=== PATIENT | female | born 2000 | race Hispanic/Latino ===

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

== ENCOUNTER 2021-10-25 03:47 | Inpatient (IN) | payer OTHER ==
--- OUTSIDE RECORDS SUMMARY | 2021-10-25 03:52 | XMS REPORT | Continuity of Care Document ---
:2000 Author Organization [facility] t Address [address] [place] [address] Care Team Providers Name Role Phone Maria [place] Primary Care Physician Nurse, [facility] Attending Clinician Unavailable Zeynep Olivares MD Attending Clinician ZEYNEP OLIVARES Attending Clinician Unavailable Doctor Unassigned, [place] Attending Clinician Unavailable Martina Charles LMSW Attending Clinician Unavailable Maria [place] Attending Clinician Sasha Shepard MD Attending Clinician Leyda Gregorio PA-C Attending Clinician 2, [facility] Attending Clinician Unavailable Payers Payer Name Policy Type Policy Number Effective Date Expiration Date S ource Problems Condition Condition Condition Status Onset Resolution Last Treating Co mments Source Name Details Category Date Date Treatment Clinician Date ASCUS with ASCUS with Disease Active U nivers positive positive 1-16 [place] 00 [place] cervical cervical Branch ASCUS with ASCUS with Disease Active U nivers positive positive 1-16 [place] risk [place] risk [place] 00 [place] cervical cervical Branch Obesity, Obesity, Disease Active Unive rs Class I, Class I, 9-08 ity of BMI BMI 00:00: [place] 30-34.9 30-34.9 00 Medical Branch 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 10-13 ity of 00:00: [place] 00 Medical Branch Family Family Disease Active Univers history of history of 10-13 it y of diabetes diabetes 00:00: [place] mellitus mellitus 00 Medica l (DM) (DM) Branch Allergies, Adverse Reactions, Alerts Allergy Allergy Status Severity Reaction(s) Onset Inactive Treating Comm ents Source Name Type Date Date Clinician NO KNOWN Drug Active Univers ALLERGIE Class ity of S [place] [facility] [place] Social History Social Habit Start Date Stop Date Quantity Comments Source History SDOH University o f Alcohol Frequency [place] [facility] History SDOH [facility] o f Alcohol Std [place] [facility] Drinks [facility] History SDOH [facility] o f Alcohol Binge [place] [facility] Exposure to 2021-06-28 2021-07-08 Not sure [facility] SARS-CoV-2 00:00:00 10:00:[facility] Alcohol intake 2021-07-08 2021-07-08 Current drinker Unive rsity of 00:00:00 00:00:00 of alcohol [place] [facility] (finding) Branch Tobacco use and 2018-10-10 2018-10-10 Never used Universit y of exposure 00:00:00 00:00:00 [facility] Alcohol Comment 2018-02-20 2018-02-20 Rare Universit y of 00:00:00 00:00:00 [facility] History of 2018-02-09 Smoker University of tobacco use 00:00:00 [facility] Sex Assigned At [birth year] Universit y of 00:00:00 00:00:00 [facility] Smoking Status Start Date Stop Date Source Former smoker 2018-10-10 00:00:00 2018-10-10 00:00:00 Universi ty of [facility] Current some day 2018-02-20 00:00:00 [facility] smoker Medical Branch Medications Ordered Filled Start Stop Current Ordering Indication Dosage Frequency Signature Comments Components Source Medication Medication Date Date Medication? Clinician (SIG) Name Name AMOXICILLIN 2020- No Take by Un viji ORAL 5-19 05-19 mouth. ity of 18:21: 00:00 [place] 37 :00 Medical Branch AMOXICILLIN 2020- No Take by Un v[facility] ORAL 5-19 05-19 mouth. ity of 18:21: 00:00 [place] 37 :00 Medical Branch metroNIDAZO 2019-0 Yes [id number] 500mg Take 1 Univers LE 500 mg 9-06 tablet by ity o f tablet 00:00: mouth [place] 00 every 12 Medical (twelve) Branch hours. metroNIDAZO 2019-0 Yes [id number] 500mg Take 1 Univers LE 500 mg 9-06 tablet by ity o f tablet 00:00: mouth [place] 00 every 12 Medical (twelve) Branch hours. metroNIDAZO 2019-0 Yes [id number] 500mg Take 1 Univers LE 500 mg 9-06 tablet by ity o f tablet 00:00: mouth [place] 00 every 12 Medical (twelve) Branch hours. metroNIDAZO 2019-0 Yes [id number] 500mg Take 1 Univers LE 500 mg 9-06 tablet by ity o f tablet 00:00: mouth [place] 00 every 12 Medical (twelve) Branch hours. metroNIDAZO 2019-0 Yes [id number] 500mg Take 1 Univers LE 500 mg 9-06 tablet by ity o f tablet 00:00: mouth [place] 00 every 12 Medical (twelve) Branch hours. metroNIDAZO 2018-0 Yes [id number] 500mg Take 1 Univers LE 500 mg 9-06 tablet by ity o f tablet 00:00: mouth [place] 00 every 12 Medical (twelve) Branch hours. metroNIDAZO 2019-0 202- No [id number] 500mg Take 1 Univers LE 500 mg 9-06 05-19 tablet by ity of tablet 00:00: 00:00 mouth [place] 00 :00 every 12 Medical (twelve) Branch hours. metroNIDAZO 2019-0 2021- No [id number] 500mg Take 1 Univers LE 500 mg 9-06 05-19 tablet by ity of tablet 00:00: 00:00 mouth [place] 00 :00 every 12 Medical (twelve) Branch hours. AMOXICILLIN 2019-0 Yes Take by Uni vers ORAL 9-05 mouth. ity of 13:11: [address] Branch AMOXICILLIN 2019-0 Yes Take by Uni vers ORAL 9-05 mouth. ity of 13:11: [address] AMOXICILLIN 2019-0 Yes Take by Uni vers ORAL 9-05 mouth. ity of 13:11: [address] AMOXICILLIN 2018-0 Yes Take by Uni vers ORAL 9-05 mouth. ity of 13:11: [address] AMOXICILLIN 2019-0 Yes Take by Uni vers ORAL 9-05 mouth. ity of 13:11: [address] AMOXICILLIN 2019-0 Yes Take by Uni vers ORAL 9-05 mouth. ity of 13:11: [address] AMOXICILLIN 2019-0 Yes Take by Uni vers ORAL 9-05 mouth. ity of 13:11: [address] AMOXICILLIN 2019-0 Yes Take by Uni vers ORAL 9-05 mouth. ity of 13:11: [address] AMOXICILLIN 2019-0 Yes Take by Uni vers ORAL 9-05 mouth. ity of 13:11: [address] metFORMIN 2019-0 Yes 1000mg Take 1,000 Univers 1,000 mg 9-05 mg by ity of tablet 13:10: mouth 2 [place] [address] ([facility]) Medical times [place] daily with meals. metFORMIN 2019-0 Yes 1000mg Take 1,000 Univers 1,000 mg 9-05 mg by ity of tablet 13:10: mouth 2 [place] [address] ([facility]) Medical times [place] daily with meals. metFORMIN 2019-0 Yes 1000mg Take 1,000 Univers 1,000 mg 9-05 mg by ity of tablet 13:10: mouth 2 [place] [address] ([facility]) Medical times [place] daily with meals. metFORMIN 2019-0 Yes 1000mg Take 1,000 Univers 1,000 mg 9-05 mg by ity of tablet 13:10: mouth 2 [place] [address] ([facility]) Medical times [place] daily with meals. metFORMIN 2019-0 Yes 1000mg Take 1,000 Univers 1,000 mg 9-05 mg by ity of tablet 13:10: mouth 2 [place] [address] ([facility]) Medical times [place] daily with meals. metFORMIN 2019-0 Yes 1000mg Take 1,000 Univers 1,000 mg 9-05 mg by ity of tablet 13:10: mouth 2 [place] [address] ([facility]) Medical times [place] daily with meals. metFORMIN 2019-0 Yes 1000mg Take 1,000 Univers 1,000 mg 9-05 mg by ity of tablet 13:10: mouth 2 [place] [address] ([facility]) Medical times [place] daily with meals. metFORMIN 2019-0 Yes 1000mg Take 1,000 Univers 1,000 mg 9-05 mg by ity of tablet 13:10: mouth 2 [place] [address] ([facility]) Medical times [place] daily with meals. metFORMIN 2019-0 Yes 1000mg Take 1,000 Univers 1,000 mg 9-05 mg by ity of tablet 13:10: mouth 2 [place] [address] (two) Medical times Branch daily with meals. metFORMIN 2019-0 Yes 1000mg Take 1,000 Univers 1,000 mg 9-05 mg by ity of tablet 13:10: mouth 2 [place] [address] (two) Medical times Branch daily with meals. metFORMIN 2019-0 Yes 1000mg Take 1,000 Univers 1,000 mg 9-05 mg by ity of tablet 13:10: mouth 2 [place] [address] (two) Medical times Branch daily with meals. metFORMIN 2019-0 Yes 1000mg Take 1,000 Univers 1,000 mg 9-05 mg by ity of tablet 08:10: mouth 2 [place] [address] (two) Medical times Branch daily with meals. metFORMIN 2019-0 Yes 1000mg Take 1,000 Univers 1,000 mg 9-05 mg by ity of tablet 08:10: mouth 2 [place] [address] (two) Medical times Branch daily with meals. metFORMIN 2019-0 Yes 1000mg Take 1,000 Univers 1,000 mg 9-05 mg by ity of tablet 08:10: mouth 2 [place] [address] (two) Medical times Branch daily with meals. metFORMIN 2019-0 Yes 1000mg Take 1,000 Univers 1,000 mg 9-05 mg by ity of tablet 08:10: mouth 2 [place] [address] (two) Medical times Branch daily with meals. Nitrofurant 2019-0 Yes [id number] 100mg Take 1 Univers oin&Nit. 9-05 capsule by ity o f Macrocryst 00:00: [place] (two) Medical capsule times Branch daily. Nitrofurant 2019-0 Yes [id number] 100mg Take 1 Univers oin&Nit. 9-05 capsule by ity o f Macrocryst 00:00: [place] (two) Medical capsule times Branch daily. Nitrofurant 2019-0 Yes [id number] 100mg Take 1 Univers oin&Nit. 9-05 capsule by ity o f Macrocryst 00:00: [place] 2 [place] (two) Medical capsule times Branch daily. Nitrofurant 2019-0 Yes [id number] 100mg Take 1 Univers oin&Nit. 9-05 capsule by ity o f Macrocryst 00:00: [place] 2 [place] (two) Medical capsule times Branch daily. Nitrofurant 2019-0 Yes [id number] 100mg Take 1 Univers oin&Nit. 9-05 capsule by ity o f Macrocryst 00:00: [place] 2 [place] (two) Medical capsule times Branch daily. Nitrofurant Yes [id number] 100mg Take 1 Univers oin&Nit. 9-05 capsule by ity o f Macrocryst 00:00: [place] 2 [place] mg 00 (two) Medical capsule times Branch daily. Nitrofurant Yes [id number] 100mg Take 1 Univers oin&Nit. 9-05 capsule by ity o f Macrocryst 00:00: [place] 2 [place] 00 (two) Medical capsule times Branch daily. Nitrofurant Yes [id number] 100mg Take 1 Univers oin&Nit. 9-05 capsule by ity o f Macrocryst 00:00: mouth 2 [place] mg 00 (two) Medical capsule times Branch daily. Nitrofurant Yes [id number] 100mg Take 1 Univers oin&Nit. 9-05 capsule by ity o f Macrocryst 00:00: [place] 2 [place] mg 00 (two) Medical capsule times Branch daily. Nitrofurant 2020- No [id number] 100mg Take 1 Univers oin&Nit. 9-05 05-19 capsule by ity of Macrocryst 00:00: 00:00 mouth 2 [place] 100 mg 00 :00 (two) Medical capsule times Branch daily. Nitrofurant 0 2020- No [id number] 100mg Take 1 Univers oin&Nit. 9-05 05-19 capsule by ity of Macrocryst 00:00: 00:00 mouth 2 [place] 100 mg 00 :00 (two) Medical capsule times Branch daily. lamoTRIgine Yes TK 1/2 T [facility] 100 mg 8-13 PO BID ity of tablet 00:00: [facility] lamoTRIgine 2018-0 Yes TK 1/2 T Un [facility] 100 mg 8-13 PO BID ity of tablet 00:00: [facility] lamoTRIgine 2018-0 Yes TK 1/2 T Un [facility] 100 mg 8-13 PO BID ity of tablet 00:00: [facility] lamoTRIgine 2018-0 Yes TK 1/2 T Un [facility] 100 mg 8-13 PO BID ity of tablet 00:00: [place] [facility] lamoTRIgine 2019-0 Yes TK 1/2 T Un [facility] 100 mg 8-13 PO BID ity of tablet 00:00: [place] [facility] lamoTRIgine 2019-0 Yes TK 1/2 T Un [facility] 100 mg 8-13 PO BID ity of tablet 00:00: [place] [facility] lamoTRIgine 2019-0 Yes TK 1/2 T Un [facility] 100 mg 8-13 PO BID ity of tablet 00:00: [place] [facility] lamoTRIgine 2018- Yes TK 1/2 T Un [facility] 100 mg 8-13 PO BID ity of tablet 00:00: [place] [facility] lamoTRIgine 2018- Yes TK 1/2 T Un [facility] 100 mg 8-13 PO BID ity of tablet 00:00: [place] [facility] lamoTRIgine Yes TK 1/2 T Un [facility] 100 mg 8-13 PO BID ity of tablet 00:00: [place] [facility] lamoTRIgine 2019-0 Yes TK 1/2 T Un [facility] 100 mg 8-13 PO BID ity of tablet 00:00: [place] [facility] lamoTRIgine 2019-0 Yes TK 1/2 T Un [facility] 100 mg 8-13 PO BID ity of tablet 00:00: [place] [facility] lamoTRIgine 2018-0 Yes TK 1/2 T Un [facility] 100 mg 8-13 PO BID ity of tablet 00:00: [place] [facility] lamoTRIgine 2019-0 Yes TK 1/2 T Un v[facility] 100 mg 8-13 PO BID ity of tablet 00:00: [place] [facility] lamoTRIgine 2019-0 Yes TK 1/2 T Un [facility] 100 mg 8-13 PO BID ity of tablet 00:00: [address] AMOXICILLIN 2019- Yes Take by Un v[facility] ORAL 1-16 mouth. ity of 16:43: [address] metFORMIN 2019-0 Yes 1000mg Take 1,000 Univers 1,000 mg 1-16 mg by ity of tablet 16:43: mouth 2 [place] [address] (two) Medical times [place] daily with meals. PROAIR HFA 2017- Yes INL 1 TO 2 U nivers 90 2-15 PFS PO Q 4 ity of mcg/actuati 00:00: TO 6 H PRN [place] on inhaler 00 Medical Branch LEVEMIR 2017-02 Yes ADM 80 UNI Univ ers FLEXTOUCH 2-15 SC QD ity of U-100 00:00: [place] INSULN 100 00 Medical unit/mL (3 Branch mL) injection PROAIR HFA 2017-02 Yes INL 1 TO 2 U nivers 90 2-15 PFS PO Q 4 ity of mcg/actuati 00:00: TO 6 H PRN [place] on inhaler 00 Medical Branch LEVEMIR 2017-02 Yes ADM 80 UNI Univ ers FLEXTOUCH 2-15 SC QD ity of U-100 00:00: [place] INSULN 100 00 Medical unit/mL (3 Branch mL) injection PROAIR HFA 2017-02 Yes INL 1 TO 2 U nivers 90 2-15 PFS PO Q 4 ity of mcg/actuati 00:00: TO 6 H PRN [place] on inhaler Medical Branch LEVEMIR 2017-02 Yes ADM 80 UNI Univ ers FLEXTOUCH 2-15 SC QD ity of U-100 00:00: [place] INSULN 100 00 Medical unit/mL (3 Branch mL) injection PROAIR HFA 2017-02 Yes INL 1 TO 2 U nivers 90 2-15 PFS PO Q 4 ity of mcg/actuati 00:00: TO 6 H PRN [place] on inhaler 00 Medical Branch LEVEMIR 2017-02 Yes ADM 80 UNI Univ ers FLEXTOUCH 2-15 SC QD ity of U-100 00:00: [place] INSULN 100 00 Medical unit/mL (3 Branch mL) injection PROAIR HFA 2017-02 Yes INL 1 TO 2 U nivers 90 2-15 PFS PO Q 4 ity of mcg/actuati 00:00: TO 6 H PRN [place] on inhaler 00 Medical Branch LEVEMIR 2017-02 Yes ADM 80 UNI Univ ers FLEXTOUCH 2-15 SC QD ity of U-100 00:00: [place] INSULN 100 00 Medical unit/mL (3 Branch mL) injection PROAIR HFA 2017-02 Yes INL 1 TO 2 U nivers 90 2-15 PFS PO Q 4 ity of mcg/actuati 00:00: TO 6 H PRN [place] on inhaler 00 Medical Branch LEVEMIR 2017-02 Yes ADM 80 UNI Univ ers FLEXTOUCH 2-15 SC QD ity of U-100 00:00: [place] INSULN 100 00 Medical unit/mL (3 Branch mL) injection PROAIR HFA 2017-02 Yes INL 1 TO 2 U nivers 90 2-15 PFS PO Q 4 ity of mcg/actuati 00:00: TO 6 H PRN [place] on inhaler 00 Medical Branch LEVEMIR 2017-02 Yes ADM 80 UNI Univ ers FLEXTOUCH 2-15 SC QD ity of U-100 00:00: [place] INSULN 100 00 Medical unit/mL (3 Branch mL) injection PROAIR HFA 2017-02 Yes INL 1 TO 2 U nivers 90 2-15 PFS PO Q 4 ity of mcg/actuati 00:00: TO 6 H PRN [place] on inhaler 00 Medical Branch LEVEMIR 2017-02 Yes ADM 80 UNI Univ ers FLEXTOUCH 2-15 SC QD ity of U-100 00:00: [place] INSULN 100 00 Medical unit/mL (3 Branch mL) injection PROAIR HFA 2017-02 Yes INL 1 TO 2 U nivers 90 2-15 PFS PO Q 4 ity of mcg/actuati 00:00: TO 6 H PRN [place] on inhaler 00 Medical Branch LEVEMIR 2017-02 Yes ADM 80 UNI Univ ers FLEXTOUCH 2-15 SC QD ity of U-100 00:00: [place] INSULN 100 00 Medical unit/mL (3 Branch mL) injection PROAIR HFA 2017-02 Yes INL 1 TO 2 U nivers 90 2-15 PFS PO Q 4 ity of mcg/actuati 00:00: TO 6 H PRN [place] on inhaler 00 Medical Branch PROAIR HFA 2017-02 Yes INL 1 TO 2 U nivers 90 2-15 PFS PO Q 4 ity of mcg/actuati 00:00: TO 6 H PRN [place] on inhaler 00 Medical Branch LEVEMIR 2017-02 Yes ADM 80 UNI Univ ers FLEXTOUCH 2-15 SC QD ity of U-100 00:00: [place] INSULN 100 00 Medical unit/mL (3 Branch mL) injection PROAIR HFA 2017-02 Yes INL 1 TO 2 U nivers 90 2-15 PFS PO Q 4 ity of mcg/actuati 00:00: TO 6 H PRN [place] on inhaler 00 Medical Branch LEVEMIR 2017-02 Yes ADM 80 UNI Univ ers FLEXTOUCH 2-15 SC QD ity of U-100 00:00: [place] INSULN 100 00 Medical unit/mL (3 Branch mL) injection LEVEMIR 2017-02 Yes ADM 80 UNI Univ ers FLEXTOUCH 2-15 SC QD ity of U-100 00:00: [place] INSULN 100 00 Medical unit/mL (3 Branch mL) injection PROAIR HFA 2017-02 Yes INL 1 TO 2 U nivers 90 2-15 PFS PO Q 4 ity of mcg/actuati 00:00: TO 6 H PRN [place] on inhaler 00 Medical Branch LEVEMIR 2017-02 Yes ADM 80 UNI Univ ers FLEXTOUCH 2-15 SC QD ity of U-100 00:00: [place] INSULN 100 00 Medical unit/mL (3 Branch mL) injection PROAIR HFA 2017-02 Yes INL 1 TO 2 U nivers 90 2-15 PFS PO Q 4 ity of mcg/actuati 00:00: TO 6 H PRN [place] on inhaler 00 Medical Branch LEVEMIR 2017-02 Yes ADM 80 UNI Univ ers FLEXTOUCH 2-15 SC QD ity of U-100 00:00: [place] INSULN 100 00 Medical unit/mL (3 Branch mL) injection PROAIR HFA 2017-02 Yes INL 1 TO 2 U nivers 90 2-15 PFS PO Q 4 ity of mcg/actuati 00:00: TO 6 H PRN [place] on inhaler 00 Medical Branch LEVEMIR 2017-02 Yes ADM 80 UNI Univ ers FLEXTOUCH 2-15 SC QD ity of U-100 00:00: [place] INSULN 100 00 Medical unit/mL (3 Branch mL) injection PROAIR HFA 2017-02 Yes INL 1 TO 2 U nivers 90 2-15 PFS PO Q 4 ity of mcg/actuati 00:00: TO 6 H PRN [place] on inhaler 00 Medical Branch LEVEMIR 2017-02 Yes ADM 80 UNI Univ ers FLEXTOUCH 2-15 SC QD ity of U-100 00:00: [place] INSULN 100 00 Medical unit/mL (3 Branch mL) injection SYMBICORT 2017-02 Yes INHALE 1 Univ ers 160-4.5 2-12 PUFF PO QD ity of mcg/actuati 00:00: [place] on inhaler 00 Medical Branch levothyroxi 2017-02 Yes TK 1 T PO U nivers ne 150 mcg 2-12 QD WHEN ity of tablet 00:00: AWAKENING [place] 00 WITH A Medical FULL GLASS Branch OF WATER ON AN EMPTY STOMACH SYMBICORT 2017-02 Yes INHALE 1 Univ ers 160-4.5 2-12 PUFF PO QD ity of mcg/actuati 00:00: [place] on inhaler Medical Branch levothyroxi 2018- Yes TK 1 T PO U nivers ne 150 mcg 2-12 QD WHEN ity of tablet 00:00: AWAKENING WITH A Medical FULL GLASS Branch OF WATER ON AN EMPTY STOMACH SYMBICORT 2017-02 Yes INHALE 1 Univ ers 160-4.5 2-12 PUFF PO QD ity of mcg/actuati 00:00: [place] on inhaler Medical Branch levothyroxi 2018- Yes TK 1 T PO U nivers ne 150 mcg 2-12 QD WHEN ity of tablet 00:00: AWAKENING WITH A Medical FULL GLASS Branch OF WATER ON AN EMPTY STOMACH SYMBICORT 2017-02 Yes INHALE 1 Univ ers 160-4.5 2-12 PUFF PO QD ity of mcg/actuati 00:00: on inhaler Medical Branch levothyroxi 2018- Yes TK 1 T PO U nivers ne 150 mcg 2-12 QD WHEN ity of tablet 00:00: AWAKENING WITH A Medical FULL GLASS Branch OF WATER ON AN EMPTY STOMACH SYMBICORT 2017-02 Yes INHALE 1 Univ ers 160-4.5 2-12 PUFF PO QD ity of mcg/actuati 00:00: [place] on inhaler Medical Branch levothyroxi 2018- Yes TK 1 T PO U nivers ne 150 mcg 2-12 QD WHEN ity of tablet 00:00: AWAKENING WITH A Medical FULL GLASS Branch OF WATER ON AN EMPTY STOMACH SYMBICORT 2017-02 Yes INHALE 1 Univ ers 160-4.5 2-12 PUFF PO QD ity of mcg/actuati 00:00: [place] on inhaler 00 Medical Branch levothyroxi 2018- Yes TK 1 T PO U nivers ne 150 mcg 2-12 QD WHEN ity of tablet 00:00: AWAKENING WITH A Medical FULL GLASS Branch OF WATER ON AN EMPTY STOMACH SYMBICORT 2017-02 Yes INHALE 1 Univ ers 160-4.5 2-12 PUFF PO QD ity of mcg/actuati 00:00: [place] on inhaler 00 Medical Branch levothyroxi 2018-1 Yes TK 1 T PO U nivers ne 150 mcg 2-12 QD WHEN ity of tablet 00:00: AWAKENING WITH A Medical FULL GLASS Branch OF WATER ON AN EMPTY STOMACH SYMBICORT 2017-02 Yes INHALE 1 Univ ers 160-4.5 2-12 PUFF PO QD ity of mcg/actuati 00:00: [place] on inhaler Medical Branch levothyroxi 2018- Yes TK 1 T PO U nivers ne 150 mcg 2-12 QD WHEN ity of tablet 00:00: AWAKENING WITH A Medical FULL GLASS Branch OF WATER ON AN EMPTY STOMACH SYMBICORT 2017-02 Yes INHALE 1 Univ ers 160-4.5 2-12 PUFF PO QD ity of mcg/actuati 00:00: [place] on inhaler Medical Branch levothyroxi 2017-02 Yes TK 1 T PO U nivers ne 150 mcg 2-12 QD WHEN ity of tablet 00:00: AWAKENING WITH A Medical FULL GLASS Branch OF WATER ON AN EMPTY STOMACH SYMBICORT 2017-02 Yes INHALE 1 Univ ers 160-4.5 2-12 PUFF PO QD ity of mcg/actuati 00:00: on inhaler 00 Medical Branch levothyroxi 2017-02 Yes TK 1 T PO U nivers ne 150 mcg 2-12 QD WHEN ity of tablet 00:00: AWAKENING WITH A Medical FULL GLASS Branch OF WATER ON AN EMPTY STOMACH SYMBICORT 2017-02 Yes INHALE 1 Univ ers 160-4.5 2-12 PUFF PO QD ity of mcg/actuati 00:00: [place] on inhaler 00 Medical Branch SYMBICORT 2018- Yes INHALE 1 Univ ers 160-4.5 2-12 PUFF PO QD ity of mcg/actuati 00:00: [place] on inhaler 00 Medical Branch levothyroxi 2018- Yes TK 1 T PO U nivers ne 150 mcg 2-12 QD WHEN ity of tablet 00:00: AWAKENING WITH A Medical FULL GLASS Branch OF WATER ON AN EMPTY STOMACH levothyroxi 2018 Yes TK 1 T PO U nivers ne 150 mcg 2-12 QD WHEN ity of tablet 00:00: AWAKENING WITH A Medical FULL GLASS Branch OF WATER ON AN EMPTY STOMACH SYMBICORT 2017-02 Yes INHALE 1 Univ ers 160-4.5 2-12 PUFF PO QD ity of mcg/actuati 00:00: on inhaler 00 Medical Branch levothyroxi 2018 Yes TK 1 T PO U nivers ne 150 mcg 2-12 QD WHEN ity of tablet 00:00: AWAKENING WITH A Medical FULL GLASS Branch OF WATER ON AN EMPTY STOMACH SYMBICORT 2017-02 Yes INHALE 1 Univ ers 160-4.5 2-12 PUFF PO QD ity of mcg/actuati 00:00: on inhaler Medical Branch levothyroxi 2017-02 Yes TK 1 T PO U nivers ne 150 mcg 2-12 QD WHEN ity of tablet 00:00: AWAKENING WITH A Medical FULL GLASS Branch OF WATER ON AN EMPTY STOMACH SYMBICORT 2017-02 Yes INHALE 1 Univ ers 160-4.5 2-12 PUFF PO QD ity of mcg/actuati 00:00: on inhaler Medical Branch levothyroxi 2017-02 Yes TK 1 T PO U nivers ne 150 mcg 2-12 QD WHEN ity of tablet 00:00: AWAKENING WITH A Medical FULL GLASS Branch OF WATER ON AN EMPTY STOMACH SYMBICORT 2017-02 Yes INHALE 1 Univ ers 160-4.5 2-12 PUFF PO QD ity of mcg/actuati 00:00: on inhaler Medical Branch levothyroxi 2017-02 Yes TK 1 T PO U nivers ne 150 mcg 2-12 QD WHEN ity of tablet 00:00: AWAKENING WITH A Medical FULL GLASS Branch OF WATER ON AN EMPTY STOMACH loratadine 2017-02 Yes TK 1 T PO Un viji 10 mg 1-15 QD ity of tablet 00:00: Medical Branch loratadine 2017-02 Yes TK 1 T PO Un [facility] 10 mg 1-15 QD ity of tablet 00:00: Medical Branch loratadine 2017-02 Yes TK 1 T PO Un v[facility] 10 mg 1-15 QD ity of tablet 00:00: Medical Branch loratadine 2017-02 Yes TK 1 T PO Un viji 10 mg 1-15 QD ity of tablet 00:00: Medical Branch loratadine 2017-02 Yes TK 1 T PO Un v[facility] 10 mg 1-15 QD ity of tablet 00:00: Medical Branch loratadine 2017-02 Yes TK 1 T PO Un v[facility] 10 mg 1-15 QD ity of tablet 00:00: [place] 00 Medical Branch loratadine 2017-02 Yes TK 1 T PO Un viji 10 mg 1-15 QD ity of tablet 00:00: [place] [facility] loratadine 2017-02 Yes TK 1 T PO Un viji 10 mg 1-15 QD ity of tablet 00:00: [place] [facility] loratadine 2017-02 Yes TK 1 T PO Un viji 10 mg 1-15 QD ity of tablet 00:00: [place] [facility] loratadine 2017-02 Yes TK 1 T PO Un viji 10 mg 1-15 QD ity of tablet 00:00: [place] [facility] loratadine 2017-02 Yes TK 1 T PO Un viji 10 mg 1-15 QD ity of tablet 00:00: [place] [facility] loratadine 2017-02 Yes TK 1 T PO Un viji 10 mg 1-15 QD ity of tablet 00:00: [place] [facility] loratadine 2017-02 Yes TK 1 T PO Un viji 10 mg 1-15 QD ity of tablet 00:00: [place] [facility] loratadine 2017-02 Yes TK 1 T PO Un viji 10 mg 1-15 QD ity of tablet 00:00: [place] [facility] loratadine 2017-02 Yes TK 1 T PO Un viji 10 mg 1-15 QD ity of tablet 00:00: [place] [facility] loratadine 2017-02 Yes TK 1 T PO Un viji 10 mg 1-15 QD ity of tablet 00:00: [place] 00 Medical Branch montelukast 2017-02 Yes TAKE 1 Univ ers 10 mg 1-02 TABLET BY ity of tablet 00:00: MOUTH [place] 00 EVERY DAY Medical IN THE Branch EVENING montelukast 2017-02 Yes TAKE 1 Univ ers 10 mg 1-02 TABLET BY ity of tablet 00:00: MOUTH [place] 00 EVERY DAY Medical IN THE Branch EVENING montelukast 2017-02 Yes TAKE 1 Univ ers 10 mg 1-02 TABLET BY ity of tablet 00:00: MOUTH [place] 00 EVERY DAY Medical IN THE Branch EVENING montelukast 2017-02 Yes TAKE 1 Univ ers 10 mg 1-02 TABLET BY ity of tablet 00:00: MOUTH [place] 00 EVERY DAY Medical IN THE Branch EVENING montelukast 2017-02 Yes TAKE 1 Univ ers 10 mg 1-02 TABLET BY ity of tablet 00:00: MOUTH [place] 00 EVERY DAY Medical IN THE [facility] 2017-02 Yes TAKE 1 Univ ers 10 mg 1-02 TABLET BY ity of tablet 00:00: MOUTH [place] 00 EVERY DAY Medical IN THE [facility] 2017-02 Yes TAKE 1 Univ ers 10 mg 1-02 TABLET BY ity of tablet 00:00: MOUTH [place] 00 EVERY DAY Medical IN THE [facility] 2017-02 Yes TAKE 1 Univ ers 10 mg 1-02 TABLET BY ity of tablet 00:00: MOUTH [place] 00 EVERY DAY Medical IN THE [facility] 2017-02 Yes TAKE 1 Univ ers 10 mg 1-02 TABLET BY ity of tablet 00:00: MOUTH [place] 00 EVERY DAY Medical IN THE [facility] 2017-02 Yes TAKE 1 Univ ers 10 mg 1-02 TABLET BY ity of tablet 00:00: MOUTH [place] 00 EVERY DAY Medical IN THE [facility] 2017-02 Yes TAKE 1 Univ ers 10 mg 1-02 TABLET BY ity of tablet 00:00: MOUTH [place] 00 EVERY DAY Medical IN THE [facility] 2017-02 Yes TAKE 1 Univ ers 10 mg 1-02 TABLET BY ity of tablet 00:00: MOUTH [place] 00 EVERY DAY Medical IN THE [facility] 2017-02 Yes TAKE 1 Univ ers 10 mg 1-02 TABLET BY ity of tablet 00:00: MOUTH [place] 00 EVERY DAY Medical IN THE [facility] 2017-02 Yes TAKE 1 Univ ers 10 mg 1-02 TABLET BY ity of tablet 00:00: MOUTH [place] 00 EVERY DAY Medical IN THE [facility] 2017-02 Yes TAKE 1 Univ ers 10 mg 1-02 TABLET BY ity of tablet 00:00: MOUTH [place] 00 EVERY DAY Medical IN THE [facility] 2017-02 Yes TAKE 1 Univ ers 10 mg 1-02 TABLET BY ity of tablet 00:00: MOUTH [place] 00 EVERY DAY Medical IN THE [place] EVENING blood sugar Yes [id number] 3 times Univers diagnostic 10-11 daily ity of (FREESTYLE 00:00: [place] LITE 00 Medical STRIPS) [place] strip lancets Yes [id number] 3 times Un viji (FREESTYLE 9-06 daily ity of LANCETS) 28 00:00: [place] gauge Misc 00 Medical Branch acetone, 2017- Yes [id number] Check with Univers urine, test 10-11 blood ity of (KETONE 00:00: sugars [place] URINE TEST) 00 >300 or if Me dical strip ill prn Branch blood sugar Yes [id number] 3 times Univers diagnostic 10-11 daily ity of (FREESTYLE 00:00: [place] LITE 00 Medical STRIPS) Branch strip lancets Yes [id number] 3 times Un viji (FREESTYLE 10-11 daily ity of LANCETS) 28 00:00: [place] gauge Misc 00 Medical Branch acetone, Yes [id number] Check with Univers urine, test 10-11 blood ity of (KETONE 00:00: sugars [place] URINE TEST) 00 >300 or if Me dical strip ill prn Branch blood sugar Yes [id number] 3 times Univers diagnostic 10-11 daily ity of (FREESTYLE 00:00: [place] LITE 00 Medical STRIPS) Branch strip lancets Yes [id number] 3 times Un viji (FREESTYLE 10-11 daily ity of LANCETS) 28 00:00: [place] gauge Misc 00 Medical Branch acetone, Yes [id number] Check with Univers urine, test 10-11 blood ity of (KETONE 00:00: sugars [place] URINE TEST) 00 >300 or if Me dical strip ill prn Branch blood sugar Yes [id number] 3 times Univers diagnostic 10-11 daily ity of (FREESTYLE 00:00: [place] LITE 00 Medical STRIPS) Branch strip lancets Yes [id number] 3 times Un viji (FREESTYLE 10-11 daily ity of LANCETS) 28 00:00: [place] gauge Misc 00 Medical Branch acetone, 2016- Yes [id number] Check with Univers urine, test 10-11 blood ity of (KETONE 00:00: sugars [place] URINE TEST) 00 >300 or if Me dical strip ill prn Branch blood sugar Yes [id number] 3 times Univers diagnostic 10-11 daily ity of (FREESTYLE 00:00: [place] LITE 00 Medical STRIPS) Branch strip lancets Yes [id number] 3 times Un viji (FREESTYLE 10-11 daily ity of LANCETS) 28 00:00: [place] gauge Misc 00 Medical Branch acetone, Yes [id number] Check with Univers urine, test 10-11 blood ity of (KETONE 00:00: sugars [place] URINE TEST) 00 >300 or if Me dical strip ill prn Branch blood sugar Yes [id number] 3 times Univers diagnostic 10-11 daily ity of (FREESTYLE 00:00: [place] LITE 00 Medical STRIPS) Branch strip lancets Yes [id number] 3 times Un viji (FREESTYLE 10-11 daily ity of LANCETS) 28 00:00: [place] gauge Misc 00 Medical Branch acetone, Yes [id number] Check with Univers urine, test 10-11 blood ity of (KETONE 00:00: sugars [place] URINE TEST) 00 >300 or if Me dical strip ill prn Branch blood sugar Yes [id number] 3 times Univers diagnostic 10-11 daily ity of (FREESTYLE 00:00: [place] LITE 00 Medical STRIPS) Branch strip lancets Yes [id number] 3 times Un viji (FREESTYLE 10-11 daily ity of LANCETS) 28 00:00: [place] gauge Misc 00 Medical Branch acetone, Yes [id number] Check with Univers urine, test 10-11 blood ity of (KETONE 00:00: sugars [place] URINE TEST) 00 >300 or if Me dical strip ill prn Branch blood sugar Yes [id number] 3 times Univers diagnostic 10-11 daily ity of (FREESTYLE 00:00: [place] LITE 00 Medical STRIPS) Branch strip lancets Yes [id number] 3 times Un viji (FREESTYLE 10-11 daily ity of LANCETS) 28 00:00: [place] gauge Misc 00 Medical Branch acetone, 2016- Yes [id number] Check with Univers urine, test 10-11 blood ity of (KETONE 00:00: sugars [place] URINE TEST) 00 >300 or if Me dical strip ill prn Branch blood sugar Yes [id number] 3 times Univers diagnostic 10-11 daily ity of (FREESTYLE 00:00: [place] LITE 00 Medical STRIPS) Branch strip blood sugar Yes [id number] 3 times Univers diagnostic 10-11 daily ity of (FREESTYLE 00:00: [place] LITE 00 Medical STRIPS) Branch strip lancets 2016- Yes [id number] 3 times Un viji (FREESTYLE - daily ity of LANCETS) 28 00:00: [place] gauge Misc 00 Medical Branch acetone, 2017-0 Yes [id number] Check with Univers urine, test 10-11 blood ity of (KETONE 00:00: sugars [place] URINE TEST) 00 >300 or if Me dical strip ill prn Branch lancets 2017 Yes [id number] 3 times Un viji (FREESTYLE 10-11 daily ity of LANCETS) 28 00:00: [place] gauge Misc 00 Medical Branch acetone, Yes [id number] Check with Univers urine, test 10-11 blood ity of (KETONE 00:00: sugars [place] URINE TEST) 00 >300 or if Me dical strip ill prn Branch blood sugar Yes [id number] 3 times Univers diagnostic 10-11 daily ity of (FREESTYLE 00:00: [place] LITE 00 Medical STRIPS) Branch strip lancets Yes [id number] 3 times Un viji (FREESTYLE 10-11 daily ity of LANCETS) 28 00:00: [place] gauge Misc 00 Medical Branch acetone, Yes [id number] Check with Univers urine, test 10-11 blood ity of (KETONE 00:00: sugars [place] URINE TEST) 00 >300 or if Me dical strip ill prn Branch blood sugar Yes [id number] 3 times Univers diagnostic 10-11 daily ity of (FREESTYLE 00:00: [place] LITE 00 Medical STRIPS) Branch strip lancets 2016- Yes [id number] 3 times Un viji (FREESTYLE 10-11 daily ity of LANCETS) 28 00:00: [place] gauge Misc 00 Medical Branch acetone, 2017- Yes [id number] Check with Univers urine, test - blood ity of (KETONE 00:00: sugars [place] URINE TEST) 00 >300 or if Me dical strip ill prn Branch blood sugar Yes [id number] 3 times Univers diagnostic 10-11 daily ity of (FREESTYLE 00:00: [place] LITE 00 Medical STRIPS) Branch strip lancets Yes [id number] 3 times Un viji (FREESTYLE 10-11 daily ity of LANCETS) 28 00:00: [place] gauge Misc 00 Medical Branch acetone, 2017-0 Yes [id number] Check with Univers urine, test 10-11 blood ity of (KETONE 00:00: sugars [place] URINE TEST) 00 >300 or if Me dical strip ill prn Branch blood sugar Yes [id number] 3 times Univers diagnostic 10-11 daily ity of (FREESTYLE 00:00: [place] LITE 00 Medical STRIPS) Branch strip lancets Yes [id number] 3 times Un viji (FREESTYLE 10-11 daily ity of LANCETS) 28 00:00: [place] gauge Misc 00 Medical Branch acetone, Yes [id number] Check with Univers urine, test 10-11 blood ity of (KETONE 00:00: sugars [place] URINE TEST) 00 >300 or if Me dical strip ill prn Branch blood sugar Yes [id number] 3 times Univers diagnostic 10-11 daily ity of (FREESTYLE 00:00: [place] LITE 00 Medical STRIPS) Branch strip lancets Yes [id number] 3 times Un viji (FREESTYLE 10-11 daily ity of LANCETS) 28 00:00: [place] gauge Misc 00 Medical Branch acetone, 2016-0 Yes [id number] Check with Univers urine, test 10-11 blood ity of (KETONE 00:00: sugars [place] URINE TEST) 00 >300 or if Me dical strip ill prn Branch blood sugar Yes [id number] 3 times Univers diagnostic 10-11 daily ity of (FREESTYLE 00:00: [place] LITE 00 Medical STRIPS) Branch strip lancets Yes [id number] 3 times Un viji (FREESTYLE 10-11 daily ity of LANCETS) 28 00:00: [place] gauge Misc 00 Medical Branch acetone, Yes [id number] Check with Univers urine, test 10-11 blood ity of (KETONE 00:00: sugars [place] URINE TEST) 00 >300 or if Me dical strip ill prn Branch Immunizations Ordered Filled Immunization Date Status Comments [facility] e Immunization Name Name HPV9 2021-07-08 Completed [facility] 00:00:00 [place] [facility] HPV9 2020-12-27 Completed University of 00:00:00 [place] [facility] HPV9 2020-12-27 Completed University of 00:00:00 [place] [facility] HPV9 2020-12-27 Completed University of 00:00:00 [place] [facility] HPV9 2020-12-27 Completed University of 00:00:00 [place] [facility] HPV9 2020-06-23 Completed University of 00:00:00 [place] [facility] HPV9 2020-06-23 Completed University of 00:00:00 [place] [facility] HPV9 2020-06-23 Completed University of 00:00:00 [place] [facility] HPV9 2020-06-23 Completed University of 00:00:00 [place] [facility] HPV9 2020-06-23 Completed University of 00:00:00 [place] [facility] HPV9 2020-06-23 Completed University of 00:00:00 [facility] Vital Signs Vital Name Observation Time Observation Value Comments Source Systolic blood 2021-07-08 15:09:00 138 mm[Hg] Univer sity of pressure [facility] Diastolic blood 2021-07-08 15:09:00 87 mm[Hg] Unive rsity of pressure [facility] Heart rate 2021-07-08 15:09:00 109 /min Universi ty [facility] Body temperature 2021-07-08 15:09:00 [facility].78 [facility] [place] [facility] rate 2021-07-08 15:09:00 18 /min [facility] Body height 2021-07-08 15:09:00 162.6 cm [facility] Body weight 2021-07-08 15:09:00 82.101 [facility] BMI 2021-07-08 15:09:00 31.07 kg/m2 [facility] Systolic blood 2020-12-27 21:08:00 124 mm[Hg] Univer sity of pressure [facility] Diastolic blood 2020-12-27 21:08:00 83 mm[Hg] Unive rsity of pressure [facility] Heart rate 2020-12-27 21:05:00 99 /min Universi [facility] Body temperature 2020-12-27 21:05:00 36.89 [facility] [place] [facility] Res[facility] rate 2020-12-27 21:05:00 18 /min Univ ersity [facility] [place] [facility] Body height 2020-12-27 21:05:00 162.6 cm Universi ty [facility] [place] [facility] Body weight 2020-12-27 21:05:00 80.287 kg Universi ty [facility] [place] [facility] BMI 2020-12-27 21:05:00 30.38 kg/m2 Universi ty [facility] [place] [facility] Systolic blood 2020-06-23 16:57:00 130 mm[Hg] Univer sity of pressure [place] [facility] Diastolic blood 2020-06-23 16:57:00 85 mm[Hg] Unive rsity of pressure [facility] Heart rate 2020-06-23 16:57:00 74 /min [facility] Body temperature 2020-06-23 16:57:00 36.72 Starr Univ ersity of [place] [facility] Respiratory rate 2020-06-23 16:57:00 16 /min Univ [facility] Body height 2020-06-23 16:57:00 162.6 cm Universi ty [facility] [place] [facility] Body weight 2020-06-23 16:57:00 79.47 kg Universi ty [facility] [place] [facility] BMI 2020-06-23 16:57:00 30.07 kg/m2 Universi ty [facility] [place] [facility] Systolic blood 2018-10-10 13:08:00 131 mm[Hg] Univer sity of pressure [facility] Diastolic blood 2018-10-10 13:08:00 90 mm[Hg] Unive rsity of pressure [facility] Heart rate 2018-10-10 13:08:00 90 /min Universi ty [facility] [place] [facility] Body temperature 2018-10-10 13:08:00 36.5 Starr Univ ersity of [place] [facility] Respiratory rate 2018-10-10 13:08:00 20 /min Univ ersity of [place] [facility] Body height 2018-10-10 13:08:00 162.6 cm Universi ty [facility] [place] [facility] Body weight 2018-10-10 13:08:00 83.915 kg [facility]i ty [facility] [place] [facility] BMI 2018-10-10 13:08:00 31.76 kg/m2 [facility] [place] [facility] Procedures Procedure Date / Time Performing Clinician Source Performed GARDASIL 9 (HPV 9V) 2021-07-08 15:11:46 Zeynep Olivares [facility] VACCINE [facility] ASSIGNMENT OF BENEFITS 2021-07-08 14:59:45 Doctor Unassigned, [facility] Name Medical [place] GARDASIL 9 (HPV 9V) 2020-12-27 21:12:28 Sasha Shepard [facility] GARDASIL 9 (HPV 9V) 2020-06-23 17:28:23 Zeynep Olivraes [facility] ASSIGNMENT OF BENEFITS 2020-06-23 16:17:19 Doctor Unassigned, [facility] Name Medical [place] REFERRAL- REQUEST/RESPONSE 2019-06-03 05:01:00 Doctor Carlos , [facility] Name [facility] EXTERNAL LAB CHLAMYDIA 2019-05-23 13:00:00 Doctor Unassgarcia, [facility] Name [facility] EXTERNAL PAP SMEAR 2019-05-23 13:00:00 Doctor Unakaro, [facility] Name [facility] NO SHOW OR MISSED 2018-10-10 12:56:20 Doctor Unassgarcia, [facility] APPOINTMENT POLICY [place] [facility] h ACKNOWLEDGEMENT POCT URINALYSIS 2018-10-10 00:00:00 Darline [facility] o f [facility] Encounters Start End Encounter Admission Attending Care Care Encounter Source Date/Time Date/Time Type Type Clinicians Facility Department ID 2021-07-08 2021-07-08 Nurse Nurse, [facility] [id number] Univers 10:00:00 10:13:56 Visit Zeynep Olivares [id number] isai [facility] [id number] Neri GU [phone] Al dical [place] [address] Branch [facility] 2021-07-08 2021-07-08 Outpatient R [facility] [id number] Univers 10:00:00 10:00:00 [id number] [facility] [place] [facility] 2021-07-08 2021-07-08 Outpatient R MARSHALL [facility] [id number] Univers 10:00:00 10:00:00 [facility] 2021-07-08 Outpatient R [facility] [id number] Univers 08:00:00 08:00:00 ity [facility] 2021-07-08 2021-07-08 Orders Doctor SHELL [id number] Univers 00:00:00 00:00:00 Only Unassigned, [place] [id number] ity of [place] [facility] [id number] [place] as [id number] [facility] 009 Branch 2021-06-27 2021-06-27 Outpatient R [facility] [id number] Univers 15:30:00 15:30:00 [id number] ity [facility] 2021-06-27 2021-06-27 Outpatient R [facility] [id number] Univers 15:30:00 15:30:00 ity [facility] 2021-03-04 2021-03-04 Alli MARELY CharlesSarah 1.2.840.114 [id number] Univers 00:00:00 00:00:00 Management Martina MINA [id number] ity [id number] [id number] [facility] 086 [place] 2020-12-27 2020-12-27 Nurse Nurse, [facility] [id number] Univers 14:55:40 15:08:40 Visit Zeynep Olivares [id number] ity of [id number] [place] [facility] [phone] [facility] 134 Branch [facility] 2020-12-27 2020-12-27 Outpatient R MARSHALL, [facility] [id number] Univers 14:30:00 15:08:40 ZEYNEP ity [facility] 2020-12-27 2020-12-27 Outpatient R [facility] [id number] Univers 14:30:00 14:30:00 [id number] ity [facility] 2020-12-24 2020-12-24 Outpatient R [facility] [id number] Univers 10:30:00 10:30:00 [id number] ity [facility] 2020-12-24 2020-12-24 Outpatient R [facility] [id number] Univers 10:30:00 10:30:00 ity of [facility] 2020-08-23 2020-08-23 Outpatient R [facility] [id number] Univers 10:30:00 10:30:00 [id number] ity [facility] 2020-08-23 2020-08-23 Outpatient R [facility] [id number] Univers 10:30:00 10:30:00 ity [facility] 2020-06-23 2020-06-23 Office Adum, [facility] 1.2.840.114 [id number] Univers 11:17:55 12:30:20 Visit Zeynep [place] [id number] ity [facility] [id number] [phone] Al dic[address] 2020-06-23 2020-06-23 Outpatient R ADUM, [facility] [id number] Univers 11:00:00 11:00:00 ZEYNEP [id number] ity [facility] 2020-06-23 2020-06-[address] [facility] [id number] Univers 11:00:00 11:00:00 ZEYNEP [facility] [place] [facility] 2020-06-23 2020-06-23 Orders Doctor GOFF 1.2.840.114 [id number] Univers 00:00:00 00:00:00 Only Unassigned, [place] [id number] ity of [facility] [id number] [place] as [phone] [address] 2020-06-17 2020-06-17 Outpatient R ADUM, [facility] [id number] Univers 08:30:00 08:30:00 ZEYNEP [id number] ity [facility] 2020-06-17 2020-06-17 Outpatient R ADUM, [facility] [id number] Univers 08:30:00 08:30:00 ZEYNEP [facility] [place] [facility] 2019-07-29 2019-07-29 Letter [place] 1.2.840.114 [id number] Univers 00:00:00 00:00:00 (Out) Maria Victoria Reyes [place] [id number] ity of HOSPITAL 4.2.7.2.686 [place] [phone] [facility] 019 [place] 2019-06-03 2019-06-03 Orders Doctor SHELL 1.2.840.114 [id number] Univers 00:00:00 00:00:00 Only Unassigned, [place] [id number] ity of [place] [facility] 4.2.7.2.686 [place] [phone] [facility] 009 [place] 2019-06-02 2019-06-02 Telephone Sasha Shepard [facility] 1.2.840.114 [id number] Univers 00:00:00 00:00:00 Inder [place] [id number] i ty of [id number] [id number] Al dical nal 134 [facility] 2018-10-11 2018-10-11 Case Darline [facility] [id number] Univers 00:00:00 00:00:00 Management [facility] [id number] ity of Surgical [id number] [place] Specialti [id number] Al dical es [address] [facility] 2018-10-10 2018-10-10 Inweaver 2, Adc Lab [facility] 1.2.840.114 [id number] Univers 08:35:38 08:50:38 Visit Leyda Gregorio [id number] ity [id number] Profess[place] [id number] Al dical nal 353 [facility] 2018-10-10 2018-10-10 Office Darline [facility] [id number] Univers 07:56:08 08:30:43 Visit Leyda [place] [id number] i ty of [place] [id number] Profess[place] [id number] Al dical nal 134 [facility] 2018-10-10 2018-10-10 Orders Doctor GOFF 1.2.840.114 [id number] Univers 00:00:00 00:00:00 Only Unassigned, [place] [id number] ity of [place] [facility] [id number] [facility] as [id number] [address] Results Test Description Test Time Test Comments Results Result Comments Source EXTERNAL PAP SMEAR 2019-05-28 00:00:00 Test Item Value Reference Range Interpretation Comme nts TRUE (test code = TRUE) Please see External Provided 06/2019 : 2019 (20) | Collected: 05/23/2019 | Ordering Physician: LAEX Carson Gender: F | Received: 05/25/2019 | Reported: 05/28/2019 CLINICAL HISTORY: Routine ExaminationSPECIMEN SOURCE: Cervical/Endocervical, ThinPrep with Image Assisted Technology PAP RESULTSpecimen Adequacy: Satisfactory. Endocervical/transformation zone component absent. General Diagnostic Category: EPITHELIAL CELL ABNORMALITY-SQUAMOUS Interpretation:Atypical Squamous cells of Undetermined Significance (ASC-US) Educational Notes/Suggestions:Close follow-up is indicated at more frequent intervals. One or more atypical paps may be an indications for colposcopy. Screened By" [place] 05/26/2019 4:55:37PMSigned by: Ingris Mojica M.D. (Electronic Signature)05/27/2019 10:00am Molecular Tests- Current Results HPV: HPV High Risk: POSITIVEHPV Genotyping 16: NEGATIVEHPV Genotyping 18: NEGATIVE Lab Interpretation (test code = Abnormal 55361-3) [facility] [id number] 00:00:00 Test Item Value Reference Range Interpretation Comments External Chlamydia AB Panel (test Positive Negative A code = 5044) Lab Interpretation (test code = Abnormal 17051-0) [facility] W SPECIFIC [id number] 13:13:00 Test Item Value Reference Range Interpretation Comments POCT U SP GRAV (test code = 1.020 mg/dl 1.005-1.025 3255) POCT PH U (test code = 3254) 5 mg/dl 5-8 POCT U LEUK EST (test code = NEG Negative - Negative 3263) POCT U NIT (test code = 3262) POSITIVE Negative - Negative POCT U PROT (test code = NEG Negative - Negative 3259) POCT U GLU (test code = 3256) Negative - Negative POCT U KETONE (test code = NEG Negative - Negative 3258) POCT U UROBILI (test code = NEG 0.2-1 3260) POCT U BILI (test code = NEG Negative - Negative 3261) POCT U BLD (test code = 3257) TRACE Negative - Negative POCT U COLOR (test code = YELLOW 3266) POCT U APPEAR (test code = CLOUDY 3267) Lab Interpretation (test code Abnormal = 88091-2) [facility] SPECIFIC [id number] 13:13:00 Test Item Value Reference Range Interpretation Comments POCT U SP GRAV (test code = 1.020 mg/dl 1.005-1.025 3255) POCT PH U (test code = 3254) 5 mg/dl 5-8 POCT U LEUK EST (test code = NEG Negative - Negative 3263) POCT U NIT (test code = 3262) POSITIVE Negative - Negative POCT U PROT (test code = NEG Negative - Negative 3259) POCT U GLU (test code = 3256) Negative - Negative POCT U KETONE (test code = NEG Negative - Negative 3258) POCT U UROBILI (test code = NEG 0.2-1 3260) POCT U BILI (test code = NEG Negative - Negative 3261) POCT U BLD (test code = 3257) TRACE Negative - Negative POCT U COLOR (test code = YELLOW 3266) POCT U APPEAR (test code = CLOUDY 3267) Lab Interpretation (test code Abnormal = 45819-8) [facility]
[2021-10-25 04:48] LABS: Urine Blood 1+ (Negative); Urine Glucose 2+ (Negative); Urine Protein 1+ (Negative); Urine pH 5.5 (5.0-7.0)
[2021-10-25] MEDS ORDERED: NA CHLORIDE 0.9% 1,000 ML ONE ×4 (04:48→19:08)
[2021-10-25] MEDS ORDERED: ONDANSETRON 4 MG/2 ML VIAL ONE ×3 (04:48→17:42)
[2021-10-25] MEDS ORDERED: FAMOTIDINE 20 MG/2 ML VIAL IV ONE (04:48)
[2021-10-25 05:13] LABS: Urine Bacteria <20 /HPF (<20); Urine Mucus Slight /HPF (None Seen); Urine WBC Clump Rare /HPF (None Seen)
[2021-10-25] MEDS ORDERED: Ringers Lactate 1,000 ML IV ONE (05:16)
[2021-10-25 05:39] LABS: Absolute Lymphocytes (CBC) 0.6 K/uL (0.7-4.9); Hematocrit 34.1 % (36.0-45.0); Lymphocytes % 5.4 % (15.3-44.8); MCV 87.6 fL (80-100); MPV 10.4 fL (7.6-11.3)
[2021-10-25 05:50] LABS: Albumin 2.8 g/dL (3.4-5.0); Bilirubin Total 1.1 mg/dL (0.2-1.0); Potassium 3.3 mmol/L (3.5-5.1); Protein, Total 6.9 g/dL (6.4-8.2)
[2021-10-25] MEDS ORDERED: MORPHINE 4 MG/ML SYR ONE (05:53)
--- NOTE | 2021-10-25 06:14 | RAD REPORT ---
EXAM DESCRIPTION: CT - Abdomen Pelvis Wo Contrast - 10/25/2021 5:38 am CLINICAL HISTORY: Bilateral flank pain, SP abdominal pain COMPARISON: <Comparisons> CT study 09/15/2016 TECHNIQUE: Axial [address] imaging of the abdomen and pelvis was performed without IV contrast. No IV contrast was given because of allergy, abnormal renal function, patient refusal or physician re quest. No oral contrast administered. All CT scans are performed using dose optimization technique as appropriate and may include automated exposure control or mA/KV adjustment according to patient size. FINDINGS: No suspicious findings in the lung bases. Diffuse fatty infiltration is seen in the liver which is upper normal to slightly enlarged. Size and fat infiltration pattern match the 2017 study. No focally liver lesions on noncontrast imaging. Pancr eas and spleen show no suspicious findings. Gallbladder and biliary tree are also without suspicious finding. No hydronephrosis present. No obstructing or nonobstructing calculi seen. Both kidneys appear [place] us and there is stranding in the perinephric fat. There is edema or stranding along the renal pelves and proximal most ureters. This pattern is commonly seen with bilateral pyelonephritis and correlatio n is needed with any supporting clinical findings. No significant adrenal finding. Isodense renal mas ses and pyelonephritis cannot be excluded in the absence of IV contrast. Banks of the partially fille d urinary bladder show no wall thickening. No edema adjacent the bladder. Uterus and ovaries show no suspicious findings. No dilated bowel loops or bowel wall thickening. No appendicitis findings. No free air, free fluid or inflammatory stranding. No hernia, mass or bulky lymphadenopathy. No suspicious bony findings. IMPRESSION: Bilateral renal edema and perinephric stranding. This is most likely moderate bilateral pyelonephritis and correlation is needed with clinical and laboratory findings. No cystitis or acute urinary bladder finding seen. Borderline to mild hepatomegaly and fatty infiltration the liver. These are stable from 2017. Full assessment is limited is the absence of IV contrast.
[2021-10-25] MEDS ORDERED: INSULIN -REGULAR HUMAN 50 UNIT/0.5 ML ML ONE ×4 (06:17→21:34)
[2021-10-25] MEDS ORDERED: POTASSIUM 25 MEQ EFFERV TAB ONE (06:18)
[2021-10-25] MEDS ORDERED: CEFTRIAXONE 1000 MG/VIAL ONE ×2 (06:18→18:12)
--- NOTE | 2021-10-25 06:21 | EDPHYS ---
Physician Documentation [facility] Name: Hilda Head Age: 21 yrs Sex: Female : 2000 Arrival Date: 10/25/2021 Time: 03:52 Bed 24 Private MD: ED Physician Cosmo Simons HPI: 10/25 04:12 This 21 yrs old Female presents to ER via Unassigned with complaints of ms3 Possible Kidney Stone, Abdominal Pain, Decreased Appetite, Vomiting. 04:12 21-year-old female with past medical history of diabetes presents for bilateral flank ms3 pain and lower abdominal pain that began 2 days prior to arrival. Patient states her pain is a 9/10 described as sharp. Patient denies alleviating or inciting factors. Patient endorses nausea and vomiting. Patient denies diarrhea, chills, fever.. 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 - Social history:: Smoking status: Patient denies any tobacco usage or history of. ROS: 04:12 Constitutional: Negative for fever, and chills. Neck: Negative for injury, pain, and ms3 swelling, Cardiovascular: Negative for chest pain, and palpitations. Respiratory: Negative for shortness of breath, cough, wheezing, and pleuritic chest pain. 04:12 Skin: Negative for injury, rash, and discoloration. 04:12 Abdomen/GI: Positive for abdominal pain, nausea and vomiting. 04:12 All other systems are negative. Exam: 04:12 Constitutional: This is a well developed, well nourished patient who is awake, alert, ms3 and in no acute distress. Head/Face: Normocephalic, atraumatic. Neck: Trachea midline, no cervical lymphadenopathy. Supple, full range of motion without nuchal rigidity, or vertebral point tenderness. No Meningismus. Chest/axilla: Normal chest wall appearance and motion. Nontender with no deformity. Cardiovascular: Regular rate and rhythm with a normal S1 and S2. No gallops, murmurs, or rubs. Normal PMI, no JVD. No pulse deficits. Respiratory: Lungs have equal breath sounds bilaterally, clear to auscultation and percussion. No rales, rhonchi or wheezes noted. No increased work of breathing, no retractions or nasal flaring. Skin: Warm, dry with normal turgor. Normal color with no rashes, no lesions, and no evidence of cellulitis. MS/ Extremity: Pulses equal, no cyanosis. Neurovascular intact. Full, normal range of motion. Neuro: Awake and alert, GCS 15, oriented to person, place, time, and situation. Cranial nerves II-XII grossly intact. Motor strength 5/5 in all extremities. Sensory grossly intact. Cerebellar exam normal. Normal gait. 04:12 Abdomen/GI: Bowel sounds: normal, Palpation: mild abdominal tenderness. 04:12 Back: CVA tenderness, that is moderate, is noted bilaterally. Vital Signs: 04:06 BP 105 / 70; Pulse 121; Resp 17 S; Pulse Ox 100% on R/A; aa9 04:15 BP 105 / 61; Pulse 127; Resp 19 S; Pulse Ox 100% on R/A; aa9 04:16 BP 105 / 70; Pulse 127; Resp 20 S; Temp 98.6(O); Pulse Ox 100% on R/A; Weight 83.01 kg bb (R); Height 5 ft. 4 in. (162.56 cm) (R); Pain 10/10; 05:15 BP 109 / 85; Pulse 120; Resp 17 S; Pulse Ox 100% on R/A; aa9 05:45 BP 117 / 77; Pulse 121; Resp 17 S; Pulse Ox 99% on R/A; aa9 07:25 BP 128 / 89; Pulse 126; Resp 18; Temp 102.3(O); Pulse Ox 98% on R/A; Pain 3/10; jh6 08:40 Temp 102.7(O); mb4 09:02 BP 104 / 57; Pulse 130; Resp 18; Pulse Ox 100% ; Pain 3/10; jh6 04:16 Body Mass Index 31.41 (83.01 kg, 162.56 cm) bb MDM: 04:12 Patient medically screened. ms3 04:12 Differential diagnosis: Nonspecific abd pain, appendicitis, diverticulitis, ms3 pyelonephritis vs ureterolithiasis. 06:20 Data reviewed: vital signs, nurses notes, lab test result(s), radiologic studies, and ms3 as a result, I will admit patient. Data interpreted:. Counseling: I had a detailed discussion with the patient and/or guardian regarding: the historical points, exam findings, and any diagnostic results supporting the discharge/admit diagnosis, lab results, radiology results, the need for further work-up and treatment in the hospital. ED course: Discussed case with Dr Souza and he accepts patient. Discussed plan for admission with patient and she understands/ agrees with plan. Patient remains in stable condition in the ED.. 10/25 04:15 Order name: CBC with Diff; Complete Time: 05:52 ms3 10/25 04:15 Order name: CMP; Complete Time: 05:52 ms3 10/25 04:15 Order name: Lipase; Complete Time: 05:52 ms3 10/25 04:15 Order name: Urine Microscopic Only; Complete Time: 05:21 ms3 10/25 04:48 Order name: Urine Dipstick-Ancillary; Complete Time: 05:00 EDMS 10/25 05:16 Order name: Urine Culture EDMS 10/25 05:54 Order name: Blood Culture Adult (2) ms3 10/25 06:26 Order name: SARS RAPID as6 10/25 07:00 Order name: Glucose, Ancillary Testing EDMS 10/25 07:02 Order name: Glucose, Ancillary Testing EDMS 10/25 08:33 Order name: CBC with Automated Diff EDMS 10/25 08:33 Order name: CBC with Automated Diff EDMS 10/25 08:33 Order name: Comprehensive Metabolic Panel EDMS 10/25 08:33 Order name: Comprehensive Metabolic Panel EDMS 10/25 08:33 Order name: Hemoglobin A1c EDMS 10/25 08:33 Order name: Hemoglobin A1c EDMS 10/25 08:33 Order name: Lipid Profile EDMS 10/25 08:33 Order name: Lipid Profile EDMS 10/25 08:47 Order name: Glucose, Ancillary Testing EDMS 10/25 11:41 Order name: Glucose, Ancillary Testing EDMS 10/25 14:23 Order name: Glucose, Ancillary Testing EDMS 10/25 16:32 Order name: Glucose, Ancillary Testing EDMS 10/25 20:03 Order name: Gram Stain--Aerobic Bottle EDMS 10/25 20:03 Order name: Gram Stain--Anaerobic Bottle EDMS 10/25 21:25 Order name: Glucose, Ancillary Testing EDMS 10/26 01:28 Order name: Glucose, Ancillary Testing EDMS 10/26 03:07 Order name: Manual Differential EDMS 10/26 08:44 Order name: Glucose, Ancillary Testing EDMS 10/26 10:20 Order name: Lactate EDMS 10/26 11:29 Order name: Procalcitonin EDMS 10/25 04:15 Order name: CT Abd/Pelvis - Without Contrast; Complete Time: 06:17 ms3 10/25 04:15 Order name: IV Saline Lock; Complete Time: 04:39 ms3 10/25 04:15 Order name: Labs collected and sent; Complete Time: 04:39 ms3 10/25 04:15 Order name: Urine Dipstick-Ancillary (obtain specimen); Complete Time: 04:52 ms3 10/25 04:15 Order name: Urine Test (obtain specimen); Complete Time: 04:52 ms3 10/25 08:33 Order name: 60g Consistent Carbohydrate (ADA 1800/2000) EDMS 10/26 10:32 Order name: RAD EDMS 10/26 12:31 Order name: Glucose, Ancillary Testing EDMS 10/26 13:25 Order name: T4 Free EDMS 10/26 13:25 Order name: Thyroid Stimulating Hormone EDMS Administered Medications: 04:47 Drug: Zofran (Ondansetron) 4 mg Route: IVP; Site: right antecubital; aa9 05:51 Follow up: Response: No adverse reaction aa9 04:50 Drug: Pepcid (famotidine) 20 mg Route: IVP; Site: right antecubital; aa9 05:51 Follow up: Response: No adverse reaction aa9 04:52 Drug: NS 0.9% 1000 ml Route: IV; Rate: 1 bolus; Site: right antecubital; aa9 06:51 Follow up: Response: No adverse reaction; IV Status: Completed infusion; IV Intake: aa9 1000ml 05:09 Drug: Lactated Ringers Solution 1000 ml Route: IV; Rate: bolus; Site: right antecubital;aa9 05:48 Drug: morphine 4 mg Route: IVP; Infused Over: 4 mins; Site: right antecubital; as6 06:50 Follow up: Response: No adverse reaction; RASS: Alert and Calm (0) aa9 06:18 Drug: Insulin Regular Human 10 units {Co-Signature: as6 (Avery Sultana RN).} Route: aa9 IVP; Site: right antecubital; 06:50 Follow up: Response: No adverse reaction aa9 06:44 Drug: Rocephin (cefTRIAXone) 1 grams Route: IV; Rate: calculated rate; Site: right aa9 antecubital; 06:50 Follow up: Response: No adverse reaction; IV Status: Completed infusion; IV Intake: 40migg8 06:44 Drug: Potassium Effervescent Tablet 50 mEq Route: PO; aa9 06:50 Follow up: Response: No adverse reaction aa9 07:30 Drug: Tylenol 1000 mg Route: PO; 6 Disposition Summary: 10/25/21 06:21 Hospitalization Ordered Hospitalization Status: Inpatient Admission ms3 Provider: Meredith Souza ms3 Condition: Stable ms3 Problem: new ms3 Symptoms: are unchanged ms3 Bed/Room Type: Standard ms3 Location: Telemetry/MedSurg (Inpatient)(10/26/21 13:34) dw Room Assignment: [facility](10/26/21 13:34) dw Diagnosis - Pyelonephritis acute ms3 - Type 1 diabetes mellitus with hyperglycemia ms3 - Tachycardia, unspecified ms3 - Hypokalemia ms3 Forms: - Medication Reconciliation Form ms3 - SBAR form ms3 Signatures: Dispatcher [employer] Chitra Centeno RN RN dw Natasha Pardo RN RN Ko Li RN RN [id number] Cosmo Simons DO DO ms3 Avery Sultana RN RN as6 Komal Connors RN RN jh6 Bisi Olvera RN RN aa9 Katherine Schwartz, PA-C PA-C sb4 Avery Sultana RN as6 Corrections: (The following items were deleted from the chart) 04:21 04:18 PMHx: Hypothyroidism; [facility] 04:21 04:18 PMHx: Diabetes - NIDDM; [facility] 12:50 06:21 Telemetry/MedSurg (Inpatient) ms3 jl7 12:50 06:21 ms3 jl7 10/26 13:34 10/25 12:50 [facility] ER HOLD jl7 dw 10/26 13:34 10/25 12:50 ERHOLD- jl7 dw
--- NOTE | 2021-10-25 06:21 | ER ---
Nurse's Notes [facility] Name: Hilda Head Age: 21 yrs Sex: Female : 2000 Arrival Date: 10/25/2021 Time: 03:52 Bed 24 Private MD: Diagnosis: Pyelonephritis acute;Type 1 diabetes mellitus with hyperglycemia;Tachycardia, unspecified;Hypokalemia Presentation: 10/25 04:16 Chief complaint: Patient states: she is having back pain, abdominal pain, vomiting x 2 bb days she was dx with a UTI last week and started on bactrim. Coronavirus screen: At this time, the client does not indicate any symptoms associated with coronavirus-19. Ebola Screen: No symptoms or risks identified at this time. Initial Sepsis Screen: Does the patient meet any 2 criteria? HR > 90 bpm. Does the patient have a suspected source of infection? Yes: Dysuria/Frequency/Urgency/UTI. Risk Assessment: Do you want to hurt yourself or someone else? Patient reports no desire to harm self or others. Onset of symptoms was October 23, 2021. 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 - Social history:: Smoking status: Patient denies any tobacco usage or history of. Screenin:16 Abuse screen: Denies threats or abuse. Denies injuries from another. Nutritional aa9 screening: No deficits noted. Tuberculosis screening: No symptoms or risk factors identified. Fall Risk None identified. Assessment: 04:53 General: Appears uncomfortable, Behavior is cooperative, anxious. Pain: Complains of aa9 pain in abdomen. 07:24 General: Appears in no apparent distress. Behavior is calm, cooperative. Pain: jh6 Complains of pain in abdomen Pain radiates to left mid back and right mid back Pain currently is 2 out of 10 on a pain scale. Quality of pain is described as aching, crampy, sharp. GI: Bowel sounds present X 4 quads. Abd is soft X 4 quads. 09:01 Reassessment: Patient and/or family updated on plan of care and expected duration. Pain jh6 level reassessed. Patient is alert, oriented x 3, equal unlabored respirations, skin warm/dry/pink. Temperature is still elevated, educated pt again on keeping all blankets off except for thin sheet until fever is reduced. Call light in reach. Vital Signs: 04:06 BP 105 / 70; Pulse 121; Resp 17 S; Pulse Ox 100% on R/A; aa9 04:15 BP 105 / 61; Pulse 127; Resp 19 S; Pulse Ox 100% on R/A; aa9 04:16 BP 105 / 70; Pulse 127; Resp 20 S; Temp 98.6(O); Pulse Ox 100% on R/A; Weight 83.01 kg bb (R); Height 5 ft. 4 in. (162.56 cm) (R); Pain 10/10; 05:15 BP 109 / 85; Pulse 120; Resp 17 S; Pulse Ox 100% on R/A; aa9 05:45 BP 117 / 77; Pulse 121; Resp 17 S; Pulse Ox 99% on R/A; aa9 07:25 BP 128 / 89; Pulse 126; Resp 18; Temp 102.3(O); Pulse Ox 98% on R/A; Pain 3/10; jh6 08:40 Temp 102.7(O); mb4 09:02 BP 104 / 57; Pulse 130; Resp 18; Pulse Ox 100% ; Pain 3/10; jh6 04:16 Body Mass Index 31.41 (83.01 kg, 162.56 cm) bb ED Course: 03:52 Patient arrived in ED. ja2 04:04 Cosmo Simons DO is Attending Physician. ms3 04:18 Triage completed. bb 04:18 Arm band placed on Patient placed in an exam room, on a stretcher, on pulse oximetry. bb Family accompanied patient. 04:27 Missed attempt(s): 20 gauge in left antecubital area. Bleeding controlled, band aid aa9 applied, catheter tip intact. 04:30 Inserted saline lock: 20 gauge in right antecubital area, using aseptic technique. aa9 Blood collected. 04:39 CBC with Diff Sent. aa9 04:39 CMP Sent. aa9 04:39 Lipase Sent. aa9 04:53 Bisi Olvera, RN is Primary Nurse. aa9 05:16 Patient has correct armband on for positive identification. Bed in low position. Call aa9 light in reach. Adult w/ patient. 05:40 CT Abd/Pelvis - Without Contrast In Process Unspecified. EDMS 05:51 Notified ED physician of a critical lab result(s). glucose of 480 Dr Simons notified. bb 05:55 Warm blanket given. aa9 06:20 Meredith Souza MD is Hospitalizing Provider. ms3 07:07 Primary Nurse role handed off by Bisi Olvera, RN jl7 07:16 Komal Connors, BENY is Primary Nurse. jh6 Administered Medications: 04:47 Drug: Zofran (Ondansetron) 4 mg Route: IVP; Site: right antecubital; aa9 05:51 Follow up: Response: No adverse reaction aa9 04:50 Drug: Pepcid (famotidine) 20 mg Route: IVP; Site: right antecubital; aa9 05:51 Follow up: Response: No adverse reaction aa9 04:52 Drug: NS 0.9% 1000 ml Route: IV; Rate: 1 bolus; Site: right antecubital; aa9 06:51 Follow up: Response: No adverse reaction; IV Status: Completed infusion; IV Intake: aa9 1000ml 05:09 Drug: Lactated Ringers Solution 1000 ml Route: IV; Rate: bolus; Site: right antecubital;aa9 05:48 Drug: morphine 4 mg Route: IVP; Infused Over: 4 mins; Site: right antecubital; as6 06:50 Follow up: Response: No adverse reaction; RASS: Alert and Calm (0) aa9 06:18 Drug: Insulin Regular Human 10 units {Co-Signature: as6 (Avery Sultana RN).} Route: aa9 IVP; Site: right antecubital; 06:50 Follow up: Response: No adverse reaction aa9 06:44 Drug: Rocephin (cefTRIAXone) 1 grams Route: IV; Rate: calculated rate; Site: right aa9 antecubital; 06:50 Follow up: Response: No adverse reaction; IV Status: Completed infusion; IV Intake: [id number] 06:44 Drug: Potassium Effervescent Tablet 50 mEq Route: PO; aa9 06:50 Follow up: Response: No adverse reaction aa9 07:30 Drug: Tylenol 1000 mg Route: PO; 6 Intake: 06:50 IV: 10ml; Total: 10ml. aa9 06:51 IV: 1000ml; Total: 1010ml. aa9 Outcome: 06:21 Decision to Hospitalize by Provider. ms3 10/26 16:14 Patient left the ED. aa5 Signatures: Dispatcher [employer] EDMS Natasha Pardo RN RN bb Estrella Gonzalez RN RN aa5 Ko Sethi RN RN jl7 Keri Tracey mb4 Cosmo Simons DO DO ms3 Sadie Horn 2 Avery Sultana RN RN as6 Komal Connors RN RN 6 Bisi Olvera RN RN aa9 Avery Sultana RN as6 Corrections: (The following items were deleted from the chart) 10/25 04:21 04:18 PMHx: Hypothyroidism; [facility] 04:21 04:18 PMHx: Diabetes - NIDDM; [facility] 04:37 04:36 Inserted saline lock: 20 gauge in left antecubital area, using aseptic technique. aa9 Blood collected. aa9 05:55 04:53 GI: aa9 aa9
[2021-10-25 06:49] LABS: SARS-CoV-2 Antigen Rapid Res Negative (Negative)
[2021-10-25] MEDS ORDERED: ACETAMINOPHEN 500 MG TAB ONE ×2 (07:37→16:31)
--- NOTE | 2021-10-25 08:27 | P.HP ---
Certification for Inpatient Patient admitted to: Observation With expected LOS: <2 Midnights Patient will require the following post-hospital care: None Practitioner: I am a practitioner with admitting privileges, knowledge of patient current condition, hospital course, and medical plan of care. Services: Services provided to patient in accordance with Admission requirements found in Title 42 Section 412.3 of the Code of Federal Regulations Patient History Date of Service: 10/25/21 Reason for admission: Bilateral pyelonephritis History of Present Illness: Patient is a 21-year-old female came to the hospital with flank tenderness. She was seen in the emergency room and she had a temp of 101. Urine analysis was positive for UTI. She was still having some nausea and a CT scan was obtained which revealed bilateral pyelonephritis. Patient will be admitted to the hospital for IV antibiotic therapy. Patient is also poorly controlled diabetic. We will check a hemoglobin A1c. Strict blood sugar control during her hospitalization. Allergies No Known Allerg Allergy (Uncoded 04/26/18 08:44) Unknown Home Medications: Budesonide/Formoterol Fumarate [Symbicort 80-4.5 Mcg Inhaler] 2 puff IH BID 04/26/18 Insulin Detemir [Levemir Flextouch] 20 unit SQ DAILY 04/26/18 Lamotrigine [Lamotrigine ER] 25 mg PO DAILY 04/26/18 Levothyroxine Sodium 150 mcg PO DAILY 04/26/18 Medroxyprogester [Depo Provera] 150 mg IM ONCE 04/26/18 Metformin HCl 1,000 mg PO DAILY 04/26/18 Montelukast [Singulair] 10 mg PO DAILY 04/26/18 - Past Medical/Surgical History -: Diabetes -: Asthma Past Surgical History: Patient denies surgical history - Family History Father Family History: Reviewed- Non-Contributory - Social History Smoking Status: Never smoker Alcohol use: No CD- Drugs: No Review of Systems 10-point ROS is otherwise unremarkable Physical Examination - Vital Signs Temperature: 98 F Blood Pressure: 140/80 Pulse: 88 Respirations: 20 Pulse Ox (%): 98 - Physical Exam General: Alert, In no apparent distress, Oriented x3 HEENT: Atraumatic, PERRLA, Mucous membr. moist/pink, EOMI, Sclerae nonicteric Neck: Supple, 2+ carotid pulse no bruit, No LAD, Without JVD or thyroid abnorm ality Respiratory: Clear to auscultation bilaterally, Normal air movement Cardiovascular: Regular rate/rhythm, Normal S1 S2 Gastrointestinal: Normal bowel sounds, Soft and benign, Non-distended, Tenderness, Rebound Musculoskeletal: No clubbing, No swelling, No tenderness Integumentary: No rashes Neurological: Normal gait, Normal speech, Normal strength at 5/5 x4 extr, Normal tone, Sensation intact, Cranial nerves 3-12 intact, Normal affect Lymphatics: No axilla or inguinal lymphadenopathy - Studies Laboratory Data (last 24 hrs) 10/25/21 05:09: Sodium 135 L, Potassium 3.3 L, BUN 12, Creatinine 1.02, Glucose 480 H*, Total Bilirubin 1.1 H, AST 18, ALT 34, Alkaline Phosphatase 99, Lipase 28 L 10/25/21 05:09: WBC 11.20 H, Hgb 12.3, Hct 34.1 L, Plt Count 111 L Assessment & Plan - Problems (Diagnosis) (1) Pyelonephritis Current Visit: Yes Status: Acute (2) DM2 (diabetes mellitus, type 2) Current Visit: Yes Status: Acute - Plan Plan: 1. Continue with IV antibiotics 2. IV fluids 3. Antiemetics 4. Strict blood sugar control; check hemoglobin A1c 5. If patient is tolerating diet and infection is improved substantially possible discharge tomorrow. However, she may need inpatient hospitalization if she continues to have nausea and unable to tolerate orals 6. GI DVT prophylaxis Discharge Plan: Home Plan to discharge in: 24 Hours - Advance Directives Does patient have a Living Will: No Does patient have a Durable POA for Healthcare: No - Code Status/Comfort Care Code Status Assessed: Yes Code Status: Full Code Critical Care: No Time Spent Managing PTS Care (In Minutes): 45
[2021-10-25] MEDS: NA CHLORIDE 0.9% 1,000 ML IV SCH ×3 (08:57→19:00)
[2021-10-25] MEDS: INSULIN -REGULAR HUMAN 50 UNIT/0.5 ML ML SQ SCH ×3 (11:30→21:00)
[2021-10-25 11:46] VITALS: BMI 28.8
[2021-10-25] MEDS: ONDANSETRON 4 MG/2 ML VIAL IV PRN (13:04)
[2021-10-25] MEDS: ACETAMINOPHEN 500 MG TAB PO PRN (16:22)
[2021-10-25] MEDS ORDERED: HYDROCODONE/APAP 5/325 MG TAB ONE (17:42)
[2021-10-25] MEDS: CEFTRIAXONE 1,000 MG in NA CHLORIDE 0.9% 50 ML IVPB SCH (18:00)
[2021-10-26] MEDS: NA CHLORIDE 0.9% 1,000 ML IV SCH ×5 (01:41→20:45)
[2021-10-26] MEDS: ACETAMINOPHEN 500 MG TAB PO PRN ×2 (01:42→09:18)
[2021-10-26] MEDS ORDERED: NA CHLORIDE 0.9% 1,000 ML ONE ×2 (01:42→12:37)
[2021-10-26] MEDS ORDERED: ACETAMINOPHEN 500 MG TAB ONE ×2 (01:42→09:16)
[2021-10-26 02:25] LABS: Absolute Lymphocytes (CBC) 0.7 K/uL (0.7-4.9); Hematocrit 30.8 % (36.0-45.0); Lymphocytes % 6.1 % (15.3-44.8); MCV 87.3 fL (80-100); MPV 10.6 fL (7.6-11.3); RBC Red Blood Cell Count 3.53 M/uL (3.86-4.86)
[2021-10-26 02:47] LABS: Albumin 2.3 g/dL (3.4-5.0); Bilirubin Total 0.7 mg/dL (0.2-1.0); Potassium 3.7 mmol/L (3.5-5.1); Protein, Total 6.3 g/dL (6.4-8.2)
[2021-10-26 03:07] LABS: Blood Morphology Comment NOT SEEN (NOT SEEN); Platelet Estimate DECR
[2021-10-26] MEDS ORDERED: CEFTRIAXONE 1000 MG/VIAL ONE ×2 (06:47→08:08)
[2021-10-26] MEDS ORDERED: NA CHLORIDE 0.9% 50 ML ONE ×2 (06:48→08:08)
--- NOTE | 2021-10-26 07:51 | P.PN ---
Subjective Date of Service: 10/26/21 Subjective: No new changes, No C/O voiced, Improving Review of Systems 10-point ROS is otherwise unremarkable Physical Examination - Vital Signs Temperature: 99.7 F Blood Pressure: 128/85 Pulse: 122 Respirations: 26 Pulse Ox (%): 97 - Physical Exam General: Alert, In no apparent distress, Oriented x3 HEENT: Atraumatic, PERRLA, EOMI Neck: Supple, JVD not distended Respiratory: Clear to auscultation bilaterally, Normal air movement Cardiovascular: Regular rate/rhythm, Normal S1 S2 Gastrointestinal: Normal bowel sounds, No tenderness Musculoskeletal: No tenderness Integumentary: No rashes Neurological: Normal speech, Normal tone, Normal affect Lymphatics: No axilla or inguinal lymphadenopathy - Studies Medications List Reviewed: Yes Assessment & Plan - Problems (Diagnosis) (1) Pyelonephritis Current Visit: Yes Status: Acute (2) DM2 (diabetes mellitus, type 2) Current Visit: Yes Status: Acute - Plan Plan: Continue with plan of care as mentioned below: 1. Continue with IV antibiotics 2. IV fluids 3. Antiemetics 4. Strict blood sugar control; check hemoglobin A1c 5. If patient is tolerating diet and infection is improved substantially possible discharge tomorrow. However, she may need inpatient hospitalization if she continues to have nausea and unable to tolerate orals 6. GI DVT prophylaxis Discharge Plan: Home Plan to discharge in: Greater than 2 days - Advance Directives Does patient have a Living Will: No Does patient have a Durable POA for Healthcare: No - Code Status/Comfort Care Code Status: Full Code Critical Care: No Time Spent Managing PTS Care (In Minutes): 35
[2021-10-26] MEDS: CEFTRIAXONE 1,000 MG in NA CHLORIDE 0.9% 50 ML IVPB SCH ×2 (08:14→17:08)
[2021-10-26] MEDS ORDERED: INSULIN -REGULAR HUMAN 50 UNIT/0.5 ML ML ONE ×2 (08:54→12:38)
[2021-10-26] MEDS ORDERED: ONDANSETRON 4 MG/2 ML VIAL ONE (08:54)
[2021-10-26] MEDS ORDERED: MORPHINE 2 MG/ML SYR ONE (08:54)
[2021-10-26] MEDS ORDERED: INSULIN GLARGINE 100 UNIT/ML SQ ONE (08:57)
[2021-10-26] MEDS ORDERED: OXcarbazepine 150 MG TAB PO SCH (09:00)
[2021-10-26] MEDS: INSULIN -REGULAR HUMAN 50 UNIT/0.5 ML ML SQ SCH ×4 (09:00→20:44)
[2021-10-26] MEDS: INSULIN GLARGINE 100 UNIT/ML SQ SCH (09:00)
[2021-10-26] MEDS ORDERED: ESCITALOPRAM 20 MG TAB PO SCH (09:00)
[2021-10-26] MEDS: DILTIAZEM HCL 60 MG TAB PO SCH ×2 (09:00→12:22)
[2021-10-26] MEDS: MORPHINE 2 MG/ML SYR IV PRN (09:18)
[2021-10-26] MEDS: ONDANSETRON 4 MG/2 ML VIAL IV PRN (09:19)
[2021-10-26] MEDS ORDERED: HYDROCORTISONE SUC 100 MG INJ IV ONE (09:36)
--- NOTE | 2021-10-26 10:31 | RAD REPORT ---
EXAM DESCRIPTION: Barbara Single View10/26/2021 10:14 am CLINICAL HISTORY: Sepsis COMPARISON: none FINDINGS: The lungs appear clear of acute infiltrate. The heart is normal size IMPRESSION: No acute abnormalities displayed
[2021-10-26] MEDS ORDERED: ACETAMINOPHEN 325 MG TABLET ONE (12:36)
[2021-10-26] MEDS ORDERED: HYDROCORTISONE SUC 100 MG INJ ONE (12:36)
[2021-10-26] MEDS: ACETAMINOPHEN 325 MG TABLET PO SCH ×2 (13:00→18:30)
[2021-10-26 13:24] LABS: Thyroid Stimulating Hormone 1.07 uIU/mL (0.360-3.740)
[2021-10-27] MEDS: ACETAMINOPHEN 325 MG TABLET PO SCH ×4 (00:30→18:14)
[2021-10-27] MEDS: NA CHLORIDE 0.9% 1,000 ML IV SCH ×6 (05:54→23:38)
[2021-10-27] MEDS: CEFTRIAXONE 1,000 MG in NA CHLORIDE 0.9% 50 ML IVPB SCH (05:54)
--- NOTE | 2021-10-27 07:45 | ECHO ---
HEIGHT: 5 ft 4 in WEIGHT: 168 lb 0 oz DATE OF STUDY: 10/26/[address]: Meredith Souza MD 2-DIMENSIONAL: YES M.MODE: YES DOPPLER: YES COLOR FLOW: YES TDS: PORTABLE: DEFINITY: BUBBLE STUDY: DIAGNOSIS: TACHYCARDIA CARDIAC HISTORY: CATHERIZATION: SURGERY: PROSTHETIC VALVE: PACEMAKER: MEASUREMENTS (cm) DIASTOLIC (NORMALS) SYSTOLIC (NORMALS) IVSd 0.9 (0.6-1.2) LA Diam 3.8 (1.9-4.0) LVEF 55% LVIDd 3.7 (3.5-5.7) LVIDs 2.7 (2.0-3.5) %FS 28% LVPWd 0.9 (0.6-1.2) Ao Diam 2.4 (2.0-3.7) 2 DIMENSIONAL ASSESSMENT: RIGHT ATRIUM: NORMAL LEFT ATRIUM: NORMAL RIGHT VENTRICLE: NORMAL LEFT VENTRICLE: NORMAL TRICUSPID VALVE: NORMAL MITRAL VALVE: NORMAL PULMONIC VALVE: NORMAL AORTIC VALVE: NORMAL PERICARDIAL EFFUSION: NONE AORTIC ROOT: NORMAL LEFT VENTRICULAR WALL MOTION: NORMAL DOPPLER/COLOR FLOW: MILD MITRAL REGURGITATION, TRICUSPID REGURGITATION. COMMENTS: MILD MITRAL REGURGITATION, TRICUSPID REGURGITATION. NORMAL RIGHT VENTRICULAR SYSTOLIC PRESSURE. NORMAL LEFT VENTRICULAR EJECTION FRACTION AND SIZE. NO WALL MOTION ABNORMALITY. NO EFFUSION. TECHNOLOGIST: BRUCE LIM
[2021-10-27] MEDS: INSULIN GLARGINE 100 UNIT/ML SQ SCH (09:03)
[2021-10-27] MEDS: ONDANSETRON 4 MG/2 ML VIAL IV PRN ×2 (10:28→17:23)
[2021-10-27] MEDS: MORPHINE 2 MG/ML SYR IV PRN ×2 (10:28→17:22)
[2021-10-27] MEDS: INSULIN -REGULAR HUMAN 50 UNIT/0.5 ML ML SQ SCH ×4 (10:28→20:44)
[2021-10-27] MEDS: levoFLOXacin 750 MG TAB PO SCH (12:16)
[2021-10-27] MEDS: METOPROLOL TAR 25 MG TAB PO SCH (17:23)
[2021-10-28] MEDS: ACETAMINOPHEN 325 MG TABLET PO SCH ×2 (01:02→06:54)
[2021-10-28] MEDS: ONDANSETRON 4 MG/2 ML VIAL IV PRN ×2 (01:03→08:39)
[2021-10-28] MEDS: MORPHINE 2 MG/ML SYR IV PRN (01:03)
--- NOTE | 2021-10-28 02:12 | P.PN ---
Date of Service: 10/27/21 Subjective Subjective: No new changes, No C/O voiced, Improving Review of Systems 10-point ROS is otherwise unremarkable Physical Examination - Vital Signs reviewed - Physical Exam General: Alert, In no apparent distress, Oriented x3 Respiratory: Clear to auscultation bilaterally, Normal air movement Cardiovascular: Regular rate/rhythm, Normal S1 S2 Gastrointestinal: Normal bowel sounds, No tenderness Neurological: Normal speech, Normal tone, Normal affect Assessment & Plan - Problems (Diagnosis) (1) Pyelonephritis Current Visit: Yes Status: Acute (2) DM2 (diabetes mellitus, type 2) Current Visit: Yes Status: Acute - Plan Continue with plan of care as mentioned below: 1. Continue with IV antibiotics 2. IV fluids 3. Antiemetics 4. Strict blood sugar control; check hemoglobin A1c 5. Patient is doing better overall. Clinical symptoms are improving. Anticipate discharge in a.m.. 6. GI DVT prophylaxis Discharge Plan: Home Plan to discharge in: Greater than 2 days - Advance Directives Does patient have a Living Will: No Does patient have a Durable POA for Healthcare: No - Code Status/Comfort Care Code Status: Full Code Critical Care: No Time Spent Managing PTS Care (In Minutes): 35
[2021-10-28 02:20] VITALS: O2SAT 100
[2021-10-28 06:07] LABS: Absolute Lymphocytes (CBC) 1.2 K/uL (0.7-4.9); Lymphocytes % 18.3 % (15.3-44.8); MCV 86.5 fL (80-100); MPV 9.8 fL (7.6-11.3); RBC Red Blood Cell Count 3.24 M/uL (3.86-4.86)
[2021-10-28 06:30] LABS: Albumin 1.7 g/dL (3.4-5.0); Bilirubin Total 0.8 mg/dL (0.2-1.0); Magnesium 2.1 mg/dL (1.8-2.4); Protein, Total 5.7 g/dL (6.4-8.2)
[2021-10-28 06:32] LABS: Potassium 2.7 mmol/L (3.5-5.1)
[2021-10-28] MEDS ORDERED: POTASSIUM 25 MEQ EFFERV TAB PO ONE (06:35)
[2021-10-28] MEDS: METOPROLOL TAR 25 MG TAB PO SCH (06:55)
[2021-10-28] MEDS ORDERED: KCL 20 MEQ/100 mL IVPB 20 MEQ/100 ML BAG IV SCH (07:00)
[2021-10-28] MEDS ORDERED: NA CHLORIDE 0.9% 0 ML ONE (07:02)
[2021-10-28] MEDS: INSULIN -REGULAR HUMAN 50 UNIT/0.5 ML ML SQ SCH (07:30)
[2021-10-28] MEDS: levoFLOXacin 750 MG TAB PO SCH (08:43)
[2021-10-28] MEDS: INSULIN GLARGINE 100 UNIT/ML SQ SCH (08:44)
[2021-10-28 10:11] VITALS: BP 123/77; TEMP 97.8
== END 2021-10-28 12:35 | disposition home or self-care (01) | DRG 690 ==
LOC: ER 03:47 → ERHOLD 08:28 → OBSVTOIN 10-26 07:50 → 4TH 10-26 15:27
PROVIDERS: ADMIT Hospitalist; ATTEND Hospitalist
DX: N10 Acute pyelonephritis (principal); E87.6 Hypokalemia; E10.65 Type 1 diabetes mellitus with hyperglycemia; J45.909 Unspecified asthma, uncomplicated; R00.0 Tachycardia, unspecified; Z79.4 Long term (current) use of insulin; Z79.84 Long term (current) use of oral hypoglycemic drugs; Z79.52 Long term (current) use of systemic steroids; Z79.890 Hormone replacement therapy; Z79.899 Other long term (current) drug therapy; Z28.310 Unvaccinated for COVID-19; Z20.822 Contact with and (suspected) exposure to COVID-19
CPT/HCPCS: 36415; 71045; 74176; 80053; 80061; 81003; 81015; 82947; 83036; 83605; 83690; 83735; 84132; 84145; 84439; 84443; 85025; 87040; 87077; 87086; 87088; 87186; 87205; 87811; 93306; 96361; 96374; 96375; 99284; G0378; J1720; J1815; J2270; J2405; J3480; J7030; J7120

== ENCOUNTER 2022-10-27 12:26 | Emergency (ER) | payer OTHER ==
--- OUTSIDE RECORDS SUMMARY | 2022-10-27 12:31 | XMS REPORT | Continuity of Care Document ---
:2000 Author Organization [facility] t Address [address] [place] [address] [place] [id number] Care Team Providers Name Role Phone Maria Victoria [place] Primary Care Physician Nurse, [facility] Attending Clinician Unavailable Zeynep Olivares MD Attending Clinician ZEYNEP OLIVARES Attending Clinician Unavailable Doctor Unassigned, [place] Attending Clinician Unavailable Martina Charles LMSW Attending [...] Active Univers ALLERGIE Class ity of [facility] [place] [facility] [place] Social History Social Habit Start Date Stop Date Quantity Comments Source History SDOH University o f Alcohol Frequency [place] [facility] History SDOH University o f Alcohol Std [place] [facility] Drinks [facility] History SDOH University o f Alcohol Binge [place] [facility] Exposure to 2021-06-28 2021-07-08 Not sure [facility] SARS-CoV-2 00:00:00 10:00:00 [facility] (event) Branch Alcohol intake 2021-07-08 2021-07-08 Current drinker Unive rsity of 00:00:00 00:00:00 of alcohol [place] [facility] (finding) Branch Tobacco use and 2018-10-10 2018-10-10 Never used Universit y of exposure 00:00:00 00:00:00 [facility] Alcohol Comment 2018-02-20 2018-02-20 Rare Universit y of 00:00:00 00:00:00 [facility] History of 2018-02-09 Smoker University of tobacco use 00:00:00 [facility] Sex Assigned At [birth year] Universit y of 00:00:00 00:00:00 [facility] Smoking Status Start Date Stop Date Source Former smoker 2018-10-10 00:00:00 2018-10-10 00:00:00 Universi ty of [facility] Current some day 2018-02-20 00:00:00 [facility] smoker Medical Branch Medications Ordered Filled Start [...] 37 :00 Medical Branch metroNIDAZO 2019-0 Yes [id number] 500mg Take 1 Univers LE 500 mg 9-06 tablet by ity o f tablet 00:00: mouth [place] 00 every 12 Medical (twelve) Branch hours. metroNIDAZO 2019-0 Yes [id number] 500mg Take 1 Univers LE 500 mg 9-06 tablet by ity o f tablet 00:00: mouth [place] 00 every 12 Medical (twelve) Branch hours. metroNIDAZO 2019-0 Yes [id number] 500mg Take 1 Univers LE 500 mg 9-06 tablet by ity o f tablet 00:00: mouth [place] 00 every 12 Medical (twelve) Branch hours. metroNIDAZO 2019-0 Yes [id number] 500mg Take 1 Univers LE 500 mg 9-06 tablet by ity o f tablet 00:00: mouth [place] 00 every 12 Medical (twelve) Branch hours. metroNIDAZO 2019-0 Yes [id number] 500mg Take 1 Univers LE 500 mg 9-06 tablet by ity o f tablet 00:00: mouth [place] 00 every 12 Medical (twelve) Branch hours. metroNIDAZO 2018-0 Yes [id number] 500mg Take 1 Univers LE 500 mg 9-06 tablet by ity o f tablet 00:00: mouth [place] 00 every 12 Medical (twelve) Branch hours. metroNIDAZO 2019-0 202- No [id number] 500mg Take 1 Univers LE 500 mg 9-06 05-19 tablet by ity of tablet 00:00: 00:00 mouth [place] 00 :00 every 12 Medical (twelve) Branch hours. metroNIDAZO 2019-0 2021- No [id number] 500mg Take 1 Univers LE 500 mg 9-06 05-19 tablet by ity of tablet 00:00: 00:00 mouth [place] 00 :00 every 12 Medical (twelve) Branch hours. AMOXICILLIN 2019-0 Yes Take by Uni vers ORAL 9-05 mouth. ity of 13:11: [address] Branch AMOXICILLIN 2019-0 Yes Take by Uni vers ORAL 9-05 mouth. ity of 13:11: [address] AMOXICILLIN 2019-0 Yes Take by Uni vers ORAL 9-05 mouth. ity of 13:11: [address] AMOXICILLIN 2018-0 Yes Take by Uni vers ORAL 9-05 mouth. ity of 13:11: [address] AMOXICILLIN 2019-0 Yes Take by Uni vers ORAL 9-05 mouth. ity of 13:11: [address] AMOXICILLIN 2019-0 Yes Take by Uni vers ORAL 9-05 mouth. ity of 13:11: [address] AMOXICILLIN 2019-0 Yes Take by Uni vers ORAL 9-05 mouth. ity of 13:11: [address] AMOXICILLIN 2019-0 Yes Take by Uni vers ORAL 9-05 mouth. ity of 13:11: [address] AMOXICILLIN 2019-0 Yes Take by Uni vers ORAL 9-05 mouth. ity of 13:11: [address] metFORMIN 2019-0 Yes 1000mg Take 1,000 Univers 1,000 mg 9-05 mg by ity of tablet 13:10: mouth [address] [place] [address] ([facility]) Medical times [place] daily with meals. metFORMIN 2019-0 Yes 1000mg Take 1,000 Univers 1,000 mg 9-05 mg by ity of tablet 13:10: mouth [address] [place] [address] ([facility]) Medical times [place] daily with meals. metFORMIN 2019-0 Yes 1000mg Take 1,000 Univers 1,000 mg 9-05 mg by ity of tablet 13:10: mouth [address] [place] [address] ([facility]) Medical times [place] daily with meals. metFORMIN 2019-0 Yes 1000mg Take 1,000 Univers 1,000 mg 9-05 mg by ity of tablet 13:10: mouth [address] [place] [address] ([facility]) Medical times [place] daily with meals. metFORMIN 2019-0 Yes 1000mg Take 1,000 Univers 1,000 mg 9-05 mg by ity of tablet 13:10: mouth [address] [place] [address] ([facility]) Medical times [place] daily with meals. metFORMIN 2019-0 Yes 1000mg Take 1,000 Univers 1,000 mg 9-05 mg by ity of tablet 13:10: mouth [address] [place] [address] ([facility]) Medical times [place] daily with meals. metFORMIN 2019-0 Yes 1000mg Take 1,000 Univers 1,000 mg 9-05 mg by ity of tablet 13:10: mouth [address] [place] [address] ([facility]) Medical times [place] daily with meals. metFORMIN 2019-0 Yes 1000mg Take 1,000 Univers 1,000 mg 9-05 mg by ity of tablet 13:10: mouth [address] [place] [address] ([facility]) Medical times [place] daily with meals. metFORMIN 2019-0 Yes 1000mg Take 1,000 Univers 1,000 mg 9-05 mg by ity of tablet 13:10: mouth [address] [place] [address] (two) Medical times Branch daily with meals. metFORMIN 2019-0 Yes 1000mg Take 1,000 Univers 1,000 mg 9-05 mg by ity of tablet 13:10: mouth [address] [place] [address] (two) Medical times Branch daily with meals. metFORMIN 2019-0 Yes 1000mg Take 1,000 Univers 1,000 mg 9-05 mg by ity of tablet 13:10: mouth [address] [place] [address] (two) Medical times Branch daily with meals. metFORMIN 2019-0 Yes 1000mg Take 1,000 Univers 1,000 mg 9-05 mg by ity of tablet 08:10: mouth [address] [place] [address] (two) Medical times Branch daily with meals. metFORMIN 2019-0 Yes 1000mg Take 1,000 Univers 1,000 mg 9-05 mg by ity of tablet 08:10: mouth [address] [place] [address] (two) Medical times Branch daily with meals. metFORMIN 2019-0 Yes 1000mg Take 1,000 Univers 1,000 mg 9-05 mg by ity of tablet 08:10: mouth [address] [place] [address] (two) Medical times Branch daily with meals. metFORMIN 2019-0 Yes 1000mg Take 1,000 Univers 1,000 mg 9-05 mg by ity of tablet 08:10: mouth [address] [place] [address] (two) Medical times Branch daily with meals. Nitrofurant 2019-0 Yes [id number] 100mg Take 1 Univers oin&Nit. 9-05 capsule by ity o f [place] 00:00: [place] (two) Medical capsule times Branch daily. Nitrofurant 2019-0 Yes [id number] 100mg Take 1 Univers oin&Nit. 9-05 capsule by ity o f [place] 00:[place]: [place] 00 (two) Medical capsule times Branch daily. Nitrofurant 2019-0 Yes [id number] 100mg Take 1 Univers oin&Nit. 9-05 capsule by ity o f [place] 00:00: [place] 100 [place] 00 (two) Medical capsule times Branch daily. Nitrofurant 2019-0 Yes [id number] 100mg Take 1 Univers oin&Nit. 9-05 capsule by ity o f Mac[place] 00:00: mouth [place] 100 mg 00 (two) Medical capsule times Branch daily. Nitrofurant 2019-0 Yes [id number] 100mg Take 1 Univers oin&Nit. 9-05 capsule by ity o f Mac[place] 00:00: mouth [place] 100 mg 00 (two) Medical capsule times Branch daily. Nitrofurant Yes [id number] 100mg Take 1 Univers oin&Nit. 9-05 capsule by ity o f Mac[place] 00:00: mouth [place] 100 mg 00 (two) Medical capsule times Branch daily. Nitrofurant Yes [id number] 100mg Take 1 Univers oin&Nit. 9-05 capsule by ity o f Mac[place] 00:00: mouth [place] 100 mg 00 (two) Medical capsule times Branch daily. Nitrofurant Yes [id number] 100mg Take 1 Univers oin&Nit. 9-05 capsule by ity o f Macrocryst 00:00: mouth [place] 100 mg 00 (two) Medical capsule times Branch daily. Nitrofurant Yes [id number] 100mg Take 1 Univers oin&Nit. 9-05 capsule by ity o f Macrocryst 00:00: mouth [place] 100 mg 00 (two) Medical capsule times Branch daily. Nitrofurant 2020- No [id number] 100mg Take 1 Univers oin&Nit. 9-05 05-19 capsule by ity of Macrocryst 00:00: 00:00 mouth 2 [place] 100 mg 00 :00 (two) Medical capsule times Branch daily. Nitrofurant 0 2020- No [id number] 100mg Take 1 Univers oin&Nit. 9-05 05-19 capsule by ity of Mac[place]ryst 00:00: 00:00 mouth 2 [place] 100 mg 00 :00 (two) Medical capsule times Branch daily. lamoTRIgine Yes TK 1/2 T Un viji 100 mg 8-13 PO BID ity of tablet 00:00: [facility] lamoTRIgine 2018-0 Yes TK 1/2 T Un viji 100 mg 8-13 PO BID ity of tablet 00:00: [facility] lamoTRIgine 2018-0 Yes TK 1/2 T Un [place] 100 mg 8-13 PO BID ity of tablet 00:00: [facility] lamoTRIgine 2018-0 Yes TK 1/2 T Un [place] 100 mg 8-13 PO BID ity of tablet 00:00: [place] [facility] lamoTRIgine 2019-0 Yes TK 1/2 T Un [place] 100 mg 8-13 PO BID ity of tablet 00:00: [place] [facility] lamoTRIgine 2019-0 Yes TK 1/2 T Un [place] 100 mg 8-13 PO BID ity of tablet 00:00: [place] [facility] lamoTRIgine 2019-0 Yes TK 1/2 T Un [place] 100 mg 8-13 PO BID ity of tablet 00:00: [place] [facility] lamoTRIgine Yes TK 1/2 T Un [place] 100 mg 8-13 PO BID ity of tablet 00:00: [place] [facility] lamoTRIgine 2018- Yes TK 1/2 T Un [place] 100 mg 8-13 PO BID ity of tablet 00:00: [place] [facility] lamoTRIgine Yes TK 1/2 T Un [place] 100 mg 8-13 PO BID ity of tablet 00:00: [place] [facility] lamoTRIgine 2019-0 Yes TK 1/2 T Un [place] 100 mg 8-13 PO BID ity of tablet 00:00: [place] [facility] lamoTRIgine 2018- Yes TK 1/2 T Un [place] 100 mg 8-13 PO BID ity of tablet 00:00: [place] [facility] lamoTRIgine 2018-0 Yes TK 1/2 T Un [place] 100 mg 8-13 PO BID ity of tablet 00:00: [place] [facility] lamoTRIgine 2019-0 Yes TK 1/2 T Un [place] 100 mg 8-13 PO BID ity of tablet 00:00: [place] [facility] lamoTRIgine 2018- Yes TK 1/2 T Un [place] 100 mg 8-13 PO BID ity of tablet 00:00: [address] AMOXICILLIN Yes Take by Uni vers ORAL 1-16 mouth. ity of 16:43: [address] metFORMIN 2018- Yes 1000mg Take 1,000 Univers 1,000 mg 1-16 mg by ity of tablet 16:43: mouth [address] [place] [address] (two) Medical times [place] daily with meals. PROAIR HFA 2017-02 Yes INL 1 TO [...] 2-15 SC QD ity of U-100 00:00: [place] INSULN 100 00 Medical unit/mL (3 Branch mL) injection PROAIR HFA 2017-02 Yes INL 1 TO 2 U nivers 90 2-15 PFS PO Q 4 ity of mcg/actuati 00:00: TO 6 H PRN [place] on inhaler 00 Medical Branch LEVEMIR 2017-02 Yes ADM 80 UNI Univ ers FLEXTOUCH 2-15 SC QD ity of U-100 00:00: [place] INSULN 100 00 Medical unit/mL (3 Branch [...] mcg/actuati 00:00: on inhaler Medical Branch levothyroxi 2018 Yes TK 1 [...] OF WATER ON AN EMPTY STOMACH SYMBICORT 2018 Yes INHALE 1 Univ ers 160-4.5 2-12 [...] [place] on inhaler 00 Medical Branch SYMBICORT 2017- Yes INHALE 1 Univ ers 160-4.5 2-12 [...] mg 1-15 QD ity of tablet 00:00: [place] [facility] loratadine 2017-02 Yes TK 1 T PO Un viji 10 mg 1-15 QD ity of tablet 00:00: [place] [facility] loratadine 2017-02 Yes TK 1 T PO Un viji 10 mg 1-15 QD ity of tablet 00:00: [place] [facility] loratadine 2017-02 Yes TK 1 T PO Un viji 10 mg 1-15 QD ity of tablet 00:00: [place] [facility] Branch loratadine 2017-02 Yes TK 1 T PO Un viji 10 mg 1-15 QD ity of tablet 00:00: [place] [facility] loratadine 2017-02 Yes TK 1 T PO Un viji 10 mg 1-15 QD ity of tablet 00:00: [place] [facility] loratadine 2017-02 Yes TK 1 T PO Un viji 10 mg 1-15 QD ity of tablet 00:00: [place] [facility] loratadine 2017-02 Yes TK 1 T PO Un viji 10 mg 1-15 QD ity of tablet 00:00: [place] [facility] loratadine 2017-02 Yes TK 1 T PO Un viji 10 mg 1-15 QD ity of tablet 00:00: [place] [facility] loratadine 2017-02 Yes TK 1 T PO Un viji 10 mg 1-15 QD ity of tablet 00:00: [place] [facility] loratadine 2017-02 Yes TK 1 T PO Un viji 10 mg 1-15 QD ity of tablet 00:00: [place] 00 [facility] montelukast 2017-02 Yes TAKE 1 Univ ers 10 mg 1-02 TABLET BY ity of tablet 00:00: MOUTH 00 EVERY DAY Medical IN THE Branch EVENING montelukast 2017-02 Yes TAKE 1 Univ ers 10 mg 1-02 TABLET BY ity of tablet 00:00: MOUTH [place] 00 EVERY DAY Medical IN THE Branch EVENING montelukast 2017-02 Yes TAKE 1 Univ ers 10 mg 1-02 TABLET BY ity of tablet 00:00: MOUTH [place] 00 EVERY DAY Medical IN THE Branch EVENING montelukast 2017-02 Yes TAKE 1 Univ ers 10 mg 1-02 TABLET BY ity of tablet 00:00: MOUTH [place] 00 EVERY DAY Medical IN THE Branch EVENING montelukast 2017-02 Yes TAKE 1 Univ ers 10 mg 1-02 TABLET BY ity of tablet 00:00: MOUTH [place] 00 EVERY DAY Medical IN THE [place] EVENING [facility] 2017-02 Yes TAKE 1 Univ ers 10 mg 1-02 TABLET BY ity of tablet 00:00: MOUTH [place] 00 EVERY DAY Medical IN THE [place] EVENING [facility] 2017-02 Yes TAKE 1 Univ ers 10 mg 1-02 TABLET BY ity of tablet 00:00: MOUTH [place] 00 EVERY DAY Medical IN THE [place] EVENING [facility] 2017-02 Yes TAKE 1 Univ ers 10 mg 1-02 TABLET BY ity of tablet 00:00: MOUTH [place] 00 EVERY DAY Medical IN THE [place] EVENING [facility] 2017-02 Yes TAKE 1 Univ ers 10 mg 1-02 TABLET BY ity of tablet 00:00: MOUTH [place] 00 EVERY DAY Medical IN THE [facility] 2017-02 Yes TAKE 1 Univ ers 10 mg 1-02 TABLET BY ity of tablet 00:00: MOUTH [place] 00 EVERY DAY Medical IN THE [facility] 2017-02 Yes TAKE 1 Univ ers 10 mg 1-02 TABLET BY ity of tablet 00:00: MOUTH [place] 00 EVERY DAY Medical IN THE [facility] 2017-02 Yes TAKE 1 Univ ers 10 mg 1-02 TABLET BY ity of tablet 00:00: MOUTH [place] 00 EVERY DAY Medical IN THE [facility] 2017-02 Yes TAKE 1 Univ ers 10 mg 1-02 TABLET BY ity of tablet 00:00: MOUTH [place] 00 EVERY DAY Medical IN THE [facility] 2017-02 Yes TAKE 1 Univ ers 10 mg 1-02 TABLET BY ity of tablet 00:00: MOUTH [place] 00 EVERY DAY Medical IN THE [facility] 2017-02 Yes TAKE 1 Univ ers 10 mg 1-02 TABLET BY ity of tablet 00:00: MOUTH [place] 00 EVERY DAY Medical IN THE [place] EVENING [facility] 2017-02 Yes TAKE 1 Univ ers 10 mg 1-02 TABLET BY ity of tablet 00:00: MOUTH [place] 00 EVERY DAY Medical IN THE [place] EVENING blood sugar Yes [id number] 3 times Univers diagnostic 10-11 daily ity of (FREESTYLE 00:00: [place] LITE 00 Medical STRIPS) Branch strip lancets Yes [id number] 3 times Un viji (FREESTYLE 10-11 daily ity of LANCETS) 28 00:00: [place] gauge Misc 00 Medical Branch acetone, 2016- Yes [id number] Check with Univers urine, test 10-11 blood ity of (KETONE 00:00: sugars [place] URINE TEST) 00 >300 or if Me dical strip ill prn Branch blood sugar Yes [id number] 3 times Univers diagnostic 10-11 daily ity of (FREESTYLE 00:00: [place] LITE 00 Medical STRIPS) Branch strip lancets Yes [id number] 3 times Un viji (FREESTYLE 10-11 daily ity of LANCETS) 28 00:00: [place] gauge Misc 00 Medical Branch acetone, Yes [id number] Check with Univers urine, test 10-11 blood ity of (KETONE 00:00: sugars [place] URINE TEST) 00 >300 or if Me dical strip ill prn Branch blood sugar Yes [id number] 3 times Univers diagnostic 10-11 daily ity of (FREESTYLE 00:00: [place] LITE 00 Medical STRIPS) Branch strip lancets Yes [id number] 3 times Un viji (FREESTYLE 10-11 daily ity of LANCETS) 28 00:00: [place] gauge Misc 00 Medical Branch acetone, Yes [id number] Check with Univers urine, test 10-11 blood ity of (KETONE 00:00: sugars [place] URINE TEST) 00 >300 or if Me dical strip ill prn Branch blood sugar Yes [id number] 3 times Univers diagnostic 10-11 daily ity of (FREESTYLE 00:00: [place] LITE 00 Medical STRIPS) Branch strip lancets Yes [id number] 3 times Un viji (FREESTYLE 10-11 daily ity of LANCETS) 28 00:00: [place] gauge Misc 00 Medical Branch acetone, 2016- Yes [id number] Check with Univers urine, test 10-11 blood ity of (KETONE 00:00: sugars [place] URINE TEST) 00 >300 or if Me dical strip ill prn Branch blood sugar Yes [id number] 3 times Univers diagnostic 10-11 daily ity of (FREESTYLE 00:00: [place] LITE 00 Medical STRIPS) Branch strip lancets Yes [id number] 3 times Un viji (FREESTYLE 9-06 daily ity of LANCETS) 28 00:00: [place] gauge Misc 00 Medical Branch acetone, 2016- Yes [id number] Check with Univers urine, test 10-11 blood ity of (KETONE 00:00: sugars [place] URINE TEST) 00 >300 or if Me dical strip ill prn Branch blood sugar Yes [id number] 3 times Univers diagnostic 10-11 daily ity of (FREESTYLE 00:00: [place] LITE 00 Medical STRIPS) Branch strip lancets Yes [id number] 3 times Un viji (FREESTYLE 10-11 daily ity of LANCETS) 28 00:00: [place] gauge Misc 00 Medical Branch acetone, Yes [id number] Check with Univers urine, test 10-11 blood ity of (KETONE 00:00: sugars [place] URINE TEST) 00 >300 or if Me dical strip ill prn Branch blood sugar Yes [id number] 3 times Univers diagnostic 10-11 daily ity of (FREESTYLE 00:00: [place] LITE 00 Medical STRIPS) Branch strip lancets Yes [id number] 3 times Un viji (FREESTYLE 10-11 daily ity of LANCETS) 28 00:00: [place] gauge Misc 00 Medical Branch acetone, Yes [id number] Check with Univers urine, test 10-11 blood ity of (KETONE 00:00: sugars [place] URINE TEST) 00 >300 or if Me dical strip ill prn Branch blood sugar Yes [id number] 3 times Univers diagnostic 10-11 daily ity of (FREESTYLE 00:00: [place] LITE 00 Medical STRIPS) Branch strip lancets Yes [id number] 3 times Un viji (FREESTYLE 10-11 daily ity of LANCETS) 28 00:00: [place] gauge Misc 00 Medical Branch acetone, 2016- Yes [id number] Check with Univers urine, test 10-11 blood ity of (KETONE 00:00: sugars [place] URINE TEST) 00 >300 or if Me dical strip ill prn Branch blood sugar Yes [id number] 3 times Univers diagnostic 10-11 daily ity of (FREESTYLE 00:00: [place] LITE 00 Medical STRIPS) Branch strip blood sugar Yes [id number] 3 times Univers diagnostic 10-11 daily ity of (FREESTYLE 00:00: [place] LITE 00 Medical STRIPS) Branch strip lancets 2017-0 Yes [id number] 3 times Un viji (FREESTYLE - daily ity of LANCETS) 28 00:00: [place] gauge Misc 00 Medical Branch acetone, 2017-0 Yes [id number] Check with Univers urine, test - blood ity of (KETONE 00:00: sugars [place] URINE TEST) 00 >300 or if Me dical strip ill prn Branch lancets 2017 Yes [id number] 3 times Un viji (FREESTYLE 10-11 daily ity of LANCETS) 28 00:00: [place] gauge Misc 00 Medical Branch acetone, 2016- Yes [id number] Check with Univers urine, test 10-11 blood ity of (KETONE 00:00: sugars [place] URINE TEST) 00 >300 or if Me dical strip ill prn Branch blood sugar Yes [id number] 3 times Univers diagnostic 10-11 daily ity of (FREESTYLE 00:00: [place] LITE 00 Medical STRIPS) Branch strip lancets Yes [id number] 3 times Un viji (FREESTYLE 10-11 daily ity of LANCETS) 28 00:00: [place] gauge Misc 00 Medical Branch acetone, 2016-0 Yes [id number] Check with Univers urine, test 10-11 blood ity of (KETONE 00:00: sugars [place] URINE TEST) 00 >300 or if Me dical strip ill prn Branch blood sugar Yes [id number] 3 times Univers diagnostic 10-11 daily ity of (FREESTYLE 00:00: [place] LITE 00 Medical STRIPS) Branch strip lancets 2017-0 Yes [id number] 3 times Un viji (FREESTYLE 10-11 daily ity of LANCETS) 28 00:00: [place] gauge Misc 00 Medical Branch acetone, 2017- Yes [id number] Check with Univers urine, test 9- blood ity of (KETONE 00:00: sugars [place] URINE TEST) 00 >300 or if Me dical strip ill prn Branch blood sugar Yes [id number] 3 times Univers diagnostic 10-11 daily ity of (FREESTYLE 00:00: [place] LITE 00 Medical STRIPS) Branch strip lancets 2016- Yes [id number] 3 times Un viji (FREESTYLE 10-11 daily ity of LANCETS) 28 00:00: [place] gauge Misc 00 Medical Branch acetone, Yes [id number] Check with Univers urine, test 10-11 blood ity of (KETONE 00:00: sugars [place] URINE TEST) 00 >300 or if Me dical strip ill prn Branch blood sugar Yes [id number] 3 times Univers diagnostic 10-11 daily ity of (FREESTYLE 00:00: [place] LITE 00 Medical STRIPS) Branch strip lancets Yes [id number] 3 times Un viji (FREESTYLE 10-11 daily ity of LANCETS) 28 00:00: [place] gauge Misc 00 Medical Branch acetone, Yes [id number] Check with Univers urine, test 10-11 blood ity of (KETONE 00:00: sugars [place] URINE TEST) 00 >300 or if Me dical strip ill prn Branch blood sugar Yes [id number] 3 times Univers diagnostic 10-11 daily ity of (FREESTYLE 00:00: [place] LITE 00 Medical STRIPS) Branch strip lancets Yes [id number] 3 times Un viji (FREESTYLE 10-11 daily ity of LANCETS) 28 00:00: [place] gauge Misc 00 Medical Branch acetone, Yes [id number] Check with Univers urine, test 10-11 blood ity of (KETONE 00:00: sugars [place] URINE TEST) 00 >300 or if Me dical strip ill prn Branch blood sugar Yes [id number] 3 times Univers diagnostic 10-11 daily ity of (FREESTYLE 00:00: [place] LITE 00 Medical STRIPS) Branch strip lancets Yes [id number] 3 times Un viji (FREESTYLE 10-11 daily ity of LANCETS) 28 00:00: [place] gauge Misc 00 Medical Branch acetone, Yes [id number] Check with Univers urine, test 10-11 blood ity of (KETONE 00:00: sugars [place] URINE TEST) 00 >300 or if Me dical strip ill prn Branch Vital Signs Vital Name Observation Time Observation Value Comments Source Systolic blood 2021-07-08 15:09:00 138 mm[Hg] Univer sity of pressure [place] [facility] Diastolic blood 2021-07-08 15:09:00 87 mm[Hg] Unive rsity of pressure [place] [facility] Heart rate 2021-07-08 15:09:00 109 /min Universi ty of [place] [facility] Body temperature 2021-07-08 15:09:00 36.78 [facility] Univ ersity of [place] [facility] Respiratory rate 2021-07-08 15:09:00 18 /min Univ ersity of [place] [facility] Body height 2021-07-08 15:09:00 162.6 cm Universi ty of [place] [facility] Body weight 2021-07-08 15:09:00 82.101 kg Universi ty of [place] [facility] BMI 2021-07-08 15:09:00 31.07 kg/m2 [facility]i ty [facility] [place] [facility] Systolic blood 2020-12-27 21:08:00 124 mm[Hg] Univer sity of pressure [place] [facility] Diastolic blood 2020-12-27 21:08:00 83 mm[Hg] Unive rsity of pressure [place] [facility] Heart rate 2020-12-27 21:05:00 99 /min Universi ty [facility] [place] [facility] Body temperature 2020-12-27 21:05:00 36.89 [facility] ers[facility] [place] [facility] Respiratory rate 2020-12-27 21:05:00 18 /min Univ ersity of [place] [facility] Body height 2020-12-27 21:05:00 162.6 cm Universi ty [facility] [place] [facility] Body weight 2020-12-27 21:05:00 80.287 kg [facility]i ty [facility] [place] [facility] BMI 2020-12-27 21:05:00 30.38 kg/m2 [facility] [place] [facility] Systolic blood 2020-06-23 16:57:00 130 mm[Hg] Univer sity of pressure [place] [facility] Diastolic blood 2020-06-23 16:57:00 85 mm[Hg] Unive rsity of pressure [place] [facility] Heart rate 2020-06-23 16:57:00 74 /min [facility]i ty [facility] [place] [facility] Body temperature 2020-06-23 16:57:00 36.72 [facility] [place] [facility] Respiratory rate 2020-06-23 16:57:00 16 /min Univ ersity of [place] [facility] Body height 2020-06-23 16:57:00 162.6 cm [facility]i ty [facility] [place] [facility] Body weight 2020-06-23 16:57:[address] [facility] BMI 2020-06-23 16:57:00 30.07 kg/m2 [facility] Systolic blood 2018-10-10 13:08:00 131 mm[Hg] Univer sity of [facility] Diastolic blood 2018-10-10 13:08:00 90 mm[Hg] Unive rsity of [facility] Heart rate 2018-10-10 13:08:00 90 /min Universi [facility] Body temperature 2018-10-10 13:08:00 36.5 [facility] 2018-10-10 13:08:00 20 /min [facility] [facility] Body height 2018-10-10 13:08:00 162.6 [facility] Body weight 2018-10-10 13:08:[address] [facility] [facility] 2018-10-10 13:08:00 31.76 kg/m2 [facility] Procedures Procedure Date / Time Performing Clinician Source Performed GARDASIL 9 (HPV 9V) 2021-07-08 15:11:46 Zeynep Olivares [facility] VACCINE [facility] ASSIGNMENT OF BENEFITS 2021-07-08 14:59:45 Doctor Unassigned, [facility] GARDASIL 9 (HPV 9V) 2020-12-27 21:12:28 Sasha Shepard [facility] GARDASIL 9 (HPV 9V) 2020-06-23 17:28:23 Zeynep Olivares [facility] VACCINE [facility] ASSIGNMENT OF BENEFITS 2020-06-23 16:17:19 Doctor Unagabyigned, [facility] REFERRAL- REQUEST/RESPONSE 2019-06-03 05:01:00 Doctor Carlos , [facility] EXTERNAL LAB CHLAMYDIA 2019-05-23 13:00:00 Doctor Carlos, [facility] EXTERNAL PAP SMEAR 2019-05-23 13:00:00 Doctor Carlos, [facility] Name [facility] NO SHOW OR MISSED 2018-10-10 12:56:20 Doctor Unakaro, Brenna ity of [place] APPOINTMENT POLICY [facility] h ACKNOWLEDGEMENT POCT URINALYSIS 2018-10-10 00:00:00 Darline Leyda Mckean o f [facility] Encounters Start End Encounter Admission Attending Care Care Encounter Source Date/Time Date/Time Type Type Clinicians Facility Department ID 2022-10-13 2022-10-13 Outpatient [facility] [id number] Raji 15:08:50 15:08:50 [id number] [facility] 2022-09-26 2022-09-26 Outpatient [facility] [id number] Raji 16:03:19 16:03:19 [id number] F Newton Hamilton 2022-06-07 2022-06-07 Outpatient [facility] [id number] Raji 15:21:55 15:21:55 0503 F [place] 2021-07-08 2021-07-08 Nurse Nurse, [facility] 1.2.840.114 [id number] Univers 10:00:00 10:13:56 Visit Zeynep Olivares [id number] ity [facility] [id number] [phone] [place]ical [address] 2021-07-08 2021-07-08 Outpatient R MARSHALL [facility] [id number] Univers 10:00:00 10:00:00 ZEYNEP ity of [facility] 2021-07-08 2021-07-08 Outpatient R [facility] [id number] Univers 08:00:00 08:00:00 ity of [facility] 2021-07-08 2021-07-08 Orders Doctor GOFF [id number] Univers 00:00:00 00:00:00 Only Unassigned, WALESKA 350.1.13.10 ity of [place] [facility] 4.2.7.2.686 [place] as [phone] [address] 2021-06-27 2021-06-27 Outpatient R [facility] [id number] Univers 15:30:00 15:30:00 ity of [facility] 2021-03-04 2021-03-04 URSULA Tony [id number] Univers 00:00:00 00:00:00 Management Martina Charly LEOPOLDO [id number] it[place] of [place] [phone] [facility] [address] [place] 2020-12-27 2020-12-27 Nurse Nurse, [facility] [id number] Univers 14:55:40 15:08:40 Visit Adgrayson, Zeynep KELLER [id number] ity of [facility] 4[place].2.[place] [phone] [place] dic[address] 2020-12-27 2020-12-27 [facility] [id number] Univers 14:30:00 15:08:40 ZEYNEP isai [facility] 2020-12-24 2020-12-24 Outpatient R [facility] [id number] Univers 10:30:00 10:30:00 ity [facility] 2020-08-23 2020-08-23 Outpatient R [facility] [id number] Univers 10:30:00 10:30:00 ity [facility] 2020-06-23 2020-06-23 Office Adgrayson, [facility] 1.2.840.114 [id number] Univers 11:17:55 12:30:20 Visit Zeynep Keller [id number] ity of [id number] [phone] [place] dic[address] 2020-06-23 2020-06-23 Outpatient R ADUM, [facility] [id number] Univers 11:00:00 11:00:00 ZEYNEP pritchard [facility] 2020-06-23 2020-06-23 Orders Doctor GOFF 1.2.840.114 [id number] Univers 00:00:00 00:00:00 Only Unassigned, [place] 350.1.13.10 ity of [place] [facility] [id number] [place] [phone] Medi [address] 2020-06-17 2020-06-17 Outpatient R MARSHALL, [facility] [id number] Univers 08:30:00 08:30:00 ZEYNEP ity of [facility] 2019-07-29 2019-07-29 Letter [place] [id number] Univers 00:00:00 00:00:00 (Out) Maria Victoria GALEANO [id number] ity of HOSPITAL 4.2.7.2.686 [place] [phone] [facility] [address] [place] 2019-06-03 2019-06-03 Orders Doctor SHELL 1.2.840.114 [id number] Univers 00:00:00 00:00:00 Only Unassigned, [place] 350.1.13.10 ity of [place] [facility] 4.2.7.2.686 [place] [phone] [address] 2019-06-02 2019-06-02 Telephone Sasha Shepard [facility] 1.2.840.114 [id number] Univers 00:00:00 00:00:00 Inder Keller 350.1.13.10 i ty of [place] [phone] [place] dical nal 134 [facility] 2018-10-11 2018-10-11 Case Darline [facility] [id number] Univers 00:00:00 00:00:00 Management Leyda [facility] [id number] ity of Surgical 4.2.7.2.686 [place] Specialti [phone] Me dical es 370 [facility] 2018-10-10 2018-10-10 Orderlies Teacher 2, Adc Lab [facility] 1.2.840.114 [id number] Univers 08:35:38 08:50:38 Visit Leyda Gregorio [id number] ity of [id number] [phone] [place] dical nal 353 [facility] 2018-10-10 2018-10-10 Office Darline [facility] [id number] Univers 07:56:08 08:30:43 Visit Leyda Keller 350.1.13.10 i ty of [place] [id number] Profess[place] [phone] Va dical nal 134 [facility] 2018-10-10 2018-10-10 Orders Doctor SHELL 1.2.840.114 [id number] Univers 00:00:00 00:00:00 Only Unassigned, [place] 350.1.13.10 ity of [place] [facility] [id number] [place] [phone] [address] Results Test Description Test Time Test Comments Results Result Comments Source EXTERNAL PAP SMEAR 2019-05-28 00:00:00 Test Item Value Reference Range Interpretation Comme nts TRUE (test code = TRUE) Please see External Provided 06/2019 : 2019 (20) | Collected: 05/23/2019 | Ordering Physician: ALEX Carson Gender: F | Received: 05/25/2019 | [...] NEGATIVE Lab Interpretation (test code = Abnormal 62046-7) [facility] [id number] 00:00:00 Test Item Value Reference Range Interpretation Comments External Chlamydia AB Panel (test Positive Negative A code = 5044) Lab Interpretation (test code = Abnormal 14268-2) [facility]IFIC [id number] 13:13:00 Test Item Value Reference Range Interpretation [...] 3267) Lab Interpretation (test code Abnormal = 15291-8) [facility]IFIC [id number] 13:13:00 Test Item Value Reference Range Interpretation [...] 3267) Lab Interpretation (test code Abnormal = 05785-9) [facility]
[2022-10-27] MEDS ORDERED: HYDROCODONE/APAP 5/325 MG TAB ONE (13:01)
--- NOTE | 2022-10-27 13:29 | RAD REPORT ---
EXAM DESCRIPTION: RAD - Forearm Right - 10/27/2022 1:17 pm CLINICAL HISTORY: Right arm pain status post fall FINDINGS: No fracture is seen.
--- NOTE | 2022-10-27 13:31 | RAD REPORT ---
EXAM DESCRIPTION: RAD - Hand Right 3 View - 10/27/2022 1:17 pm CLINICAL HISTORY: Right hand pain status post injury FINDINGS: No fracture or dislocation is seen.
--- NOTE | 2022-10-27 13:38 | ER ---
Nurse's Notes [facility] Name: Hilda Head Age: 22 yrs Sex: Female : 2000 Arrival Date: 10/27/2022 Time: 12:26 Bed IW3 Private MD: Diagnosis: Fall on same level from slipping, tripping and stumbling with subsequent striking against object;Sprain of other part of right wrist and hand Presentation: 10/27 12:56 Chief complaint: Slipped on wet floor onto outstretched hand, c/o right hand pain 9/10 hb that radiates to right forearm. Coronavirus screen: At this time, the client does not indicate any symptoms associated with coronavirus-19. Ebola Screen: No symptoms or risks identified at this time. Initial Sepsis Screen: Does the patient meet any 2 criteria? No. Patient's initial sepsis screen is negative. Does the patient have a suspected source of infection? No. Patient's initial sepsis screen is negative. Risk Assessment: Do you want to hurt yourself or someone else? Patient reports no desire to harm self or others. Onset of symptoms was October 27, 2022. 12:56 Method Of Arrival: Ambulatory hb 12:56 Acuity: DONELL 4 hb Historical: - Allergies: 12:57 No Known Allergies; hb Vital Signs: 12:56 BP 136 / 82; Pulse 100; Resp 16; Temp 98.1; Pulse Ox 100% on R/A; Weight 77.11 kg; hb Height 5 ft. 4 in. ; Pain 9/10; 12:56 Body Mass Index 29.18 (77.11 kg, 162.56 cm) hb 12:56 Pain Scale: Adult hb ED Course: 12:37 Patient arrived in ED. hb 12:39 Negrita Srivastava FNP-C is PHCP. snw 12:39 Stas Bobby MD is Attending Physician. snw 12:57 Triage completed. hb 13:18 Hand Right 3 View XRAY In Process Unspecified. EDMS 13:18 Forearm Right XRAY In Process Unspecified. EDMS Administered Medications: 12:57 Drug: HYDROcodone-acetaminophen PO 5 mg-325 mg 1 tabs PO once Route: PO; hb Outcome: 13:37 Discharge ordered by . snw 13:57 Patient left the ED. hb Signatures: Dispatcher [employer] EDMS Negrita Srivastava, SEWER PIPE SORTER-C SEWER PIPE SORTER-Csnw Christal Tracey, RN RN hb
--- NOTE | 2022-10-27 13:38 | EDPHYS ---
Physician Documentation [facility] Name: Hilda Head Age: 22 yrs Sex: Female : 2000 Arrival Date: 10/27/2022 Time: 12:26 Bed IW3 Private MD: ED Physician Stas Bobby HPI: 10/27 13:34 This 22 yrs old Female presents to ER via Ambulatory with complaints of Arm snw Pain. 13:34 The patient or guardian complains of contusion, injury, pain, that is acute. The snw complaints affect the right hand and palmar aspect of right forearm. Context: The problem was sustained at home, resulted from slipped and fell on right hand. Onset: The symptoms/episode began/occurred acutely, just prior to arrival. Associated signs and symptoms: Pertinent positives: decreased range of motion, pain, of the palmar aspect of right forearm and right hand. Severity of symptoms: At their worst the symptoms were mild. The patient has not experienced similar symptoms in the past. It is unknown whether or not the patient has recently seen a physician. Historical: - Allergies: 12:57 No Known Allergies; hb ROS: 12:45 Constitutional: Negative for fever, chills, and weight loss, Eyes: Negative for injury, snw pain, redness, and discharge, ENT: Negative for injury, pain, and discharge, Neck: Negative for injury, pain, and swelling, Cardiovascular: Negative for chest pain, palpitations, and edema, Respiratory: Negative for shortness of breath, cough, wheezing, and pleuritic chest pain, Abdomen/GI: Negative for abdominal pain, nausea, vomiting, diarrhea, and constipation, Back: Negative for injury and pain, : Negative for injury, bleeding, discharge, and swelling, Skin: Negative for injury, rash, and discoloration, Neuro: Negative for headache, weakness, numbness, tingling, and seizure, Psych: Negative for depression, anxiety, suicide ideation, homicidal ideation, and hallucinations, 12:45 MS/extremity: Positive for injury or acute deformity, decreased range of motion, pain, swelling, tenderness, of the palmar aspect of right forearm and right hand, Exam: 12:43 Constitutional: This is a well developed, well nourished patient who is awake, alert, snw and in no acute distress. Head/Face: Normocephalic, atraumatic. Eyes: Pupils equal round and reactive to light, extra-ocular motions intact. Lids and lashes normal. Conjunctiva and sclera are non-icteric and not injected. Cornea within normal limits. Periorbital areas with no swelling, redness, or edema. ENT: Nares patent. No nasal discharge, no septal abnormalities noted. Tympanic membranes are normal and external auditory canals are clear. Oropharynx with no redness, swelling, or masses, exudates, or evidence of obstruction, uvula midline. Mucous membranes moist. Neck: Trachea midline, no thyromegaly or masses palpated, and no cervical lymphadenopathy. Supple, full range of motion without nuchal rigidity, or vertebral point tenderness. No Meningismus. Chest/axilla: Normal chest wall appearance and motion. Nontender with no deformity. No lesions are appreciated. Cardiovascular: Regular rate and rhythm with a normal S1 and S2. No gallops, murmurs, or rubs. Normal PMI, no JVD. No pulse deficits. Respiratory: Lungs have equal breath sounds bilaterally, clear to auscultation and percussion. No rales, rhonchi or wheezes noted. No increased work of breathing, no retractions or nasal flaring. Abdomen/GI: Soft, non-tender, with normal bowel sounds. No distension or tympany. No guarding or rebound. No evidence of tenderness throughout. Back: No spinal tenderness. No costovertebral tenderness. Full range of motion. Skin: Warm, dry with normal turgor. Normal color with no rashes, no lesions, and no evidence of cellulitis. Neuro: Awake and alert, GCS 15, oriented to person, place, time, and situation. Cranial nerves II-XII grossly intact. Motor strength 5/5 in all extremities. Sensory grossly intact. Cerebellar exam normal. Normal gait. Psych: Awake, alert, with orientation to person, place and time. Behavior, mood, and affect are within normal limits. 12:43 Skin: Warm, dry with normal turgor. Normal color with no rashes, no lesions, and no evidence of cellulitis. psoriasis 12:43 Musculoskeletal/extremity: Extremities: grossly normal except: noted in the right hand and palmar aspect of right forearm: ROM: limited active range of motion due to pain, in the right hand, Circulation is intact in all extremities. Tingling of extremity. to ulnar aspect of forearm Vital Signs: 12:56 BP 136 / 82; Pulse 100; Resp 16; Temp 98.1; Pulse Ox 100% on R/A; Weight 77.11 kg; hb Height 5 ft. 4 in. ; Pain 9/10; 12:56 Body Mass Index 29.18 (77.11 kg, 162.56 cm) hb 12:56 Pain Scale: Adult hb MDM: 12:39 Patient medically screened. snw 13:36 Differential diagnosis: dislocation, closed fracture, contusion, tendonitis. Data snw reviewed: vital signs, nurses notes, radiologic studies. I considered the following discharge prescriptions or medication management in the emergency department Medications were administered in the Emergency Department. See MAR. Counseling: I had a detailed discussion with the patient and/or guardian regarding the historical points, exam findings, and any diagnostic results supporting the discharge/admit diagnosis, radiology results, the need for outpatient follow up, for definitive care, to return to the emergency department if symptoms worsen or persist or if there are any questions or concerns that arise at home. Response to treatment: the patient's symptoms have markedly improved after treatment. Special discussion: I have referred the patient to see his PCP for further evaluation of high blood pressure. Based on the history and exam findings, there is no indication for further emergent testing or inpatient evaluation. I discussed with the patient/guardian the need to see the orthopedic surgeon for further evaluation of the symptoms. I discussed with the patient/guardian the need to see the primary care provider for further evaluation of the symptoms. 10/27 12:43 Order name: Hand Right 3 View XRAY; Complete Time: 13:33 snw 10/27 12:43 Order name: Forearm Right XRAY; Complete Time: 13:29 snw 10/27 12:43 Order name: Sling; Complete Time: 12:56 snw 10/27 12:43 Order name: Ice pack; Complete Time: 12:56 snw 10/27 13:34 Order name: Thumb Spica Splint; Complete Time: 13:57 snw Administered Medications: 12:57 Drug: HYDROcodone-acetaminophen PO 5 mg-325 mg 1 tabs PO once Route: PO; hb Disposition: 14:05 Co-signature as Attending Physician, Stas Bobby MD I reviewed the patient's care rn provided by the Advanced Practice Provider and agree with the diagnosis and treatment plan. Disposition Summary: 10/27/22 13:37 Discharge Ordered Notes: Location: Home snw Condition: Stable snw Diagnosis - Fall on same level from slipping, tripping and stumbling with subsequent striking snw against object - Sprain of other part of right wrist and hand snw Followup: snw - With: Emergency Department - When: As needed - Reason: Worsening of condition Followup: snw - With: Private Physician - When: 2 - 3 days - Reason: Recheck today's complaints, Continuance of care, Re-evaluation by your physician Discharge Instructions: - Discharge Summary Sheet snw - Cast or Splint Care, Adult snw - Hand Contusion snw - Fall Prevention in the Home, Adult snw - Wrist Pain, Adult snw - Crush Injury of the Hand snw - How to Use a Sling snw Forms: - Medication Reconciliation Form snw - Thank You Letter snw - Antibiotic Education snw - Prescription Opioid Use snw - Patient Portal Instructions snw - Leadership Thank You Letter snw Prescriptions: - Mobic 7.5 mg Oral Tablet - take 1 tablet ORAL route once daily take with food; 20 tablet; Refills: 0, snw Product Selection Permitted - orphenadrine citrate 100 mg Oral Tablet Sustained Release - take 1 tablet ORAL route 2 times per day As needed; 20 tablet; Refills: 0, snw Product Selection Permitted Signatures: Dispatcher [employer] Negrita Sanders FNP-C [employer] DRILLING MACHINE OPERATOR-Csnw Stas Bobby MD MD rn Baxter, Heather, RN RN
[2022-10-27 14:28] VITALS: BP 136/82; TEMP 98.1; O2SAT 100
== END 2022-10-27 13:57 | disposition home or self-care (01) ==
LOC: ER 12:26
DX: S63.8X1A Sprain of other part of right wrist and hand, initial encounter (principal); W01.10XA Fall on same level from slipping, tripping and stumbling with subsequent striking against unspecified object, initial encounter
CPT/HCPCS: 99282

== ENCOUNTER 2023-11-07 10:17 | Emergency (ER) | payer OTHER ==
--- OUTSIDE RECORDS SUMMARY | 2023-11-07 10:23 | XMS REPORT | Continuity of Care Document ---
Author Name Unknown Address [address] [place] [address] [facility] thconnect Address [address] [place] [address] Care Team Providers Care Systems Planner Name Role Phone Laurence Meadows NP Primary Care Physician [phone] Doctor Unassigned, [facility] Attending Clinician [facility] Nurse, [facility] Attending Clinician Un available Zeynep Olivares MD Attending Clinician [phone] ZEYNEP OLIVARES Attending Clinician Unavailable Martina Charles LMSW Attending Clinician Unava Maria Victoria Villagomez Attending Clinician [phone] Sasha Shepard MD Attending Clinician [phone] Leyda Gregorio PA-C Attending Clinician [phone], [facility] Attending Clinician Unavailable Payers Payer Name Policy Type Policy Number Effective Date Expirati on Date Source Problems Condition Name Condition Details Condition Category Status Onset Date Resolution Date Last Treatment Date Treating Clinician Comments Source ASCUS with positive high risk HPV cervical ASCUS with positive high risk HPV cervical Disease Active 02-20 00:00: 00 [facility] ASCUS with positive high risk HPV cervical ASCUS with positive high risk HPV cervical Disease Active 02-20 00:00: 00 [facility] Obesity, Class I, BMI 30-34.9 Obesity, Class I, BMI 30-34.9 Disease Active 10-13 00:00: 00 [facility] Acanthosis nigricans Acanthosis nigricans Disease Active 10-13 00:00: 00 [facility] Family history of diabetes mellitus (DM) Family history of diabetes mellitus (DM) Disease Active 10-13 00:00: 00 [facility] Allergies, Adverse Reactions, Alerts Allergy Name Allergy Type Status Severity Reaction(s) Onset Date Inactive Date Treating Clinician Comments Source none (Not Checked) Jos ty to adverse reaction to drug Active 08-05 00:00: 00 Raji Vaca NO KNOWN ALLERGIE S Drug Class Active [facility] Social History Social Habit Start Date Stop Date Quantity Comments Source History SDOH Alcohol Frequency [facility] History SDOH Alcohol Std Drinks [facility] History SDOH Alcohol Binge [facility] Sexual orientation [facility] Exposure to SARS-CoV-2 (event) 2021-06-28 00:00:00 2021-07-08 10:00:00 Not sure [facility] Alcohol intake 2021-07-08 00:00:00 2021-07-08 00:00:00 Current drinker of alcohol (finding) [facility] History of Social function 2021-07-08 00:00:00 2021-07-08 00:00:00 [facility] Tobacco use and exposure 2018-10-10 00:00:00 2018-10-10 00:00:00 Smokeless tobacco non-user [facility] Alcohol Comment 2018-02-20 00:00:00 2018-02-20 00:00:00 Rare [facility] History of tobacco use 2018-02-09 00:00:00 Cigarette Smoker [facility] Sex Assigned At 2000 00:00:00 2000 00:00:00 [facility] Smoking Status Start Date Stop Date Source Ex-smoker 2018-10-10 00:00:00 2018-10-10 00:00:00 [facility] Current some day smoker 2018-02-20 00:00:00 [facility] Medications Ordered Medication Name Filled Medication Name Start Date Stop Date Current Medication? Ordering Clinician Indication Dosage Frequency Signature (SIG) Comments Components Source metronidazo le 500 mg tablet 09-30 00:00: 00 Yes 1mg Raji Vaca Macrobid 100 mg capsule 09-27 00:00: 00 Yes 1mg Raji Vaca medroxyprog esterone 150 mg/mL intramuscul ar syringe 09-27 00:00: 00 Yes 1mg/mL Raji Vaca Toujeo Max U-300 SoloStar 300 unit/mL (3 mL) subcutaneou s insulin pen 08-06 00:00: 00 Yes (3 mL) Raji Vaca Novolog FlexPen U-100 Insulin aspart 100 unit/mL (3 mL) subcutaneou s 08-05 00:00: 00 Yes (3 mL) Raji Vaca Tresiba FlexTouch U-100 insulin 100 unit/mL (3 mL) subcutaneou s pen 08-05 00:00: 00 Yes (3 mL) Raji Vaca INJECT 1 ML INTRAMUSCUL MARLEN ONCE EVERY 3 MONTHS. 04-02 00:00: 00 Yes 150 Raji Vaca 1 TABLET PO BID 10-30 00:00: 00 06-18 00:00 :00 No 500 Raji Vaca 1 TABLET PO Q 8 HOURS PRN PAIN OR FEVER 10-30 00:00: 00 06-18 00:00 :00 No 600 Raji Vaca MELOXICAM 7.5 MG TABS 10-27 00:00: 00 Yes Raji Vaca CYCLOBENZAP RINE HYDROCHLORI DE 5 MG TABS 10-27 00:00: 00 Yes Raji Vaca INJECT 1 ML INTRAMUSCUL MARLEN ONCE EVERY 3 MONTHS. 09-26 00:00: 00 06-18 00:00 :00 No 150 Raji Vaca LAMOTRIGINE 25 MG TABS 2021-02 00:00: 00 Yes Raji Waldrop Lio INHALE 1 TO 2 PUFFS BY MOUTH EVERY 4 TO 6 HOURS NEEDED 2021-02 00:00: 00 Yes Raji Vaca ALBUTEROL SULFATE (2.5 MG/3ML) 0.083% NEBU 2021-02 00:00: 00 Yes Raji Vaca TRESIBA FLEXTOUCH 200 UNIT/ML SOPN 2021-02 00:00: 00 Yes Raji Vaca AZITHROMYCI N 250 MG TABS 2021-02 00:00: 00 Yes Raji Vaca USE 1 VIAL VIA NEBULIZER TWICE DAILY DIRECTED. 2021-02 0-24 00:00: 00 Yes Raji Vaca TRESIBA FLEXTOUCH 200 UNIT/ML SOPN 2021-02 0-08 00:00: 00 Yes Raji Vaca LORATADINE 10 MG TABS 0 11-03 00:00: 00 Yes Raji Vaca HYDROCODONE BITARTRATE/ ACETAMINOPH E N 5-325 MG TABS 10-28 00:00: 00 Yes Raji Vaca TAKE 1 TABLET BY MOUTH TWICE DAILY AT 6 AM AND 6 PM 0 10-28 00:00: 00 Yes Raji Vaca TAKE 1 TABLET BY MOUTH ONCE DAILY 0 10-28 00:00: 00 Yes Raji Vaca INHALE 1 TO 2 PUFFS BY MOUTH EVERY 4 TO 6 HOURS NEEDED 0 09-27 00:00: 00 Yes Raji Vaca TAKE 1 TABLET BY MOUTH EVERY 12 HOURS 0 09-09 00:00: 00 Yes Raji Vaca FLUCONAZOLE 150MG TABLETS 0 8- 00:00: 00 Yes Raji Vaca MEDROXYPROG ESTERONE 150MG/ML PF SYR 0 8 00:00: 00 Yes Raji Vaca Lexapro 10 mg tablet 0 08-01 00:00: 00 Yes 1mg Raji Vaca Trileptal 300 mg tablet 0 08-01 00:00: 00 Yes 1mg Raji Vaca Seroquel 50 mg tablet 0 08-01 00:00: 00 Yes 1mg Raji Vaca TAKE 1 TABLET BY MOUTH DAILY 0 08-01 00:00: 00 Yes Raji Vaca QUETIAPINE FUMARATE 50 MG TABS 0 08-01 00:00: 00 Yes Raji Vaca TAKE 1 TABLET BY MOUTH TWICE DAILY 0 08-01 00:00: 00 Yes Raji Vaca Lexapro 10 mg tablet 2021-0 2-24 00:00: 00 Yes 1mg Raji Vaca Trileptal 300 mg tablet 2021-0 2-24 00:00: 00 Yes 1mg Raji Vaca Seroquel 50 mg tablet 0 2-24 00:00: 00 Yes 1mg Raji Vaca Dose Unknown 0 1- 00:00: 00 Yes Raji Vaca Dose Unknown 0 1- 00:00: 00 Yes Raji Vaca Dose Unknown 0 1- 00:00: 00 Yes Raji Vaca Lexapro 10 mg tablet 2020-02 0- 00:00: 00 Yes 1mg Raji Vaca Trileptal 300 mg tablet 1 0-11 00:00: 00 Yes 1mg Raji Vaca Seroquel 50 mg tablet 2020-02 0-11 00:00: 00 Yes 1mg Raji Vaca Lexapro 10 mg tablet 2020-0 9-16 00:00: 00 Yes 1mg Raji Vaca Trileptal 300 mg tablet 2020-0 9-16 00:00: 00 Yes 1mg Raji Vaca Seroquel 50 mg tablet 2020-0 9-16 00:00: 00 Yes 1mg Raji Vaca Lexapro 10 mg tablet 2020-0 8-31 00:00: 00 Yes 1mg Raji Vaca Trileptal 300 mg tablet 2020-0 8-31 00:00: 00 Yes 1mg Raji Vaca Seroquel 50 mg tablet 2020-0 8-31 00:00: 00 Yes 1mg Raji Vaca Lexapro 10 mg tablet 2020-0 7-30 00:00: 00 Yes 1mg Raji Vaca Trileptal 300 mg tablet 2020-0 7-30 00:00: 00 Yes 1mg Raji Vaca Seroquel 50 mg tablet 2020-0 7-30 00:00: 00 Yes 1mg Raji Vaca Lexapro 10 mg tablet 2020-0 7-06 00:00: 00 Yes 1mg Raji Vaca Trileptal 300 mg tablet 2020-0 7-06 00:00: 00 Yes 1mg Raji Vaca Seroquel 50 mg tablet 2020-0 7-06 00:00: 00 Yes 1mg Raji Vaca Lexapro 10 mg tablet 2020-0 6- 00:00: 00 Yes 1mg Raji Vaca Trileptal 300 mg tablet 2020-0 6- 00:00: 00 Yes 1mg Raji Vaca Seroquel 50 mg tablet 2020-0 6- 00:00: 00 Yes 1mg Raji Vaca AMOXICILLIN ORAL 0 - 18:21: 37 - 00:00 :00 No Take by mouth. [facility] Lexapro 10 mg tablet 0 06-02 00:00: 00 Yes 1mg Raji Vaca Trileptal 300 mg tablet 0 - 00:00: 00 Yes 1mg Raji Vaca Seroquel 50 mg tablet 2020-0 4- 00:00: 00 Yes 1mg Raji Vaca Lexapro 10 mg tablet 2020-0 4- 00:00: 00 Yes 1mg Raji Vaca Trileptal 300 mg tablet 2020-0 4- 00:00: 00 Yes 1mg Raji Vaca Seroquel 50 mg tablet 2020-0 4-02 00:00: 00 Yes 1mg Raji Vaca Lexapro 10 mg tablet 2020-0 3-04 00:00: 00 Yes 1mg Raji Vaca Trileptal 300 mg tablet 2020-0 3-04 00:00: 00 Yes 1mg Raji Vaca Seroquel 50 mg tablet 2020-0 3-04 00:00: 00 Yes 1mg Raji Vaca Lexapro 5 mg tablet 2020-0 2-10 00:00: 00 Yes 1mg Raji Vaca Trileptal 300 mg tablet 2020-0 2-10 00:00: 00 Yes 1mg Raji Vaca Seroquel 50 mg tablet 2020-0 2-10 00:00: 00 Yes 1mg Raji Vaca Lexapro 5 mg tablet 2020-0 1-08 00:00: 00 Yes 1mg Raji Vaca Trileptal 300 mg tablet 2020-0 1-08 00:00: 00 Yes 1mg Raji Vaca Seroquel 50 mg tablet 02-12 00:00: 00 Yes 1mg Raji Vaca Lexapro 5 mg tablet 2019-02 00:00: 00 Yes 1mg Raji Vaca Trileptal 300 mg tablet 2019-02 00:00: 00 Yes 1mg Raji Vaca Seroquel 50 mg tablet 2019-02 00:00: 00 Yes 1mg Raji Vaca Lexapro 5 mg tablet 2019-02 00:00: 00 Yes 1mg Raji Vaca Trileptal 300 mg tablet 2019-02 00:00: 00 Yes 1mg Raji Vaca Seroquel 50 mg tablet 2019-02 00:00: 00 Yes 1mg Raji Vaca Lexapro 5 mg tablet 2019-02 00:00: 00 Yes 1mg Raji Vaca Trileptal 300 mg tablet 2019-02 00:00: 00 Yes 1mg Raji Vaca Seroquel 50 mg tablet 2019-02 00:00: 00 Yes 1mg Raji Vaca Lexapro 5 mg tablet 2019-02 00:00: 00 Yes 1mg Raji Vaca Trileptal 300 mg tablet 2019-02 00:00: 00 Yes 1mg Raji Vaca Seroquel 50 mg tablet 2019-02 00:00: 00 Yes 1mg Raji Vaca Trileptal 300 mg tablet 02-21 00:00: 00 Yes 1mg Raji Vaca Seroquel 50 mg tablet 02-21 00:00: 00 Yes 1mg Raji Vaca metroNIDAZO LE 500 mg tablet 10-11 00:00: 00 06-23 00:00 :00 No [id number] 500mg Take 1 tablet by mouth every 12 (twelve) hours. [facility] AMOXICILLIN ORAL 10-10 13:11: 58 Yes Take by mouth. [facility] metFORMIN 1,000 mg tablet 10-10 13:10: 46 Yes 1000mg Take 1,000 mg by mouth 2 (two) times daily with meals. [facility] metFORMIN 1,000 mg tablet 10-10 08:10: 46 Yes 1000mg Take 1,000 mg by mouth 2 (two) times daily with meals. [facility] Nitrofurant oin&Nit. Macrocryst 100 mg capsule 10-10 00:00: 00 06-23 00:00 :00 No [id number] 100mg Take 1 capsule by mouth 2 (two) times daily. [facility] lamoTRIgine 100 mg tablet 09-17 00:00: 00 Yes TK 1/2 T PO BID [facility] Lamictal 100 mg tablet 09-17 00:00: 00 Yes 5mg Raji Vaca Seroquel 50 mg tablet 09-17 00:00: 00 Yes 1mg Raji Vaca Lamictal 25 mg tablet 09-03 00:00: 00 Yes 1mg Raji Vaca Seroquel 25 mg tablet 09-03 00:00: 00 Yes 1mg Raji Vaca Lamictal 25 mg tablet 07-14 00:00: 00 Yes 1mg Raji Vaca Seroquel 25 mg tablet 07-14 00:00: 00 Yes 1mg Raji Vaca metformin 1,000 mg tablet 07-10 00:00: 00 Yes 1mg Raji Vaca AMOXICILLIN ORAL 02-20 16:43: 14 Yes Take by mouth. [facility] metFORMIN 1,000 mg tablet 02-20 16:43: 14 Yes 1000mg Take 1,000 mg by mouth 2 (two) times daily with meals. [facility] Lamictal 25 mg tablet 02-12 00:00: 00 Yes 1mg Raji Vaca Seroquel 25 mg tablet 02-12 00:00: 00 Yes 1mg Raji Vaca PROAIR HFA 90 mcg/actuati on inhaler 2017-02 00:00: 00 Yes INL 1 TO 2 PFS PO Q 4 TO 6 H PRN [facility] LEVEMIR FLEXTOUCH U-100 INSULN 100 unit/mL (3 mL) injection 2017-02 00:00: 00 Yes ADM 80 UNI SC QD [facility] SYMBICORT 160-4.5 mcg/actuati on inhaler 2017-02 00:00: 00 Yes INHALE 1 PUFF PO QD [facility] levothyroxi ne 150 mcg tablet 2017-02 00:00: 00 Yes TK 1 T PO QD WHEN AWAKENING WITH A FULL GLASS OF WATER ON AN EMPTY STOMACH [facility] loratadine 10 mg tablet 2017-02 00:00: 00 Yes TK 1 T PO QD [facility] montelukast 10 mg tablet 2017-02 00:00: 00 Yes TAKE 1 TABLET BY MOUTH EVERY DAY IN THE EVENING [facility] Lamictal 25 mg tablet 2017-02 00:00: 00 Yes 13mg Raji F Lio blood sugar diagnostic (FREESTYLE LITE STRIPS) strip 10-11 00:00: 00 Yes [id number] 3 times daily [facility] lancets (FREESTYLE LANCETS) 28 gauge [facility] 10-11 00:00: 00 Yes [id number] 3 times daily [facility] acetone, urine, test (KETONE URINE TEST) strip 10-11 00:00: 00 Yes [id number] Check with blood sugars >300 or if ill prn [facility] lancets (FREESTYLE LANCETS) 28 gauge [facility] 10-11 00:00: 00 Yes [id number] 3 times daily [facility] blood sugar diagnostic (FREESTYLE LITE STRIPS) strip 10-11 00:00: 00 Yes [id number] 3 times daily [facility] acetone, urine, test (KETONE URINE TEST) strip 201710-11 00:00: 00 Yes [id number] Check with blood sugars >300 or if ill prn [facility] Immunizations Ordered Immunization Name Filled Immunization Name Date Status Comments Source HPV9 2021-07-08 00:00:00 Completed [facility] HPV9 2020-12-27 00:00:00 Completed [facility] HPV9 2020-12-27 00:00:00 Completed [facility] HPV9 2020-12-27 00:00:00 Completed [facility] HPV9 2020-12-27 00:00:00 Completed [facility] 2020-06-23 00:00:00 Completed [facility] 2020-06-23 00:00:00 Completed [facility] HPV9 2020-06-23 00:00:00 Completed [facility] HPV9 2020-06-23 00:00:00 Completed [facility] HPV9 2020-06-23 00:00:00 Completed [facility] HPV9 Unknown Completed [facility] Vital Signs Vital Name Observation Time Observation Value Comments S ource Systolic blood pressure 2021-07-08 15:09:00 138 mm[Hg] [facility] Diastolic blood pressure 2021-07-08 15:09:00 87 mm[Hg] [facility] Heart rate 2021-07-08 15:09:00 109 /min Un[facility] Body temperature 2021-07-08 15:09:00 36.78 Starr [facility] Respiratory rate 2021-07-08 15:09:00 18 /min [facility] Body height 2021-07-08 15:09:00 162.6 cm [facility] Body weight 2021-07-08 15:09:00 82.101 kg [facility] BMI 2021-07-08 15:09:00 31.07 kg/m2 [facility] Systolic blood pressure 2020-12-27 21:08:00 124 mm[Hg] [facility] Diastolic blood pressure 2020-12-27 21:08:00 83 mm[Hg] [facility] Heart rate 2020-12-27 21:05:00 99 /min Unive [facility] Body temperature 2020-12-27 21:05:00 36.89 Starr [facility] Respiratory rate 2020-12-27 21:05:00 18 /min [facility] Body height 2020-12-27 21:05:00 162.6 cm [facility] Body weight 2020-12-27 21:05:00 80.287 kg [facility] BMI 2020-12-27 21:05:00 30.38 kg/m2 [facility] Systolic blood pressure 2020-06-23 16:57:00 130 mm[Hg] [facility] Diastolic blood pressure 2020-06-23 16:57:00 85 mm[Hg] [facility] Heart rate 2020-06-23 16:57:00 74 /min Unive [facility] Body temperature 2020-06-23 16:57:00 36.72 Starr [facility] Respiratory rate 2020-06-23 16:57:00 16 /min [facility] Body height 2020-06-23 16:57:00 162.6 cm [facility] Body weight 2020-06-23 16:57:00 79.47 kg [facility] BMI 2020-06-23 16:57:00 30.07 kg/m2 [facility] Systolic blood pressure 2018-10-10 13:08:00 131 mm[Hg] [facility] Diastolic blood pressure 2018-10-10 13:08:00 90 mm[Hg] [facility] Heart rate 2018-10-10 13:08:00 90 /min [facility] Body temperature 2018-10-10 13:08:00 36.5 Starr [facility] Respiratory rate 2018-10-10 13:08:00 20 /min [facility] Body height 2018-10-10 13:08:00 162.6 cm [facility] Body weight 2018-10-10 13:08:00 83.915 kg [facility] BMI 2018-10-10 13:08:00 31.76 kg/m2 [facility] BP Systolic 2023-10-05 14:47:00 120 mm[Hg] Step hen Pal[facility] BP Diastolic 2023-10-05 14:47:00 86 mm[Hg] Zion Vaca Weight Measured 2023-10-05 14:47:00 161.00 pounds Raji Vaca Height Measured 2023-10-05 14:47:00 64.00 inches Raji Vaca Body Temperature 2023-10-05 14:47:00 98.00 degrees Raji F Lio Heart Rate 2023-10-05 14:47:00 114.00 /min Step [facility] F [facility] Respiratory Rate 2023-10-05 14:47:00 20.00 /min Raji F Lio BP Systolic 2023-09-28 15:51:00 130 mm[Hg] Step hen F Lio BP Diastolic 2023-09-28 15:51:00 86 mm[Hg] Zion phen F Lio Weight Measured 2023-09-28 15:51:00 164.00 pounds Raji F Lio Height Measured 2023-09-28 15:51:00 64.00 inches Raji F Lio Body Temperature 2023-09-28 15:51:00 97.90 degrees Raji F Lio Heart Rate 2023-09-28 15:51:00 102.00 /min Step hen F Lio Respiratory Rate 2023-09-28 15:51:00 18.00 /min Raji F Lio BP Systolic 2023-09-26 14:04:00 122 mm[Hg] Step hen F Lio BP Diastolic 2023-09-26 14:04:00 88 mm[Hg] Zion phen F Lio Weight Measured 2023-09-26 14:04:00 164.00 pounds Raji F Lio Height Measured 2023-09-26 14:04:00 64.00 inches Raji F Lio Body Temperature 2023-09-26 14:04:00 98.00 degrees Raji F Lio Heart Rate 2023-09-26 14:04:00 114.00 /min Step hen F Lio Respiratory Rate 2023-09-26 14:04:00 18.00 /min Raji F Lio BP Systolic 2023-08-06 14:02:00 110 mm[Hg] Step hen F Lio BP Diastolic 2023-08-06 14:02:00 70 mm[Hg] Zion phen F Lio Weight Measured 2023-08-06 14:02:00 163.00 pounds Raji F Lio Height Measured 2023-08-06 14:02:00 63.00 inches Raji F Lio Body Temperature 2023-08-06 14:02:00 98.10 degrees Raji F Lio Heart Rate 2023-08-06 14:02:00 100.00 /min Step hen F Lio Respiratory Rate 2023-08-06 14:02:00 20.00 /min Raji F Lio BP Diastolic 2023-06-19 13:07:00 80 mm[Hg] Zion phen F Lio Weight Measured 2023-06-19 13:07:00 164.00 pounds Raji F Lio Height Measured 2023-06-19 13:07:00 63.00 inches Raji F Lio Body Temperature 2023-06-19 13:07:00 98.10 degrees Raji F Lio Heart Rate 2023-06-19 13:07:00 96.00 /min Kailee en F Lio Respiratory Rate 2023-06-19 13:07:00 18.00 /min Raji F Lio BP Systolic 2023-06-19 13:07:00 110 mm[Hg] Step hen F Lio BP Systolic 2023-04-02 13:29:00 132 mm[Hg] Step hen F Lio BP Diastolic 2023-04-02 13:29:00 84 mm[Hg] Zion phen F Lio Weight Measured 2023-04-02 13:29:00 165.00 pounds Raji F Lio Height Measured 2023-04-02 13:29:00 63.00 inches Raji F Lio Body Temperature 2023-04-02 13:29:00 97.20 degrees Raji F Lio Heart Rate 2023-04-02 13:29:00 107.00 /min Step hen F Lio Respiratory Rate 2023-04-02 13:29:00 20.00 /min Raji F Lio BP Systolic 2023-01-15 15:41:00 120 mm[Hg] Step hen F Lio BP Diastolic 2023-01-15 15:41:00 80 mm[Hg] Zion phen F Lio Weight Measured 2023-01-15 15:41:00 163.00 pounds Raji F Lio Height Measured 2023-01-15 15:41:00 63.00 inches Raji F Lio Body Temperature 2023-01-15 15:41:00 98.30 degrees Raji F Lio Heart Rate 2023-01-15 15:41:00 114.00 /min Step hen F Lio Respiratory Rate 2023-01-15 15:41:00 20.00 /min Raji F Lio BP Systolic 2022-10-30 13:13:00 120 mm[Hg] Step hen F Lio BP Diastolic 2022-10-30 13:13:00 84 mm[Hg] Zion phen F Lio Weight Measured 2022-10-30 13:13:00 167.00 pounds Raji F Lio Height Measured 2022-10-30 13:13:00 63.00 inches Raji F Lio Body Temperature 2022-10-30 13:13:00 98.30 degrees Raji F Lio Heart Rate 2022-10-30 13:13:00 98.00 /min Kailee en F Lio Respiratory Rate 2022-10-30 13:13:00 18.00 /min Raji F Lio BP Systolic 2022-09-26 16:20:00 140 mm[Hg] Step hen F Lio BP Diastolic 2022-09-26 16:20:00 80 mm[Hg] Zion phen F Lio Weight Measured 2022-09-26 16:20:00 165.00 pounds Raji F Lio Height Measured 2022-09-26 16:20:00 63.00 inches Raji F Lio Body Temperature 2022-09-26 16:20:00 98.00 degrees Raji F Lio Heart Rate 2022-09-26 16:20:00 110.00 /min Step hen F Lio Respiratory Rate 2022-09-26 16:20:00 19.00 /min Raji F Lio BP Systolic 2022-06-07 15:33:00 138 mm[Hg] Step hen F Lio BP Diastolic 2022-06-07 15:33:00 108 mm[Hg] Zion phen F Lio Weight Measured 2022-06-07 15:33:00 171.00 pounds Raji F Lio Height Measured 2022-06-07 15:33:00 63.00 inches Raji F Lio Body Temperature 2022-06-07 15:33:00 97.70 degrees Raji F Lio Heart Rate 2022-06-07 15:33:00 121.00 /min Step hen F Lio Respiratory Rate 2022-06-07 15:33:00 18.00 /min Raji F Lio BP Systolic 2019-02-21 11:16:00 113 mm[Hg] Step hen F Lio BP Diastolic 2019-02-21 11:16:00 79 mm[Hg] Zion phen F Lio Weight Measured 2019-02-21 11:16:00 182.20 pounds Raji F Lio Height Measured 2019-02-21 11:16:00 64.17 inches Raji F Lio Body Temperature 2019-02-21 11:16:00 98.70 degrees Rjai F Lio Heart Rate 2019-02-21 11:16:00 102.00 /min Step hen F Lio Respiratory Rate 2019-02-21 11:16:00 16.00 /min Raji F Lio BP Systolic 2018-09-17 11:05:00 123 mm[Hg] Step hen F Lio BP Diastolic 2018-09-17 11:05:00 82 mm[Hg] Zion phen F Lio Weight Measured 2018-09-17 11:05:00 185.40 pounds Raji F Lio Height Measured 2018-09-17 11:05:00 64.17 inches Raji F Lio Body Temperature 2018-09-17 11:05:00 98.30 degrees Raji F Lio Heart Rate 2018-09-17 11:05:00 107.00 /min Step hen F Lio Respiratory Rate 2018-09-17 11:05:00 Raji F Lio BP Systolic 2018-09-03 13:16:00 113 mm[Hg] Step hen F Lio BP Diastolic 2018-09-03 13:16:00 72 mm[Hg] Zion phen F Lio Weight Measured 2018-09-03 13:16:00 186.20 pounds Raji F Lio Height Measured 2018-09-03 13:16:00 65.00 inches Raji F Lio Body Temperature 2018-09-03 13:16:00 98.40 degrees Raji F Lio Heart Rate 2018-09-03 13:16:00 94.00 /min Kailee en F Lio Respiratory Rate 2018-09-03 13:16:00 Raji F Lio BP Systolic 2018-07-10 10:50:00 121 mm[Hg] Step hen F Lio BP Diastolic 2018-07-10 10:50:00 78 mm[Hg] Zion phen F Lio Weight Measured 2018-07-10 10:50:00 184.40 pounds Raji F Lio Height Measured 2018-07-10 10:50:00 64.25 inches Raji F Lio Body Temperature 2018-07-10 10:50:00 98.10 degrees Raji F Lio Heart Rate 2018-07-10 10:50:00 87.00 /min Kailee en F Lio Respiratory Rate 2018-07-10 10:50:00 17.00 /min Raji Waldrop Lio Procedures Procedure Date / Time Performed Performing Clinician Source REFERRAL- REQUEST/RESPONSE 2023-04-02 06:01:00 D sean Unassigned, [facility] GARDASIL 9 (HPV 9V) VACCINE 2021-07-08 15:11:46 Zeynep Olivares [facility] ASSIGNMENT OF BENEFITS 2021-07-08 14:59:45 Docto r Unassigned, [facility] GARDASIL 9 (HPV 9V) VACCINE 2020-12-27 21:12:28 Sasha Shepard [facility] GARDASIL 9 (HPV 9V) VACCINE 2020-06-23 17:28:23 Zeynep Olivares [facility] ASSIGNMENT OF BENEFITS 2020-06-23 16:17:19 Docyue r Unassigned, [facility] REFERRAL- REQUEST/RESPONSE 2019-06-03 05:01:00 D sean Unassigned, [facility] EXTERNAL LAB CHLAMYDIA 2019-05-23 13:00:00 Docto r Unassigned, [facility] EXTERNAL PAP SMEAR 2019-05-23 13:00:00 Doctor Un assigned, [facility] NO SHOW OR MISSED APPOINTMENT POLICY ACKNOWLEDGEMENT 2018-10-10 12:56:20 Doctor Unassigned, [facility] POCT URINALYSIS 2018-10-10 00:00:[address] [facility] Encounters Start Date/Time End Date/Time Encounter Type Admission Type Attending [facility] Care Facility Care Department Encounter ID Source 2023-10-05 14:42:05 2023-10-05 14:42:05 Outpatient [facility] [id number] [id number] Raji F Lio 2023-10-05 00:00:00 2023-10-05 00:00:00 Outpatient Visit SFA [id number] Raji Waldrop Lio 2023-09-28 15:51:25 2023-09-28 15:51:25 Outpatient SFA [id number] [id number] Raji Waldrop Lio 2023-09-28 00:00:00 2023-09-28 00:00:00 Outpatient Visit [facility]FA [id number] Raji Vaca 2023-09-26 13:55:36 2023-09-26 13:55:36 Outpatient [facility] SFA [id number] 0821 Raji Vaca 2023-09-26 00:00:00 2023-09-26 00:00:00 Outpatient Visit [facility] [id number] Raji Vaca 2023-08-06 14:01:19 2023-08-06 14:01:19 Outpatient SFA SFA 0701 Raji Vaca 2023-08-06 00:00:00 2023-08-06 00:00:00 Outpatient Visit SFA [id number] Raji Vaca 2023-08-03 11:31:35 2023-08-03 11:31:35 Outpatient SFA SFA 0628 Raji Vaca 2023-06-19 13:05:54 2023-06-19 13:05:54 Outpatient SFA SFA 0514 Raji Vaca 2023-06-19 00:00:00 2023-06-19 00:00:00 Outpatient Visit SFA [id number] [id number] Raji Vaca 2023-04-02 13:28:07 2023-04-02 13:28:07 Outpatient SFA SFA 0226 Raji Vaca 2023-04-02 00:00:00 2023-04-02 00:00:00 Orders Only Doctor Unassigned, [place] [facility] 1.2.840.114 350.1.13.10 4.2.7.2.686 [id number] [facility] 2023-01-15 15:28:17 2023-01-15 15:28:17 Outpatient SFA SFA 1211 Raji aWldrop Lio 2022-10-30 13:08:43 2022-10-30 13:08:43 Outpatient [facility] 0925 Raji Vaca 2022-10-13 15:08:50 2022-10-13 15:08:50 Outpatient [facility] 0908 Raji Waldrop Lio 2022-09-26 16:03:19 2022-09-26 16:03:19 Outpatient [facility] 0822 Raji Waldrop [place] 2022-06-07 15:21:55 2022-06-07 15:21:55 Outpatient [facility] 0503 Raji Waldrop Lio 2021-07-08 10:00:00 2021-07-08 10:13:56 Nurse Visit Nurse, [facility] Zeynep Olivares [facility] ..840.114 350.1.13.10 4.2.7.2.686 [id number] [facility] 2021-07-08 10:00:00 2021-07-08 10:00:00 Outpatient R ZEYNEP OLIVARES [facility] [id number] [facility] 2021-07-08 08:00:00 2021-07-08 08:00:00 Outpatient R [facility] [id number] [facility] 2021-07-08 00:00:00 2021-07-08 00:00:00 Orders Only Doctor Unassigned, [place] [facility] .840.114 350.1.13.10 4.2.7.2.686 [id number] [id number] [facility] 2021-06-27 15:30:00 2021-06-27 15:30:00 Outpatient R [facility] [id number] [facility] 2021-03-04 00:00:00 2021-03-04 00:00:00 Case Management Martina Charles .840.114 350.1.13.10 4.2.7.2.686 [id number] [facility] 2020-12-27 14:55:40 2020-12-27 15:08:40 [facility] 1.2.840.114 350.1.13.10 4.2.7.2.686 [id number] [facility] 2020-12-27 14:30:00 2020-12-27 15:08:40 Outpatient R [facility] [id number] [facility] 2020-12-24 10:30:00 2020-12-24 10:30:00 Outpatient R [facility] [id number] [facility] 2020-08-23 10:30:00 2020-08-23 10:30:00 Outpatient R [facility] [id number] [facility] 2020-06-23 11:17:55 2020-06-23 12:30:20 Office Visit AdZeynep carr [facility] 1.2.840.114 350.1.13.10 4.2.7.2.686 [id number] [facility] 2020-06-23 11:00:00 2020-06-23 11:00:00 Outpatient R [facility] [id number] [facility] 2020-06-23 00:00:00 2020-06-23 00:00:00 Orders Only Doctor Unassigned, [place] [facility] 1.2.840.114 350.1.13.10 4.2.7.2.686 [id number] [id number] [facility] 2020-06-17 08:30:00 2020-06-17 08:30:00 Outpatient R [facility] [id number] [facility] 2019-07-29 00:00:00 2019-07-29 00:00:00 Letter (Out) [place] [facility] 1.2840.114 350.1.13.10 4.2.7.2.686 [id number] [facility] 2019-06-03 00:00:00 2019-06-03 00:00:00 Orders Only Doctor Unassigned, [place] [facility] 1.2840.114 350.1.13.10 4.2.7.2.686 [id number] [facility] 2019-06-02 00:00:00 2019-06-02 00:00:00 Telephone Sasha Shepard [facility] 1.2840.114 350.1.13.10 4.2.7.2.686 [id number] 134 [id number] [facility] 2018-10-11 00:00:00 2018-10-11 00:00:00 Case Management Leyda Gregorio [facility] 1..840.114 350.1.13.10 4.2.7.2.686 [id number] [facility] 2018-10-10 08:35:38 2018-10-10 08:50:38 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 2, [facility] 1..840.114 350.1.13.10 4.2.7.2.686 [id number] [facility] 2018-10-10 07:56:08 2018-10-10 08:30:43 Office Visit [facility]lineAileency [facility] 1.2.840.114 350.1.13.10 4.2.7.2.686 [id number] 134 [id number] [facility] 2018-10-10 00:00:00 2018-10-10 00:00:00 Orders Only Doctor Unassigned, [place] [facility] 1.20.114 350.1.13.10 4.2.7.2.686 [id number] [facility] Results Test Description Test Time Test Comments Results Result Co mments Source Raji VacaHPV HIGH RISK WITH GENOTYPE, TP [REFLEX]2023-10-02 00:00:00* Test Item Value Reference Range Interpretation Comme nts HPV HIGH RISK INTERP (test c ode = 92817) POSITIVE HPV 16 (test code = 27139) NEGATIVE HPV 18 (test code = 25969) NEGATIVE HPV, HR, OTHER GENOTYPES (te st code = 69190) POSITIVE PDFE (test code = PDFReport) PDF Raji VacaCT/NG, NAAT, [id number] 00:00:00* Test Item Value Reference Range Interpretation Comme nts CHLAMYDIA, NAAT, THINPREP (t est code = 00326) NEGATIVE GONORRHEA, NAAT, THINPREP (t est code = 38895) NEGATIVE Raji VacaTRICHOMONAS, THINPREP, [id number] 00:00:00* Test Item Value Reference Range Interpretation Comme nts TRICHOMONAS, NAAT (test code = 04200) NEGATIVE SPECIMEN TYPE (test code = 84667) THINPREP Raji VacaVAGINAL PATHOGENS DNA [id number] 00:00:00* Test Item Value Reference Range Interpretation Comme nts MICHAEL SPECIES (test code = 14241) NEGATIVE G. VAGINALIS (test code = 80668) POSITIVE T. VAGINALIS (test code = 90074) NEGATIVE Raji VacaLIPID [id number] 00:00:00* Test Item Value Reference Range Interpretation Comme nts CHOLESTEROL (test code = 2210) 179 MG/DL TRIGLYCERIDES (test code = 2232) 282 MG/DL HDL CHOLESTEROL (test code = 2220) 42 MG/DL CALC LDL CHOL (test code = 2237) 97 MG/DL RISK RATIO LDL/HDL (test cod e = 2238) 2.31 RATIO Raji VacaHEMOGLOBIN [id number] 00:00:00* Test Item Value Reference Range Interpretation Comme dipak HEMOGLOBIN A1c (test code = 31931) 9.6 % Raji [id number] 00:00:00* Test Item Value Reference Range Interpretation Comme nts TSH, THIRD GENERATION (test code = 2821) 2.350 UIU/ML Raji VacaCOMPREHENSIVE METABOLIC [id number] 00:00:00* Test Item Value Reference Range Interpretation Comme nts GLUCOSE (test code = 2217) 338 MG/DL BUN (test code = 2208) 16 MG/DL CREATININE (test code = 2214) 0.69 MG/DL eGFR (2020 CKD-EPI) (test code = 24645) 124 ML/MIN/1.73 CALC BUN/CREAT (test code = 2235) 23 RATIO SODIUM (test code = 2231) 133 MEQ/L POTASSIUM (test code = 2228) 4.4 MEQ/L CHLORIDE (test code = 2215) 96 MEQ/L CARBON DIOXIDE (test code = 2206) 24 MEQ/L CALCIUM (test code = 2209) 9.7 MG/DL PROTEIN, TOTAL (test code = 2229) 7.1 G/DL ALBUMIN (test code = 2201) 4.2 G/DL CALC GLOBULIN (test code = 2240) 2.9 G/DL CALC A/G RATIO (test code = 2234) 1.4 RATIO BILIRUBIN, TOTAL (test code = 2207) 0.4 MG/DL ALKALINE PHOSPHATASE (test code = 2204) 164 U/L AST (test code = 2218) 11 U/L ALT (test code = 2219) 11 U/L Raji VacaURINALYSIS W/REFLEX [id number] 00:00:00* Test Item Value Reference Range Interpretation Comme nts COLOR (test code = 1501) YELLOW APPEARANCE (test code = 1502) CLOUDY SPECIFIC GRAVITY (test code = 1503) 1.029 LEUKOCYTE ESTERASE (test cod e = 1504) TRACE NITRITE (test code = 1505) NEGATIVE pH (test code = 1506) 5.0 PROTEIN (test code = 1507) 1+ GLUCOSE (test code = 1508) 3+ KETONES (test code = 1509) NEGATIVE UROBILINOGEN (test code = 1510) 1.0 MG/DL BILIRUBIN (test code = 1511) NEGATIVE OCCULT BLOOD (test code = 1512) 1+ WHITE BLOOD CELLS (test code = 1513) >50 /HPF RED BLOOD CELLS (test code = 1514) 0-2 /HPF EPITHELIAL CELLS (test code = 04179) 6-10 /HPF BACTERIA (test code = 1515) >3+ CASTS, HYALINE (test code = 1517) TRACE Raji VacaALBUMIN/CREATININE RATIO, RANDOM [id number] 00:00:00* Test Item Value Reference Range Interpretation Comme nts CREATININE, URINE, CONC. (te st code = 2072) 61.1 MG/DL ALBUMIN, URINE, RANDOM (test code = 40602) 26.7 MG/DL CALC ALBUMIN/CREAT, RND (juan manuel t code = 83137) 437 MG/G Raji VacaCBC W/AUTO [id number] 00:00:00* Test Item Value Reference Range Interpretation Comme nts WBC (test code = 1001) 8.6 K/UL RBC (test code = 1002) 4.27 M/UL HEMOGLOBIN (test code = 1003) 12.5 G/DL HEMATOCRIT (test code = 1004) 37.6 % MCV (test code = 1005) 88.1 fL MCH (test code = 1006) 29.3 PG MCHC (test code = 1007) 33.2 G/DL RDW (test code = 1038) 12.5 % NEUTROPHILS (test code = 1008) 60.1 % LYMPHOCYTES (test code = 1010) 31.9 % MONOCYTES (test code = 1011) 5.8 % EOSINOPHILS (test code = 1012) 1.4 % BASOPHILS (test code = 1013) 0.6 % IMMATURE GRANULOCYTES (test code = 1036) 0.2 % NUCLEATED RBCS (test code = 1065) 0.0 /100WBC'S PLATELET COUNT (test code = 1015) 277 K/UL ABSOLUTE NEUTROPHILS (test c ode = 1066) 5.14 K/UL ABSOLUTE LYMPHOCYTES (test c ode = 1067) 2.73 K/UL ABSOLUTE MONOCYTES (test cod e = 1068) 0.50 K/UL ABSOLUTE EOSINOPHILS (test c ode = 1040) 0.12 K/UL ABSOLUTE BASOPHILS (test cod e = 1069) 0.05 K/UL ABS IMMATURE GRANULOCYTES (t est code = 1020) 0.02 K/UL ABS NUCLEATED RBCS (test cod e = 70591) 0.00 K/UL Raji VacaLIPID [id number] 00:00:00* Test Item Value Reference Range Interpretation Comme nts CHOLESTEROL (test code = 2210) 179 MG/DL TRIGLYCERIDES (test code = 2232) 282 MG/DL HDL CHOLESTEROL (test code = 2220) 42 MG/DL CALC LDL CHOL (test code = 2237) 97 MG/DL RISK RATIO LDL/HDL (test cod e = 2238) 2.31 RATIO Raji VacaHEMOGLOBIN [id number] 00:00:00* Test Item Value Reference Range Interpretation Comme nts HEMOGLOBIN A1c (test code = 14218) 9.6 % Raji [id number] 00:00:00* Test Item Value Reference Range Interpretation Comme nts TSH, THIRD GENERATION (test code = 2821) 2.350 UIU/ML Raji VacaCOMPREHENSIVE METABOLIC [id number] 00:00:00* Test Item Value Reference Range Interpretation Comme nts GLUCOSE (test code = 2217) 338 MG/DL BUN (test code = 2208) 16 MG/DL CREATININE (test code = 2214) 0.69 MG/DL eGFR (2020 CKD-EPI) (test code = 12964) 124 ML/MIN/1.73 CALC BUN/CREAT (test code = 2235) 23 RATIO SODIUM (test code = 2231) 133 MEQ/L POTASSIUM (test code = 2228) 4.4 MEQ/L CHLORIDE (test code = 2215) 96 MEQ/L CARBON DIOXIDE (test code = 2206) 24 MEQ/L CALCIUM (test code = 2209) 9.7 MG/DL PROTEIN, TOTAL (test code = 2229) 7.1 G/DL ALBUMIN (test code = 2201) 4.2 G/DL CALC GLOBULIN (test code = 2240) 2.9 G/DL CALC A/G RATIO (test code = 2234) 1.4 RATIO BILIRUBIN, TOTAL (test code = 2207) 0.4 MG/DL ALKALINE PHOSPHATASE (test code = 2204) 164 U/L AST (test code = 2218) 11 U/L ALT (test code = 2219) 11 U/L Raji Waldrop AustinURINALYSIS W/REFLEX [id number] 00:00:00* Test Item Value Reference Range Interpretation Comme nts COLOR (test code = 1501) YELLOW APPEARANCE (test code = 1502) CLOUDY SPECIFIC GRAVITY (test code = 1503) 1.029 LEUKOCYTE ESTERASE (test cod e = 1504) TRACE NITRITE (test code = 1505) NEGATIVE pH (test code = 1506) 5.0 PROTEIN (test code = 1507) 1+ GLUCOSE (test code = 1508) 3+ KETONES (test code = 1509) NEGATIVE UROBILINOGEN (test code = 1510) 1.0 MG/DL BILIRUBIN (test code = 1511) NEGATIVE OCCULT BLOOD (test code = 1512) 1+ WHITE BLOOD CELLS (test code = 1513) >50 /HPF RED BLOOD CELLS (test code = 1514) 0-2 /HPF EPITHELIAL CELLS (test code = 22455) 6-10 /HPF BACTERIA (test code = 1515) >3+ CASTS, HYALINE (test code = 1517) TRACE Raji Waldrop LioALBUMIN/CREATININE RATIO, RANDOM [id number] 00:00:00* Test Item Value Reference Range Interpretation Comme nts CREATININE, URINE, CONC. (te st code = 2072) 61.1 MG/DL ALBUMIN, URINE, RANDOM (test code = 40676) 26.7 MG/DL CALC ALBUMIN/CREAT, RND (juan manuel t code = 53282) 437 MG/G Raji Waldrop LioCBC W/AUTO [id number] 00:00:00* Test Item Value Reference Range Interpretation Comme nts WBC (test code = 1001) 8.6 K/UL RBC (test code = 1002) 4.27 M/UL HEMOGLOBIN (test code = 1003) 12.5 G/DL HEMATOCRIT (test code = 1004) 37.6 % MCV (test code = 1005) 88.1 fL MCH (test code = 1006) 29.3 PG MCHC (test code = 1007) 33.2 G/DL RDW (test code = 1038) 12.5 % NEUTROPHILS (test code = 1008) 60.1 % LYMPHOCYTES (test code = 1010) 31.9 % MONOCYTES (test code = 1011) 5.8 % EOSINOPHILS (test code = 1012) 1.4 % BASOPHILS (test code = 1013) 0.6 % IMMATURE GRANULOCYTES (test code = 1036) 0.2 % NUCLEATED RBCS (test code = 1065) 0.0 /100WBC'S PLATELET COUNT (test code = 1015) 277 K/UL ABSOLUTE NEUTROPHILS (test c ode = 1066) 5.14 K/UL ABSOLUTE LYMPHOCYTES (test c ode = 1067) 2.73 K/UL ABSOLUTE MONOCYTES (test cod e = 1068) 0.50 K/UL ABSOLUTE EOSINOPHILS (test c ode = 1040) 0.12 K/UL ABSOLUTE BASOPHILS (test cod e = 1069) 0.05 K/UL ABS IMMATURE GRANULOCYTES (t est code = 1020) 0.02 K/UL ABS NUCLEATED RBCS (test cod e = 62924) 0.00 K/UL Raji VacaLIPID [id number] 00:00:00* Test Item Value Reference Range Interpretation Comme nts CHOLESTEROL (test code = 2210) 179 MG/DL TRIGLYCERIDES (test code = 2232) 282 MG/DL HDL CHOLESTEROL (test code = 2220) 42 MG/DL CALC LDL CHOL (test code = 2237) 97 MG/DL RISK RATIO LDL/HDL (test cod e = 2238) 2.31 RATIO Raji VacaHEMOGLOBIN [id number] 00:00:00* Test Item Value Reference Range Interpretation Comme nts HEMOGLOBIN A1c (test code = 83496) 9.6 % Raji [id number] 00:00:00* Test Item Value Reference Range Interpretation Comme nts TSH, THIRD GENERATION (test code = 2821) 2.350 UIU/ML Raji VacaCOMPREHENSIVE METABOLIC [id number] 00:00:00* Test Item Value Reference Range Interpretation Comme nts GLUCOSE (test code = 2217) 338 MG/DL BUN (test code = 2208) 16 MG/DL CREATININE (test code = 2214) 0.69 MG/DL eGFR (2020 CKD-EPI) (test code = 59280) 124 ML/MIN/1.73 CALC BUN/CREAT (test code = 2235) 23 RATIO SODIUM (test code = 2231) 133 MEQ/L POTASSIUM (test code = 2228) 4.4 MEQ/L CHLORIDE (test code = 2215) 96 MEQ/L CARBON DIOXIDE (test code = 2206) 24 MEQ/L CALCIUM (test code = 2209) 9.7 MG/DL PROTEIN, TOTAL (test code = 2229) 7.1 G/DL ALBUMIN (test code = 2201) 4.2 G/DL CALC GLOBULIN (test code = 2240) 2.9 G/DL CALC A/G RATIO (test code = 2234) 1.4 RATIO BILIRUBIN, TOTAL (test code = 2207) 0.4 MG/DL ALKALINE PHOSPHATASE (test code = 2204) 164 U/L AST (test code = 2218) 11 U/L ALT (test code = 2219) 11 U/L Raji Waldrop AustinURINALYSIS W/REFLEX [id number] 00:00:00* Test Item Value Reference Range Interpretation Comme nts COLOR (test code = 1501) YELLOW APPEARANCE (test code = 1502) CLOUDY SPECIFIC GRAVITY (test code = 1503) 1.029 LEUKOCYTE ESTERASE (test cod e = 1504) TRACE NITRITE (test code = 1505) NEGATIVE pH (test code = 1506) 5.0 PROTEIN (test code = 1507) 1+ GLUCOSE (test code = 1508) 3+ KETONES (test code = 1509) NEGATIVE UROBILINOGEN (test code = 1510) 1.0 MG/DL BILIRUBIN (test code = 1511) NEGATIVE OCCULT BLOOD (test code = 1512) 1+ WHITE BLOOD CELLS (test code = 1513) >50 /HPF RED BLOOD CELLS (test code = 1514) 0-2 /HPF EPITHELIAL CELLS (test code = 82978) 6-10 /HPF BACTERIA (test code = 1515) >3+ CASTS, HYALINE (test code = 1517) TRACE Raji Waldrop AustinALBUMIN/CREATININE RATIO, RANDOM [id number] 00:00:00* Test Item Value Reference Range Interpretation Comme nts CREATININE, URINE, CONC. (te st code = 2072) 61.1 MG/DL ALBUMIN, URINE, RANDOM (test code = 94504) 26.7 MG/DL CALC ALBUMIN/CREAT, RND (juan manuel t code = 47987) 437 MG/G Raji Waldrop LioCBC W/AUTO [id number] 00:00:00* Test Item Value Reference Range Interpretation Comme nts WBC (test code = 1001) 8.6 K/UL RBC (test code = 1002) 4.27 M/UL HEMOGLOBIN (test code = 1003) 12.5 G/DL HEMATOCRIT (test code = 1004) 37.6 % MCV (test code = 1005) 88.1 fL MCH (test code = 1006) 29.3 PG MCHC (test code = 1007) 33.2 G/DL RDW (test code = 1038) 12.5 % NEUTROPHILS (test code = 1008) 60.1 % LYMPHOCYTES (test code = 1010) 31.9 % MONOCYTES (test code = 1011) 5.8 % EOSINOPHILS (test code = 1012) 1.4 % BASOPHILS (test code = 1013) 0.6 % IMMATURE GRANULOCYTES (test code = 1036) 0.2 % NUCLEATED RBCS (test code = 1065) 0.0 /100WBC'S PLATELET COUNT (test code = 1015) 277 K/UL ABSOLUTE NEUTROPHILS (test c ode = 1066) 5.14 K/UL ABSOLUTE LYMPHOCYTES (test c ode = 1067) 2.73 K/UL ABSOLUTE MONOCYTES (test cod e = 1068) 0.50 K/UL ABSOLUTE EOSINOPHILS (test c ode = 1040) 0.12 K/UL ABSOLUTE BASOPHILS (test cod e = 1069) 0.05 K/UL ABS IMMATURE GRANULOCYTES (t est code = 1020) 0.02 K/UL ABS NUCLEATED RBCS (test cod e = 69811) 0.00 K/UL Raji Waldrop AustinHEMOGLOBIN [id number] 00:00:00* Test Item Value Reference Range Interpretation Comme nts HEMOGLOBIN A1c (test code = 92653) 9.4 % Raji F AustinHEMOGLOBIN [id number] 00:00:00* Test Item Value Reference Range Interpretation Comme nts HEMOGLOBIN A1c (test code = 04346) 9.4 % Raji F AustinHEMOGLOBIN [id number] 00:00:00* Test Item Value Reference Range Interpretation Comme nts HEMOGLOBIN A1c (test code = 36861) 9.4 % Raji F AustinHEMOGLOBIN [id number] 00:00:00* Test Item Value Reference Range Interpretation Comme nts HEMOGLOBIN A1c (test code = 91847) 9.4 % Raji VacaPAP TEST, THINPREP, [id number] 00:00:00* Test Item Value Reference Range Interpretation Comme nts SOURCE: (test code = 8001) Cervical/Endocervica l SLIDES: (test code = 8011) 1 LMP: (test code = 8021) NOT GIVEN SPECIMEN ADEQUACY: (test code = 07043) (NOTE) INTERPRETATION: (test code = 38847) LSIL/EPITH. ABNORMALITY; SEE BELOW OTHER COMMENTS: (test code = 8081) (NOTE) ELECTRICAL APPLIANCE PREPARER: (test code = 8101) BETY Samayoa(ASCP) PATHOLOGIST INTERPRETATION BY: (test code = 8122) David Campbell LOCATION: (test code = 04742) (NOTE) CPT: (test code = 8140) (NOTE) Raji ConradP TEST, THINPREP, [id number] 00:00:00* Test Item Value Reference Range Interpretation Comme nts SOURCE: (test code = 8001) Cervical/Endocervica l SLIDES: (test code = 8011) 1 LMP: (test code = 8021) NOT GIVEN SPECIMEN ADEQUACY: (test code = 10750) (NOTE) INTERPRETATION: (test code = 59162) LSIL/EPITH. ABNORMALITY; SEE BELOW OTHER COMMENTS: (test code = 8081) (NOTE) ELECTRICAL APPLIANCE PREPARER: (test code = 8101) BETY Samayoa([facility]) PATHOLOGIST INTERPRETATION BY: (test code = 8122) David Campbell LOCATION: (test code = 53018) (NOTE) CPT: (test code = 8140) (NOTE) Raji VacaPAP TEST, THINPREP, [id number] 00:00:00* Test Item Value Reference Range Interpretation Comme nts SOURCE: (test code = 8001) Cervical/Endocervica l SLIDES: (test code = 8011) 1 LMP: (test code = 8021) NOT GIVEN SPECIMEN ADEQUACY: (test code = 00665) (NOTE) INTERPRETATION: (test code = 72183) LSIL/EPITH. ABNORMALITY; SEE BELOW OTHER COMMENTS: (test code = 8081) (NOTE) ELECTRICAL APPLIANCE PREPARER: (test code = 8101) BETY Samayoa(ASC) PATHOLOGIST INTERPRETATION BY: (test code = 8122) David Campbell LOCATION: (test code = 37281) (NOTE) CPT: (test code = 8140) (NOTE) Raji VacaPAP TEST, THINPREP, [id number] 00:00:00* Test Item Value Reference Range Interpretation Comme nts SOURCE: (test code = 8001) Cervical/Endocervica l SLIDES: (test code = 8011) 1 LMP: (test code = 8021) NOT GIVEN SPECIMEN ADEQUACY: (test code = 29398) (NOTE) INTERPRETATION: (test code = 32565) LSIL/EPITH. ABNORMALITY; SEE BELOW OTHER COMMENTS: (test code = 8081) (NOTE) ELECTRICAL APPLIANCE PREPARER: (test code = 8101) BETY Samayoa(ASCP) PATHOLOGIST INTERPRETATION BY: (test code = 8122) David Campbell LOCATION: (test code = 48779) (NOTE) CPT: (test code = 8140) (NOTE) Raji Waldrop AustinPAP TEST, THINPREP, [id number] 00:00:00* Test Item Value Reference Range Interpretation Comme nts SOURCE: (test code = 8001) Cervical/Endocervica l SLIDES: (test code = 8011) 1 LMP: (test code = 8021) NOT GIVEN SPECIMEN ADEQUACY: (test code = 75054) (NOTE) INTERPRETATION: (test code = 05242) LSIL/EPITH. ABNORMALITY; SEE BELOW OTHER COMMENTS: (test code = 8081) (NOTE) ELECTRICAL APPLIANCE PREPARER: (test code = 8101) BETY Samayoa(ASCP) PATHOLOGIST INTERPRETATION BY: (test code = 8122) David Campbell LOCATION: (test code = 35013) (NOTE) CPT: (test code = 8140) (NOTE) Raji Waldrop AustinCT/NG, TMA, [id number] 00:00:00* Test Item Value Reference Range Interpretation Comme nts CHLAMYDIA, NAAT, THINPREP (t est code = 69837) NEGATIVE GONORRHEA, NAAT, THINPREP (t est code = 16975) NEGATIVE PDFE (test code = PDFReport) PDF Raji Waldrop AustinVAGINAL PATHOGENS DNA [id number] 00:00:00* Test Item Value Reference Range Interpretation Comme nts MICHAEL SPECIES (test code = 57170) NEGATIVE G. VAGINALIS (test code = ) POSITIVE T. VAGINALIS (test code = 28593) NEGATIVE Raji Waldrop [place], TMA, [id number] 00:00:00* Test Item Value Reference Range Interpretation Comme nts CHLAMYDIA, NAAT, THINPREP (t est code = 97637) NEGATIVE GONORRHEA, NAAT, THINPREP (t est code = 02997) NEGATIVE PDFE (test code = PDFReport) PDF Raji Waldrop AustinVAGINAL PATHOGENS DNA [id number] 00:00:00* Test Item Value Reference Range Interpretation Comme nts MICHAEL SPECIES (test code = 39022) NEGATIVE G. VAGINALIS (test code = 08430) POSITIVE T. VAGINALIS (test code = 59502) NEGATIVE Raji Waldrop [place], TMA, [id number] 00:00:00* Test Item Value Reference Range Interpretation Comme nts CHLAMYDIA, NAAT, THINPREP (t est code = 50939) NEGATIVE GONORRHEA, NAAT, THINPREP (t est code = 37738) NEGATIVE PDFE (test code = PDFReport) PDF Raji Waldrop AustinVAGINAL PATHOGENS DNA [id number] 00:00:00* Test Item Value Reference Range Interpretation Comme nts MICHAEL SPECIES (test code = ) NEGATIVE G. VAGINALIS (test code = 03486) POSITIVE T. VAGINALIS (test code = ) NEGATIVE Raji Waldrop [place], TMA, [id number] 00:00:00* Test Item Value Reference Range Interpretation Comme nts CHLAMYDIA, NAAT, THINPREP (t est code = 03531) NEGATIVE GONORRHEA, NAAT, THINPREP (t est code = 62632) NEGATIVE PDFE (test code = PDFReport) PDF Raji Waldrop AustinVAGINAL PATHOGENS DNA [id number] 00:00:00* Test Item Value Reference Range Interpretation Comme nts MICHAEL SPECIES (test code = 57198) NEGATIVE G. VAGINALIS (test code = 53073) POSITIVE T. VAGINALIS (test code = 59033) NEGATIVE Raji Waldrop [place], TMA, [id number] 00:00:00* Test Item Value Reference Range Interpretation Comme nts CHLAMYDIA, NAAT, THINPREP (t est code = 20914) NEGATIVE GONORRHEA, NAAT, THINPREP (t est code = 72750) NEGATIVE PDFE (test code = PDFReport) PDF Raji Waldrop AustinVAGINAL PATHOGENS DNA [id number] 00:00:00* Test Item Value Reference Range Interpretation Comme nts MICHAEL SPECIES (test code = 50712) NEGATIVE G. VAGINALIS (test code = 64971) POSITIVE T. VAGINALIS (test code = 54903) NEGATIVE Raji Waldrop AustinUNLABELLED SPECIMEN [ADDED]2020-04-04 00:00:00* Test Item Value Reference Range Interpretation Comme nts NOTE: (test code = 43835) Raji Waldrop AustinUNLABELLED SPECIMEN [ADDED]2020-04-04 00:00:00* Test Item Value Reference Range Interpretation Comme nts NOTE: (test code = 52052) Raji Waldrop AustinUNLABELLED SPECIMEN [ADDED]2020-04-04 00:00:00* Test Item Value Reference Range Interpretation Comme nts NOTE: (test code = 05023) Raji Waldrop AustinUNLABELLED SPECIMEN [ADDED]2020-04-04 00:00:00* Test Item Value Reference Range Interpretation Comme nts NOTE: (test code = 50439) Raji Waldrop AustinUNLABELLED SPECIMEN [ADDED]2020-04-04 00:00:00* Test Item Value Reference Range Interpretation Comme nts NOTE: (test code = 61867) Raji Waldrop [id number] (COVID-19) by RT-PCR (HIGH RISK)2020-04-03 00:00:00* Test Item Value Reference Range Interpretation Comme nts SARS-CoV-2 INTERPRETATION (t est code = 56776) POSITIVE SOURCE (test code = 13529) NOT SPECIFIED Raji Waldrop [id number] (COVID-19) by RT-PCR (HIGH RISK)2020-04-03 00:00:00* Test Item Value Reference Range Interpretation Comme nts SARS-CoV-2 INTERPRETATION (t est code = 30831) POSITIVE SOURCE (test code = 70339) NOT SPECIFIED Raji Waldrop [id number] (COVID-19) by RT-PCR (HIGH RISK)2020-04-03 00:00:00* Test Item Value Reference Range Interpretation Comme nts SARS-CoV-2 INTERPRETATION (t est code = 37954) POSITIVE SOURCE (test code = 42445) NOT SPECIFIED Raji Waldrop SkgstiGSKS-KmC-6 (COVID-19) by RT-PCR (HIGH RISK)2020-04-03 00:00:00* Test Item Value Reference Range Interpretation Comme nts SARS-CoV-2 INTERPRETATION (t est code = 56079) POSITIVE SOURCE (test code = 70298) NOT SPECIFIED Raji Waldrop UrtfsbEITE-QkL-1 (COVID-19) by RT-PCR (HIGH RISK)2020-04-03 00:00:00* Test Item Value Reference Range Interpretation Comme nts SARS-CoV-2 INTERPRETATION (t est code = 23330) POSITIVE SOURCE (test code = 97277) NOT SPECIFIED Raji Waldrop WoychmGSJR-EyA-0 (COVID-19) by RT-PCR (HIGH RISK)2019-08-28 00:00:00* Test Item Value Reference Range Interpretation Comme nts SARS-CoV-2 INTERPRETATION (t est code = 03299) NEGATIVE SOURCE (test code = 31181) NOT SPECIFIED Raji Waldrop BjbpobUZQP-GtC-6 (COVID-19) by RT-PCR (HIGH RISK)2019-08-28 00:00:00* Test Item Value Reference Range Interpretation Comme nts SARS-CoV-2 INTERPRETATION (t est code = 19776) NEGATIVE SOURCE (test code = 46513) NOT SPECIFIED Raji Waldrop KpggwcYZIE-DqP-9 (COVID-19) by RT-PCR (HIGH RISK)2019-08-28 00:00:00* Test Item Value Reference Range Interpretation Comme nts SARS-CoV-2 INTERPRETATION (t est code = 99250) NEGATIVE SOURCE (test code = 37843) NOT SPECIFIED Raji Waldrop RyxuhtINWS-WwK-3 (COVID-19) by RT-PCR (HIGH RISK)2019-08-28 00:00:00* Test Item Value Reference Range Interpretation Comme nts SARS-CoV-2 INTERPRETATION (t est code = 81209) NEGATIVE SOURCE (test code = 41345) NOT SPECIFIED Raji Waldrop TlmehcYOBJ-TyJ-0 (COVID-19) by RT-PCR (HIGH RISK)2019-08-28 00:00:00* Test Item Value Reference Range Interpretation Comme nts SARS-CoV-2 INTERPRETATION (t est code = 33827) NEGATIVE SOURCE (test code = 28262) NOT SPECIFIED Raji Waldrop AustinEXTERNAL PAP [id number] 00:00:00* Test Item Value Reference Range Interpretation Comme nts TRUE (test code = TRUE) Please see Externa l Provided 06/2019 : 2019 (20) | Collected: 05/23/2019 | Ordering Physician: ALEX Carson Gender: F | Received: 05/25/2019 | Reported: 05/28/2019 CLINICAL HISTORY: Routine ExaminationSPECIMEN SOURCE: Cervical/Endocervical, ThinPrep with Image Assisted Technology PAP RESULTSpecimen Adequacy: Satisfactory. Endocervical/transformati on zone component absent. General Diagnostic Category: EPITHELIAL [...] 18: NEGATIVE Lab Interpretation (test code = 16062-7) [facility] [id number] 00:00:00* Test Item Value Reference Range Interpretation Comme nts External Chlamydia AB Panel (test code = 5044) Positive Negative A Lab Interpretation (test cod e = 90885-3) [facility]normal [facility] W SPECIFIC [id number] 13:13:00* Test Item Value Reference Range Interpretation Comme nts POCT U SP GRAV (test code = 3255) 1.020 mg/dl 1.005-1.025 POCT PH U (test code = 3254) 5 mg/dl 5-8 POCT U LEUK EST (test code = 3263) NEG Negative - Negative POCT U NIT (test code = 3262) POSITIVE Negative - Negati ve POCT U PROT (test code = 3259) NEG Negative - Negative POCT U GLU (test code = 3256) Negative - Negati ve POCT U KETONE (test code = 3258) NEG Negative - Negative POCT U UROBILI (test code = 3260) NEG 0.2-1 POCT U BILI (test code = 3261) NEG Negative - Negative POCT U BLD (test code = 3257) TRACE Negative - Negati ve POCT U COLOR (test code = 3266) YELLOW POCT U APPEAR (test code = 3267) CLOUDY Lab Interpretation (test cod e = 69067-0) [facility]normal [facility] SPECIFIC [id number] 13:13:00* Test Item Value Reference Range Interpretation Comme nts POCT U SP GRAV (test code = 3255) 1.020 mg/dl 1.005-1.025 POCT PH U (test code = 3254) 5 mg/dl 5-8 POCT U LEUK EST (test code = 3263) NEG Negative - Negative POCT U NIT (test code = 3262) POSITIVE Negative - Negati ve POCT U PROT (test code = 3259) NEG Negative - Negative POCT U GLU (test code = 3256) Negative - Negati ve POCT U KETONE (test code = 3258) NEG Negative - Negative POCT U UROBILI (test code = 3260) NEG 0.2-1 POCT U BILI (test code = 3261) NEG Negative - Negative POCT U BLD (test code = 3257) TRACE Negative - Negati ve POCT U COLOR (test code = 3266) YELLOW POCT U APPEAR (test code = 3267) CLOUDY Lab Interpretation (test cod e = 33503-5) Abnormal [facility] Notes Date/Time Note Provider Source [facility]2024-08-23 00:00:00 [facility]2024-08-21 00:00:00 [facility]2024-07-01 00:00:00 [facility]2024-05-14 00:00:00 [facility]
[2023-11-07] MEDS ORDERED: HYDROCODONE/APAP 5/325 MG TAB ONE (10:52)
[2023-11-07 11:08] LABS: Specific Gravity 1.024 (1.005-1.030)
--- NOTE | 2023-11-07 11:41 | RAD REPORT ---
EXAMINATION: CT CHEST WITHOUT CONTRAST CLINICAL INDICATION: Female, 23 years old. BLUNT CHEST TRAUMA. Chest pain TECHNIQUE: Routine CT scan of the chest without intravenous contrast. One or more of the following do se reduction techniques were used: Automated exposure control, adjustment of the mA and/or kV according to patient size, and/or iterative reconstruction. Unless otherwise specified, incidental fi ndings do not require dedicated imaging follow-up. Evaluation of the mediastinum, analilia vessels limited secondary to the lack of IV contrast administrati on. COMPARISON: No prior exam. FINDINGS: A pulmonary contusion is not noted. No mediastinal hematoma. A pleural effusion is not present. No pericardial effusion. No displaced rib fracture. IMPRESSION: No acute traumatic injury involving the chest seen.
--- NOTE | 2023-11-07 11:54 | EDPHYS ---
Physician Documentation [facility] Name: Hilda Head Age: 23 yrs Sex: Female : 2000 Arrival Date: 11/07/2023 Time: 10:17 Bed 3 Private MD: ED Physician Stas Bobby HPI: 11/06 10:55 This 23 yrs old Female presents to ER via Ambulatory with complaints of rn Breathing Difficulty. 10:55 The patient has shortness of breath at rest. Onset: The symptoms/episode began/occurred rn last night. The patient's shortness of breath is aggravated by talking, Deep breath. Associated signs and symptoms: Pertinent negatives: non-productive cough, productive cough, diaphoresis, dizziness, fever, hemoptysis. Severity of symptoms: At their worst the symptoms were moderate in the emergency department the symptoms are unchanged. The patient has not experienced similar symptoms in the past. Patient reports had her nephew walk on her back last night while laying on the floor to pop her back, felt a pop and pain to anterior chest/ribs. Reports pain got worse this morning and now hurts to take a deep breath, concerned that she broke ribs. States felt completely fine prior to her nephew walking on her torso. Denies fever or cough or hemoptysis. No abdominal pain or vomiting/diarrhea.. Historical: - Allergies: 10:33 No Known Allergies; tm6 - PMHx: 10:33 Asthma; Bipolar disorder; Diabetes - IDDM; tm6 - PSHx: 10:33 None; tm6 - Immunization history:: Client reports having NOT received the Covid vaccine. - Infectious Disease History:: Denies. - Social history:: Smoking status: Reported history of juuling and/or vaping. Patient/guardian denies using alcohol. - Family history:: not pertinent. - Hospitalizations: : No recent hospitalization is reported. ROS: 10:55 Constitutional: Negative for fever, chills, and weight loss, Neck: Negative for injury, rn pain, and swelling, Cardiovascular: Positive for chest pain and trauma to torso Respiratory: Negative for cough, wheezing Abdomen/GI: Negative for abdominal pain, nausea, vomiting, diarrhea, and constipation, MS/Extremity: Negative for injury and deformity, Neuro: Negative for headache, weakness, numbness, tingling, and seizure, Exam: 10:55 Constitutional: This is a well developed, well nourished patient who is awake, alert, prn physical therapist to room without assistance. Appears uncomfortable, holding left chest Head/Face: Normocephalic, atraumatic. Chest/axilla: Mild tenderness left anterior lateral ribs inferiorly. No crepitus Cardiovascular: Tachycardic, no pulse deficits. Respiratory: Mild tachypnea, speaking full sentences Abdomen/GI: Soft, nontender Back: No midline spinal tenderness Vital Signs: 10:32 BP 144 / 98; Pulse 103; Resp 20; Temp 97(TE); Pulse Ox 100% on R/A; MAP 111 mmHg; tm6 Weight 74.84 kg; Height 5 ft. 4 in. ; Pain 10/10; 12:08 BP 137 / 85; Pulse 95; Resp 16; Pulse Ox 100% ; bp 10:32 Body Mass Index 28.32 (74.84 kg, 162.56 cm) tm6 10:32 Pain Scale: Adult tm6 MDM: 10:31 Patient medically screened. rn 11:47 Differential diagnosis: Pneumothorax rib fracture. rn 11:48 Data reviewed: vital signs, nurses notes, lab test result(s), radiologic studies, CT rn scan, and as a result, I will discharge patient. Counseling: I had a detailed discussion with the patient and/or guardian regarding the historical points, exam findings, and any diagnostic results supporting the discharge/admit diagnosis, lab results, radiology results, the need for outpatient follow up, to return to the emergency department if symptoms worsen or persist or if there are any questions or concerns that arise at home. Special discussion: Based on the patient's history, exam, and Dx evaluation, there is no indication for emergent intervention or inpatient Tx. It is understood by the patient/guardian that if the Sx's persist or worsen they need to return immediately for re-evaluation. I discussed with the patient/guardian in detail that at this point there is no indication for admission to the hospital. It is understood, however, that if the symptoms persist or worsen the patient needs to return immediately for re-evaluation. ED course: No acute findings on CT chest. No evidence of rib fracture or pulmonary contusion or pneumothorax per my interpretation. Will discharge home with return precautions. Discussed results with patient and told her to not wrap chest or limit her breathing given risk of pneumonia and atelectasis.. 11/06 10:47 Order name: Test, Urine; Complete Time: 11:09 rn 11/06 10:35 Order name: CT Chest Wo Con; Complete Time: 11:44 rn Administered Medications: 10:53 Drug: HYDROcodone-acetaminophen PO 5 mg-325 mg 1 tabs PO once Route: PO; ph 12:07 Follow up: Response: No adverse reaction bp Disposition Summary: 11/07/23 11:53 Discharge Ordered Notes: Location: Home rn Problem: new rn Symptoms: have improved rn Condition: Stable rn Diagnosis - Contusion of thorax rn Followup: rn - With: Private Physician - When: As needed - Reason: Recheck today's complaints, Re-evaluation by your physician Discharge Instructions: - Discharge Summary Sheet rn - Rib Contusion rn - Chest Contusion, Adult rn Forms: - Medication Reconciliation Form rn - Antibiotic culinary intern - Prescription Opioid Use rn - Patient Portal Instructions rn - Leadership Thank You Letter rn Signatures: Dispatcher [employer] EDMS Stas Bobby MD MD rn Hall, Patricia, RN RN Be Irwin RN RN [facility] Ethan Doherty RN bp Corrections: (The following items were deleted from the chart) 11:51 11:48 ED course: No acute findings on CT chest. 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 Will discharge home with return precautions.. rn
--- NOTE | 2023-11-07 11:54 | ER ---
Nurse's Notes [facility] Name: Hilda Head Age: 23 yrs Sex: Female : 2000 Arrival Date: 11/07/2023 Time: 10:17 Bed 3 Private MD: Diagnosis: Contusion of thorax Presentation: 11/06 10:32 Chief complaint: Patient states: last night I had my nephew pop my back. I woke up this tm6 morning with pain on both sides of my ribs, but mostly my left, and it's really hard to breathe. Coronavirus screen: Vaccine status: Patient reports being unvaccinated. Ebola Screen: Patient negative for fever greater than or equal to 101.5 degrees Fahrenheit, and additional compatible Ebola Virus Disease symptoms Patient denies exposure to infectious person. Patient denies travel to an Ebola-affected area in the 21 days before illness onset. No symptoms or risks identified at this time. Initial Sepsis Screen: Does the patient meet any 2 criteria? HR > 90 bpm. Does the patient have a suspected source of infection? No. Patient's initial sepsis screen is negative. Risk Assessment: Do you want to hurt yourself or someone else? Patient reports no desire to harm self or others. Onset of symptoms was November 07, 2023. 10:32 Method Of Arrival: Ambulatory tm6 10:32 Acuity: DONELL 3 tm6 Triage Assessment: 10:33 General: Appears uncomfortable, Behavior is cooperative. Pain: Complains of pain in tm6 anterior aspect of right lateral abdomen and anterior aspect of left lateral abdomen Pain currently is 10 out of 10 on a pain scale. Quality of pain is described as sharp, Pain began this morning. EENT: No signs and/or symptoms were reported regarding the EENT system. Neuro: Level of Consciousness is awake, alert, obeys commands, Oriented to person, place, time, situation. Cardiovascular: Patient's skin is warm and dry. Respiratory: Reports labored breathing pain with movement pain with respiration Airway is patent Respiratory effort is labored, Respiratory pattern is symmetrical, Onset: The symptoms/episode began/occurred this morning, the patient has moderate shortness of breath. GI: No signs and/or symptoms were reported involving the gastrointestinal system. Abdomen is round non-distended. : No signs and/or symptoms were reported regarding the genitourinary system. Derm: No signs and/or symptoms reported regarding the dermatologic system. Musculoskeletal: Reports pain in anterior aspect of right lateral abdomen and anterior aspect of left lateral abdomen since this morning. Pain is 10 out of 10 on a pain scale. Historical: - Allergies: 10:33 No Known Allergies; tm6 - PMHx: 10:33 Asthma; Bipolar disorder; Diabetes - IDDM; tm6 - PSHx: 10:33 None; tm6 - Immunization history:: Client reports having NOT received the Covid vaccine. - Infectious Disease History:: Denies. - Social history:: Smoking status: Reported history of juuling and/or vaping. Patient/guardian denies using alcohol. - Family history:: not pertinent. - Hospitalizations: : No recent hospitalization is reported. Screenin:08 [facility] ED Fall Risk Assessment (Adult) History of falling in the last 3 months, bp including since admission No falls in past 3 months (0 pts) Confusion or Disorientation No (0 pts) Intoxicated or Sedated No (0 pts) Impaired Gait No (0 pts) Mobility Assist Device Used No (0 pt) Altered Elimination No (0 pt) Score/Fall Risk Level 0 - 2 = Low Risk. Abuse screen: Denies threats or abuse. Denies injuries from another. Nutritional screening: No deficits noted. Tuberculosis screening: No symptoms or risk factors identified. Assessment: 10:35 General: Appears uncomfortable, Behavior is cooperative, appropriate for age, anxious. bp Cardiovascular: Rhythm is sinus rhythm. Respiratory: Airway is patent Breath sounds are clear bilaterally. 12:08 Reassessment: Patient appears in no apparent distress at this time. Patient is alert, bp oriented x 3, equal unlabored respirations, skin warm/dry/pink. Vital Signs: 10:32 BP 144 / 98; Pulse 103; Resp 20; Temp 97(TE); Pulse Ox 100% on R/A; MAP 111 mmHg; tm6 Weight 74.84 kg; Height 5 ft. 4 in. ; Pain 10/10; 12:08 BP 137 / 85; Pulse 95; Resp 16; Pulse Ox 100% ; bp 10:32 Body Mass Index 28.32 (74.84 kg, 162.56 cm) tm6 10:32 Pain Scale: Adult 6 ED Course: 10:19 Patient arrived in ED. mg5 10:31 Stas Bobby MD is Attending Physician. rn 10:33 Triage completed. tm6 10:33 Arm band placed on right wrist. tm6 10:44 Ana Mcpherson, RN is Primary Nurse. ph 11:20 CT Chest Wo Con In Process Unspecified. EDMS 12:08 Patient has correct armband on for positive identification. bp 12:08 No provider procedures requiring assistance completed. Patient did not have IV access bp during this emergency room visit. Administered Medications: 10:53 Drug: HYDROcodone-acetaminophen PO 5 mg-325 mg 1 tabs PO once Route: PO; ph 12:07 Follow up: Response: No adverse reaction bp Medication: 12:08 VIS not applicable for this client. bp Outcome: 11:53 Discharge ordered by . rn 12:08 Discharged to home ambulatory, with family, bp 12:08 Condition: stable 12:08 Discharge instructions given to patient, Instructed on discharge instructions, follow up and referral plans. Demonstrated understanding of instructions, follow-up care, 12:09 Patient left the ED. bp Signatures: Dispatcher [employer] EDCT Stas Bobby MD MD rn Hall, Patricia, RN RN Ethan Doherty, RN RN bp Yeimy Iniguez mg5 Be Irwin RN RN tm6
== END 2023-11-07 12:09 | disposition home or self-care (01) ==
LOC: ER 10:17
DX: S20.213A Contusion of bilateral front wall of thorax, initial encounter (principal); J45.909 Unspecified asthma, uncomplicated; E11.9 Type 2 diabetes mellitus without complications; Z79.4 Long term (current) use of insulin; F31.9 Bipolar disorder, unspecified; F17.290 Nicotine dependence, other tobacco product, uncomplicated; X58.XXXA Exposure to other specified factors, initial encounter; Y93.89 Activity, other specified; Y92.019 Unspecified place in single-family (private) house as the place of occurrence of the external cause
CPT/HCPCS: 71250; 81025; 99283

== ENCOUNTER 2023-11-12 19:13 | Emergency (ER) | payer OTHER ==
--- OUTSIDE RECORDS SUMMARY | 2023-11-12 19:18 | XMS REPORT | Continuity of Care Document ---
Author Name Unknown Address [address] 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 Name Role Phone Laurence Meadows NP Primary Care Physician Doctor Unassigned, [place] Attending Clinician [facility] Nurse, [facility] Attending Clinician Un available Zeynep Perdomo MD Attending Clinician [phone] ZEYNEP PERDOMO Attending Clinician Unavailable Martina Charles LMSW Attending Clinician Unava Maria Victoria Villagomez Attending Clinician Sasha Shepard MD Attending Clinician [phone] Leyda Gregorio PA-C Attending Clinician [phone], [facility] Attending Clinician Unavailable Payers Payer Name Policy Type Policy Number Effective Date Expirati on Date Source Problems Condition Name Condition Details Condition Category Status Onset Date Resolution Date Last Treatment Date Treating Clinician Comments Source ASCUS with positive high risk HPV cervical ASCUS with positive high risk HPV cervical Disease Active 02-20 00:00: 00 [facility] ASCUS with positive high risk HPV cervical ASCUS with positive high risk HPV cervical Disease Active 02-20 00:00: 00 [facility] Obesity, Class I, BMI 30-34.9 Obesity, Class I, BMI 30-34.9 Disease Active 10-13 00:00: 00 [facility] Acanthosis nigricans Acanthosis nigricans Disease Active 10-13 00:00: 00 [facility] Family history of diabetes mellitus (DM) Family history of diabetes mellitus (DM) Disease Active 10-13 00:00: 00 [facility] Allergies, Adverse Reactions, Alerts Allergy Name Allergy Type Status Severity Reaction(s) Onset Date Inactive Date Treating Clinician Comments Source none (Not Checked) Maríadalia ty to adverse reaction to drug Active 08-05 00:00: 00 Raji Vaca NO KNOWN ALLERGIE S Drug Class Active [facility] Social History Social Habit Start Date Stop Date Quantity Comments Source History SDOH Alcohol Frequency [facility] History SDOH Alcohol Std Drinks [facility] History SDOH Alcohol Binge [facility] Sexual orientation [facility] Exposure to SARS-CoV-2 (event) 2021-06-28 00:00:00 2021-07-08 10:00:00 Not sure [facility] Alcohol intake 2021-07-08 00:00:00 2021-07-08 00:00:00 Current drinker of alcohol (finding) [facility] History of Social function 2021-07-08 00:00:00 2021-07-08 00:00:00 [facility] Tobacco use and exposure 2018-10-10 00:00:00 2018-10-10 00:00:00 Smokeless tobacco non-user [facility] Alcohol Comment 2018-02-20 00:00:00 2018-02-20 00:00:00 Rare [facility] History of tobacco use 2018-02-09 00:00:00 Cigarette Smoker [facility] Sex Assigned At 2000 00:00:00 2000 00:00:00 [facility] Smoking Status Start Date Stop Date Source Ex-smoker 2018-10-10 00:00:00 2018-10-10 00:00:00 [facility] Current some day smoker 2018-02-20 00:00:00 [facility] Medications Ordered Medication Name Filled Medication Name [...] Yes 150 Raji Vaca 1 TABLET PO Q 8 HOURS PRN PAIN OR FEVER 10-30 00:00: 00 06-18 00:00 :00 No 600 Raji Vaca 1 TABLET PO BID 10-30 00:00: 00 06-18 00:00 :00 No 500 Raji Vaca MELOXICAM 7.5 MG TABS 10-27 00:00: 00 Yes Raji Vaca CYCLOBENZAP RINE HYDROCHLORI DE 5 MG TABS 10-27 00:00: 00 Yes Raji Vaca INJECT 1 ML INTRAMUSCUL MARLEN ONCE EVERY 3 MONTHS. 09-26 00:00: 00 06-18 00:00 :00 No 150 Raji Vaca LAMOTRIGINE 25 MG TABS 2021-02- 00:00: 00 Yes Raji Vaca INHALE 1 [...] Vaca TRESIBA FLEXTOUCH 200 UNIT/ML SOPN 2021-02 008 00:00: 00 Yes Raji Vaca LORATADINE 10 MG TABS 11-03 00:00: 00 Yes Raji Vaca HYDROCODONE BITARTRATE/ ACETAMINOPH E N 5-325 MG TABS 10-28 00:00: 00 Yes Raji Vaca TAKE 1 TABLET BY MOUTH TWICE DAILY AT 6 AM AND 6 PM 0 - 00:00: 00 Yes Raji Vaca TAKE 1 [...] Raji Vaca MEDROXYPROG ESTERONE 150MG/ML PF SYR 8- 00:00: 00 Yes Raji Vaca Lexapro 10 [...] 1mg Raji Vaca Trileptal 300 mg tablet 2020-02 0- 00:00: 00 Yes 1mg Raji Vaca Seroquel 50 mg tablet 1 0- 00:00: 00 Yes 1mg Raji Vaca Lexapro [...] Raji Vaca Seroquel 50 mg tablet 2020-0 7- 00:00: 00 Yes 1mg Raji Vaca Lexapro 10 mg tablet 2020-0 6- 00:00: 00 Yes 1mg Raji Vaca Trileptal 300 mg tablet 0 6- 00:00: 00 Yes 1mg Raji Vaca Seroquel 50 mg tablet 2020-0 6- 00:00: 00 Yes 1mg Raji Vaca AMOXICILLIN ORAL 0 - 18:21: 37 - 00:00 :00 No Take by mouth. [facility] Lexapro 10 mg tablet 0 - 00:00: 00 Yes 1mg Raji Vaca Trileptal 300 mg tablet 0 - 00:00: 00 Yes 1mg Raji Vaca Seroquel 50 mg tablet 0 4- 00:00: 00 Yes 1mg Raji Vaca Lexapro 10 mg tablet 2020-0 4- 00:00: 00 Yes 1mg Raji Vaca Trileptal 300 mg tablet 2020-0 4- 00:00: 00 Yes 1mg Rjai Vaca Seroquel 50 mg tablet 2020-0 4- [...] 10-11 00:00: 00 06-23 00:00 :00 No [id number] 500mg Take 1 tablet by mouth every 12 (twelve) hours. [facility] AMOXICILLIN ORAL 10-10 13:11: 58 Yes Take by mouth. [facility] metFORMIN 1,000 mg tablet 10-10 13:10: 46 Yes 1000mg Take 1,000 mg by mouth 2 (two) times daily with meals. [facility] metFORMIN 1,000 mg tablet 10-10 08:10: 46 Yes 1000mg Take 1,000 mg by mouth 2 (two) times daily with meals. [facility] Nitrofurant oin&Nit. Macrocryst 100 mg capsule 10-10 00:00: 00 06-23 00:00 :00 No [id number] 100mg Take 1 capsule by mouth 2 (two) times daily. [facility] Lamictal 100 mg tablet 09-17 00:00: 00 Yes 5mg Raji Vaca Seroquel 50 mg tablet 09-17 00:00: 00 Yes 1mg Raji Vaca lamoTRIgine 100 mg tablet 09-17 00:00: 00 Yes TK 1/2 T PO BID [facility] Lamictal 25 mg tablet 09-03 00:00: 00 [...] 02-20 16:43: 14 Yes Take by mouth. [facility] metFORMIN 1,000 mg tablet 02-20 16:43: 14 Yes 1000mg Take 1,000 mg by mouth 2 (two) times daily with meals. [facility] Lamictal 25 mg tablet 02-12 00:00: 00 Yes 1mg Raji Vaca Seroquel 25 mg tablet 02-12 00:00: 00 Yes 1mg Raji Vaca PROAIR HFA 90 mcg/actuati on inhaler 2017-02 00:00: 00 Yes INL 1 TO 2 PFS PO Q 4 TO 6 H PRN [facility] LEVEMIR FLEXTOUCH U-100 INSULN 100 unit/mL (3 mL) injection 2017-02 00:00: 00 Yes ADM 80 UNI SC QD [facility] SYMBICORT 160-4.5 mcg/actuati on inhaler 2017-02 00:00: 00 Yes INHALE 1 PUFF PO QD [facility] levothyroxi ne 150 mcg tablet 2017-02 00:00: 00 Yes TK 1 T PO QD WHEN AWAKENING WITH A FULL GLASS OF WATER ON AN EMPTY STOMACH [facility] loratadine 10 mg tablet 2017-02 00:00: 00 Yes TK 1 T PO QD [facility] montelukast 10 mg tablet 2017-02 00:00: 00 Yes TAKE 1 TABLET BY MOUTH EVERY DAY IN THE EVENING [facility] Lamictal 25 mg tablet 2017-02 00:00: 00 Yes 13mg Raji F Lio blood sugar diagnostic (FREESTYLE LITE STRIPS) strip 10-11 00:00: 00 Yes [id number] 3 times daily [facility] lancets (FREESTYLE LANCETS) 28 gauge [facility] 10-11 00:00: 00 Yes [id number] 3 times daily [facility] acetone, urine, test (KETONE URINE TEST) strip 10-11 00:00: 00 Yes [id number] Check with blood sugars >300 or if ill prn [facility] lancets (FREESTYLE LANCETS) 28 gauge [facility] 10-11 00:00: 00 Yes [id number] 3 times daily [facility] blood sugar diagnostic (FREESTYLE LITE STRIPS) strip 201710-11 00:00: 00 Yes [id number] 3 times daily [facility] acetone, urine, test (KETONE URINE TEST) strip 201710-11 00:00: 00 Yes [id number] Check with blood sugars >300 or if ill prn [facility] Immunizations Ordered Immunization Name Filled Immunization Name Date Status Comments Source HPV9 2021-07-08 00:00:00 Completed [facility] HPV9 2020-12-27 00:00:00 Completed [facility] HPV9 2020-12-27 00:00:00 Completed [facility] HPV9 2020-12-27 00:00:00 Completed [facility] HPV9 2020-12-27 00:00:00 Completed [facility] HPV9 2020-06-23 00:00:00 Completed [facility] HPV9 2020-06-23 00:00:00 Completed [facility] HPV9 2020-06-23 00:00:00 Completed [facility] HPV9 2020-06-23 00:00:00 Completed [facility] HPV9 2020-06-23 00:00:00 Completed [facility] HPV9 Unknown Completed [facility] Vital Signs Vital Name Observation Time Observation Value Comments S ource Systolic blood pressure 2021-07-08 15:09:00 138 mm[Hg] [facility] Diastolic blood pressure 2021-07-08 15:09:00 87 mm[Hg] [facility] Heart rate 2021-07-08 15:09:00 109 /min [facility] Body temperature 2021-07-08 15:09:00 36.78 Starr [facility] Respiratory rate 2021-07-08 15:09:00 18 /min [facility] Body height 2021-07-08 15:09:00 162.6 cm [facility] Body weight 2021-07-08 15:09:00 82.101 kg [facility] BMI 2021-07-08 15:09:00 31.07 kg/m2 [facility] Systolic blood pressure 2020-12-27 21:08:00 124 mm[Hg] [facility] Diastolic blood pressure 2020-12-27 21:08:00 83 mm[Hg] [facility] Heart rate 2020-12-27 21:05:00 99 /min [facility] Body temperature 2020-12-27 21:05:00 36.89 Starr [facility] Respiratory rate 2020-12-27 21:05:00 18 /min [facility] Body height 2020-12-27 21:05:00 162.6 cm [facility] Body weight 2020-12-27 21:05:00 80.287 kg [facility] BMI 2020-12-27 21:05:00 30.38 kg/m2 [facility] Systolic blood pressure 2020-06-23 16:57:00 130 mm[Hg] [facility] Diastolic blood pressure 2020-06-23 16:57:00 85 mm[Hg] [place] [facility] Heart rate 2020-06-23 16:57:00 74 /min [facility] Body temperature 2020-06-23 16:57:00 36.72 Starr [facility] Respiratory rate 2020-06-23 16:57:00 16 /min [facility] Body height 2020-06-23 16:57:00 162.6 cm [facility] Body weight 2020-06-23 16:57:00 79.47 kg [facility] BMI 2020-06-23 16:57:00 30.07 kg/m2 [facility] Systolic blood pressure 2018-10-10 13:08:00 131 mm[Hg] [facility] Diastolic blood pressure 2018-10-10 13:08:00 90 mm[Hg] [facility] Heart rate 2018-10-10 13:08:00 90 /min [facility] Body temperature 2018-10-10 13:08:00 36.5 Starr [facility] Respiratory rate 2018-10-10 13:08:00 20 /min [facility] Body height 2018-10-10 13:08:00 162.6 cm [facility] Body weight 2018-10-10 13:08:00 83.915 kg [facility] BMI 2018-10-10 13:08:00 31.76 kg/m2 [facility] BP Systolic 2023-10-05 14:47:00 120 mm[Hg] Hector Vaca BP Diastolic 2023-10-05 14:47:00 86 mm[Hg] [...] Lio Weight Measured 2022-09-26 16:20:00 165.00 pounds Arji F Lio Height Measured 2022-09-26 16:20:00 63.00 [...] Lio Body Temperature 2019-02-21 11:16:00 98.70 degrees Raji F Lio Heart Rate 2019-02-21 11:16:00 102.00 [...] Respiratory Rate 2018-07-10 10:50:00 17.00 /min Raji Vaca Procedures Procedure Date / Time Performed Performing Clinician Source REFERRAL- REQUEST/RESPONSE 2023-04-02 06:01:00 D sean Unassigned, [place] [facility] GARDASIL 9 (HPV 9V) VACCINE 2021-07-08 15:11:46 Zeynep Perdomo [facility] ASSIGNMENT OF BENEFITS 2021-07-08 14:59:45 Docto r Unassigned, [place] [facility] GARDASIL 9 (HPV 9V) VACCINE 2020-12-27 21:12:28 Sasha Shepard [facility] GARDASIL 9 (HPV 9V) VACCINE 2020-06-23 17:28:23 Zeynep Perdomo [facility] ASSIGNMENT OF BENEFITS 2020-06-23 16:17:19 Docto r Unassigned, [place] [facility] REFERRAL- REQUEST/RESPONSE 2019-06-03 05:01:00 D grantor Unassigned, [place] [facility] EXTERNAL LAB CHLAMYDIA 2019-05-23 13:00:00 Docto r Unassigned, [place] [facility] EXTERNAL PAP SMEAR 2019-05-23 13:00:00 Doctor Un assigned, [place] [facility] NO SHOW OR MISSED APPOINTMENT POLICY ACKNOWLEDGEMENT 2018-10-10 12:56:20 Doctor Unassigned, [place] [facility] POCT URINALYSIS 2018-10-10 00:00:00 Leyda Gregorio [facility] Encounters Start Date/Time End Date/Time Encounter Type Admission Type Attending Clinicians Care Facility Care Department Encounter ID Source 2023-10-05 14:42:05 2023-10-05 14:42:05 Outpatient [facility] [id number] Raji Waldrop Lio 2023-10-05 00:00:00 2023-10-05 00:00:00 Outpatient Visit S[facility] [id number] Raji Waldrop [facility] 2023-09-28 15:51:25 2023-09-28 15:51:25 Outpatient [facility] S[facility] [id number] Raji Waldrop [facility] 2023-09-28 00:00:00 2023-09-28 00:00:00 Outpatient Visit S[facility] [id number] Raji Vaca 2023-09-26 13:55:36 2023-09-26 13:55:36 Outpatient SFA SFA [id number] Raji Vaca 2023-09-26 00:00:00 2023-09-26 00:00:00 Outpatient Visit S[facility] [id number] Raji Vaca 2023-08-06 14:01:19 2023-08-06 14:01:19 Outpatient SFA SFA [id number] Raji Vaca 2023-08-06 00:00:00 2023-08-06 00:00:00 Outpatient Visit SFA [id number] Raji Vaca 2023-08-03 11:31:35 2023-08-03 11:31:35 Outpatient SFA SFA [id number] Raji Vaca 2023-06-19 13:05:54 2023-06-19 13:05:54 Outpatient SFA SFA [id number] Raji Vaca 2023-06-19 00:00:00 2023-06-19 00:00:00 Outpatient Visit SFA [id number] Raji Vaca 2023-04-02 13:28:07 2023-04-02 13:28:07 Outpatient SFA S[facility] [id number] Raji Vaca 2023-04-02 00:00:00 2023-04-02 00:00:00 Orders Only Doctor Unassigned, [place] [facility] [id number] 350.1.13.10 [id number] [id number] [facility] 2023-01-15 15:28:17 2023-01-15 15:28:17 Outpatient SFA SFA [id number] Raji Waldrop Lio 2022-10-30 13:08:43 2022-10-30 13:08:43 Outpatient S[facility] [id number] Raji Vaca 2022-10-13 15:08:50 2022-10-13 15:08:50 Outpatient [facility] [id number] Raji Waldrop L[place] 2022-09-26 16:03:19 2022-09-26 16:03:19 Outpatient [facility] [id number] Raji Waldrop [place] 2022-06-07 15:21:55 2022-06-07 15:21:55 Outpatient [facility] [id number] Raji Waldrop [place] 2021-07-08 10:00:00 2021-07-08 10:13:56 Nurse Visit Nurse, [facility] Zeynep Perdomo [facility] ..840.114 350.1.13.10 4.2.7.2.686 [id number] [facility] 2021-07-08 10:00:00 2021-07-08 10:00:00 Outpatient ZEYNEP TREJO [facility] [id number] [facility] 2021-07-08 08:00:00 2021-07-08 08:00:00 Outpatient R [facility] [id number] [facility] 2021-07-08 00:00:00 2021-07-08 00:00:00 Orders Only Doctor Unassigned, [place] [facility] .840.114 350.1.13.10 4.2.7.2.686 [id number] [facility] 2021-06-27 15:30:00 2021-06-27 15:30:00 Outpatient R [facility] [id number] [facility] 2021-03-04 00:00:00 2021-03-04 00:00:00 Case Management Martina Charles ..840.114 350.1.13.10 4.2.7.2.686 [id number] [facility] 2020-12-27 14:55:40 2020-12-27 15:08:40 Nurse Visit Nurse, [facility] AdZeynep carr [facility] 1.2.840.114 350.1.13.10 4.2.7.2.686 [id number] [facility] 2020-12-27 14:30:00 2020-12-27 15:08:40 [facility] [id number] [facility] 2020-12-24 10:30:00 2020-12-24 10:30:00 Outpatient R [facility] [id number] [facility] 2020-08-23 10:30:00 2020-08-23 10:30:00 Outpatient R [facility] [id number] [facility] 2020-06-23 11:17:55 2020-06-23 12:30:20 Office Visit AdZeynep carr [facility] 1.2.840.114 350.1.13.10 4.2.7.2.686 [id number] [facility] 2020-06-23 11:00:00 2020-06-23 11:00:00 Outpatient R [facility] [id number] [facility] 2020-06-23 00:00:00 2020-06-23 00:00:00 Orders Only Doctor Unassigned, [place] [facility] 1.2.840.114 350.1.13.10 4.2.7.2.686 [id number] [facility] 2020-06-17 08:30:00 2020-06-17 08:30:00 Outpatient R [facility] [id number] [facility] 2019-07-29 00:00:00 2019-07-29 00:00:00 Letter (Out) Maria Victoria Meadows [facility] [id number] 350.1.13.10 4.2.7.2.686 [id number] [facility] 2019-06-03 00:00:00 2019-06-03 00:00:00 Orders Only Doctor Unassigned, [place] [facility] [id number] 350.1.13.10 4.2.7.2.686 [id number] [facility] 2019-06-02 00:00:00 2019-06-02 00:00:00 Telephone Sasha Shepard [facility] 1.2.840.114 350.1.13.10 4.2.7.2.686 [id number] [facility] 2018-10-11 00:00:00 2018-10-11 00:00:00 Case Management Darline Leyda [facility] 1.2.840.114 350.1.13.10 4.2.7.2.686 [id number] [facility] 2018-10-10 08:35:38 2018-10-10 08:50:38 Business Unit Manager Visit 2, [facility] Darline [facility] 1.2.840.114 350.1.13.10 4.2.7.2.686 [id number] [facility] 2018-10-10 07:56:08 2018-10-10 08:30:43 Office Visit Darline Leyda [facility] 1.2.840.114 350.1.13.10 4.2.7.2.686 [id number] [facility] 2018-10-10 00:00:00 2018-10-10 00:00:00 Orders Only Doctor Unassigned, [place] [facility] 1.2.840.114 350.1.13.10 4.2.7.2.686 [id number] [facility] Results Test Description Test Time Test Comments Results Result Co mments Source Raji VacaHPV HIGH RISK WITH GENOTYPE, TP [REFLEX]2023-10-02 00:00:00* Test Item Value Reference Range Interpretation Comme nts HPV HIGH RISK INTERP (test c ode = 88500) POSITIVE HPV 16 (test code = 74204) NEGATIVE HPV 18 (test code = 29795) NEGATIVE HPV, HR, OTHER GENOTYPES (te st code = 26359) POSITIVE PDFE (test code = PDFReport) PDF Raji VacaCT/NG, NAAT, [id number] 00:00:00* Test Item Value Reference Range Interpretation Comme nts CHLAMYDIA, NAAT, THINPREP (t est code = 88618) NEGATIVE GONORRHEA, NAAT, THINPREP (t est code = 74616) NEGATIVE Raji VacaTRICHOMONAS, THINPREP, [id number] 00:00:00* Test Item Value Reference Range Interpretation Comme nts TRICHOMONAS, NAAT (test code = 34128) NEGATIVE SPECIMEN TYPE (test code = 80849) THINPREP Raji VacaVAGINAL PATHOGENS DNA [id number] 00:00:00* Test Item Value Reference Range Interpretation Comme nts MICHAEL SPECIES (test code = 71620) NEGATIVE G. VAGINALIS (test code = 21287) POSITIVE T. VAGINALIS (test code = 54873) NEGATIVE Raji VacaCBC W/AUTO [id number] 00:00:00* Test Item Value Reference Range Interpretation [...] ABS NUCLEATED RBCS (test cod e = 84261) 0.00 K/UL Raji VacaLIPID [id number] 00:00:00* Test Item Value Reference Range Interpretation Comme nts CHOLESTEROL (test code = 2210) 179 MG/DL TRIGLYCERIDES (test code = 2232) 282 MG/DL HDL CHOLESTEROL (test code = 2220) 42 MG/DL CALC LDL CHOL (test code = 2237) 97 MG/DL RISK RATIO LDL/HDL (test cod e = 2238) 2.31 RATIO Raji VacaHEMOGLOBIN [id number] 00:00:00* Test Item Value Reference Range Interpretation Comme nts HEMOGLOBIN A1c (test code = 74497) 9.6 % Raji Waldrop [id number] 00:00:00* Test Item Value Reference Range Interpretation Comme nts TSH, THIRD GENERATION (test code = 2821) 2.350 UIU/ML Raji VacaCOMPREHENSIVE METABOLIC [id number] 00:00:00* Test Item Value Reference Range Interpretation Comme nts GLUCOSE (test code = 2217) 338 MG/DL BUN (test code = 2208) 16 MG/DL CREATININE (test code = 2214) 0.69 MG/DL eGFR (2020 CKD-EPI) (test code = 71034) 124 ML/MIN/1.73 CALC BUN/CREAT (test code = [...] code = 2219) 11 U/L Raji Waldrop LioURINALYSIS W/REFLEX [id number] 00:00:00* Test Item Value Reference Range Interpretation [...] 0-2 /HPF EPITHELIAL CELLS (test code = 66444) 6-10 /HPF BACTERIA (test code = 1515) >3+ CASTS, HYALINE (test code = 1517) TRACE Raji Waldrop AustinALBUMIN/CREATININE RATIO, RANDOM [id number] 00:00:00* Test Item Value Reference Range Interpretation Comme nts CREATININE, URINE, CONC. (te st code = 2072) 61.1 MG/DL ALBUMIN, URINE, RANDOM (test code = 38710) 26.7 MG/DL CALC ALBUMIN/CREAT, RND (juan manuel t code = 32016) 437 MG/G Raji Palma LioCBC W/AUTO [id number] 00:00:00* Test Item Value Reference Range Interpretation [...] ABS NUCLEATED RBCS (test cod e = 65567) 0.00 K/UL Raji VacaLIPID [id number] 00:00:00* Test Item Value Reference Range Interpretation Comme nts CHOLESTEROL (test code = 2210) 179 MG/DL TRIGLYCERIDES (test code = 2232) 282 MG/DL HDL CHOLESTEROL (test code = 2220) 42 MG/DL CALC LDL CHOL (test code = 2237) 97 MG/DL RISK RATIO LDL/HDL (test cod e = 2238) 2.31 RATIO Raji VacaHEMOGLOBIN [id number] 00:00:00* Test Item Value Reference Range Interpretation Comme nts HEMOGLOBIN A1c (test code = 94171) 9.6 % Raji [id number] 00:00:00* Test Item Value Reference Range Interpretation Comme nts TSH, THIRD GENERATION (test code = 2821) 2.350 UIU/ML Raji VacaCOMPREHENSIVE METABOLIC [id number] 00:00:00* Test Item Value Reference Range Interpretation Comme nts GLUCOSE (test code = 2217) 338 MG/DL BUN (test code = 2208) 16 MG/DL CREATININE (test code = 2214) 0.69 MG/DL eGFR (2020 CKD-EPI) (test code = 03830) 124 ML/MIN/1.73 CALC BUN/CREAT (test code = [...] = 2219) 11 U/L Raji VacaURINALYSIS W/REFLEX [id number] 00:00:00* Test Item Value Reference Range Interpretation [...] 0-2 /HPF EPITHELIAL CELLS (test code = 12517) 6-10 /HPF BACTERIA (test code = 1515) >3+ CASTS, HYALINE (test code = 1517) TRACE Raji VacaALBUMIN/CREATININE RATIO, RANDOM [id number] 00:00:00* Test Item Value Reference Range Interpretation Comme nts CREATININE, URINE, CONC. (te st code = 2072) 61.1 MG/DL ALBUMIN, URINE, RANDOM (test code = 15404) 26.7 MG/DL CALC ALBUMIN/CREAT, RND (juan manuel t code = 33034) 437 MG/G Raji VacaCBC W/AUTO [id number] 00:00:00* Test Item Value Reference Range Interpretation [...] ABS NUCLEATED RBCS (test cod e = 57605) 0.00 K/UL Raji VacaLIPID [id number] 00:00:00* Test Item Value Reference Range Interpretation Comme nts CHOLESTEROL (test code = 2210) 179 MG/DL TRIGLYCERIDES (test code = 2232) 282 MG/DL HDL CHOLESTEROL (test code = 2220) 42 MG/DL CALC LDL CHOL (test code = 2237) 97 MG/DL RISK RATIO LDL/HDL (test cod e = 2238) 2.31 RATIO Raji VacaHEMOGLOBIN [id number] 00:00:00* Test Item Value Reference Range Interpretation Comme nts HEMOGLOBIN A1c (test code = 81976) 9.6 % Raji [id number] 00:00:00* Test Item Value Reference Range Interpretation Comme nts TSH, THIRD GENERATION (test code = 2821) 2.350 UIU/ML Raji VacaCOMPREHENSIVE METABOLIC [id number] 00:00:00* Test Item Value Reference Range Interpretation Comme nts GLUCOSE (test code = 2217) 338 MG/DL BUN (test code = 2208) 16 MG/DL CREATININE (test code = 2214) 0.69 MG/DL eGFR (2020 CKD-EPI) (test code = 36777) 124 ML/MIN/1.73 CALC BUN/CREAT (test code = [...] = 2219) 11 U/L Raji VacaURINALYSIS W/REFLEX [id number] 00:00:00* Test Item Value Reference Range Interpretation [...] 0-2 /HPF EPITHELIAL CELLS (test code = 31666) 6-10 /HPF BACTERIA (test code = 1515) >3+ CASTS, HYALINE (test code = 1517) TRACE Raji Waldrop AustinALBUMIN/CREATININE RATIO, RANDOM [id number] 00:00:00* Test Item Value Reference Range Interpretation Comme nts CREATININE, URINE, CONC. (te st code = 2072) 61.1 MG/DL ALBUMIN, URINE, RANDOM (test code = 16083) 26.7 MG/DL CALC ALBUMIN/CREAT, RND (juan manuel t code = 01245) 437 MG/G Raji F AustinHEMOGLOBIN [id number] 00:00:00* Test Item Value Reference Range Interpretation Comme nts HEMOGLOBIN A1c (test code = 17005) 9.4 % Raji F AustinHEMOGLOBIN [id number] 00:00:00* Test Item Value Reference Range Interpretation Comme nts HEMOGLOBIN A1c (test code = 82849) 9.4 % Raji F AustinHEMOGLOBIN [id number] 00:00:00* Test Item Value Reference Range Interpretation Comme nts HEMOGLOBIN A1c (test code = 65831) 9.4 % Raji F AustinHEMOGLOBIN [id number] 00:00:00* Test Item Value Reference Range Interpretation Comme nts HEMOGLOBIN A1c (test code = 56997) 9.4 % Raji Waldrop AustinPAP TEST, THINPREP, [id number] 00:00:00* Test Item Value Reference Range Interpretation Comme nts SOURCE: (test code = 8001) Cervical/Endocervica l SLIDES: (test code = 8011) 1 LMP: (test code = 8021) NOT GIVEN SPECIMEN ADEQUACY: (test code = 04702) (NOTE) INTERPRETATION: (test code = 86930) LSIL/EPITH. ABNORMALITY; SEE BELOW OTHER COMMENTS: (test code = 8081) (NOTE) PUMP HOUSE TECHNICIAN: (test code = 8101) BETY Samayoa(ASCP) PATHOLOGIST INTERPRETATION BY: (test code = 8122) David Campbell LOCATION: (test code = 26273) (NOTE) CPT: (test code = 8140) (NOTE) Raji ConradP TEST, THINPREP, [id number] 00:00:00* Test Item Value Reference Range Interpretation Comme nts SOURCE: (test code = 8001) Cervical/Endocervica l SLIDES: (test code = 8011) 1 LMP: (test code = 8021) NOT GIVEN SPECIMEN ADEQUACY: (test code = 62089) (NOTE) INTERPRETATION: (test code = 79002) LSIL/EPITH. ABNORMALITY; SEE BELOW OTHER COMMENTS: (test code = 8081) (NOTE) PUMP HOUSE TECHNICIAN: (test code = 8101) BETY Samayoa([facility]) PATHOLOGIST INTERPRETATION BY: (test code = 8122) David Campbell LOCATION: (test code = 21006) (NOTE) CPT: (test code = 8140) (NOTE) Raji ConradP TEST, THINPREP, [id number] 00:00:00* Test Item Value Reference Range Interpretation Comme nts SOURCE: (test code = 8001) Cervical/Endocervica l SLIDES: (test code = 8011) 1 LMP: (test code = 8021) NOT GIVEN SPECIMEN ADEQUACY: (test code = 91148) (NOTE) INTERPRETATION: (test code = 51665) LSIL/EPITH. ABNORMALITY; SEE BELOW OTHER COMMENTS: (test code = 8081) (NOTE) PUMP HOUSE TECHNICIAN: (test code = 8101) BETY Samayoa(ASCP) PATHOLOGIST INTERPRETATION BY: (test code = 8122) David Campbell LOCATION: (test code = 49123) (NOTE) CPT: (test code = 8140) (NOTE) Raji VacaPAP TEST, THINPREP, [id number] 00:00:00* Test Item Value Reference Range Interpretation Comme nts SOURCE: (test code = 8001) Cervical/Endocervica l SLIDES: (test code = 8011) 1 LMP: (test code = 8021) NOT GIVEN SPECIMEN ADEQUACY: (test code = 67481) (NOTE) INTERPRETATION: (test code = 64476) LSIL/EPITH. ABNORMALITY; SEE BELOW OTHER COMMENTS: (test code = 8081) (NOTE) PUMP HOUSE TECHNICIAN: (test code = 8101) BETY Samayoa(ASCP) PATHOLOGIST INTERPRETATION BY: (test code = 8122) David Campbell LOCATION: (test code = 84572) (NOTE) CPT: (test code = 8140) (NOTE) Raji Palma LioPAP TEST, THINPREP, [id number] 00:00:00* Test Item Value Reference Range Interpretation Comme nts SOURCE: (test code = 8001) Cervical/Endocervica l SLIDES: (test code = 8011) 1 LMP: (test code = 8021) NOT GIVEN SPECIMEN ADEQUACY: (test code = 04846) (NOTE) INTERPRETATION: (test code = 10221) LSIL/EPITH. ABNORMALITY; SEE BELOW OTHER COMMENTS: (test code = 8081) (NOTE) PUMP HOUSE TECHNICIAN: (test code = 8101) BETY Samayoa(ASCP) PATHOLOGIST INTERPRETATION BY: (test code = 8122) David Campbell LOCATION: (test code = 46758) (NOTE) CPT: (test code = 8140) (NOTE) Raji Palma AustinVAGINAL PATHOGENS DNA [id number] 00:00:00* Test Item Value Reference Range Interpretation Comme nts MICHAEL SPECIES (test code = ) NEGATIVE G. VAGINALIS (test code = ) POSITIVE T. VAGINALIS (test code = ) NEGATIVE Raji Waldrop AustinCT/NG, TMA, [id number] 00:00:00* Test Item Value Reference Range Interpretation Comme nts CHLAMYDIA, NAAT, THINPREP (t est code = 85809) NEGATIVE GONORRHEA, NAAT, THINPREP (t est code = 80394) NEGATIVE PDFE (test code = PDFReport) PDF Raji Waldrop AustinVAGINAL PATHOGENS DNA [id number] 00:00:00* Test Item Value Reference Range Interpretation Comme nts MICHAEL SPECIES (test code = ) NEGATIVE G. VAGINALIS (test code = ) POSITIVE T. VAGINALIS (test code = ) NEGATIVE Raji Waldrop AustinCT/NG, TMA, [id number] 00:00:00* Test Item Value Reference Range Interpretation Comme nts CHLAMYDIA, NAAT, THINPREP (t est code = 36707) NEGATIVE GONORRHEA, NAAT, THINPREP (t est code = 45352) NEGATIVE PDFE (test code = PDFReport) PDF Raji Waldrop AustinVAGINAL PATHOGENS DNA [id number] 00:00:00* Test Item Value Reference Range Interpretation Comme nts MICHAEL SPECIES (test code = ) NEGATIVE G. VAGINALIS (test code = 06667) POSITIVE T. VAGINALIS (test code = ) NEGATIVE Raji Waldrop AustinCT/NG, TMA, [id number] 00:00:00* Test Item Value Reference Range Interpretation Comme nts CHLAMYDIA, NAAT, THINPREP (t est code = 08607) NEGATIVE GONORRHEA, NAAT, THINPREP (t est code = 35365) NEGATIVE PDFE (test code = PDFReport) PDF Raji Waldrop AustinVAGINAL PATHOGENS DNA [id number] 00:00:00* Test Item Value Reference Range Interpretation Comme nts MICHAEL SPECIES (test code = ) NEGATIVE G. VAGINALIS (test code = ) POSITIVE T. VAGINALIS (test code = ) NEGATIVE Raji Waldrop AustinCT/NG, TMA, [id number] 00:00:00* Test Item Value Reference Range Interpretation Comme nts CHLAMYDIA, NAAT, THINPREP (t est code = 17505) NEGATIVE GONORRHEA, NAAT, THINPREP (t est code = 24334) NEGATIVE PDFE (test code = PDFReport) PDF Raji Waldrop AustinVAGINAL PATHOGENS DNA [id number] 00:00:00* Test Item Value Reference Range Interpretation Comme nts MICHAEL SPECIES (test code = ) NEGATIVE G. VAGINALIS (test code = 33112) POSITIVE T. VAGINALIS (test code = 32210) NEGATIVE Raji Waldrop AustinCT/NG, TMA, [id number] 00:00:00* Test Item Value Reference Range Interpretation Comme nts CHLAMYDIA, NAAT, THINPREP (t est code = 23904) NEGATIVE GONORRHEA, NAAT, THINPREP (t est code = 58985) NEGATIVE PDFE (test code = PDFReport) PDF Raji Waldrop AustinUNLABELLED SPECIMEN [ADDED]2020-04-04 00:00:00* Test Item Value Reference Range Interpretation Comme nts NOTE: (test code = 03906) Raji Waldrop AustinUNLABELLED SPECIMEN [ADDED]2020-04-04 00:00:00* Test Item Value Reference Range Interpretation Comme nts NOTE: (test code = 10531) Raji Waldrop AustinUNLABELLED SPECIMEN [ADDED]2020-04-04 00:00:00* Test Item Value Reference Range Interpretation Comme nts NOTE: (test code = 88485) Raji Waldrop AustinUNLABELLED SPECIMEN [ADDED]2020-04-04 00:00:00* Test Item Value Reference Range Interpretation Comme nts NOTE: (test code = 25990) Raji Waldrop AustinUNLABELLED SPECIMEN [ADDED]2020-04-04 00:00:00* Test Item Value Reference Range Interpretation Comme nts NOTE: (test code = 30893) Raji Waldrop [id number] (COVID-19) by RT-PCR (HIGH RISK)2020-04-03 00:00:00* Test Item Value Reference Range Interpretation Comme nts SARS-CoV-2 INTERPRETATION (t est code = 11056) POSITIVE SOURCE (test code = 35284) NOT SPECIFIED Raji Waldrop BvvlouNYVO-EmQ-3 (COVID-19) by RT-PCR (HIGH RISK)2020-04-03 00:00:00* Test Item Value Reference Range Interpretation Comme nts SARS-CoV-2 INTERPRETATION (t est code = 83344) POSITIVE SOURCE (test code = 40467) NOT SPECIFIED Raji Waldrop SestfrNXXN-EqB-2 (COVID-19) by RT-PCR (HIGH RISK)2020-04-03 00:00:00* Test Item Value Reference Range Interpretation Comme nts SARS-CoV-2 INTERPRETATION (t est code = 37774) POSITIVE SOURCE (test code = 55053) NOT SPECIFIED Raji Waldrop [id number]-7 (COVID-19) by RT-PCR (HIGH RISK)2020-04-03 00:00:00* Test Item Value Reference Range Interpretation Comme nts SARS-CoV-2 INTERPRETATION (t est code = 06601) POSITIVE SOURCE (test code = 42171) NOT SPECIFIED Raji Waldrop GiztxbZQJR-WcN-8 (COVID-19) by RT-PCR (HIGH RISK)2020-04-03 00:00:00* Test Item Value Reference Range Interpretation Comme nts SARS-CoV-2 INTERPRETATION (t est code = 83146) POSITIVE SOURCE (test code = 84168) NOT SPECIFIED Raji Waldrop HmtkikFTCQ-YoM-3 (COVID-19) by RT-PCR (HIGH RISK)2019-08-28 00:00:00* Test Item Value Reference Range Interpretation Comme nts SARS-CoV-2 INTERPRETATION (t est code = 84859) NEGATIVE SOURCE (test code = 27278) NOT SPECIFIED Raji Waldrop QnflowWLUC-VzV-9 (COVID-19) by RT-PCR (HIGH RISK)2019-08-28 00:00:00* Test Item Value Reference Range Interpretation Comme nts SARS-CoV-2 INTERPRETATION (t est code = 23212) NEGATIVE SOURCE (test code = 52642) NOT SPECIFIED Raji Waldrop IymczjOGXN-VyF-1 (COVID-19) by RT-PCR (HIGH RISK)2019-08-28 00:00:00* Test Item Value Reference Range Interpretation Comme nts SARS-CoV-2 INTERPRETATION (t est code = 60958) NEGATIVE SOURCE (test code = 34425) NOT SPECIFIED Raji Waldrop PnsmjpYQFT-ChL-7 (COVID-19) by RT-PCR (HIGH RISK)2019-08-28 00:00:00* Test Item Value Reference Range Interpretation Comme nts SARS-CoV-2 INTERPRETATION (t est code = 27935) NEGATIVE SOURCE (test code = 56788) NOT SPECIFIED Raji Waldrop YsvddgHYOP-SbL-9 (COVID-19) by RT-PCR (HIGH RISK)2019-08-28 00:00:00* Test Item Value Reference Range Interpretation Comme nts SARS-CoV-2 INTERPRETATION (t est code = 61470) NEGATIVE SOURCE (test code = 25759) NOT SPECIFIED Raji Waldrop AustinEXTERNAL PAP [id number] 00:00:00* Test Item Value Reference Range Interpretation [...] 18: NEGATIVE Lab Interpretation (test code = 92617-8) [facility] [id number] 00:00:00* Test Item Value Reference Range Interpretation Comme nts External Chlamydia AB Panel (test code = 5044) Positive Negative A Lab Interpretation (test cod e = 41401-8) Abnormal [facility] SPECIFIC [id number] 13:13:00* Test Item Value Reference Range Interpretation [...] CLOUDY Lab Interpretation (test cod e = 03857-7) Abnormal [facility]IFIC [id number] 13:13:00* Test Item Value Reference Range Interpretation [...] CLOUDY Lab Interpretation (test cod e = 27388-6) Abnormal [facility] Notes Date/Time Note Provider [facility]
[2023-11-12] MEDS ORDERED: KETOROLAC 30 MG/ML INJ ONE (19:32)
--- NOTE | 2023-11-12 20:16 | RAD REPORT ---
EXAMINATION: ONE VIEW CHEST XR CLINICAL INDICATION: Female, 23 years old.CHEST PAIN TECHNIQUE: 1 View, AP supine, X-ray of the chest was performed. [id number]. COMPARISON: Chest CT 11/07/2023, chest radiograph 10/26/2021 FINDINGS: Lungs and pleura: Clear lungs. No effusion. Heart and mediastinum: Normal heart size. Unremarkable mediastinal contours. Osseous structures: No acute abnormality. Tubes/lines: None Other: None. IMPRESSION: No acute intrathoracic abnormality.
--- NOTE | 2023-11-12 20:22 | RAD REPORT ---
EXAM:Ribs Left HISTORY: PAIN COMPARISON: Chest CT 11/07/2023 IMPRESSION: No displaced left-sided rib fractures identified. Nonspecific fractures may not be appare nt radiographically toe healing begins. No pneumothorax.
--- NOTE | 2023-11-12 20:27 | EDPHYS ---
Physician Documentation [facility] Name: Hilda Head Age: 23 yrs Sex: Female : 2000 Arrival Date: 11/12/2023 Time: 19:13 Bed 6 Private MD: ED Physician Lavell Alegre HPI: 11/11 19:34 This 23 yrs old Female presents to ER via Unassigned with complaints of Chest kb Pain, Back Pain, Flank Pain - left. 19:37 Pt is a 23 year old female who presents for left rib pain that started last week. kb States she popped her back and it also popped her ribs. States she got up wrong 2 days ago and felt another pop in her left ribs and has had increased pain since then. Denies palpitations, shortness of breath. States pain is worse with movement, palpation and deep breaths. Historical: - Allergies: 19:35 No Known Allergies; cm10 - PMHx: 19:35 Asthma; Bipolar disorder; Diabetes - IDDM; cm10 - Immunization history:: Adult Immunizations up to date. - Infectious Disease History:: Denies. - Social history:: Smoking status: unknown. ROS: 19:33 Constitutional: As per HPI kb Exam: 19:33 Constitutional: This is a well developed, well nourished patient who is awake, alert, kb and in no acute distress. Head/Face: Normocephalic, atraumatic. ENT: Moist Mucous membranes Cardiovascular: Regular rate Respiratory: Respirations even and unlabored. No increased work of breathing. Talking in full sentences Abdomen/GI: Soft, non-tender. No distention Skin: Warm, dry with normal turgor. Normal color. MS/ Extremity: Pulses equal, no cyanosis. Neurovascular intact. Full, normal range of motion. Neuro: Awake and alert, GCS 15, oriented to person, place, time, and situation. Moves all extremities. Normal gait. 19:33 ECG was reviewed by the Attending Physician. 19:38 Chest/axilla: Inspection: normal, Palpation: tenderness, that is mild, of the anterior kb aspect of left upper chest and left lateral anterior chest, Vital Signs: 19:33 BP 115 / 82; Pulse 101; Resp 18; Temp 98.1(O); Pulse Ox 100% on R/A; Weight 76.2 kg; cm10 Height 5 ft. 4 in. ; Pain 7/10; 20:47 BP 120 / 64; Pulse 102; Resp 18 S; Pulse Ox 100% on R/A; br2 19:33 Body Mass Index 28.84 (76.20 kg, 162.56 cm) cm10 19:33 Pain Scale: Adult cm10 MDM: 19:17 Patient medically screened. kb 19:33 Data reviewed: vital signs, nurses notes. kb 20:25 Differential diagnosis: pleurisy, contusion, dislocation, fracture. Counseling: I had a kb detailed discussion with the patient and/or guardian regarding the historical points, exam findings, and any diagnostic results supporting the discharge/admit diagnosis, radiology results, the need for outpatient follow up, a family practitioner, to return to the emergency department if symptoms worsen or persist or if there are any questions or concerns that arise at home. 11/11 19:23 Order name: Chest Single View XRAY; Complete Time: 20:17 kb 11/11 19:23 Order name: Ribs Left XRAY; Complete Time: 20:23 kb 11/11 19:23 Order name: EKG - Nurse/Tech; Complete Time: 19:31 kb EC:33 Rate is 101 beats/min. Rhythm is regular. QRS [place] is Normal. VT interval is normal at kb 132 msec. QRS interval is normal at 76 msec. QT interval is normal at 420 msec. Administered Medications: 19:38 Drug: Ketorolac IM 30 mg IM once Route: IM; Site: left gluteus; br2 20:46 Follow up: Response: No adverse reaction; Pain is decreased br2 Disposition Summary: 11/12/23 20:26 Discharge Ordered Notes: Location: Home kb Condition: Stable kb Diagnosis - Chest pain, unspecified - chest wall pain kb Followup: kb - With: Emergency Department - When: As needed - Reason: Worsening of condition Followup: kb - With: Private Physician - When: 2 - 3 days - Reason: Recheck today's complaints, Continuance of care, Re-evaluation by your physician Discharge Instructions: - Discharge Summary Sheet kb - Chest Wall Pain, Gsst-sb-Gcos kb Forms: - Medication Reconciliation Form kb - Antibiotic Education kb - Prescription Opioid Use kb - Patient Portal Instructions kb - Leadership Thank You Letter kb Signatures: Dispatcher [employer] EDKaterin Dixon PHARMACY PICKING TECHNICIAN-C ALEX-Krysten Bay, RN RN cm10 Rama Davison RN RN br2 Corrections: (The following items were deleted from the chart) 19:24 19:24 Chest Single View+RAD.RAD.BRZ ordered. EDMS EDMS 19:24 19:24 Ribs Left+RAD.RAD.BRZ ordered. EDMS EDMS
--- NOTE | 2023-11-12 20:27 | ER ---
Nurse's Notes [facility] Name: Hilda Head Age: 23 yrs Sex: Female : 2000 Arrival Date: 11/12/2023 Time: 19:13 Bed 6 Private MD: Diagnosis: Chest pain, unspecified-chest wall pain Presentation: 11/11 19:33 Chief complaint: Patient states: Left sided rib pain onset 1 week ago. Pt was seen her cm10 last week for rib pain and 2 days ago pt felt something pop on the left side. Pt reports a sharp pain to the left side of her chest. Pt states the pain is worse with movement. Coronavirus screen: Client denies travel out of the [place] in the last 14 days. Ebola Screen: Patient denies travel to an Ebola-affected area in the 21 days before illness onset. No symptoms or risks identified at this time. Initial Sepsis Screen: Does the patient meet any 2 criteria? No. Patient's initial sepsis screen is negative. Does the patient have a suspected source of infection? No. Patient's initial sepsis screen is negative. Risk Assessment: Do you want to hurt yourself or someone else? Patient reports no desire to harm self or others. Onset of symptoms was November 12, 2023. 19:33 Method Of Arrival: Ambulatory 10 19:33 Acuity: DONELL 3 cm10 Triage Assessment: 19:35 General: Appears in no apparent distress. comfortable, Behavior is calm, cooperative. cm10 Neuro: No deficits noted. Level of Consciousness is awake, alert, obeys commands, Oriented to person, place, time, situation, Appropriate for age. Historical: - Allergies: 19:35 No Known Allergies; cm10 - PMHx: 19:35 Asthma; Bipolar disorder; Diabetes - IDDM; cm10 - Immunization history:: Adult Immunizations up to date. - Infectious Disease History:: Denies. - Social history:: Smoking status: unknown. Screenin:30 [facility] ED Fall Risk Assessment (Adult) History of falling in the last 3 months, br2 including since admission No falls in past 3 months (0 pts) Confusion or Disorientation No (0 pts) Intoxicated or Sedated No (0 pts) Impaired Gait No (0 pts) Mobility Assist Device Used No (0 pt) Altered Elimination No (0 pt) Score/Fall Risk Level 0 - 2 = Low Risk Oriented to surroundings. Abuse screen: Denies threats or abuse. Denies injuries from another. Nutritional screening: On. Tuberculosis screening: No symptoms or risk factors identified. Assessment: 19:30 Reassessment: Patient and/or family updated on plan of care and expected duration. Pain br2 level reassessed. Patient is alert, oriented x 3, equal unlabored respirations, skin warm/dry/pink. General: Appears uncomfortable, Behavior is calm, appropriate for age. Pain: Pain radiates to anterior aspect of left upper chest Pain currently is 9 out of 10 on a pain scale. at worst was 10 out of 10 on a pain scale. Aggravated by. Cardiovascular: Capillary refill < 3 seconds Patient's skin is warm and dry. Rhythm is sinus rhythm Chest pain is located in left anterior Parent/caregiver reports patient has had since PAIN BEGAN LAST WEEK WHEN NEPHEW STEPPED ON HER BACK. PT FELT A "POP" TO LEFT ANTERIOR LOWER CHEST WALL 2 DAYS AGO AND AGAIN THIS MORNING WHEN SHE WAS LAUGHING. 20:50 Pain: Pain began 2-3 days ago. br2 Vital Signs: 19:33 BP 115 / 82; Pulse 101; Resp 18; Temp 98.1(O); Pulse Ox 100% on R/A; Weight 76.2 kg; cm10 Height 5 ft. 4 in. ; Pain 7/10; 20:47 BP 120 / 64; Pulse 102; Resp 18 S; Pulse Ox 100% on R/A; br2 19:33 Body Mass Index 28.84 (76.20 kg, 162.56 cm) cm10 19:33 Pain Scale: Adult cm10 ED Course: 19:16 Patient arrived in ED. ra3 19:17 Katerin Abbott FNP-C is PHCP. kb 19:17 Lavell Alegre MD is Attending Physician. kb 19:30 Patient has correct armband on for positive identification. Bed in low position. Call br2 light in reach. Side rails up X 1. Provided Education on: PLAN OF CARE. Client placed on continuous cardiac and pulse oximetry monitoring. NIBP monitoring applied. 19:30 Patient did not have IV access during this emergency room visit. Patient maintains SpO2 br2 saturation greater than 95% on room air. 19:30 No provider procedures requiring assistance completed. br2 19:31 [place], Rama, RN is Primary Nurse. br2 19:35 Triage completed. cm10 19:35 Arm band placed on Patient placed in an exam room, on a stretcher. EKG completed in cm10 triage. Results shown to MD. 19:35 EKG done, by ED staff, reviewed by Katerin MCCABE. cm10 20:12 Chest Single View XRAY In Process Unspecified. EDMS 20:12 Ribs Left XRAY In Process Unspecified. EDMS Administered Medications: 19:38 Drug: Ketorolac IM 30 mg IM once Route: IM; Site: left gluteus; br2 20:46 Follow up: Response: No adverse reaction; Pain is decreased br2 Medication: 19:30 VIS not applicable for this client. br2 Outcome: 19:30 Discharged to home ambulatory, br2 19:30 Condition: stable 19:30 Discharge instructions given to patient, Instructed on discharge instructions, follow up and referral plans. Demonstrated understanding of instructions, follow-up care, 20:26 Discharge ordered by MD. kb 20:51 Patient left the ED. br2 Signatures: Dispatcher [employer] EDKaterin Dixon, ELIOT JOHNSON-Krysten Bay, RN RN cm10 Ashleigh Prieto ra3 Rama Davison, RN RN br2
[2023-11-12 22:33] VITALS: TEMP 98.1; O2SAT 100
[2023-11-12 22:35] VITALS: BP 120/64
--- NOTE | 2023-11-13 12:26 | EKG ---
Test Date: 2023-11-12 Test Time: 19:28:20 Jewelry Store Manager: KIT MEASUREMENT RESULTS: Intervals: Rate: 101 NV: 132 QRSD: 76 QT: 324 QTc: 420 [place]: P: 60 NV: 132 QRS: 81 T: 48 INTERPRETIVE STATEMENTS: Sinus tachycardia Otherwise normal ECG No previous ECG available for comparison Electronically Signed On 11-13-23 12:25:04 CDT by Joshua Doss
== END 2023-11-12 20:51 | disposition home or self-care (01) ==
LOC: ER 19:13
DX: R07.89 Other chest pain (principal)
CPT/HCPCS: 71045; 93005; 96372; 99284

== ENCOUNTER 2024-06-22 14:29 | Emergency (ER) | payer MEDICAID ==
--- OUTSIDE RECORDS SUMMARY | 2024-06-22 14:34 | XMS REPORT | Continuity of Care Document ---
Author Name Unknown Address [address] [facility] [place]. [address] [place] [address] [facility] Address [address] [facility] [address] [place] [address] Care Team Providers Care Credit Card Analyst Name Role Phone Maria Victoria Meadows Primary Care Physician Doctor Unassigned, [place] Attending Clinician [facility] Nurse, [facility] Attending Clinician Un available Zeynep Perdomo MD Attending Clinician [phone] ZEYNEP PERDOMO Attending Clinician Unavailable Araceli FREIGHT UNLOADERMartina PARISH Attending Clinician Unava Maria Victoria Villagomez Attending Clinician [phone] Sasha Shepard MD Attending Clinician [phone] Leyda Gregorio PA-C Attending Clinician [phone], [facility] Lab Attending Clinician Unavailable Payers Payer Name Policy Type Policy Number Effective Date Expirati on Date Source Problems Condition Name Condition Details Condition Category Status Onset Date Resolution Date Last Treatment Date Treating Clinician Comments Source ASCUS with positive high risk HPV cervical ASCUS with positive high risk HPV cervical Disease Active 02-20 00:00: 00 [facility] ASCUS with positive high risk HPV cervical ASCUS with positive high risk HPV cervical Disease Active 02-20 00:00: 00 [facility] Obesity, Class I, BMI 30-34.9 Obesity, Class I, BMI 30-34.9 Disease Active 10-13 00:00: 00 [facility] Acanthosis nigricans Acanthosis nigricans Disease Active 10-13 00:00: 00 [facility] Family history of diabetes mellitus (DM) Family history of diabetes mellitus (DM) Disease Active 10-13 00:00: 00 [facility] Allergies, Adverse Reactions, Alerts Allergy Name Allergy Type Status Severity Reaction(s) Onset Date Inactive Date Treating Clinician Comments Source none (Not Checked) Maríaaaron ty to adverse reaction to drug Active 08-05 00:00: 00 Raji Vaca NO KNOWN ALLERGIE S Drug Class Active [facility] Social History Social Habit Start Date Stop Date Quantity Comments Source History SDOH Alcohol Frequency [facility] History SDOH Alcohol Std Drinks [facility] History SDOH Alcohol Binge [facility] Sexual orientation [facility] Exposure to SARS-CoV-2 (event) 2021-06-28 00:00:00 2021-07-08 10:00:00 Not sure [facility] Alcohol intake 2021-07-08 00:00:00 2021-07-08 00:00:00 Current drinker of alcohol (finding) [facility] History of Social function 2021-07-08 00:00:00 2021-07-08 00:00:00 [facility] Tobacco use and exposure 2018-10-10 00:00:00 2018-10-10 00:00:00 Smokeless tobacco non-user [facility] Alcohol Comment 2018-02-20 00:00:00 2018-02-20 00:00:00 Rare [facility] History of tobacco use 2018-02-09 00:00:00 Cigarette Smoker [facility] Sex Assigned At 2000 00:00:00 2000 00:00:00 [facility] Smoking Status Start Date Stop Date Source Ex-smoker 2018-10-10 00:00:00 2018-10-10 00:00:00 [facility] Current some day smoker 2018-02-20 00:00:00 [facility] Medications Ordered Medication Name Filled Medication Name Start Date Stop Date Current Medication? Ordering Clinician Indication Dosage Frequency Signature (SIG) Comments Components Source Macrobid 100 mg capsule 4-16 00:00: 00 Yes 1mg Raji Vaca metronidazo le 500 mg tablet - 00:00: 00 Yes 1mg Raji Vaca Macrobid 100 mg capsule - 00:00: 00 Yes 1mg Raji Vaca medroxyprog [...] MG TABS 2021-02- 00:00: 00 Yes Raji Waldrop Lio INHALE [...] BITARTRATE/ ACETAMINOPH E N 5-325 MG TABS 0 10-28 00:00: 00 Yes Raji Vaca TAKE 1 TABLET BY MOUTH TWICE DAILY AT 6 AM AND 6 PM 0 10-28 00:00: 00 Yes Raji Vaca TAKE 1 TABLET BY MOUTH ONCE DAILY 0 10-28 00:00: 00 Yes Raji Vaca INHALE 1 TO 2 PUFFS BY MOUTH EVERY 4 TO 6 HOURS NEEDED 0 - 00:00: 00 Yes Raji Vaca TAKE 1 TABLET BY MOUTH EVERY 12 HOURS 0 8- 00:00: 00 Yes Raji Vaca FLUCONAZOLE 150MG TABLETS 0 8-05 00:00: 00 Yes Raji Vaca MEDROXYPROG ESTERONE 150MG/ML PF SYR 0 8-05 00:00: 00 Yes Raji Vaca Lexapro 10 mg tablet 0 08-01 00:00: 00 Yes 1mg Raji Vaca Trileptal 300 mg tablet 0 - 00:00: 00 Yes 1mg Raji Vaca Seroquel 50 mg tablet 0 08-01 00:00: 00 Yes 1mg Raji Vaca TAKE 1 TABLET BY MOUTH DAILY 0 - 00:00: 00 Yes Raji Vaca QUETIAPINE FUMARATE 50 MG TABS 0 08-01 00:00: 00 Yes Raji Vaca TAKE 1 TABLET BY MOUTH TWICE DAILY 2021-0 6-27 00:00: 00 Yes Raji Vaca Lexapro 10 mg tablet 2021-0 2-24 00:00: 00 Yes 1mg Raji Vaca Trileptal 300 mg tablet 0 2-24 00:00: 00 Yes 1mg Raji Vaca Seroquel 50 mg tablet 2021-0 2-24 00:00: 00 Yes 1mg Raji Vaca Dose Unknown 0 1- 00:00: 00 Yes Raji Vaca Dose Unknown 0 1- 00:00: 00 Yes Raji Vaca Dose Unknown 0 1- 00:00: 00 Yes Raji Vaca Lexapro 10 mg tablet 2020-02 0-11 00:00: 00 Yes 1mg Raji Vaca Trileptal 300 mg tablet 1 0-11 00:00: 00 Yes 1mg Raji Vaca Seroquel 50 mg tablet 1 0-11 00:00: 00 Yes [...] Raji Vaca Trileptal 300 mg tablet 2020-0 - 00:00: 00 Yes 1mg Raji Vaca Seroquel 50 mg tablet 2020-0 7- 00:00: 00 Yes 1mg Raji Vaca Lexapro 10 mg tablet 0 6- 00:00: 00 Yes 1mg Raji Vaca Trileptal 300 mg tablet 0 6- 00:00: 00 Yes 1mg Raji Vaca Seroquel 50 mg tablet 0 6- 00:00: 00 Yes 1mg Raji Vaca AMOXICILLIN ORAL 0 - 18:21: 37 - 00:00 :00 No Take by mouth. [facility] Lexapro 10 mg tablet 0 - 00:00: 00 Yes 1mg Raji Vaca Trileptal 300 mg tablet 0 4- 00:00: 00 Yes 1mg Raji Vaca Seroquel 50 mg tablet 2020-0 4- 00:00: 00 Yes 1mg Raji Vaca Lexapro 10 mg tablet 0 4- 00:00: 00 Yes 1mg Raji Vaca Trileptal 300 mg tablet 2020-0 4- 00:00: 00 Yes 1mg Raji Vaca Seroquel 50 mg tablet 0 4-02 00:00: 00 Yes 1mg Raji Vaca [...] 1mg Raji Vaca Trileptal 300 mg tablet 02-12 00:00: 00 Yes 1mg [...] 10-11 00:00: 00 06-23 00:00 :00 No [id number] 500mg Take 1 tablet by mouth every 12 (twelve) hours. [facility] AMOXICILLIN ORAL 10-10 13:11: 58 Yes Take by mouth. [facility] metFORMIN 1,000 mg tablet 10-10 13:10: 46 Yes 1000mg Take 1,000 mg by mouth 2 (two) times daily with meals. [facility] metFORMIN 1,000 mg tablet 10-10 08:10: 46 Yes 1000mg Take 1,000 mg by mouth 2 (two) times daily with meals. [facility] Nitrofurant oin&Nit. Macrocryst 100 mg capsule 10-10 00:00: 00 06-23 00:00 :00 No [id number] 100mg Take 1 capsule by mouth 2 (two) times daily. [facility] lamoTRIgine 100 mg tablet 09-17 00:00: 00 Yes TK 1/2 T PO BID [facility] Lamictal 100 mg tablet 09-17 [...] 02-20 16:43: 14 Yes Take by mouth. [facility] metFORMIN 1,000 mg tablet 02-20 16:43: 14 Yes 1000mg Take 1,000 mg by mouth 2 (two) times daily with meals. [facility] Lamictal 25 mg tablet 02-12 00:00: 00 Yes 1mg Raji Vaca Seroquel 25 mg tablet 02-12 00:00: 00 Yes 1mg Raji Vaca PROAIR HFA 90 mcg/actuati on inhaler 2017-0215 00:00: 00 Yes INL 1 TO 2 PFS PO Q 4 TO 6 H PRN [facility] LEVEMIR FLEXTOUCH U-100 INSULN 100 unit/mL (3 mL) injection 2017-02 00:00: 00 Yes ADM 80 UNI SC QD [facility] SYMBICORT 160-4.5 mcg/actuati on inhaler 2017-02 00:00: 00 Yes INHALE 1 PUFF PO QD [facility] levothyroxi ne 150 mcg tablet 2017-02 00:00: 00 Yes TK 1 T PO QD WHEN AWAKENING WITH A FULL GLASS OF WATER ON AN EMPTY STOMACH [facility] loratadine 10 mg tablet 2017-02 00:00: 00 Yes TK 1 T PO QD [facility] montelukast 10 mg tablet 2017-02 00:00: 00 Yes TAKE 1 TABLET BY MOUTH EVERY DAY IN THE EVENING [facility] Lamictal 25 mg tablet 2017-02 00:00: 00 Yes 13mg Raji F Lio blood sugar diagnostic (FREESTYLE LITE STRIPS) strip 10-11 00:00: 00 Yes [id number] 3 times daily [facility] lancets (FREESTYLE LANCETS) 28 gauge [facility] 10-11 00:00: 00 Yes [id number] 3 times daily [facility] acetone, urine, test (KETONE URINE TEST) strip 10-11 00:00: 00 Yes [id number] Check with blood sugars >300 or if ill prn [facility] lancets (FREESTYLE LANCETS) 28 gauge Mis 10-11 00:00: 00 Yes [id number] 3 times daily [facility] blood sugar diagnostic (FREESTYLE LITE STRIPS) strip 201710-11 00:00: 00 Yes [id number] 3 times daily [facility] acetone, urine, test (KETONE URINE TEST) strip 201710-11 00:00: 00 Yes [id number] Check with blood sugars >300 or if ill prn [facility] Immunizations Ordered Immunization Name Filled Immunization Name Date Status Comments Source HPV9 2023-04-02 00:00:00 Completed [facility] HPV9 2021-07-08 00:00:00 Completed [facility] HPV9 2020-12-27 00:00:00 Completed [facility] 2020-12-27 00:00:00 Completed [facility] 2020-12-27 00:00:00 Completed [facility] 2020-12-27 00:00:00 Completed [facility] 2020-06-23 00:00:00 Completed [facility] 2020-06-23 00:00:00 Completed [facility] 2020-06-23 00:00:00 Completed [facility] 2020-06-23 00:00:00 Completed [facility] 2020-06-23 00:00:00 Completed [facility] Vital Signs Vital Name Observation Time Observation Value Comments S ource Systolic blood pressure 2021-07-08 15:09:00 138 mm[Hg] [facility] Diastolic blood pressure 2021-07-08 15:09:00 87 mm[Hg] [facility] Heart rate 2021-07-08 15:09:00 109 /min [facility] Body temperature 2021-07-08 15:09:00 36.78 Starr [facility] Respiratory rate 2021-07-08 15:09:00 18 /min [facility] Body height 2021-07-08 15:09:00 162.6 cm [facility] Body weight 2021-07-08 15:09:00 82.101 kg [facility] BMI 2021-07-08 15:09:00 31.07 kg/m2 [facility] Systolic blood pressure 2020-12-27 21:08:00 124 mm[Hg] [facility] Diastolic blood pressure 2020-12-27 21:08:00 83 mm[Hg] [facility] Heart rate 2020-12-27 21:05:00 99 /min [facility] Body temperature 2020-12-27 21:05:00 36.89 Starr [facility] Respiratory rate 2020-12-27 21:05:00 18 /min [facility] Body height 2020-12-27 21:05:00 162.6 cm [facility] Body weight 2020-12-27 21:05:00 80.287 kg [facility] BMI 2020-12-27 21:05:00 30.38 kg/m2 [facility] Systolic blood pressure 2020-06-23 16:57:00 130 mm[Hg] [facility] Diastolic blood pressure 2020-06-23 16:57:00 85 mm[Hg] [facility] Heart rate 2020-06-23 16:57:00 74 /min Unive [facility] Body temperature 2020-06-23 16:57:00 36.72 Starr [facility] Respiratory rate 2020-06-23 16:57:00 16 /min [facility] Body height 2020-06-23 16:57:00 162.6 cm [facility] Body weight 2020-06-23 16:57:00 79.47 kg [facility] BMI 2020-06-23 16:57:00 30.07 kg/m2 [facility] Systolic blood pressure 2018-10-10 13:08:00 131 mm[Hg] [facility] Diastolic blood pressure 2018-10-10 13:08:00 90 mm[Hg] [facility] Heart rate 2018-10-10 13:08:00 90 /min Unive [facility] Body temperature 2018-10-10 13:08:00 36.5 Starr [facility] Respiratory rate 2018-10-10 13:08:00 20 /min [facility] Body height 2018-10-10 13:08:00 162.6 cm [facility] Body weight 2018-10-10 13:08:00 83.915 kg [facility] BMI 2018-10-10 13:08:00 31.76 kg/m2 [facility] BP Systolic 2024-05-21 11:36:00 130 mm[Hg] Hector Vaca BP Diastolic 2024-05-21 11:36:00 100 mm[Hg] Zion Vaca Weight Measured 2024-05-21 11:36:00 178.00 pounds Raji Vaca Height Measured 2024-05-21 11:36:00 64.00 inches Raji F Lio Body Temperature 2024-05-21 11:36:00 99.60 degrees Raji F Lio Heart Rate 2024-05-21 11:36:00 98.00 /min Kailee en F Lio Respiratory Rate 2024-05-21 11:36:00 18.00 /min Raji F Lio BP Systolic 2024-03-18 13:32:00 120 mm[Hg] Step hen F Lio BP Diastolic 2024-03-18 13:32:00 88 mm[Hg] Zion phen F Lio Weight Measured 2024-03-18 13:32:00 172.00 pounds Raji F Lio Height Measured 2024-03-18 13:32:00 64.00 inches Raji F Lio Body Temperature 2024-03-18 13:32:00 98.80 degrees Raji F Lio Heart Rate 2024-03-18 13:32:00 106.00 /min Step hen F Lio Respiratory Rate 2024-03-18 13:32:00 18.00 /min Raji F Lio BP Systolic 2023-12-19 11:15:00 118 mm[Hg] Step hen F Lio BP Diastolic 2023-12-19 11:15:00 80 mm[Hg] Zion phen F Lio Weight Measured 2023-12-19 11:15:00 170.00 pounds Raji F Lio Height Measured 2023-12-19 11:15:00 64.00 inches Raji F Lio Body Temperature 2023-12-19 11:15:00 98.00 degrees Raji F Lio Heart Rate 2023-12-19 11:15:00 108.00 /min Step hen F Lio Respiratory Rate 2023-12-19 11:15:00 18.00 /min Raji F Lio BP Systolic 2023-10-05 14:47:00 120 mm[Hg] Step hen F Lio BP Diastolic 2023-10-05 14:47:00 86 mm[Hg] Zion phen F Lio Weight Measured 2023-10-05 14:47:00 161.00 pounds Raji F Lio Height Measured 2023-10-05 14:47:00 64.00 inches Raji F Lio Body Temperature 2023-10-05 14:47:00 98.00 degrees Raji [...] 2023-04-02 13:29:00 132 mm[Hg] Step hen F Ilo BP Diastolic 2023-04-02 13:29:00 84 mm[Hg] Zion [...] REFERRAL- REQUEST/RESPONSE 2023-04-02 06:01:00 D sean Unassigned, [place] [facility] GARDASIL 9 (HPV 9V) VACCINE 2021-07-08 15:11:46 Zeynep Perdomo [facility] ASSIGNMENT OF BENEFITS 2021-07-08 14:59:45 Docto r Unassigned, [place] [facility] GARDASIL 9 (HPV 9V) VACCINE 2020-12-27 21:12:28 Sasha Shepard [facility] GARDASIL 9 (HPV 9V) VACCINE 2020-06-23 17:28:23 Zeyenp Perdomo [facility] ASSIGNMENT OF BENEFITS 2020-06-23 16:17:19 Docto r Unassigned, [place] [facility] REFERRAL- REQUEST/RESPONSE 2019-06-03 05:01:00 D grantor Unassigned, [place] [facility] EXTERNAL LAB CHLAMYDIA 2019-05-23 13:00:00 Docto r Unassigned, [place] [facility] EXTERNAL PAP SMEAR 2019-05-23 13:00:00 Doctor Un assigned, [place] [facility] NO SHOW OR MISSED APPOINTMENT POLICY ACKNOWLEDGEMENT 2018-10-10 12:56:20 Doctor Unassigned, [place] [facility] POCT URINALYSIS 2018-10-10 00:00:00 Leyda Gregorio [facility] Encounters Start Date/Time End Date/Time Encounter Type Admission Type Attending Clinicians Care Facility Care Department Encounter ID Source 2024-06-13 16:30:50 2024-06-13 16:30:50 Outpatient S[facility] [id number] Raji Waldrop Lio 2024-05-21 11:33:47 2024-05-21 11:33:47 Outpatient S[facility] [id number] Raji Waldrop Lio 2024-05-21 00:00:00 2024-05-21 00:00:00 Outpatient Visit SFA [id number] Raji Vaca 2024-03-18 13:14:26 2024-03-18 13:14:26 Outpatient SFA SFA [id number] Raji Vaca 2024-03-18 00:00:00 2024-03-18 00:00:00 Outpatient Visit SFA [id number] Raji Vaca 2023-12-19 11:14:40 2023-12-19 11:14:40 Outpatient SFA SFA [id number] Raji Vaca 2023-12-19 00:00:00 2023-12-19 00:00:00 Outpatient Visit SFA [id number] Raji Vaca 2023-10-05 14:42:05 2023-10-05 14:42:05 Outpatient SFA SFA 08 Raji Vaca 2023-10-05 00:00:00 2023-10-05 00:00:00 Outpatient Visit SFA [id number] Raji Vaca 2023-09-28 15:51:25 2023-09-28 15:51:25 Outpatient SFA SFA [id number] Raji Vaca 2023-09-28 00:00:00 2023-09-28 00:00:00 Outpatient Visit SFA [id number] Raji Vaca 2023-09-26 13:55:36 2023-09-26 13:55:36 Outpatient SFA SFA 08 Raji Vaca 2023-09-26 00:00:00 2023-09-26 00:00:00 Outpatient Visit SFA [id number] Raji Vaca 2023-08-06 14:01:19 2023-08-06 14:01:19 Outpatient SFA SFA [id number] Raji Vaca 2023-08-06 00:00:00 2023-08-06 00:00:00 Outpatient Visit SFA [id number] Raji Vaca 2023-08-03 11:31:35 2023-08-03 11:31:35 Outpatient SFA SFA [id number] Raji Vaca 2023-06-19 13:05:54 2023-06-19 13:05:54 Outpatient SFA SFA [id number] Raji Vaca 2023-06-19 00:00:00 2023-06-19 00:00:00 Outpatient Visit SFA [id number] Raji Vaca 2023-04-02 13:28:07 2023-04-02 13:28:07 Outpatient SFA SFA [id number] Raji Vaca 2023-04-02 00:00:00 2023-04-02 00:00:00 Orders Only Doctor Unassigned, [place] [facility] [id number] [id number] [id number] [facility] 2023-01-15 15:28:17 2023-01-15 15:28:17 Outpatient SFA SFA [id number] Raji Vaca 2022-10-30 13:08:43 2022-10-30 13:08:43 Outpatient SFA SFA [id number] Raji Vaca 2022-10-13 15:08:50 2022-10-13 15:08:50 Outpatient SFA SFA [id number] Raji Vaca 2022-09-26 16:03:19 2022-09-26 16:03:19 Outpatient SFA SFA [id number] Raji Vaca 2022-06-07 15:21:55 2022-06-07 15:21:55 Outpatient SFA SFA [id number] Raji Vaca 2021-07-08 10:00:00 2021-07-08 10:13:56 Nurse Visit Nurse, [facility], [facility] 1.840.114 350.1.13.10 [id number] [id number] [facility] 2021-07-08 10:00:00 2021-07-08 10:00:00 Outpatient R [facility] [id number] [facility] 2021-07-08 08:00:00 2021-07-08 08:00:00 Outpatient R [facility] [id number] [facility] 2021-07-08 00:00:00 2021-07-08 00:00:00 Orders Only Doctor Unassigned, [place] [facility] 1.84.114 350.1.13.10 [id number] [id number] [facility] 2021-06-27 15:30:00 2021-06-27 15:30:00 Outpatient R [facility] [id number] [facility] 2021-03-04 00:00:00 2021-03-04 00:00:00 Case Management Martina Charles 1..840.114 350.1.13.10 [id number] [id number] [facility] 2020-12-27 14:55:40 2020-12-27 15:08:40 Nurse Visit Nurse, [facility], [facility] 1.840.114 350.1.13.10 [id number] [id number] [facility] 2020-12-27 14:30:00 2020-12-27 15:08:40 [id number] 2020-12-24 10:30:00 2020-12-24 10:30:00 Outpatient R [facility] [id number] [facility] 2020-08-23 10:30:00 2020-08-23 10:30:00 Outpatient R [facility] [id number] [facility] 2020-06-23 11:17:55 2020-06-23 12:30:20 Office Visit Zeynep Perdomo [facility] 1.840.114 350.1.13.10 [id number] [facility] 2020-06-23 11:00:00 2020-06-23 11:00:00 Outpatient R ZEYNEP PERDOMO [facility] [id number] [facility] 2020-06-23 00:00:00 2020-06-23 00:00:00 Orders Only Doctor Unassigned, [place] [facility] .840.114 350.1.13.10 4.2.7.2.686 [id number] [facility] 2020-06-17 08:30:00 2020-06-17 08:30:00 Outpatient R ZEYNEP PERDOMO [facility] [id number] [facility] 2019-07-29 00:00:00 2019-07-29 00:00:00 Letter (Out) Maria Victoria Meadows [facility] .840.114 350.1.13.10 4.2.7.2.686 [id number] [facility] 2019-06-03 00:00:00 2019-06-03 00:00:00 Orders Only Doctor Unassigned, [place] [facility] 1.84.114 350.1.13.10 4.2.7.2.686 [id number] [facility] 2019-06-02 00:00:00 2019-06-02 00:00:00 Telephone Sasha Shepard [facility] [id number] 350.1.13.10 [id number] [facility] 2018-10-11 00:00:00 2018-10-11 00:00:00 Case Management Darline [facility] becca Keller 1.2.840.114 350.1.13.10 [id number] [id number] [facility] 2018-10-10 08:35:38 2018-10-10 08:50:38 Auto Wheel Alignment Specialist Visit 2, Adc Lab Darline [facility] [place] 1.2.840.114 350.1.13.10 [id number] [id number] [facility] 2018-10-10 07:56:08 2018-10-10 08:30:43 Office Visit [facility] [id number] 350.1.13.10 [id number] [facility] 2018-10-10 00:00:00 2018-10-10 00:00:00 Orders Only Doctor Unassigned, [place] [facility] 1.2.840.114 350.1.13.10 [id number] [id number] [facility] Results Test Description Test Time Test Comments Results Result Co mments Source Raji Waldrop AustinHPV HIGH RISK WITH GENOTYPE, TP [REFLEX]2023-10-02 00:00:00* Test Item Value Reference Range Interpretation Comme nts HPV HIGH RISK INTERP (test c ode = 03225) POSITIVE HPV 16 (test code = 07174) NEGATIVE HPV 18 (test code = 39899) NEGATIVE HPV, HR, OTHER GENOTYPES (te st code = 35809) POSITIVE PDFE (test code = PDFReport) PDF Raji Palma AustinPAP TEST, THINPREP, IMAGED REFLEX HPV HIGH RISK IF ASC/LG 2023-10-02 00:00:00* Test Item Value Reference Range Interpretation Comme nts SOURCE: (test code = 8001) Unspecified SLIDES: (test code = 8011) 1 LMP: (test code = 8021) NOT GIVEN SPECIMEN ADEQUACY: (test code = 99000) (NOTE) INTERPRETATION: (test code = 12906) LSIL/EPITH. ABNORMALITY; SEE BELOW OTHER COMMENTS: (test code = 8081) (NOTE) DIETARY AID: (test code = 8101) BETY Vickers (ASCP) PATHOLOGIST INTERPRETATION BY: (test code = 8122) Pretty Ramos LOCATION: (test code = 69204) (NOTE) CPT: (test code = 8140) 70126, 54038, 75280 HPV HIGH RISK IF ASC/LSIL, THINPREP (test code = 57555) SEE BELOW Raji Palma AustinHPV HIGH RISK WITH GENOTYPE, TP [REFLEX]2023-10-02 00:00:00* Test Item Value Reference Range Interpretation Comme nts HPV HIGH RISK INTERP (test c ode = 47057) POSITIVE HPV 16 (test code = 19759) NEGATIVE HPV 18 (test code = 92238) NEGATIVE HPV, HR, OTHER GENOTYPES (te st code = 81147) POSITIVE PDFE (test code = PDFReport) PDF Raji Waldrop AustinPAP TEST, THINPREP, IMAGED REFLEX HPV HIGH RISK IF ASC/LG 2023-10-02 00:00:00* Test Item Value Reference Range Interpretation Comme nts SOURCE: (test code = 8001) Unspecified SLIDES: (test code = 8011) 1 LMP: (test code = 8021) NOT GIVEN SPECIMEN ADEQUACY: (test code = 77025) (NOTE) INTERPRETATION: (test code = 41120) LSIL/EPITH. ABNORMALITY; SEE BELOW OTHER COMMENTS: (test code = 8081) (NOTE) DIETARY AID: (test code = 8101) BETY Vickers (ASCP) PATHOLOGIST INTERPRETATION BY: (test code = 8122) Pretty Ramos LOCATION: (test code = 03629) (NOTE) CPT: (test code = 8140) 92236, 46238, 57019 HPV HIGH RISK IF ASC/LSIL, THINPREP (test code = 39652) SEE BELOW Raji F AustinHPV HIGH RISK WITH GENOTYPE, TP [REFLEX]2023-10-02 00:00:00* Test Item Value Reference Range Interpretation Comme nts HPV HIGH RISK INTERP (test c ode = 69627) POSITIVE HPV 16 (test code = 01304) NEGATIVE HPV 18 (test code = 02845) NEGATIVE HPV, HR, OTHER GENOTYPES (te st code = 22404) POSITIVE PDFE (test code = PDFReport) PDF Raji Waldrop AustinPAP TEST, THINPREP, IMAGED REFLEX HPV HIGH RISK IF ASC/LG 2023-10-02 00:00:00* Test Item Value Reference Range Interpretation Comme nts SOURCE: (test code = 8001) Unspecified SLIDES: (test code = 8011) 1 LMP: (test code = 8021) NOT GIVEN SPECIMEN ADEQUACY: (test code = 09288) (NOTE) INTERPRETATION: (test code = 68989) LSIL/EPITH. ABNORMALITY; SEE BELOW OTHER COMMENTS: (test code = 8081) (NOTE) DIETARY AID: (test code = 8101) BETY Vickers (ASCP) PATHOLOGIST INTERPRETATION BY: (test code = 8122) Pretty Ramos LOCATION: (test code = 28455) (NOTE) CPT: (test code = 8140) 50348, 04001, 08592 HPV HIGH RISK IF ASC/LSIL, THINPREP (test code = 21872) SEE BELOW Raji Waldrop AustinHPV HIGH RISK WITH GENOTYPE, TP [REFLEX][id number] 00:00:00* Test Item Value Reference Range Interpretation Comme nts HPV HIGH RISK INTERP (test c ode = 69477) POSITIVE HPV 16 (test code = 12654) NEGATIVE HPV 18 (test code = 11504) NEGATIVE HPV, HR, OTHER GENOTYPES (te st code = 27004) POSITIVE PDFE (test code = PDFReport) PDF Raji Waldrop AustinCT/NG, NAAT, [id number] 00:00:00* Test Item Value Reference Range Interpretation Comme nts CHLAMYDIA, NAAT, THINPREP (t est code = 03271) NEGATIVE GONORRHEA, NAAT, THINPREP (t est code = 22747) NEGATIVE Raji Waldrop AustinTRICHOMONAS, THINPREP, [id number] 00:00:00* Test Item Value Reference Range Interpretation Comme nts TRICHOMONAS, NAAT (test code = 39027) NEGATIVE SPECIMEN TYPE (test code = 51736) THINPREP Raji F AustinCT/NG, NAAT, [id number] 00:00:00* Test Item Value Reference Range Interpretation Comme nts CHLAMYDIA, NAAT, THINPREP (t est code = 30972) NEGATIVE GONORRHEA, NAAT, THINPREP (t est code = 25759) NEGATIVE Raji F AustinTRICHOMONAS, THINPREP, [id number] 00:00:00* Test Item Value Reference Range Interpretation Comme nts TRICHOMONAS, NAAT (test code = 38056) NEGATIVE SPECIMEN TYPE (test code = 25889) THINPREP Raji F AustinCT/NG, NAAT, [id number] 00:00:00* Test Item Value Reference Range Interpretation Comme nts CHLAMYDIA, NAAT, THINPREP (t est code = 17469) NEGATIVE GONORRHEA, NAAT, THINPREP (t est code = 57924) NEGATIVE Raji F AustinTRICHOMONAS, THINPREP, [id number] 00:00:00* Test Item Value Reference Range Interpretation Comme nts TRICHOMONAS, NAAT (test code = 25582) NEGATIVE SPECIMEN TYPE (test code = 13802) THINPREP Raji F AustinCT/NG, NAAT, [id number] 00:00:00* Test Item Value Reference Range Interpretation Comme nts CHLAMYDIA, NAAT, THINPREP (t est code = 61156) NEGATIVE GONORRHEA, NAAT, THINPREP (t est code = 49501) NEGATIVE Raji F AustinTRICHOMONAS, THINPREP, [id number] 00:00:00* Test Item Value Reference Range Interpretation Comme nts TRICHOMONAS, NAAT (test code = 27534) NEGATIVE SPECIMEN TYPE (test code = 01576) THINPREP Raji F AustinVAGINAL PATHOGENS DNA [id number] 00:00:00* Test Item Value Reference Range Interpretation Comme nts MICHAEL SPECIES (test code = 92006) NEGATIVE G. VAGINALIS (test code = 16751) POSITIVE T. VAGINALIS (test code = 32226) NEGATIVE Raji F AustinVAGINAL PATHOGENS DNA [id number] 00:00:00* Test Item Value Reference Range Interpretation Comme nts MICHAEL SPECIES (test code = ) NEGATIVE G. VAGINALIS (test code = 21145) POSITIVE T. VAGINALIS (test code = ) NEGATIVE Raji VacaVAGINAL PATHOGENS DNA [id number] 00:00:00* Test Item Value Reference Range Interpretation Comme nts MICHAEL SPECIES (test code = ) NEGATIVE G. VAGINALIS (test code = 89213) POSITIVE T. VAGINALIS (test code = 67542) NEGATIVE Raji Waldrop AustinVAGINAL PATHOGENS DNA [id number] 00:00:00* Test Item Value Reference Range Interpretation Comme nts MICHAEL SPECIES (test code = ) NEGATIVE G. VAGINALIS (test code = 95554) POSITIVE T. VAGINALIS (test code = ) NEGATIVE Raji VacaCBC W/AUTO [id number] 00:00:00* Test Item Value Reference Range Interpretation [...] ABS NUCLEATED RBCS (test cod e = 22715) 0.00 K/UL Raji VacaLIPID [id number] 00:00:00* Test Item Value Reference Range Interpretation Comme nts CHOLESTEROL (test code = 2210) 179 MG/DL TRIGLYCERIDES (test code = 2232) 282 MG/DL HDL CHOLESTEROL (test code = 2220) 42 MG/DL CALC LDL CHOL (test code = 2237) 97 MG/DL RISK RATIO LDL/HDL (test cod e = 2238) 2.31 RATIO Raji VacaHEMOGLOBIN [id number] 00:00:00* Test Item Value Reference Range Interpretation Comme dipak HEMOGLOBIN A1c (test code = 97057) 9.6 % Raji [id number] 00:00:00* Test Item Value Reference Range Interpretation Comme nts TSH, THIRD GENERATION (test code = 2821) 2.350 UIU/ML Raji VacaCOMPREHENSIVE METABOLIC [id number] 00:00:00* Test Item Value Reference Range Interpretation Comme nts GLUCOSE (test code = 2217) 338 MG/DL BUN (test code = 2208) 16 MG/DL CREATININE (test code = 2214) 0.69 MG/DL eGFR (2020 CKD-EPI) (test code = 10463) 124 ML/MIN/1.73 CALC BUN/CREAT (test code = [...] = 2219) 11 U/L Raji VacaURINALYSIS W/REFLEX [id number] 00:00:00* Test Item Value Reference Range Interpretation [...] 0-2 /HPF EPITHELIAL CELLS (test code = 77169) 6-10 /HPF BACTERIA (test code = 1515) >3+ CASTS, HYALINE (test code = 1517) TRACE Raji Waldrop AustinALBUMIN/CREATININE RATIO, RANDOM [id number] 00:00:00* Test Item Value Reference Range Interpretation Comme nts CREATININE, URINE, CONC. (te st code = 2072) 61.1 MG/DL ALBUMIN, URINE, RANDOM (test code = 30090) 26.7 MG/DL CALC ALBUMIN/CREAT, RND (juan manuel t code = 99776) 437 MG/G Raji Waldrop AustinCBC W/AUTO [id number] 00:00:00* Test Item Value Reference Range Interpretation [...] ABS NUCLEATED RBCS (test cod e = 67916) 0.00 K/UL Raji VacaLIPID [id number] 00:00:00* Test Item Value Reference Range Interpretation Comme nts CHOLESTEROL (test code = 2210) 179 MG/DL TRIGLYCERIDES (test code = 2232) 282 MG/DL HDL CHOLESTEROL (test code = 2220) 42 MG/DL CALC LDL CHOL (test code = 2237) 97 MG/DL RISK RATIO LDL/HDL (test cod e = 2238) 2.31 RATIO Raji VacaHEMOGLOBIN [id number] 00:00:00* Test Item Value Reference Range Interpretation Comme dipak HEMOGLOBIN A1c (test code = 16739) 9.6 % Raji [id number] 00:00:00* Test Item Value Reference Range Interpretation Comme nts TSH, THIRD GENERATION (test code = 2821) 2.350 UIU/ML Raji VacaCOMPREHENSIVE METABOLIC [id number] 00:00:00* Test Item Value Reference Range Interpretation Comme nts GLUCOSE (test code = 2217) 338 MG/DL BUN (test code = 2208) 16 MG/DL CREATININE (test code = 2214) 0.69 MG/DL eGFR (2020 CKD-EPI) (test code = 52686) 124 ML/MIN/1.73 CALC BUN/CREAT (test code = [...] 2219) 11 U/L Raji Waldrop LioURINALYSIS W/REFLEX [id number] 00:00:00* Test Item Value Reference Range Interpretation [...] 0-2 /HPF EPITHELIAL CELLS (test code = 57666) 6-10 /HPF BACTERIA (test code = 1515) >3+ CASTS, HYALINE (test code = 1517) TRACE Raji Waldrop AustinALBUMIN/CREATININE RATIO, RANDOM [id number] 00:00:00* Test Item Value Reference Range Interpretation Comme nts CREATININE, URINE, CONC. (te st code = 2072) 61.1 MG/DL ALBUMIN, URINE, RANDOM (test code = 40387) 26.7 MG/DL CALC ALBUMIN/CREAT, RND (juan manuel t code = 94593) 437 MG/G Raji Waldrop AustinCBC W/AUTO [id number] 00:00:00* Test Item Value Reference Range Interpretation [...] ABS NUCLEATED RBCS (test cod e = 16019) 0.00 K/UL Raji VacaLIPID [id number] 00:00:00* Test Item Value Reference Range Interpretation Comme nts CHOLESTEROL (test code = 2210) 179 MG/DL TRIGLYCERIDES (test code = 2232) 282 MG/DL HDL CHOLESTEROL (test code = 2220) 42 MG/DL CALC LDL CHOL (test code = 2237) 97 MG/DL RISK RATIO LDL/HDL (test cod e = 2238) 2.31 RATIO Raji VacaHEMOGLOBIN [id number] 00:00:00* Test Item Value Reference Range Interpretation Comme nts HEMOGLOBIN A1c (test code = 82947) 9.6 % Raji [id number] 00:00:00* Test Item Value Reference Range Interpretation Comme nts TSH, THIRD GENERATION (test code = 2821) 2.350 UIU/ML Raji VacaCOMPREHENSIVE METABOLIC [id number] 00:00:00* Test Item Value Reference Range Interpretation Comme nts GLUCOSE (test code = 2217) 338 MG/DL BUN (test code = 2208) 16 MG/DL CREATININE (test code = 2214) 0.69 MG/DL eGFR (2020 CKD-EPI) (test code = 84727) 124 ML/MIN/1.73 CALC BUN/CREAT (test code = [...] = 2219) 11 U/L Raji VacaURINALYSIS W/REFLEX [id number] 00:00:00* Test Item Value Reference Range Interpretation [...] 0-2 /HPF EPITHELIAL CELLS (test code = 82544) 6-10 /HPF BACTERIA (test code = 1515) >3+ CASTS, HYALINE (test code = 1517) TRACE Raji F AustinALBUMIN/CREATININE RATIO, RANDOM [id number] 00:00:00* Test Item Value Reference Range Interpretation Comme nts CREATININE, URINE, CONC. (te st code = 2072) 61.1 MG/DL ALBUMIN, URINE, RANDOM (test code = 98949) 26.7 MG/DL CALC ALBUMIN/CREAT, RND (juan manuel t code = 11498) 437 MG/G Raji VacaCBC W/AUTO [id number] 00:00:00* Test Item Value Reference Range Interpretation [...] ABS NUCLEATED RBCS (test cod e = 57429) 0.00 K/UL Raji VacaLIPID [id number] 00:00:00* Test Item Value Reference Range Interpretation Comme nts CHOLESTEROL (test code = 2210) 179 MG/DL TRIGLYCERIDES (test code = 2232) 282 MG/DL HDL CHOLESTEROL (test code = 2220) 42 MG/DL CALC LDL CHOL (test code = 2237) 97 MG/DL RISK RATIO LDL/HDL (test cod e = 2238) 2.31 RATIO Raji VacaHEMOGLOBIN [id number] 00:00:00* Test Item Value Reference Range Interpretation Comme dpiak HEMOGLOBIN A1c (test code = 39160) 9.6 % Raji [id number] 00:00:00* Test Item Value Reference Range Interpretation Comme dipak TSH, THIRD GENERATION (test code = 2821) 2.350 UIU/ML Raji VacaCOMPREHENSIVE METABOLIC [id number] 00:00:00* Test Item Value Reference Range Interpretation Comme nts GLUCOSE (test code = 2217) 338 MG/DL BUN (test code = 2208) 16 MG/DL CREATININE (test code = 2214) 0.69 MG/DL eGFR (2020 CKD-EPI) (test code = 99031) 124 ML/MIN/1.73 CALC BUN/CREAT (test code = [...] = 2219) 11 U/L Raji VacaURINALYSIS W/REFLEX [id number] 00:00:00* Test Item Value Reference Range Interpretation [...] 0-2 /HPF EPITHELIAL CELLS (test code = 12599) 6-10 /HPF BACTERIA (test code = 1515) >3+ CASTS, HYALINE (test code = 1517) TRACE Raji VacaALBUMIN/CREATININE RATIO, RANDOM [id number] 00:00:00* Test Item Value Reference Range Interpretation Comme nts CREATININE, URINE, CONC. (te st code = 2072) 61.1 MG/DL ALBUMIN, URINE, RANDOM (test code = 01574) 26.7 MG/DL CALC ALBUMIN/CREAT, RND (juan manuel t code = 38730) 437 MG/G Raji VacaCBC W/AUTO [id number] 00:00:00* Test Item Value Reference Range Interpretation [...] ABS NUCLEATED RBCS (test cod e = 15519) 0.00 K/UL Raji VacaLIPID [id number] 00:00:00* Test Item Value Reference Range Interpretation Comme nts CHOLESTEROL (test code = 2210) 179 MG/DL TRIGLYCERIDES (test code = 2232) 282 MG/DL HDL CHOLESTEROL (test code = 2220) 42 MG/DL CALC LDL CHOL (test code = 2237) 97 MG/DL RISK RATIO LDL/HDL (test cod e = 2238) 2.31 RATIO Raji VacaHEMOGLOBIN [id number] 00:00:00* Test Item Value Reference Range Interpretation Comme dipak HEMOGLOBIN A1c (test code = 90829) 9.6 % Raji [id number] 00:00:00* Test Item Value Reference Range Interpretation Comme nts TSH, THIRD GENERATION (test code = 2821) 2.350 UIU/ML Raji VacaCOMPREHENSIVE METABOLIC [id number] 00:00:00* Test Item Value Reference Range Interpretation Comme nts GLUCOSE (test code = 2217) 338 MG/DL BUN (test code = 2208) 16 MG/DL CREATININE (test code = 2214) 0.69 MG/DL eGFR (2020 CKD-EPI) (test code = 43230) 124 ML/MIN/1.73 CALC BUN/CREAT (test code = [...] 2219) 11 U/L Raji Waldrop AustinURINALYSIS W/REFLEX [id number] 00:00:00* Test Item Value Reference Range Interpretation [...] 0-2 /HPF EPITHELIAL CELLS (test code = 30387) 6-10 /HPF BACTERIA (test code = 1515) >3+ CASTS, HYALINE (test code = 1517) TRACE Raji Waldrop AustinALBUMIN/CREATININE RATIO, RANDOM [id number] 00:00:00* Test Item Value Reference Range Interpretation Comme nts CREATININE, URINE, CONC. (te st code = 2072) 61.1 MG/DL ALBUMIN, URINE, RANDOM (test code = 67433) 26.7 MG/DL CALC ALBUMIN/CREAT, RND (juan manuel t code = 85431) 437 MG/G Raji Waldrop AustinCBC W/AUTO [id number] 00:00:00* Test Item Value Reference Range Interpretation [...] ABS NUCLEATED RBCS (test cod e = 43193) 0.00 K/UL Raji VacaLIPID [id number] 00:00:00* Test Item Value Reference Range Interpretation Comme nts CHOLESTEROL (test code = 2210) 179 MG/DL TRIGLYCERIDES (test code = 2232) 282 MG/DL HDL CHOLESTEROL (test code = 2220) 42 MG/DL CALC LDL CHOL (test code = 2237) 97 MG/DL RISK RATIO LDL/HDL (test cod e = 2238) 2.31 RATIO Raji VacaHEMOGLOBIN [id number] 00:00:00* Test Item Value Reference Range Interpretation Comme nts HEMOGLOBIN A1c (test code = 00239) 9.6 % Raji [id number] 00:00:00* Test Item Value Reference Range Interpretation Comme nts TSH, THIRD GENERATION (test code = 2821) 2.350 UIU/ML Raji VacaCOMPREHENSIVE METABOLIC [id number] 00:00:00* Test Item Value Reference Range Interpretation Comme nts GLUCOSE (test code = 2217) 338 MG/DL BUN (test code = 2208) 16 MG/DL CREATININE (test code = 2214) 0.69 MG/DL eGFR (2020 CKD-EPI) (test code = 20353) 124 ML/MIN/1.73 CALC BUN/CREAT (test code = [...] = 2219) 11 U/L Raji VacaURINALYSIS W/REFLEX [id number] 00:00:00* Test Item Value Reference Range Interpretation [...] 0-2 /HPF EPITHELIAL CELLS (test code = 64615) 6-10 /HPF BACTERIA (test code = 1515) >3+ CASTS, HYALINE (test code = 1517) TRACE Raji VacaALBUMIN/CREATININE RATIO, RANDOM [id number] 00:00:00* Test Item Value Reference Range Interpretation Comme nts CREATININE, URINE, CONC. (te st code = 2072) 61.1 MG/DL ALBUMIN, URINE, RANDOM (test code = 56858) 26.7 MG/DL CALC ALBUMIN/CREAT, RND ([facility] t code = 21522) 437 MG/G Raji Waldrop AustinHEMOGLOBIN [id number] 00:00:00* Test Item Value Reference Range Interpretation Comme nts HEMOGLOBIN A1c (test code = 67932) 9.4 % Raji Waldrop AustinHEMOGLOBIN [id number] 00:00:00* Test Item Value Reference Range Interpretation Comme nts HEMOGLOBIN A1c (test code = 48449) 9.4 % Raji Waldrop AustinHEMOGLOBIN [id number] 00:00:00* Test Item Value Reference Range Interpretation Comme nts HEMOGLOBIN A1c (test code = 51308) 9.4 % Raji Waldrop AustinHEMOGLOBIN [id number] 00:00:00* Test Item Value Reference Range Interpretation Comme nts HEMOGLOBIN A1c (test code = 76385) 9.4 % Raji Waldrop AustinHEMOGLOBIN [id number] 00:00:00* Test Item Value Reference Range Interpretation Comme nts HEMOGLOBIN A1c (test code = 19141) 9.4 % Raji Waldrop AustinHEMOGLOBIN [id number] 00:00:00* Test Item Value Reference Range Interpretation Comme nts HEMOGLOBIN A1c (test code = 12988) 9.4 % Raji Waldrop AustinHEMOGLOBIN [id number] 00:00:00* Test Item Value Reference Range Interpretation Comme nts HEMOGLOBIN A1c (test code = 46436) 9.4 % Raji VacaPAP TEST, THINPREP, [id number] 00:00:00* Test Item Value Reference Range Interpretation Comme nts SOURCE: (test code = 8001) Cervical/Endocervica l SLIDES: (test code = 8011) 1 LMP: (test code = 8021) NOT GIVEN SPECIMEN ADEQUACY: (test code = 07121) (NOTE) INTERPRETATION: (test code = 45357) LSIL/EPITH. ABNORMALITY; SEE BELOW OTHER COMMENTS: (test code = 8081) (NOTE) DIETARY AID: (test code = 8101) BETY Samayoa(ASCP) PATHOLOGIST INTERPRETATION BY: (test code = 8122) David Campbell LOCATION: (test code = 86108) (NOTE) CPT: (test code = 8140) (NOTE) Raji VacaPAP TEST, THINPREP, [id number] 00:00:00* Test Item Value Reference Range Interpretation Comme nts SOURCE: (test code = 8001) Cervical/Endocervica l SLIDES: (test code = 8011) 1 LMP: (test code = 8021) NOT GIVEN SPECIMEN ADEQUACY: (test code = 09300) (NOTE) INTERPRETATION: (test code = 11424) LSIL/EPITH. ABNORMALITY; SEE BELOW OTHER COMMENTS: (test code = 8081) (NOTE) DIETARY AID: (test code = 8101) BETY Samayoa(ASCP) PATHOLOGIST INTERPRETATION BY: (test code = 8122) David Campbell LOCATION: (test code = 43748) (NOTE) CPT: (test code = 8140) (NOTE) Raji VacaPAP TEST, THINPREP, [id number] 00:00:00* Test Item Value Reference Range Interpretation Comme nts SOURCE: (test code = 8001) Cervical/Endocervica l SLIDES: (test code = 8011) 1 LMP: (test code = 8021) NOT GIVEN SPECIMEN ADEQUACY: (test code = 94120) (NOTE) INTERPRETATION: (test code = 17931) LSIL/EPITH. ABNORMALITY; SEE BELOW OTHER COMMENTS: (test code = 8081) (NOTE) DIETARY AID: (test code = 8101) BETY Samayoa(ASCP) PATHOLOGIST INTERPRETATION BY: (test code = 8122) David Campbell LOCATION: (test code = 25046) (NOTE) CPT: (test code = 8140) (NOTE) Raji VacaPAP TEST, THINPREP, [id number] 00:00:00* Test Item Value Reference Range Interpretation Comme nts SOURCE: (test code = 8001) Cervical/Endocervica l SLIDES: (test code = 8011) 1 LMP: (test code = 8021) NOT GIVEN SPECIMEN ADEQUACY: (test code = 74567) (NOTE) INTERPRETATION: (test code = 14339) LSIL/EPITH. ABNORMALITY; SEE BELOW OTHER COMMENTS: (test code = 8081) (NOTE) DIETARY AID: (test code = 8101) BETY Samayoa(ASCP) PATHOLOGIST INTERPRETATION BY: (test code = 8122) David Campbell LOCATION: (test code = 78716) (NOTE) CPT: (test code = 8140) (NOTE) Raji ConradP TEST, THINPREP, [id number] 00:00:00* Test Item Value Reference Range Interpretation Comme nts SOURCE: (test code = 8001) Cervical/Endocervica l SLIDES: (test code = 8011) 1 LMP: (test code = 8021) NOT GIVEN SPECIMEN ADEQUACY: (test code = 66938) (NOTE) INTERPRETATION: (test code = 98734) LSIL/EPITH. ABNORMALITY; SEE BELOW OTHER COMMENTS: (test code = 8081) (NOTE) DIETARY AID: (test code = 8101) BETY Samayoa(ASCP) PATHOLOGIST INTERPRETATION BY: (test code = 8122) David Campbell LOCATION: (test code = 88777) (NOTE) CPT: (test code = 8140) (NOTE) Raji ConradP TEST, THINPREP, [id number] 00:00:00* Test Item Value Reference Range Interpretation Comme nts SOURCE: (test code = 8001) Cervical/Endocervica l SLIDES: (test code = 8011) 1 LMP: (test code = 8021) NOT GIVEN SPECIMEN ADEQUACY: (test code = 71924) (NOTE) INTERPRETATION: (test code = 30841) LSIL/EPITH. ABNORMALITY; SEE BELOW OTHER COMMENTS: (test code = 8081) (NOTE) DIETARY AID: (test code = 8101) BETY Samayoa(ASCP) PATHOLOGIST INTERPRETATION BY: (test code = 8122) David Campbell LOCATION: (test code = 80113) (NOTE) CPT: (test code = 8140) (NOTE) Raji ConradP TEST, THINPREP, [id number] 00:00:00* Test Item Value Reference Range Interpretation Comme nts SOURCE: (test code = 8001) Cervical/Endocervica l SLIDES: (test code = 8011) 1 LMP: (test code = 8021) NOT GIVEN SPECIMEN ADEQUACY: (test code = 08522) (NOTE) INTERPRETATION: (test code = 42206) LSIL/EPITH. ABNORMALITY; SEE BELOW OTHER COMMENTS: (test code = 8081) (NOTE) DIETARY AID: (test code = 8101) BETY Samayoa(ASCP) PATHOLOGIST INTERPRETATION BY: (test code = 8122) David Campbell LOCATION: (test code = 59253) (NOTE) CPT: (test code = 8140) (NOTE) Raji Waldrop AustinPAP TEST, THINPREP, [id number] 00:00:00* Test Item Value Reference Range Interpretation Comme nts SOURCE: (test code = 8001) Cervical/Endocervica l SLIDES: (test code = 8011) 1 LMP: (test code = 8021) NOT GIVEN SPECIMEN ADEQUACY: (test code = 14460) (NOTE) INTERPRETATION: (test code = 71851) LSIL/EPITH. ABNORMALITY; SEE BELOW OTHER COMMENTS: (test code = 8081) (NOTE) DIETARY AID: (test code = 8101) BETY Samayoa(ASCP) PATHOLOGIST INTERPRETATION BY: (test code = 8122) David Campbell LOCATION: (test code = 64860) (NOTE) CPT: (test code = 8140) (NOTE) Raji Waldrop AustinVAGINAL PATHOGENS DNA [id number] 00:00:00* Test Item Value Reference Range Interpretation Comme nts MICHAEL SPECIES (test code = ) NEGATIVE G. VAGINALIS (test code = 47518) POSITIVE T. VAGINALIS (test code = 49859) NEGATIVE Raji Waldrop AustinCT/NG, TMA, [id number] 00:00:00* Test Item Value Reference Range Interpretation Comme nts CHLAMYDIA, NAAT, THINPREP (t est code = 98207) NEGATIVE GONORRHEA, NAAT, THINPREP (t est code = 92285) NEGATIVE PDFE (test code = PDFReport) PDF Raji Waldrop AustinVAGINAL PATHOGENS DNA [id number] 00:00:00* Test Item Value Reference Range Interpretation Comme nts MICHAEL SPECIES (test code = 86378) NEGATIVE G. VAGINALIS (test code = 45419) POSITIVE T. VAGINALIS (test code = 53092) NEGATIVE Raji Waldrop AustinCT/NG, TMA, [id number] 00:00:00* Test Item Value Reference Range Interpretation Comme nts CHLAMYDIA, NAAT, THINPREP (t est code = 86587) NEGATIVE GONORRHEA, NAAT, THINPREP (t est code = 01962) NEGATIVE PDFE (test code = PDFReport) PDF Raji Waldrop AustinVAGINAL PATHOGENS DNA [id number] 00:00:00* Test Item Value Reference Range Interpretation Comme nts MICHAEL SPECIES (test code = ) NEGATIVE G. VAGINALIS (test code = 22252) POSITIVE T. VAGINALIS (test code = ) NEGATIVE Raji Waldrop AustinCT/NG, TMA, [id number] 00:00:00* Test Item Value Reference Range Interpretation Comme nts CHLAMYDIA, NAAT, THINPREP (t est code = 34827) NEGATIVE GONORRHEA, NAAT, THINPREP (t est code = 87023) NEGATIVE PDFE (test code = PDFReport) PDF Raji Waldrop AustinVAGINAL PATHOGENS DNA [id number] 00:00:00* Test Item Value Reference Range Interpretation Comme nts MICHAEL SPECIES (test code = ) NEGATIVE G. VAGINALIS (test code = 85729) POSITIVE T. VAGINALIS (test code = ) NEGATIVE Raji Waldrop AustinCT/NG, TMA, [id number] 00:00:00* Test Item Value Reference Range Interpretation Comme nts CHLAMYDIA, NAAT, THINPREP (t est code = 52027) NEGATIVE GONORRHEA, NAAT, THINPREP (t est code = 14333) NEGATIVE PDFE (test code = PDFReport) PDF Raji Waldrop AustinVAGINAL PATHOGENS DNA [id number] 00:00:00* Test Item Value Reference Range Interpretation Comme nts MICHAEL SPECIES (test code = ) NEGATIVE G. VAGINALIS (test code = 61882) POSITIVE T. VAGINALIS (test code = ) NEGATIVE Raji Waldrop AustinCT/NG, TMA, [id number] 00:00:00* Test Item Value Reference Range Interpretation Comme nts CHLAMYDIA, NAAT, THINPREP (t est code = 94752) NEGATIVE GONORRHEA, NAAT, THINPREP (t est code = 31665) NEGATIVE PDFE (test code = PDFReport) PDF Raji Waldrop AustinVAGINAL PATHOGENS DNA [id number] 00:00:00* Test Item Value Reference Range Interpretation Comme nts MICHAEL SPECIES (test code = ) NEGATIVE G. VAGINALIS (test code = 54277) POSITIVE T. VAGINALIS (test code = 80816) NEGATIVE Raji Waldrop [place]/NG, TMA, [id number] 00:00:00* Test Item Value Reference Range Interpretation Comme nts CHLAMYDIA, NAAT, THINPREP (t est code = 14704) NEGATIVE GONORRHEA, NAAT, THINPREP (t est code = 74870) NEGATIVE PDFE (test code = PDFReport) PDF Raji Waldrop AustinVAGINAL PATHOGENS DNA [id number] 00:00:00* Test Item Value Reference Range Interpretation Comme nts MICHAEL SPECIES (test code = ) NEGATIVE G. VAGINALIS (test code = 00350) POSITIVE T. VAGINALIS (test code = 83014) NEGATIVE Raji Waldrop [place], TMA, [id number] 00:00:00* Test Item Value Reference Range Interpretation Comme nts CHLAMYDIA, NAAT, THINPREP (t est code = 74695) NEGATIVE GONORRHEA, NAAT, THINPREP (t est code = 83676) NEGATIVE PDFE (test code = PDFReport) PDF Raji Waldrop AustinVAGINAL PATHOGENS DNA [id number] 00:00:00* Test Item Value Reference Range Interpretation Comme nts MICHAEL SPECIES (test code = ) NEGATIVE G. VAGINALIS (test code = 43730) POSITIVE T. VAGINALIS (test code = 89078) NEGATIVE Raji Waldrop [place], TMA, [id number] 00:00:00* Test Item Value Reference Range Interpretation Comme nts CHLAMYDIA, NAAT, THINPREP (t est code = 27436) NEGATIVE GONORRHEA, NAAT, THINPREP (t est code = 48628) NEGATIVE PDFE (test code = PDFReport) PDF Raji Wladrop AustinUNLABELLED SPECIMEN [ADDED]2020-04-04 00:00:00* Test Item Value Reference Range Interpretation Comme nts NOTE: (test code = 31868) Raji Waldrop AustinUNLABELLED SPECIMEN [ADDED]2020-04-04 00:00:00* Test Item Value Reference Range Interpretation Comme nts NOTE: (test code = 08004) Raji Waldrop AustinUNLABELLED SPECIMEN [ADDED]2020-04-04 00:00:00* Test Item Value Reference Range Interpretation Comme nts NOTE: (test code = 10638) Raji Waldrop AustinUNLABELLED SPECIMEN [ADDED]2020-04-04 00:00:00* Test Item Value Reference Range Interpretation Comme nts NOTE: (test code = 52420) Raji Waldrop AustinUNLABELLED SPECIMEN [ADDED]2020-04-04 00:00:00* Test Item Value Reference Range Interpretation Comme nts NOTE: (test code = 25916) Raji Waldrop AustinUNLABELLED SPECIMEN [ADDED]2020-04-04 00:00:00* Test Item Value Reference Range Interpretation Comme nts NOTE: (test code = 16634) Raji Waldrop AustinUNLABELLED SPECIMEN [ADDED]2020-04-04 00:00:00* Test Item Value Reference Range Interpretation Comme nts NOTE: (test code = 34767) Raji Waldrop AustinUNLABELLED SPECIMEN [ADDED]2020-04-04 00:00:00* Test Item Value Reference Range Interpretation Comme nts NOTE: (test code = 95388) Raji Waldrop BszmumJMIO-BgK-4 (COVID-19) by RT-PCR (HIGH RISK)2020-04-03 00:00:00* Test Item Value Reference Range Interpretation Comme nts SARS-CoV-2 INTERPRETATION (t est code = 67633) POSITIVE SOURCE (test code = 74392) NOT SPECIFIED Raji Waldrop XbjkkxWPHA-EhU-3 (COVID-19) by RT-PCR (HIGH RISK)2020-04-03 00:00:00* Test Item Value Reference Range Interpretation Comme nts SARS-CoV-2 INTERPRETATION (t est code = 27036) POSITIVE SOURCE (test code = 79796) NOT SPECIFIED Raji Waldrop OvbfosSKCS-DxI-0 (COVID-19) by RT-PCR (HIGH RISK)2020-04-03 00:00:00* Test Item Value Reference Range Interpretation Comme nts SARS-CoV-2 INTERPRETATION (t est code = 17721) POSITIVE SOURCE (test code = 12011) NOT SPECIFIED Raji Waldrop FzduhyRSVY-VnS-3 (COVID-19) by RT-PCR (HIGH RISK)2020-04-03 00:00:00* Test Item Value Reference Range Interpretation Comme nts SARS-CoV-2 INTERPRETATION (t est code = 18780) POSITIVE SOURCE (test code = 79561) NOT SPECIFIED Raji Waldrop UrastzNMUW-MlR-3 (COVID-19) by RT-PCR (HIGH RISK)2020-04-03 00:00:00* Test Item Value Reference Range Interpretation Comme nts SARS-CoV-2 INTERPRETATION (t est code = 84463) POSITIVE SOURCE (test code = 99491) NOT SPECIFIED Raji Waldrop NznsooCXXJ-ExK-1 (COVID-19) by RT-PCR (HIGH RISK)2020-04-03 00:00:00* Test Item Value Reference Range Interpretation Comme nts SARS-CoV-2 INTERPRETATION (t est code = 62039) POSITIVE SOURCE (test code = 52532) NOT SPECIFIED Raji Waldrop DwltmuUGOL-KxV-8 (COVID-19) by RT-PCR (HIGH RISK)2020-04-03 00:00:00* Test Item Value Reference Range Interpretation Comme nts SARS-CoV-2 INTERPRETATION (t est code = 18391) POSITIVE SOURCE (test code = 53059) NOT SPECIFIED Raji Waldrop QebonyPWRA-WfP-9 (COVID-19) by RT-PCR (HIGH RISK)2020-04-03 00:00:00* Test Item Value Reference Range Interpretation Comme nts SARS-CoV-2 INTERPRETATION (t est code = 88638) POSITIVE SOURCE (test code = 71384) NOT SPECIFIED Raji Waldrop SaxmaxCVGD-BgT-8 (COVID-19) by RT-PCR (HIGH RISK)2019-08-28 00:00:00* Test Item Value Reference Range Interpretation Comme nts SARS-CoV-2 INTERPRETATION (t est code = 21132) NEGATIVE SOURCE (test code = 20063) NOT SPECIFIED Raji Waldrop ZcqrwkGUXQ-OkB-9 (COVID-19) by RT-PCR (HIGH RISK)2019-08-28 00:00:00* Test Item Value Reference Range Interpretation Comme nts SARS-CoV-2 INTERPRETATION (t est code = 92370) NEGATIVE SOURCE (test code = 12171) NOT SPECIFIED Raji Waldrop DduxljZZUV-LrH-2 (COVID-19) by RT-PCR (HIGH RISK)2019-08-28 00:00:00* Test Item Value Reference Range Interpretation Comme nts SARS-CoV-2 INTERPRETATION (t est code = 69875) NEGATIVE SOURCE (test code = 38238) NOT SPECIFIED Raji F LftxxwUOUV-WnF-4 (COVID-19) by RT-PCR (HIGH RISK)2019-08-28 00:00:00* Test Item Value Reference Range Interpretation Comme nts SARS-CoV-2 INTERPRETATION (t est code = 61003) NEGATIVE SOURCE (test code = 73972) NOT SPECIFIED Raji Waldrop RgsnxaZJZC-JvT-6 (COVID-19) by RT-PCR (HIGH RISK)2019-08-28 00:00:00* Test Item Value Reference Range Interpretation Comme nts SARS-CoV-2 INTERPRETATION (t est code = 68943) NEGATIVE SOURCE (test code = 79865) NOT SPECIFIED Raji Waldrop AfndjgWFJQ-KjR-3 (COVID-19) by RT-PCR (HIGH RISK)2019-08-28 00:00:00* Test Item Value Reference Range Interpretation Comme nts SARS-CoV-2 INTERPRETATION (t est code = 92516) NEGATIVE SOURCE (test code = 07279) NOT SPECIFIED Raji Waldrop OppohyWDTS-CeB-0 (COVID-19) by RT-PCR (HIGH RISK)2019-08-28 00:00:00* Test Item Value Reference Range Interpretation Comme nts SARS-CoV-2 INTERPRETATION (t est code = 56591) NEGATIVE SOURCE (test code = 38459) NOT SPECIFIED Raji Waldrop MwstugLUEP-VwT-4 (COVID-19) by RT-PCR (HIGH RISK)2019-08-28 00:00:00* Test Item Value Reference Range Interpretation Comme nts SARS-CoV-2 INTERPRETATION (t est code = 73121) NEGATIVE SOURCE (test code = 18838) NOT SPECIFIED Raji Waldrop AustinEXTERNAL PAP [id number] 00:00:00* Test Item Value Reference Range Interpretation [...] 18: NEGATIVE Lab Interpretation (test code = 28502-6) [facility] [id number] 00:00:00* Test Item Value Reference Range Interpretation Comme nts External Chlamydia AB Panel (test code = 5044) Positive Negative A Lab Interpretation (test cod e = 55657-1) [facility] SPECIFIC [id number] 13:13:00* Test Item Value Reference Range Interpretation [...] CLOUDY Lab Interpretation (test cod e = 34827-4) [facility]CIFIC [id number] 13:13:00* Test Item Value Reference Range Interpretation [...] CLOUDY Lab Interpretation (test cod e = 64109-9) Abnormal [facility] Notes Date/Time Note Provider Source [facility]2025-02-11 00:00:00 [facility]2024-11-13 00:00:00 [facility]2024-08-30 00:00:00 [facility]2024-08-23 00:00:00 [facility]2024-08-21 00:00:00 [facility]2024-07-01 00:00:00 [facility]2024-05-14 00:00:00 [facility]
--- NOTE | 2024-06-22 15:00 | ER ---
Nurse's Notes [facility] Name: Hilda Head Age: 24 yrs Sex: Female : 2000 Arrival Date: 06/22/2024 Time: 14:29 Bed 23 Private MD: Diagnosis: Dental abscess Presentation: 06/22 14:43 Chief complaint: Patient states: Pain to left lower jaw. pt states that she has a cm10 chipped molar and this morning woke up with pain and swelling. Coronavirus screen: Client denies travel out of the [place] in the last 14 days. Ebola Screen: Patient denies travel to an Ebola-affected area in the 21 days before illness onset. Initial Sepsis Screen: Does the patient meet any 2 criteria? HR > 90 bpm. Does the patient have a suspected source of infection? No. Patient's initial sepsis screen is negative. Risk Assessment: Do you want to hurt yourself or someone else? Patient reports no desire to harm self or others. Onset of symptoms was June 22, 2024. 14:43 Method Of Arrival: Ambulatory cm10 14:43 Acuity: DONELL 4 cm10 Triage Assessment: 14:42 General: Appears uncomfortable, Behavior is calm, cooperative. Pain: Complains of pain cm10 in lower left third molar, lower left second molar and lower left first molar Pain currently is 10 out of 10 on a pain scale. EENT: Poor dentition noted. Dental caries noted in lower left third molar (#17), lower left second molar (#18) and lower left first molar (#19). Neuro: No deficits noted. Level of Consciousness is awake, alert, obeys commands, Oriented to person, place, time, situation, Appropriate for age. Respiratory: No deficits noted. Airway is patent Respiratory effort is even, unlabored, Respiratory pattern is regular, symmetrical. 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 - Infectious Disease History:: Denies. - Social history:: Smoking status: Patient reports the use of cigarette tobacco products, denies chronic smoking, but will smoke occasionally, Reported history of juuling and/or vaping. Screenin:17 [facility] ED Fall Risk Assessment (Adult) History of falling in the last 3 months, kj2 including since admission No falls in past 3 months (0 pts) Confusion or Disorientation No (0 pts) Intoxicated or Sedated No (0 pts) Impaired Gait No (0 pts) Mobility Assist Device Used No (0 pt) Altered Elimination No (0 pt) Score/Fall Risk Level 0 - 2 = Low Risk Maintained a safe environment, Hourly rounding (assess needs \T\ fall precautionary measures) done. Abuse screen: Denies threats or abuse. Denies injuries from another. Nutritional screening: No deficits noted. Tuberculosis screening: No symptoms or risk factors identified. Assessment: 15:00 General: Appears in no apparent distress. Behavior is calm, cooperative. Pain: kj2 Complains of pain in lower left first molar (#19) and mouth Pain currently is 8 out of 10 on a pain scale. Neuro: Level of Consciousness is awake, alert, obeys commands, Oriented to person, place, time, situation. Cardiovascular: Patient's skin is warm and dry. Respiratory: Airway is patent Respiratory effort is even, unlabored. GI: No signs and/or symptoms were reported involving the gastrointestinal system. : No signs and/or symptoms were reported regarding the genitourinary system. Vital Signs: 14:43 BP 132 / 89; Pulse 105; Resp 18; Temp 98.4(O); Pulse Ox 96% on R/A; Weight 82.55 kg; cm10 Height 5 ft. 4 in. ; Pain 10/10; 15:18 BP 130 / 84; Pulse 100; Resp 20; Temp 98; Pulse Ox 100% on R/A; kj2 14:43 Body Mass Index 31.24 (82.55 kg, 162.56 cm) cm10 14:43 Pain Scale: Adult cm10 ED Course: 14:32 Patient arrived in ED. al6 14:43 Arm band placed on right wrist. Patient placed in an exam room, on a stretcher. cm10 14:44 Triage completed. cm10 14:49 Pk Prince MD is Attending Physician. sp3 14:57 Pk Prince MD is Attending Physician. sp3 15:15 Leigh Schumacher, BENY is Primary Nurse. kj2 15:17 No provider procedures requiring assistance completed. kj2 15:18 Provided Education on: call light. kj2 15:18 Patient has correct armband on for positive identification. kj2 15:18 Patient did not have IV access during this emergency room visit. kj2 Administered Medications: No medications were administered Medication: 15:18 VIS not applicable for this client. kj2 Outcome: 14:59 Discharge ordered by . sp3 15:17 Discharged to home ambulatory, kj2 15:17 Condition: stable 15:17 Discharge instructions given to patient, Instructed on discharge instructions, follow up and referral plans. Demonstrated understanding of instructions, follow-up care, 15:23 Patient left the ED. kj2 Signatures: Pk Prince MD MD sp3 Krysten Méndez, RN RN cm10 Leigh Schumacher RN RN kj2 Lashay Trinidad6
--- NOTE | 2024-06-22 15:00 | EDPHYS ---
Physician Documentation [facility] Name: Hilda Head Age: 24 yrs Sex: Female : 2000 Arrival Date: 06/22/2024 Time: 14:29 Bed 23 Private MD: ED Physician Pk Prince HPI: 06/22 14:57 This 24 yrs old Female presents to ER via Ambulatory with complaints of sp3 Abscess. 14:57 24-year-old female with history of bipolar disease, diabetes, asthma presents with left sp3 mandibular pain along the dental molars consistent with dental abscess. Patient is seeking dentist as we speak. She is here for antibiotics and pain control. She denies any other symptoms including fever, headache, neck pain, chest pain, shortness of breath or any other signs or symptoms on ROS at this time.. 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 - Infectious Disease History:: Denies. - Social history:: Smoking status: Patient reports the use of cigarette tobacco products, denies chronic smoking, but will smoke occasionally, Reported history of juuling and/or vaping. ROS: 14:58 Constitutional: Negative for fever, chills, and weight loss, Eyes: Negative for injury, sp3 pain, redness, and discharge, Neck: Negative for injury, pain, and swelling, Cardiovascular: Negative for chest pain, palpitations, and edema, Respiratory: Negative for shortness of breath, cough, wheezing, and pleuritic chest pain, Abdomen/GI: Negative for abdominal pain, nausea, vomiting, diarrhea, and constipation, Back: Negative for injury and pain, Skin: Negative for injury, rash, and discoloration, Neuro: Negative for headache, weakness, numbness, tingling, and seizure, Psych: Negative for depression, anxiety, suicide ideation, homicidal ideation, and hallucinations, Allergy/Immunology: Negative for hives, rash, and allergies, Endocrine: Negative for neck swelling, polydipsia, polyuria, polyphagia, and marked weight changes, 14:58 All other systems are negative, Exam: 14:58 Constitutional: This is a well developed, well nourished patient who is awake, alert, sp3 and in no acute distress. Eyes: Pupils equal round and reactive to light, extra-ocular motions intact. Lids and lashes normal. Conjunctiva and sclera are non-icteric and not injected. Cornea within normal limits. Periorbital areas with no swelling, redness, or edema. Neck: Trachea midline, no thyromegaly or masses palpated, and no cervical lymphadenopathy. Supple, full range of motion without nuchal rigidity, or vertebral point tenderness. No Meningismus. Chest/axilla: Normal chest wall appearance and motion. Nontender with no deformity. No lesions are appreciated. Cardiovascular: Regular rate and rhythm with a normal S1 and S2. No gallops, murmurs, or rubs. Normal PMI, no JVD. No pulse deficits. Respiratory: Lungs have equal breath sounds bilaterally, clear to auscultation and percussion. No rales, rhonchi or wheezes noted. No increased work of breathing, no retractions or nasal flaring. Abdomen/GI: Soft, non-tender, with normal bowel sounds. No distension or tympany. No guarding or rebound. No evidence of tenderness throughout. Back: No spinal tenderness. No costovertebral tenderness. Full range of motion. Skin: Warm, dry with normal turgor. Normal color with no rashes, no lesions, and no evidence of cellulitis. MS/ Extremity: Pulses equal, no cyanosis. Neurovascular intact. Full, normal range of motion. Neuro: Awake and alert, GCS 15, oriented to person, place, time, and situation. Cranial nerves II-XII grossly intact. Motor strength 5/5 in all extremities. Sensory grossly intact. Cerebellar exam normal. Normal gait. 14:58 Head/face: Left-sided facial swelling along the mandibular line consistent with dental abscess.. Vital Signs: 14:43 BP 132 / 89; Pulse 105; Resp 18; Temp 98.4(O); Pulse Ox 96% on R/A; Weight 82.55 kg; cm10 Height 5 ft. 4 in. ; Pain 10/10; 15:18 BP 130 / 84; Pulse 100; Resp 20; Temp 98; Pulse Ox 100% on R/A; kj2 14:43 Body Mass Index 31.24 (82.55 kg, 162.56 cm) cm10 14:43 Pain Scale: Adult cm10 MDM: 14:57 Medical Screening Exam initiated sp3 14:59 Data reviewed: vital signs, nurses notes. ED course: Dental abscess will treat with sp3 antibiotic and pain control.. Administered Medications: No medications were administered Disposition Summary: 06/22/24 14:59 Discharge Ordered Notes: Location: Home sp3 Condition: Stable sp3 Diagnosis - Dental abscess sp3 Followup: sp3 - With: Private Physician - When: Upon discharge from the Emergency Department - Reason: Continuance of care Discharge Instructions: - Discharge Summary Sheet sp3 - Dental Abscess sp3 Forms: - Medication Reconciliation Form sp3 - Antibiotic Education sp3 - Prescription Opioid Use sp3 - Patient Portal Instructions sp3 - Leadership Thank You Letter sp3 Prescriptions: - Augmentin 875-125 mg Oral Tablet - take 1 tablet ORAL route every 12 hours for 10 days; 20 tablet; Refills: 0, sp3 Product Selection Permitted - Tramadol 50 mg Oral Tablet - take 1 tablet ORAL route every 8 hours as needed; 12 tablet; Refills: 0, sp3 Product Selection Permitted Signatures: Pk Prince MD MD sp3 Krysten Méndez RN RN cm10
[2024-06-22 15:44] VITALS: BP 130/84; TEMP 98; O2SAT 100
== END 2024-06-22 15:23 | disposition home or self-care (01) ==
LOC: ER 14:29
DX: K04.7 Periapical abscess without sinus (principal); F17.210 Nicotine dependence, cigarettes, uncomplicated
CPT/HCPCS: 99283

== ENCOUNTER 2024-09-10 15:54 | Inpatient (IN) | payer MEDICAID ==
[2024-09-10] MEDS ORDERED: KETOROLAC 30 MG/ML INJ ONE (16:00)
[2024-09-10] MEDS ORDERED: ONDANSETRON 4 MG/2 ML VIAL ONE (16:00)
--- OUTSIDE RECORDS SUMMARY | 2024-09-10 16:01 | XMS REPORT | Continuity of Care Document ---
Author Name Unknown Address 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 Name Role Phone Maria Victoria Meadows Primary Care Physician [phone] Doctor Unassigned, [place] Attending Clinician [facility] Nurse, [facility] Attending Clinician Un available Zeynep Perdomo MD Attending Clinician [phone] ZEYNEP PERDOMO Attending Clinician Unavailable Araceli CIRCULATION DIRECTORMartina PARISH Attending Clinician Unava Maria Victoria Villagomez Attending Clinician [phone] Sasha Shepard MD Attending Clinician [phone] Leyda Gregorio PA-C Attending Clinician [phone], [facility] Lab Attending Clinician Unavailable Payers Payer Name Policy Type Policy Number Effective Date Expirati on Date Source Problems Condition Name Condition Details Condition Category Status Onset Date Resolution Date Last Treatment Date Treating Clinician Comments Source ASCUS with positive high risk HPV cervical ASCUS with positive high risk HPV cervical Disease Active 02-20 00:00: 00 [facility] ASCUS with positive high risk HPV cervical ASCUS with positive high risk HPV cervical Disease Active 02-20 00:00: 00 [facility] Obesity, Class I, BMI 30-34.9 Obesity, Class I, BMI 30-34.9 Disease Active 10-13 00:00: 00 [facility] Acanthosis nigricans Acanthosis nigricans Disease Active 10-13 00:00: 00 [facility] Family history of diabetes mellitus (DM) Family history of diabetes mellitus (DM) Disease Active 10-13 00:00: 00 [facility] Allergies, Adverse Reactions, Alerts Allergy Name Allergy Type Status Severity Reaction(s) Onset Date Inactive Date Treating Clinician Comments Source none (Not Checked) Maríaaaron ty to adverse reaction to drug Active 08-05 00:00: 00 Raji Vaca NO KNOWN ALLERGIE S Drug Class Active [facility] Social History Social Habit Start Date Stop Date Quantity Comments Source History SDOH Alcohol Frequency [facility] History SDOH Alcohol Std Drinks [facility] History SDOH Alcohol Binge [facility] Sexual orientation [facility] Exposure to SARS-CoV-2 (event) 2021-06-28 00:00:00 2021-07-08 10:00:00 Not sure [facility] Alcohol intake 2021-07-08 00:00:00 2021-07-08 00:00:00 Current drinker of alcohol (finding) [facility] History of Social function 2021-07-08 00:00:00 2021-07-08 00:00:00 [facility] Tobacco use and exposure 2018-10-10 00:00:00 2018-10-10 00:00:00 Smokeless tobacco non-user [facility] Alcohol Comment 2018-02-20 00:00:00 2018-02-20 00:00:00 Rare [facility] History of tobacco use 2018-02-09 00:00:00 Cigarette Smoker [facility] Sex Assigned At 2000 00:00:00 2000 00:00:00 [facility] Smoking Status Start Date Stop Date Source Ex-smoker 2018-10-10 00:00:00 2018-10-10 00:00:00 [facility] Current some day smoker 2018-02-20 00:00:00 [facility] Medications Ordered Medication Name Filled Medication Name [...] TABLETS 0 8-05 00:00: 00 Yes Raji Vcaa MEDROXYPROG ESTERONE 150MG/ML PF SYR 0 8-05 [...] - 00:00 :00 No Take by mouth. [facility] Lexapro 10 mg tablet 0 - 00:00: [...] 10-11 00:00: 00 06-23 00:00 :00 No [id number] 500mg Take 1 tablet by mouth every 12 (twelve) hours. [facility] AMOXICILLIN ORAL 10-10 13:11: 58 Yes Take by mouth. [facility] metFORMIN 1,000 mg tablet 10-10 13:10: 46 Yes 1000mg Take 1,000 mg by mouth 2 (two) times daily with meals. [facility] metFORMIN 1,000 mg tablet 10-10 08:10: 46 Yes 1000mg Take 1,000 mg by mouth 2 (two) times daily with meals. [facility] Nitrofurant oin&Nit. Macrocryst 100 mg capsule 10-10 00:00: 00 06-23 00:00 :00 No [id number] 100mg Take 1 capsule by mouth 2 (two) times daily. [facility] lamoTRIgine 100 mg tablet 09-17 00:00: 00 Yes TK 1/[address] [facility] Lamictal 100 mg tablet 09-17 00:00: [...] 02-20 16:43: 14 Yes Take by mouth. [facility] metFORMIN 1,000 mg tablet 02-20 16:43: 14 Yes 1000mg Take 1,000 mg by mouth 2 (two) times daily with meals. [facility] Lamictal 25 mg tablet 02-12 00:00: 00 Yes 1mg Raji Vaca Seroquel 25 mg tablet 02-12 00:00: 00 Yes 1mg Raji Vaca PROAIR HFA 90 mcg/actuati on inhaler 2017-0215 00:00: 00 Yes INL 1 TO 2 PFS PO Q 4 TO [address] [facility] LEVEMIR FLEXTOUCH U-100 INSULN 100 unit/mL (3 mL) injection 2017-02 00:00: 00 Yes ADM 80 UNI SC QD [facility] SYMBICORT 160-4.5 mcg/actuati on inhaler 2017-02 00:00: 00 Yes INHALE 1 PUFF PO QD [facility] levothyroxi ne 150 mcg tablet 2017-02 00:00: 00 Yes TK 1 T PO QD WHEN AWAKENING WITH A FULL GLASS OF WATER ON AN EMPTY STOMACH [facility] loratadine 10 mg tablet 2017-02 00:00: 00 Yes TK 1 T PO QD [facility] montelukast 10 mg tablet 2017-02 00:00: 00 Yes TAKE 1 TABLET BY MOUTH EVERY DAY IN THE EVENING [facility] Lamictal 25 mg tablet 2017-02 00:00: 00 Yes 13mg Raji F Lio blood sugar diagnostic (FREESTYLE LITE STRIPS) strip 10-11 00:00: 00 Yes [id number] 3 times daily [facility] lancets (FREESTYLE LANCETS) 28 gauge [facility] 10-11 00:00: 00 Yes [id number] 3 times daily [facility] acetone, urine, test (KETONE URINE TEST) strip 10-11 00:00: 00 Yes [id number] Check with blood sugars >300 or if ill prn [facility] lancets (FREESTYLE LANCETS) 28 gauge Mis 10-11 00:00: 00 Yes [id number] 3 times daily [facility] blood sugar diagnostic (FREESTYLE LITE STRIPS) strip 201710-11 00:00: 00 Yes [id number] 3 times daily [facility] acetone, urine, test (KETONE URINE TEST) strip 201710-11 00:00: 00 Yes [id number] Check with blood sugars >300 or if ill prn [facility] Immunizations Ordered Immunization Name Filled Immunization Name Date Status Comments Source HPV9 2023-04-02 00:00:00 Completed [facility] HPV9 2021-07-08 00:00:00 Completed [facility] HPV9 2020-12-27 00:00:00 Completed [facility]9 2020-12-27 00:00:00 Completed [facility]9 2020-12-27 00:00:00 Completed [facility] 2020-12-27 00:00:00 Completed [facility] 2020-06-23 00:00:00 Completed [facility] 2020-06-23 00:00:00 Completed [facility] 2020-06-23 00:00:00 Completed [facility] 2020-06-23 00:00:00 Completed [facility] 2020-06-23 00:00:00 Completed [facility] Vital Signs Vital Name Observation Time Observation Value Comments S ource Systolic blood pressure 2021-07-08 15:09:00 138 mm[Hg] [facility] Diastolic blood pressure 2021-07-08 15:09:00 87 mm[Hg] [facility] Heart rate 2021-07-08 15:09:00 109 /min [facility] Body temperature 2021-07-08 15:09:00 36.78 Starr [facility] Respiratory rate 2021-07-08 15:09:00 18 /min [facility] Body height 2021-07-08 15:09:00 162.6 cm [facility] Body weight 2021-07-08 15:09:00 82.101 kg [facility] BMI 2021-07-08 15:09:00 31.07 kg/m2 [facility] Systolic blood pressure 2020-12-27 21:08:00 124 mm[Hg] [facility] Diastolic blood pressure 2020-12-27 21:08:00 83 mm[Hg] [facility] Heart rate 2020-12-27 21:05:00 99 /min [facility] Body temperature 2020-12-27 21:05:00 36.89 Starr [facility] Respiratory rate 2020-12-27 21:05:00 18 /min [facility] Body height 2020-12-27 21:05:00 162.6 cm [facility] Body weight 2020-12-27 21:05:00 80.287 kg [facility] BMI 2020-12-27 21:05:00 30.38 kg/m2 [facility] Systolic blood pressure 2020-06-23 16:57:00 130 mm[Hg] [facility] Diastolic blood pressure 2020-06-23 16:57:00 85 mm[Hg] [place] [facility] Heart rate 2020-06-23 16:57:00 74 /min [facility] Body temperature 2020-06-23 16:57:00 36.72 Starr [facility] Respiratory rate 2020-06-23 16:57:00 16 /min [facility] Body height 2020-06-23 16:57:00 162.6 cm [facility] Body weight 2020-06-23 16:57:00 79.47 kg [facility] BMI 2020-06-23 16:57:00 30.07 kg/m2 [facility] Systolic blood pressure 2018-10-10 13:08:00 131 mm[Hg] [place] [facility] Diastolic blood pressure 2018-10-10 13:08:00 90 mm[Hg] [facility] Heart rate 2018-10-10 13:08:00 90 /min [facility] Body temperature 2018-10-10 13:08:00 36.5 Starr [facility] Respiratory rate 2018-10-10 13:08:00 20 /min [facility] Body height 2018-10-10 13:08:00 162.6 cm [facility] Body weight 2018-10-10 13:08:00 83.915 kg [facility] BMI 2018-10-10 13:08:00 31.76 kg/m2 [facility] BP Systolic 2024-05-21 11:36:00 130 mm[Hg] Hector [...] Lio BP Diastolic 2023-09-28 15:51:00 86 mm[Hg] Zoin phen F Lio Weight Measured 2023-09-28 15:51:00 164.00 pounds Rjai F Lio Height Measured 2023-09-28 15:51:00 64.00 [...] REFERRAL- REQUEST/RESPONSE 2023-04-02 06:01:00 D sean Unassigned, Elton [facility] GARDASIL 9 (HPV 9V) VACCINE 2021-07-08 15:11:46 Zeynep Perdomo [facility] ASSIGNMENT OF BENEFITS 2021-07-08 14:59:45 Docto r Unassigned, Elton [facility] GARDASIL 9 (HPV 9V) VACCINE 2020-12-27 21:12:28 Sasha Shepard [facility] GARDASIL 9 (HPV 9V) VACCINE 2020-06-23 17:28:23 Zeynep Perdomo [facility] ASSIGNMENT OF BENEFITS 2020-06-23 16:17:19 Docto r Unassigned, Elton [facility] REFERRAL- REQUEST/RESPONSE 2019-06-03 05:01:00 D grantor Unassigned, Elton [facility] EXTERNAL LAB CHLAMYDIA 2019-05-23 13:00:00 Docto r Unassigned, Elton [facility] EXTERNAL PAP SMEAR 2019-05-23 13:00:00 Doctor Un assigned, Elton [facility] NO SHOW OR MISSED APPOINTMENT POLICY ACKNOWLEDGEMENT 2018-10-10 12:56:20 Doctor Unassigned, Elton [facility] POCT URINALYSIS 2018-10-10 00:00:00 Leyda Gregorio [facility] Encounters Start Date/Time End Date/Time Encounter Type Admission Type Attending Clinicians Care Facility Care Department Encounter ID Source 2024-06-13 16:30:50 2024-06-13 16:30:50 Outpatient SFA [facility] [id number] Raji Waldrop Lio 2024-05-21 11:33:47 2024-05-21 11:33:47 Outpatient SFA [facility] [id number] Raji Waldrop Lio 2024-05-21 00:00:00 2024-05-21 00:00:00 Outpatient Visit SFA [id number] Raji Vaca 2024-03-18 13:14:26 2024-03-18 13:14:26 Outpatient SFA SFA [id number] Raji Vaca 2024-03-18 00:00:00 2024-03-18 00:00:00 Outpatient Visit SFA [id number] Raji Vaca 2023-12-19 11:14:40 2023-12-19 11:14:40 Outpatient SFA SFA [id number] Raji Vaca 2023-12-19 00:00:00 2023-12-19 00:00:00 Outpatient Visit SFA [id number] Raji Vaca 2023-10-05 14:42:05 2023-10-05 14:42:05 Outpatient SFA SFA 08 Raji Vaca 2023-10-05 00:00:00 2023-10-05 00:00:00 Outpatient Visit SFA [id number] Raji Vaca 2023-09-28 15:51:25 2023-09-28 15:51:25 Outpatient SFA SFA [id number] Raji Vaca 2023-09-28 00:00:00 2023-09-28 00:00:00 Outpatient Visit SFA [id number] Raji Vaca 2023-09-26 13:55:36 2023-09-26 13:55:36 Outpatient SFA SFA 08 Raji Vaca 2023-09-26 00:00:00 2023-09-26 00:00:00 Outpatient Visit SFA [id number] Raji Vaca 2023-08-06 14:01:19 2023-08-06 14:01:19 Outpatient SFA SFA 07 Raji Vaca 2023-08-06 00:00:00 2023-08-06 00:00:00 Outpatient Visit SFA [id number] Raji Vaca 2023-08-03 11:31:35 2023-08-03 11:31:35 Outpatient SFA SFA [id number] Raji Vaca 2023-06-19 13:05:54 2023-06-19 13:05:54 Outpatient SFA SFA [id number] Raji Vaca 2023-06-19 00:00:00 2023-06-19 00:00:00 Outpatient Visit SFA [id number] Raji Vaca 2023-04-02 13:28:07 2023-04-02 13:28:07 Outpatient SFA SFA [id number] Raji Vaca 2023-04-02 00:00:00 2023-04-02 00:00:00 Orders Only Doctor Unassigned, Elton [facility] 1.2.840.114 350.1.13.10 4.2.7.2.[id number] [facility] 2023-01-15 15:28:17 2023-01-15 15:28:17 Outpatient SFA SFA [id number] Raji Vaca 2022-10-30 13:08:43 2022-10-30 13:08:43 Outpatient SFA SFA [id number] Raji Vaca 2022-10-13 15:08:50 2022-10-13 15:08:50 Outpatient SFA SFA [id number] Raji Vaca 2022-09-26 16:03:19 2022-09-26 16:03:19 Outpatient SFA SFA [id number] Raji Vaca 2022-06-07 15:21:55 2022-06-07 15:21:55 Outpatient SFA SFA [id number] Raji Vaca 2021-07-08 10:00:00 2021-07-08 10:13:56 Nurse Visit Nurse, [facility] 1.840.114 350.1.13.10 4.2.7.2.[id number] [facility] 2021-07-08 10:00:00 2021-07-08 10:00:00 Outpatient R [facility] [id number] [facility] 2021-07-08 08:00:00 2021-07-08 08:00:00 Outpatient R [facility] [id number] [facility] 2021-07-08 00:00:00 2021-07-08 00:00:00 Orders Only Doctor Unassigned, Elton [facility] 1.84.114 350.1.13.10 4.2.7.2.[id number] [facility] 2021-06-27 15:30:00 2021-06-27 15:30:00 Outpatient R [facility] [id number] [facility] 2021-03-04 00:00:00 2021-03-04 00:00:00 Case Management Martina Charles 1..840.114 350.1.13.10 4.2.7.2.[id number] [facility] 2020-12-27 14:55:40 2020-12-27 15:08:40 Nurse Visit Nurse, [facility], [facility] 1.840.114 350.1.13.10 4.2.7.2.[id number] [facility] 2020-12-27 14:30:00 2020-12-27 15:08:40 Outpatient R [facility] [id number] [facility] 2020-12-24 10:30:00 2020-12-24 10:30:00 Outpatient R [facility] [id number] [facility] 2020-08-23 10:30:00 2020-08-23 10:30:00 Outpatient R [facility] [id number] [facility] 2020-06-23 11:17:55 2020-06-23 12:30:20 Office Visit Zeynep Perdomo [facility] 1.840.114 350.1.13.10 4.2.7.2.[id number] [facility] 2020-06-23 11:00:00 2020-06-23 11:00:00 Outpatient R ZEYNEP PERDOMO [facility] [id number] [facility] 2020-06-23 00:00:00 2020-06-23 00:00:00 Orders Only Doctor Unassigned, Elton [facility] .840.114 350.1.13.10 4.2.7.2.[id number] [facility] 2020-06-17 08:30:00 2020-06-17 08:30:00 Outpatient R ZEYNEP PERDOMO [facility] [id number] [facility] 2019-07-29 00:00:00 2019-07-29 00:00:00 Letter (Out) Maria Victoria Meadows [facility] .840.114 350.1.13.10 4.2.7.2.[id number] [facility] 2019-06-03 00:00:00 2019-06-03 00:00:00 Orders Only Doctor Unassigned, Elton [facility] 1.84.114 350.1.13.10 4.2.7.2.[id number] [facility] 2019-06-02 00:00:00 2019-06-02 00:00:00 Telephone Sasha Shepard [facility] 1.2.840.114 350.1.13.10 4.2.7.2.[id number] [facility] 2018-10-11 00:00:00 2018-10-11 00:00:00 Case Management Darline [facility] becca Keller 1.2.840.114 350.1.13.10 4.2.7.2.[id number] [facility] 2018-10-10 08:35:38 2018-10-10 08:50:38 Simonizer Visit 2, Adc Lab Darline [facility] 1.2.840.114 350.1.13.10 4.2.7.2.[id number] [facility] 2018-10-10 07:56:08 2018-10-10 08:30:43 Office Visit Darline [facility] 1.2.840.114 350.1.13.10 4.2.7.2.[id number] [facility] 2018-10-10 00:00:00 2018-10-10 00:00:00 Orders Only Doctor Unassigned, Elton [facility] 1.2.840.114 350.1.13.10 4.2.7.2.[id number] [facility] Results Test Description Test Time Test Comments Results Result Co mments Source Raji Waldrop AustinHPV HIGH RISK WITH GENOTYPE, TP [REFLEX]2023-10-02 00:00:00* Test Item Value Reference Range Interpretation Comme nts HPV HIGH RISK INTERP (test c ode = 00877) POSITIVE HPV 16 (test code = 60007) NEGATIVE HPV 18 (test code = 11445) NEGATIVE HPV, HR, OTHER GENOTYPES (te st code = 12713) POSITIVE PDFE (test code = PDFReport) PDF Raji Palma AustinPAP TEST, THINPREP, IMAGED REFLEX HPV HIGH RISK IF ASC/LG 2023-10-02 00:00:00* Test Item Value Reference Range Interpretation Comme nts SOURCE: (test code = 8001) Unspecified SLIDES: (test code = 8011) 1 LMP: (test code = 8021) NOT GIVEN SPECIMEN ADEQUACY: (test code = 45042) (NOTE) INTERPRETATION: (test code = 53249) LSIL/EPITH. ABNORMALITY; SEE BELOW OTHER COMMENTS: (test code = 8081) (NOTE) FAST FOOD SUPERVISOR: (test code = 8101) BETY Vickers (ASCP) PATHOLOGIST INTERPRETATION BY: (test code = 8122) Pretty Ramos LOCATION: (test code = 27947) (NOTE) CPT: (test code = 8140) 37157, 16010, 88868 HPV HIGH RISK IF ASC/LSIL, THINPREP (test code = 09308) SEE BELOW Raji Palma AustinHPV HIGH RISK WITH GENOTYPE, TP [REFLEX]2023-10-02 00:00:00* Test Item Value Reference Range Interpretation Comme nts HPV HIGH RISK INTERP (test c ode = 57110) POSITIVE HPV 16 (test code = 03584) NEGATIVE HPV 18 (test code = 34141) NEGATIVE HPV, HR, OTHER GENOTYPES (te st code = 58518) POSITIVE PDFE (test code = PDFReport) PDF Raji Waldrop AustinPAP TEST, THINPREP, IMAGED REFLEX HPV HIGH RISK IF ASC/LG 2023-10-02 00:00:00* Test Item Value Reference Range Interpretation Comme nts SOURCE: (test code = 8001) Unspecified SLIDES: (test code = 8011) 1 LMP: (test code = 8021) NOT GIVEN SPECIMEN ADEQUACY: (test code = 92747) (NOTE) INTERPRETATION: (test code = 03709) LSIL/EPITH. ABNORMALITY; SEE BELOW OTHER COMMENTS: (test code = 8081) (NOTE) FAST FOOD SUPERVISOR: (test code = 8101) BETY Vickers (ASCP) PATHOLOGIST INTERPRETATION BY: (test code = 8122) Pretty Ramos LOCATION: (test code = 68077) (NOTE) CPT: (test code = 8140) 79669, 88380, 99468 HPV HIGH RISK IF ASC/LSIL, THINPREP (test code = 21484) SEE BELOW Raji F AustinHPV HIGH RISK WITH GENOTYPE, TP [REFLEX]2023-10-02 00:00:00* Test Item Value Reference Range Interpretation Comme nts HPV HIGH RISK INTERP (test c ode = 72169) POSITIVE HPV 16 (test code = 49807) NEGATIVE HPV 18 (test code = 55823) NEGATIVE HPV, HR, OTHER GENOTYPES (te st code = 43876) POSITIVE PDFE (test code = PDFReport) PDF Raji Waldrop AustinPAP TEST, THINPREP, IMAGED REFLEX HPV HIGH RISK IF ASC/LG 2023-10-02 00:00:00* Test Item Value Reference Range Interpretation Comme nts SOURCE: (test code = 8001) Unspecified SLIDES: (test code = 8011) 1 LMP: (test code = 8021) NOT GIVEN SPECIMEN ADEQUACY: (test code = 53753) (NOTE) INTERPRETATION: (test code = 16442) LSIL/EPITH. ABNORMALITY; SEE BELOW OTHER COMMENTS: (test code = 8081) (NOTE) FAST FOOD SUPERVISOR: (test code = 8101) BETY Vickers (ASCP) PATHOLOGIST INTERPRETATION BY: (test code = 8122) Pretty Ramos LOCATION: (test code = 11194) (NOTE) CPT: (test code = 8140) 40118, 55681, 44198 HPV HIGH RISK IF ASC/LSIL, THINPREP (test code = 95978) SEE BELOW Raji Waldrop AustinHPV HIGH RISK WITH GENOTYPE, TP [REFLEX]2023-10-02 00:00:00* Test Item Value Reference Range Interpretation Comme nts HPV HIGH RISK INTERP (test c ode = 81124) POSITIVE HPV 16 (test code = 97590) NEGATIVE HPV 18 (test code = 18102) NEGATIVE HPV, HR, OTHER GENOTYPES (te st code = 19921) POSITIVE PDFE (test code = PDFReport) PDF Raji Waldrop AustinCT/NG, NAAT, [id number] 00:00:00* Test Item Value Reference Range Interpretation Comme nts CHLAMYDIA, NAAT, THINPREP (t est code = 43603) NEGATIVE GONORRHEA, NAAT, THINPREP (t est code = 35268) NEGATIVE Raji Waldrop AustinTRICHOMONAS, THINPREP, [id number] 00:00:00* Test Item Value Reference Range Interpretation Comme nts TRICHOMONAS, NAAT (test code = 99105) NEGATIVE SPECIMEN TYPE (test code = 75406) THINPREP Raji F AustinCT/NG, NAAT, [id number] 00:00:00* Test Item Value Reference Range Interpretation Comme nts CHLAMYDIA, NAAT, THINPREP (t est code = 50082) NEGATIVE GONORRHEA, NAAT, THINPREP (t est code = 93244) NEGATIVE Raji F AustinTRICHOMONAS, THINPREP, [id number] 00:00:00* Test Item Value Reference Range Interpretation Comme nts TRICHOMONAS, NAAT (test code = 51529) NEGATIVE SPECIMEN TYPE (test code = 50956) THINPREP Raji F AustinCT/NG, NAAT, [id number] 00:00:00* Test Item Value Reference Range Interpretation Comme nts CHLAMYDIA, NAAT, THINPREP (t est code = 39696) NEGATIVE GONORRHEA, NAAT, THINPREP (t est code = 38303) NEGATIVE Raji F AustinTRICHOMONAS, THINPREP, [id number] 00:00:00* Test Item Value Reference Range Interpretation Comme nts TRICHOMONAS, NAAT (test code = 03111) NEGATIVE SPECIMEN TYPE (test code = 08936) THINPREP Raji F AustinCT/NG, NAAT, [id number] 00:00:00* Test Item Value Reference Range Interpretation Comme nts CHLAMYDIA, NAAT, THINPREP (t est code = 90125) NEGATIVE GONORRHEA, NAAT, THINPREP (t est code = 42984) NEGATIVE Raji F AustinTRICHOMONAS, THINPREP, [id number] 00:00:00* Test Item Value Reference Range Interpretation Comme nts TRICHOMONAS, NAAT (test code = 87444) NEGATIVE SPECIMEN TYPE (test code = 05194) THINPREP Raji F AustinVAGINAL PATHOGENS DNA [id number] 00:00:00* Test Item Value Reference Range Interpretation Comme nts MICHAEL SPECIES (test code = 02217) NEGATIVE G. VAGINALIS (test code = 51141) POSITIVE T. VAGINALIS (test code = 19142) NEGATIVE Raji F AustinVAGINAL PATHOGENS DNA [id number] 00:00:00* Test Item Value Reference Range Interpretation Comme nts MICHAEL SPECIES (test code = ) NEGATIVE G. VAGINALIS (test code = 82685) POSITIVE T. VAGINALIS (test code = ) NEGATIVE Raji VacaVAGINAL PATHOGENS DNA [id number] 00:00:00* Test Item Value Reference Range Interpretation Comme nts MICHAEL SPECIES (test code = ) NEGATIVE G. VAGINALIS (test code = 45610) POSITIVE T. VAGINALIS (test code = 00609) NEGATIVE Raji Waldrop AustinVAGINAL PATHOGENS DNA [id number] 00:00:00* Test Item Value Reference Range Interpretation Comme nts MICHAEL SPECIES (test code = ) NEGATIVE G. VAGINALIS (test code = 79289) POSITIVE T. VAGINALIS (test code = ) NEGATIVE Raji VacaCBC W/AUTO [id number] 00:00:00* Test Item Value Reference Range Interpretation [...] ABS NUCLEATED RBCS (test cod e = 05479) 0.00 K/UL Raji VacaLIPID [id number] 00:00:00* Test Item Value Reference Range Interpretation Comme nts CHOLESTEROL (test code = 2210) 179 MG/DL TRIGLYCERIDES (test code = 2232) 282 MG/DL HDL CHOLESTEROL (test code = 2220) 42 MG/DL CALC LDL CHOL (test code = 2237) 97 MG/DL RISK RATIO LDL/HDL (test cod e = 2238) 2.31 RATIO Raji VacaHEMOGLOBIN [id number] 00:00:00* Test Item Value Reference Range Interpretation Comme dipak HEMOGLOBIN A1c (test code = 70274) 9.6 % Raji [id number] 00:00:00* Test Item Value Reference Range Interpretation Comme nts TSH, THIRD GENERATION (test code = 2821) 2.350 UIU/ML Raji VacaCOMPREHENSIVE METABOLIC [id number] 00:00:00* Test Item Value Reference Range Interpretation Comme nts GLUCOSE (test code = 2217) 338 MG/DL BUN (test code = 2208) 16 MG/DL CREATININE (test code = 2214) 0.69 MG/DL eGFR (2020 CKD-EPI) (test code = 27065) 124 ML/MIN/1.73 CALC BUN/CREAT (test code = [...] = 2219) 11 U/L Raji VacaURINALYSIS W/REFLEX [id number] 00:00:00* Test Item Value Reference Range Interpretation [...] 0-2 /HPF EPITHELIAL CELLS (test code = 05934) 6-10 /HPF BACTERIA (test code = 1515) >3+ CASTS, HYALINE (test code = 1517) TRACE Raji Waldrop AustinALBUMIN/CREATININE RATIO, RANDOM [id number] 00:00:00* Test Item Value Reference Range Interpretation Comme nts CREATININE, URINE, CONC. (te st code = 2072) 61.1 MG/DL ALBUMIN, URINE, RANDOM (test code = 50594) 26.7 MG/DL CALC ALBUMIN/CREAT, RND (juan manuel t code = 23754) 437 MG/G Raji Waldrop AustinCBC W/AUTO [id number] 00:00:00* Test Item Value Reference Range Interpretation [...] ABS NUCLEATED RBCS (test cod e = 68074) 0.00 K/UL Raji VacaLIPID [id number] 00:00:00* Test Item Value Reference Range Interpretation Comme nts CHOLESTEROL (test code = 2210) 179 MG/DL TRIGLYCERIDES (test code = 2232) 282 MG/DL HDL CHOLESTEROL (test code = 2220) 42 MG/DL CALC LDL CHOL (test code = 2237) 97 MG/DL RISK RATIO LDL/HDL (test cod e = 2238) 2.31 RATIO Raji VacaHEMOGLOBIN [id number] 00:00:00* Test Item Value Reference Range Interpretation Comme dipak HEMOGLOBIN A1c (test code = 74340) 9.6 % Raji [id number] 00:00:00* Test Item Value Reference Range Interpretation Comme nts TSH, THIRD GENERATION (test code = 2821) 2.350 UIU/ML Raji VacaCOMPREHENSIVE METABOLIC [id number] 00:00:00* Test Item Value Reference Range Interpretation Comme nts GLUCOSE (test code = 2217) 338 MG/DL BUN (test code = 2208) 16 MG/DL CREATININE (test code = 2214) 0.69 MG/DL eGFR (2020 CKD-EPI) (test code = 32920) 124 ML/MIN/1.73 CALC BUN/CREAT (test code = [...] 2219) 11 U/L Raji Waldrop LioURINALYSIS W/REFLEX [id number] 00:00:00* Test Item Value Reference Range Interpretation [...] 0-2 /HPF EPITHELIAL CELLS (test code = 36719) 6-10 /HPF BACTERIA (test code = 1515) >3+ CASTS, HYALINE (test code = 1517) TRACE Raji Waldrop AustinALBUMIN/CREATININE RATIO, RANDOM [id number] 00:00:00* Test Item Value Reference Range Interpretation Comme nts CREATININE, URINE, CONC. (te st code = 2072) 61.1 MG/DL ALBUMIN, URINE, RANDOM (test code = 21244) 26.7 MG/DL CALC ALBUMIN/CREAT, RND (juan manuel t code = 66488) 437 MG/G Raji Waldrop AustinCBC W/AUTO [id number] 00:00:00* Test Item Value Reference Range Interpretation [...] ABS NUCLEATED RBCS (test cod e = 69871) 0.00 K/UL Raji VacaLIPID [id number] 00:00:00* Test Item Value Reference Range Interpretation Comme nts CHOLESTEROL (test code = 2210) 179 MG/DL TRIGLYCERIDES (test code = 2232) 282 MG/DL HDL CHOLESTEROL (test code = 2220) 42 MG/DL CALC LDL CHOL (test code = 2237) 97 MG/DL RISK RATIO LDL/HDL (test cod e = 2238) 2.31 RATIO Raji VacaHEMOGLOBIN [id number] 00:00:00* Test Item Value Reference Range Interpretation Comme nts HEMOGLOBIN A1c (test code = 57017) 9.6 % Raji [id number] 00:00:00* Test Item Value Reference Range Interpretation Comme nts TSH, THIRD GENERATION (test code = 2821) 2.350 UIU/ML Raji VacaCOMPREHENSIVE METABOLIC [id number] 00:00:00* Test Item Value Reference Range Interpretation Comme nts GLUCOSE (test code = 2217) 338 MG/DL BUN (test code = 2208) 16 MG/DL CREATININE (test code = 2214) 0.69 MG/DL eGFR (2020 CKD-EPI) (test code = 27671) 124 ML/MIN/1.73 CALC BUN/CREAT (test code = [...] = 2219) 11 U/L Raji VacaURINALYSIS W/REFLEX [id number] 00:00:00* Test Item Value Reference Range Interpretation [...] 0-2 /HPF EPITHELIAL CELLS (test code = 52067) 6-10 /HPF BACTERIA (test code = 1515) >3+ CASTS, HYALINE (test code = 1517) TRACE Raji F AustinALBUMIN/CREATININE RATIO, RANDOM [id number] 00:00:00* Test Item Value Reference Range Interpretation Comme nts CREATININE, URINE, CONC. (te st code = 2072) 61.1 MG/DL ALBUMIN, URINE, RANDOM (test code = 57602) 26.7 MG/DL CALC ALBUMIN/CREAT, RND (juan manuel t code = 03625) 437 MG/G Raji VacaCBC W/AUTO [id number] 00:00:00* Test Item Value Reference Range Interpretation [...] ABS NUCLEATED RBCS (test cod e = 77470) 0.00 K/UL Raji VacaLIPID [id number] 00:00:00* Test Item Value Reference Range Interpretation Comme nts CHOLESTEROL (test code = 2210) 179 MG/DL TRIGLYCERIDES (test code = 2232) 282 MG/DL HDL CHOLESTEROL (test code = 2220) 42 MG/DL CALC LDL CHOL (test code = 2237) 97 MG/DL RISK RATIO LDL/HDL (test cod e = 2238) 2.31 RATIO Raji VacaHEMOGLOBIN [id number] 00:00:00* Test Item Value Reference Range Interpretation Comme dipak HEMOGLOBIN A1c (test code = 46207) 9.6 % Raji [id number] 00:00:00* Test Item Value Reference Range Interpretation Comme dipak TSH, THIRD GENERATION (test code = 2821) 2.350 UIU/ML Raji VacaCOMPREHENSIVE METABOLIC [id number] 00:00:00* Test Item Value Reference Range Interpretation Comme nts GLUCOSE (test code = 2217) 338 MG/DL BUN (test code = 2208) 16 MG/DL CREATININE (test code = 2214) 0.69 MG/DL eGFR (2020 CKD-EPI) (test code = 45744) 124 ML/MIN/1.73 CALC BUN/CREAT (test code = [...] = 2219) 11 U/L Raji VacaURINALYSIS W/REFLEX [id number] 00:00:00* Test Item Value Reference Range Interpretation [...] 0-2 /HPF EPITHELIAL CELLS (test code = 13470) 6-10 /HPF BACTERIA (test code = 1515) >3+ CASTS, HYALINE (test code = 1517) TRACE Raji VacaALBUMIN/CREATININE RATIO, RANDOM [id number] 00:00:00* Test Item Value Reference Range Interpretation Comme nts CREATININE, URINE, CONC. (te st code = 2072) 61.1 MG/DL ALBUMIN, URINE, RANDOM (test code = 65241) 26.7 MG/DL CALC ALBUMIN/CREAT, RND (juan manuel t code = 01198) 437 MG/G Raji VacaCBC W/AUTO [id number] 00:00:00* Test Item Value Reference Range Interpretation [...] ABS NUCLEATED RBCS (test cod e = 99289) 0.00 K/UL Raji VacaLIPID [id number] 00:00:00* Test Item Value Reference Range Interpretation Comme nts CHOLESTEROL (test code = 2210) 179 MG/DL TRIGLYCERIDES (test code = 2232) 282 MG/DL HDL CHOLESTEROL (test code = 2220) 42 MG/DL CALC LDL CHOL (test code = 2237) 97 MG/DL RISK RATIO LDL/HDL (test cod e = 2238) 2.31 RATIO Raji VacaHEMOGLOBIN [id number] 00:00:00* Test Item Value Reference Range Interpretation Comme dipak HEMOGLOBIN A1c (test code = 16969) 9.6 % Raji [id number] 00:00:00* Test Item Value Reference Range Interpretation Comme nts TSH, THIRD GENERATION (test code = 2821) 2.350 UIU/ML Raji VacaCOMPREHENSIVE METABOLIC [id number] 00:00:00* Test Item Value Reference Range Interpretation Comme nts GLUCOSE (test code = 2217) 338 MG/DL BUN (test code = 2208) 16 MG/DL CREATININE (test code = 2214) 0.69 MG/DL eGFR (2020 CKD-EPI) (test code = 28103) 124 ML/MIN/1.73 CALC BUN/CREAT (test code = [...] 2219) 11 U/L Raji Waldrop AustinURINALYSIS W/REFLEX [id number] 00:00:00* Test Item Value Reference Range Interpretation [...] 0-2 /HPF EPITHELIAL CELLS (test code = 46656) 6-10 /HPF BACTERIA (test code = 1515) >3+ CASTS, HYALINE (test code = 1517) TRACE Raji Waldrop AustinALBUMIN/CREATININE RATIO, RANDOM [id number] 00:00:00* Test Item Value Reference Range Interpretation Comme nts CREATININE, URINE, CONC. (te st code = 2072) 61.1 MG/DL ALBUMIN, URINE, RANDOM (test code = 10695) 26.7 MG/DL CALC ALBUMIN/CREAT, RND (juan manuel t code = 06588) 437 MG/G Raji Waldrop AustinCBC W/AUTO [id number] 00:00:00* Test Item Value Reference Range Interpretation [...] ABS NUCLEATED RBCS (test cod e = 71846) 0.00 K/UL Raji VacaLIPID [id number] 00:00:00* Test Item Value Reference Range Interpretation Comme nts CHOLESTEROL (test code = 2210) 179 MG/DL TRIGLYCERIDES (test code = 2232) 282 MG/DL HDL CHOLESTEROL (test code = 2220) 42 MG/DL CALC LDL CHOL (test code = 2237) 97 MG/DL RISK RATIO LDL/HDL (test cod e = 2238) 2.31 RATIO Raji VacaHEMOGLOBIN [id number] 00:00:00* Test Item Value Reference Range Interpretation Comme nts HEMOGLOBIN A1c (test code = 19220) 9.6 % Raji [id number] 00:00:00* Test Item Value Reference Range Interpretation Comme nts TSH, THIRD GENERATION (test code = 2821) 2.350 UIU/ML Raji VacaCOMPREHENSIVE METABOLIC [id number] 00:00:00* Test Item Value Reference Range Interpretation Comme nts GLUCOSE (test code = 2217) 338 MG/DL BUN (test code = 2208) 16 MG/DL CREATININE (test code = 2214) 0.69 MG/DL eGFR (2020 CKD-EPI) (test code = 85328) 124 ML/MIN/1.73 CALC BUN/CREAT (test code = [...] = 2219) 11 U/L Raji VacaURINALYSIS W/REFLEX [id number] 00:00:00* Test Item Value Reference Range Interpretation [...] 0-2 /HPF EPITHELIAL CELLS (test code = 67105) 6-10 /HPF BACTERIA (test code = 1515) >3+ CASTS, HYALINE (test code = 1517) TRACE Raji VacaALBUMIN/CREATININE RATIO, RANDOM [id number] 00:00:00* Test Item Value Reference Range Interpretation Comme nts CREATININE, URINE, CONC. (te st code = 2072) 61.1 MG/DL ALBUMIN, URINE, RANDOM (test code = 97598) 26.7 MG/DL CALC ALBUMIN/CREAT, RND ([facility] t code = 99650) 437 MG/G Raji Waldrop AustinHEMOGLOBIN [id number] 00:00:00* Test Item Value Reference Range Interpretation Comme nts HEMOGLOBIN A1c (test code = 44290) 9.4 % Raji Waldrop AustinHEMOGLOBIN [id number] 00:00:00* Test Item Value Reference Range Interpretation Comme nts HEMOGLOBIN A1c (test code = 44231) 9.4 % Raji Waldrop AustinHEMOGLOBIN [id number] 00:00:00* Test Item Value Reference Range Interpretation Comme nts HEMOGLOBIN A1c (test code = 26321) 9.4 % Raji Waldrop AustinHEMOGLOBIN [id number] 00:00:00* Test Item Value Reference Range Interpretation Comme nts HEMOGLOBIN A1c (test code = 89596) 9.4 % Raji Waldrop AustinHEMOGLOBIN [id number] 00:00:00* Test Item Value Reference Range Interpretation Comme nts HEMOGLOBIN A1c (test code = 85897) 9.4 % Raji Waldrop AustinHEMOGLOBIN [id number] 00:00:00* Test Item Value Reference Range Interpretation Comme nts HEMOGLOBIN A1c (test code = 23488) 9.4 % Raji Waldrop AustinHEMOGLOBIN [id number] 00:00:00* Test Item Value Reference Range Interpretation Comme nts HEMOGLOBIN A1c (test code = 33975) 9.4 % Raji VacaPAP TEST, THINPREP, [id number] 00:00:00* Test Item Value Reference Range Interpretation Comme nts SOURCE: (test code = 8001) Cervical/Endocervica l SLIDES: (test code = 8011) 1 LMP: (test code = 8021) NOT GIVEN SPECIMEN ADEQUACY: (test code = 70813) (NOTE) INTERPRETATION: (test code = 70813) LSIL/EPITH. ABNORMALITY; SEE BELOW OTHER COMMENTS: (test code = 8081) (NOTE) FAST FOOD SUPERVISOR: (test code = 8101) BETY Samayoa(ASCP) PATHOLOGIST INTERPRETATION BY: (test code = 8122) David Campbell LOCATION: (test code = 60839) (NOTE) CPT: (test code = 8140) (NOTE) Raji VacaPAP TEST, THINPREP, [id number] 00:00:00* Test Item Value Reference Range Interpretation Comme nts SOURCE: (test code = 8001) Cervical/Endocervica l SLIDES: (test code = 8011) 1 LMP: (test code = 8021) NOT GIVEN SPECIMEN ADEQUACY: (test code = 88821) (NOTE) INTERPRETATION: (test code = 68344) LSIL/EPITH. ABNORMALITY; SEE BELOW OTHER COMMENTS: (test code = 8081) (NOTE) FAST FOOD SUPERVISOR: (test code = 8101) BETY Samayoa(ASCP) PATHOLOGIST INTERPRETATION BY: (test code = 8122) David Campbell LOCATION: (test code = 00430) (NOTE) CPT: (test code = 8140) (NOTE) Raji VacaPAP TEST, THINPREP, [id number] 00:00:00* Test Item Value Reference Range Interpretation Comme nts SOURCE: (test code = 8001) Cervical/Endocervica l SLIDES: (test code = 8011) 1 LMP: (test code = 8021) NOT GIVEN SPECIMEN ADEQUACY: (test code = 81428) (NOTE) INTERPRETATION: (test code = 86335) LSIL/EPITH. ABNORMALITY; SEE BELOW OTHER COMMENTS: (test code = 8081) (NOTE) FAST FOOD SUPERVISOR: (test code = 8101) BETY Samayoa(ASCP) PATHOLOGIST INTERPRETATION BY: (test code = 8122) David Campbell LOCATION: (test code = 94621) (NOTE) CPT: (test code = 8140) (NOTE) Raji VacaPAP TEST, THINPREP, [id number] 00:00:00* Test Item Value Reference Range Interpretation Comme nts SOURCE: (test code = 8001) Cervical/Endocervica l SLIDES: (test code = 8011) 1 LMP: (test code = 8021) NOT GIVEN SPECIMEN ADEQUACY: (test code = 47272) (NOTE) INTERPRETATION: (test code = 10297) LSIL/EPITH. ABNORMALITY; SEE BELOW OTHER COMMENTS: (test code = 8081) (NOTE) FAST FOOD SUPERVISOR: (test code = 8101) BETY Samayoa(ASCP) PATHOLOGIST INTERPRETATION BY: (test code = 8122) David Campbell LOCATION: (test code = 31737) (NOTE) CPT: (test code = 8140) (NOTE) Raji ConradP TEST, THINPREP, [id number] 00:00:00* Test Item Value Reference Range Interpretation Comme nts SOURCE: (test code = 8001) Cervical/Endocervica l SLIDES: (test code = 8011) 1 LMP: (test code = 8021) NOT GIVEN SPECIMEN ADEQUACY: (test code = 84144) (NOTE) INTERPRETATION: (test code = 16223) LSIL/EPITH. ABNORMALITY; SEE BELOW OTHER COMMENTS: (test code = 8081) (NOTE) FAST FOOD SUPERVISOR: (test code = 8101) BETY Samayoa(ASCP) PATHOLOGIST INTERPRETATION BY: (test code = 8122) David Campbell LOCATION: (test code = 54603) (NOTE) CPT: (test code = 8140) (NOTE) Raji ConradP TEST, THINPREP, [id number] 00:00:00* Test Item Value Reference Range Interpretation Comme nts SOURCE: (test code = 8001) Cervical/Endocervica l SLIDES: (test code = 8011) 1 LMP: (test code = 8021) NOT GIVEN SPECIMEN ADEQUACY: (test code = 88288) (NOTE) INTERPRETATION: (test code = 27201) LSIL/EPITH. ABNORMALITY; SEE BELOW OTHER COMMENTS: (test code = 8081) (NOTE) FAST FOOD SUPERVISOR: (test code = 8101) BETY Samayoa(ASCP) PATHOLOGIST INTERPRETATION BY: (test code = 8122) David Campbell LOCATION: (test code = 98447) (NOTE) CPT: (test code = 8140) (NOTE) Raji ConradP TEST, THINPREP, [id number] 00:00:00* Test Item Value Reference Range Interpretation Comme nts SOURCE: (test code = 8001) Cervical/Endocervica l SLIDES: (test code = 8011) 1 LMP: (test code = 8021) NOT GIVEN SPECIMEN ADEQUACY: (test code = 25157) (NOTE) INTERPRETATION: (test code = 66728) LSIL/EPITH. ABNORMALITY; SEE BELOW OTHER COMMENTS: (test code = 8081) (NOTE) FAST FOOD SUPERVISOR: (test code = 8101) BETY Samayoa(ASCP) PATHOLOGIST INTERPRETATION BY: (test code = 8122) David Campbell LOCATION: (test code = 84803) (NOTE) CPT: (test code = 8140) (NOTE) Raji Waldrop AustinPAP TEST, THINPREP, [id number] 00:00:00* Test Item Value Reference Range Interpretation Comme nts SOURCE: (test code = 8001) Cervical/Endocervica l SLIDES: (test code = 8011) 1 LMP: (test code = 8021) NOT GIVEN SPECIMEN ADEQUACY: (test code = 30948) (NOTE) INTERPRETATION: (test code = 75451) LSIL/EPITH. ABNORMALITY; SEE BELOW OTHER COMMENTS: (test code = 8081) (NOTE) FAST FOOD SUPERVISOR: (test code = 8101) BETY Samayoa(ASCP) PATHOLOGIST INTERPRETATION BY: (test code = 8122) David Campbell LOCATION: (test code = 39963) (NOTE) CPT: (test code = 8140) (NOTE) Raji Waldrop AustinVAGINAL PATHOGENS DNA [id number] 00:00:00* Test Item Value Reference Range Interpretation Comme nts MICHAEL SPECIES (test code = ) NEGATIVE G. VAGINALIS (test code = 53330) POSITIVE T. VAGINALIS (test code = 07809) NEGATIVE Raji Waldrop AustinCT/NG, TMA, [id number] 00:00:00* Test Item Value Reference Range Interpretation Comme nts CHLAMYDIA, NAAT, THINPREP (t est code = 47796) NEGATIVE GONORRHEA, NAAT, THINPREP (t est code = 01570) NEGATIVE PDFE (test code = PDFReport) PDF Raji Waldrop AustinVAGINAL PATHOGENS DNA [id number] 00:00:00* Test Item Value Reference Range Interpretation Comme nts MICHAEL SPECIES (test code = 68838) NEGATIVE G. VAGINALIS (test code = 99132) POSITIVE T. VAGINALIS (test code = 54218) NEGATIVE Raji Waldrop AustinCT/NG, TMA, [id number] 00:00:00* Test Item Value Reference Range Interpretation Comme nts CHLAMYDIA, NAAT, THINPREP (t est code = 59969) NEGATIVE GONORRHEA, NAAT, THINPREP (t est code = 61731) NEGATIVE PDFE (test code = PDFReport) PDF Raji Waldrop AustinVAGINAL PATHOGENS DNA [id number] 00:00:00* Test Item Value Reference Range Interpretation Comme nts MICHAEL SPECIES (test code = ) NEGATIVE G. VAGINALIS (test code = 66703) POSITIVE T. VAGINALIS (test code = ) NEGATIVE Raji Waldrop AustinCT/NG, TMA, [id number] 00:00:00* Test Item Value Reference Range Interpretation Comme nts CHLAMYDIA, NAAT, THINPREP (t est code = 55621) NEGATIVE GONORRHEA, NAAT, THINPREP (t est code = 85603) NEGATIVE PDFE (test code = PDFReport) PDF Raji Waldrop AustinVAGINAL PATHOGENS DNA [id number] 00:00:00* Test Item Value Reference Range Interpretation Comme nts MICHAEL SPECIES (test code = ) NEGATIVE G. VAGINALIS (test code = 93366) POSITIVE T. VAGINALIS (test code = ) NEGATIVE Raji Waldrop AustinCT/NG, TMA, [id number] 00:00:00* Test Item Value Reference Range Interpretation Comme nts CHLAMYDIA, NAAT, THINPREP (t est code = 34170) NEGATIVE GONORRHEA, NAAT, THINPREP (t est code = 08301) NEGATIVE PDFE (test code = PDFReport) PDF Raji Waldrop AustinVAGINAL PATHOGENS DNA [id number] 00:00:00* Test Item Value Reference Range Interpretation Comme nts MICHAEL SPECIES (test code = ) NEGATIVE G. VAGINALIS (test code = 66543) POSITIVE T. VAGINALIS (test code = ) NEGATIVE Raji Waldrop AustinCT/NG, TMA, [id number] 00:00:00* Test Item Value Reference Range Interpretation Comme nts CHLAMYDIA, NAAT, THINPREP (t est code = 31231) NEGATIVE GONORRHEA, NAAT, THINPREP (t est code = 41159) NEGATIVE PDFE (test code = PDFReport) PDF Raji Waldrop AustinVAGINAL PATHOGENS DNA [id number] 00:00:00* Test Item Value Reference Range Interpretation Comme nts MICHAEL SPECIES (test code = ) NEGATIVE G. VAGINALIS (test code = 44734) POSITIVE T. VAGINALIS (test code = 05097) NEGATIVE Raji Waldrop AustinCT/NG, TMA, [id number] 00:00:00* Test Item Value Reference Range Interpretation Comme nts CHLAMYDIA, NAAT, THINPREP (t est code = 72589) NEGATIVE GONORRHEA, NAAT, THINPREP (t est code = 63861) NEGATIVE PDFE (test code = PDFReport) PDF Raji Waldrop AustinVAGINAL PATHOGENS DNA [id number] 00:00:00* Test Item Value Reference Range Interpretation Comme nts MICHAEL SPECIES (test code = ) NEGATIVE G. VAGINALIS (test code = 09873) POSITIVE T. VAGINALIS (test code = 81633) NEGATIVE Raji Waldrop AustinCT/NG, TMA, [id number] 00:00:00* Test Item Value Reference Range Interpretation Comme nts CHLAMYDIA, NAAT, THINPREP (t est code = 74226) NEGATIVE GONORRHEA, NAAT, THINPREP (t est code = 63900) NEGATIVE PDFE (test code = PDFReport) PDF Raji Waldrop AustinVAGINAL PATHOGENS DNA [id number] 00:00:00* Test Item Value Reference Range Interpretation Comme nts MICHAEL SPECIES (test code = ) NEGATIVE G. VAGINALIS (test code = 07189) POSITIVE T. VAGINALIS (test code = 33567) NEGATIVE Raji Waldrop AustinCT/NG, TMA, [id number] 00:00:00* Test Item Value Reference Range Interpretation Comme nts CHLAMYDIA, NAAT, THINPREP (t est code = 45441) NEGATIVE GONORRHEA, NAAT, THINPREP (t est code = 18945) NEGATIVE PDFE (test code = PDFReport) PDF Raji Waldrop AustinUNLABELLED SPECIMEN [ADDED]2020-04-04 00:00:00* Test Item Value Reference Range Interpretation Comme nts NOTE: (test code = 91055) Raji Waldrop AustinUNLABELLED SPECIMEN [ADDED]2020-04-04 00:00:00* Test Item Value Reference Range Interpretation Comme nts NOTE: (test code = 60031) Raji Waldrop AustinUNLABELLED SPECIMEN [ADDED]2020-04-04 00:00:00* Test Item Value Reference Range Interpretation Comme nts NOTE: (test code = 04987) Raji Waldrop AustinUNLABELLED SPECIMEN [ADDED]2020-04-04 00:00:00* Test Item Value Reference Range Interpretation Comme nts NOTE: (test code = 61144) Raji Waldrop AustinUNLABELLED SPECIMEN [ADDED]2020-04-04 00:00:00* Test Item Value Reference Range Interpretation Comme nts NOTE: (test code = 36993) Raji Waldrop AustinUNLABELLED SPECIMEN [ADDED]2020-04-04 00:00:00* Test Item Value Reference Range Interpretation Comme nts NOTE: (test code = 64641) Raji Waldrop AustinUNLABELLED SPECIMEN [ADDED]2020-04-04 00:00:00* Test Item Value Reference Range Interpretation Comme nts NOTE: (test code = 02576) Raji Waldrop AustinUNLABELLED SPECIMEN [ADDED]2020-04-04 00:00:00* Test Item Value Reference Range Interpretation Comme nts NOTE: (test code = 19599) Raji Waldrop [id number] (COVID-19) by RT-PCR (HIGH RISK)2020-04-03 00:00:00* Test Item Value Reference Range Interpretation Comme nts SARS-CoV-2 INTERPRETATION (t est code = 25001) POSITIVE SOURCE (test code = 76887) NOT SPECIFIED Raji Waldrop [id number] (COVID-19) by RT-PCR (HIGH RISK)2020-04-03 00:00:00* Test Item Value Reference Range Interpretation Comme nts SARS-CoV-2 INTERPRETATION (t est code = 60725) POSITIVE SOURCE (test code = 05184) NOT SPECIFIED Raji Waldorp [id number] (COVID-19) by RT-PCR (HIGH RISK)2020-04-03 00:00:00* Test Item Value Reference Range Interpretation Comme nts SARS-CoV-2 INTERPRETATION (t est code = 21804) POSITIVE SOURCE (test code = 46251) NOT SPECIFIED Raji Waldrop [id number] (COVID-19) by RT-PCR (HIGH RISK)2020-04-03 00:00:00* Test Item Value Reference Range Interpretation Comme nts SARS-CoV-2 INTERPRETATION (t est code = 18144) POSITIVE SOURCE (test code = 89975) NOT SPECIFIED Raji Waldrop [id number] (COVID-19) by RT-PCR (HIGH RISK)2020-04-03 00:00:00* Test Item Value Reference Range Interpretation Comme nts SARS-CoV-2 INTERPRETATION (t est code = 65155) POSITIVE SOURCE (test code = 36848) NOT SPECIFIED Raji Waldrop HdelfiAGSM-UwH-0 (COVID-19) by RT-PCR (HIGH RISK)2020-04-03 00:00:00* Test Item Value Reference Range Interpretation Comme nts SARS-CoV-2 INTERPRETATION (t est code = 50645) POSITIVE SOURCE (test code = 78830) NOT SPECIFIED Raji Waldrop FvhblcIKJV-PmD-6 (COVID-19) by RT-PCR (HIGH RISK)2020-04-03 00:00:00* Test Item Value Reference Range Interpretation Comme nts SARS-CoV-2 INTERPRETATION (t est code = 85792) POSITIVE SOURCE (test code = 30518) NOT SPECIFIED Raji Waldrop DklqoxGCHG-RnL-0 (COVID-19) by RT-PCR (HIGH RISK)2020-04-03 00:00:00* Test Item Value Reference Range Interpretation Comme nts SARS-CoV-2 INTERPRETATION (t est code = 43190) POSITIVE SOURCE (test code = 74894) NOT SPECIFIED Raji Waldrop TpelusSIBN-ShW-1 (COVID-19) by RT-PCR (HIGH RISK)2019-08-28 00:00:00* Test Item Value Reference Range Interpretation Comme nts SARS-CoV-2 INTERPRETATION (t est code = 84846) NEGATIVE SOURCE (test code = 51709) NOT SPECIFIED Raji Waldrop FwksubBXDW-HyF-2 (COVID-19) by RT-PCR (HIGH RISK)2019-08-28 00:00:00* Test Item Value Reference Range Interpretation Comme nts SARS-CoV-2 INTERPRETATION (t est code = 02838) NEGATIVE SOURCE (test code = 81080) NOT SPECIFIED Raji Waldrop TpgxulBYRD-GtG-9 (COVID-19) by RT-PCR (HIGH RISK)2019-08-28 00:00:00* Test Item Value Reference Range Interpretation Comme nts SARS-CoV-2 INTERPRETATION (t est code = 09434) NEGATIVE SOURCE (test code = 96907) NOT SPECIFIED Raji F IllzqaBQSH-XjE-5 (COVID-19) by RT-PCR (HIGH RISK)2019-08-28 00:00:00* Test Item Value Reference Range Interpretation Comme nts SARS-CoV-2 INTERPRETATION (t est code = 75285) NEGATIVE SOURCE (test code = 75847) NOT SPECIFIED Raji Waldrop GllwinHBCT-KnK-7 (COVID-19) by RT-PCR (HIGH RISK)2019-08-28 00:00:00* Test Item Value Reference Range Interpretation Comme nts SARS-CoV-2 INTERPRETATION (t est code = 75032) NEGATIVE SOURCE (test code = 52952) NOT SPECIFIED Raji Waldrop OslrpiLLJP-IwA-1 (COVID-19) by RT-PCR (HIGH RISK)2019-08-28 00:00:00* Test Item Value Reference Range Interpretation Comme nts SARS-CoV-2 INTERPRETATION (t est code = 67705) NEGATIVE SOURCE (test code = 13622) NOT SPECIFIED Raji Waldrop AekpbgJEEX-AwF-0 (COVID-19) by RT-PCR (HIGH RISK)2019-08-28 00:00:00* Test Item Value Reference Range Interpretation Comme nts SARS-CoV-2 INTERPRETATION (t est code = 26836) NEGATIVE SOURCE (test code = 44023) NOT SPECIFIED Raji Waldrop PsbwedVOPE-PmO-2 (COVID-19) by RT-PCR (HIGH RISK)2019-08-28 00:00:00* Test Item Value Reference Range Interpretation Comme nts SARS-CoV-2 INTERPRETATION (t est code = 98751) NEGATIVE SOURCE (test code = 67263) NOT SPECIFIED Raji Waldrop [place]AP [id number] 00:00:00* Test Item Value Reference Range Interpretation [...] 18: NEGATIVE Lab Interpretation (test code = 61721-0) [facility] [id number] 00:00:00* Test Item Value Reference Range Interpretation Comme nts External Chlamydia AB Panel (test code = 5044) Positive Negative A Lab Interpretation (test cod e = 05658-7) [facility] [id number] 13:13:00* Test Item Value Reference Range Interpretation [...] CLOUDY Lab Interpretation (test cod e = 70022-8) [facility] [id number] 13:13:00* Test Item Value Reference Range Interpretation [...] CLOUDY Lab Interpretation (test cod e = 41215-1) [facility] Notes Date/Time Note Provider Source [facility]2025-02-11 00:00:00 [facility]2024-11-13 00:00:00 [facility]2024-08-30 00:00:00 [facility]2024-08-23 00:00:00 [facility]2024-08-21 00:00:00 [facility]2024-07-01 00:00:00 [facility]2024-05-14 00:00:00 [facility]
[2024-09-10 16:28] LABS: Absolute Lymphocytes (CBC) 1.7 K/uL (0.7-4.9); Hematocrit 38.1 % (36.0-45.0); Hemoglobin 13.5 g/dL (12.0-15.0); MCH 31.0 pg (27.0-35.0); MCHC 35.4 g/dL (32.0-36.0); MCV 87.3 fL (80-100); MPV 9.8 fL (7.6-11.3); Nucleated RBC Absolute Count 0.0 (0-0); Nucleated Red Blood Cells % 0.0 % (0-0); RBC Red Blood Cell Count 4.36 M/uL (3.86-4.86); White Blood Count 10.60 thou/uL (4.3-10.9)
[2024-09-10 16:46] LABS: ALT/SGPT 37.0 U/L (13-56); AST/SGOT 28.0 U/L (15-37); Albumin 3.6 g/dL (3.4-5.0); Albumin/Globulin Ratio 1.0 (1.1-1.8); Alkaline Phosphatase 167.0 U/L (45-117); Anion Gap 8.2 mEq/L (5.0-15.0); BUN Blood Urea Nitrogen 10.0 mg/dL (7-18); Globulin 3.7 g/dL (2.3-3.5); Glucose Level 313.0 mg/dL (74-106); Lipase 23.0 U/L (13-75); Potassium 4.2 mEq/L (3.5-5.1)
[2024-09-10] MEDS ORDERED: NA CHLORIDE 0.9% 1,000 ML ONE (18:02)
--- NOTE | 2024-09-10 18:20 | RAD REPORT ---
EXAMINATION: Abdomen Pelvis W Contrast CLINICAL INDICATION: Female, 24 years old.ABD PAIN TECHNIQUE: CT abdomen and pelvis was performed, after the administration of IV contrast, as per [facility]. Axial, sagittal and coronal reconstructions were obtained. One or more of the following dose reduction techniques were used: Automated exposure control, adjustment of the mA and/o r kV according to patient size, and/or iterative reconstruction. Unless otherwise specified, incidental findings do not require dedicated imaging follow-up. [id number]. COMPARISON: 09/15/2016 FINDINGS: LOWER CHEST: No acute process identified.No significant pericardial effusion. UPPER GI: No significant abnormality. LIVER: Hepatic steatosis, but otherwise unremarkable. GALLBLADDER/BILE DUCTS: No biliary ductal dilatation.? PANCREAS: No mass, ductal dilation, or gabriele-pancreatic fluid. SPLEEN: Unremarkable. ADRENALS: No adrenal masses. KIDNEYS AND URETERS: No hydronephrosis.No suspicious renal mass.Atrophic left kidney.Lobular appearan ce of the kidneys bilaterally. ABDOMINAL AORTA AND OTHER VESSELS: Normal caliber aorta and IVC. PERITONEUM: No abnormal free fluid. No free air. LYMPH NODES: No pathologic lymphadenopathy. ABDOMINAL WALL: Unremarkable SMALL BOWEL/COLON: Small bowel has normal course and caliber. No colonic wall thickening or pericolon ic inflammatory changes.Normal appendix. URINARY BLADDER: Moderate circumferential bladder wall thickening with enhancement and bladder gas. REPRODUCTIVE ORGANS: No pathologic process. MUSCULOSKELETAL: No acute or suspicious osseous abnormality. ADDITIONAL FINDINGS: None. IMPRESSION: Fairly pronounced bladder wall thickening with enhancement and bladder gas concerning for cystitis. C orrelate with urinalysis.
[2024-09-10 18:45] LABS: Urine Crystals Unidentified Few /HPF (None Seen); Urine Culture Reflex Order REFLEXED; Urine Microscopic Reflex YN ORDER UMIC
--- NOTE | 2024-09-10 19:03 | RAD REPORT ---
Abdomen Exam Limited: 09/10/2024 6:51 PM CLINICAL HISTORY: RUQ pain STUDY: Limited right upper quadrant ultrasound of abdomen. COMPARISON: Same-day CT FINDINGS: Liver: Limited evaluation. Hepatic steatosis noted. Bile ducts: No intrahepatic or extrahepatic biliary ductal dilatation. Common bile duct measures 3 mm. Gallbladder: Numerous gallstones present within the gallbladder. The gallbladder is distended. No son ographic Vuong sign. No gallbladder wall thickening. IMPRESSION: Cholelithiasis without sonographic evidence of acute cholecystitis.
[2024-09-10] MEDS ORDERED: CEFTRIAXONE 1000 MG/VIAL ONE (19:32)
[2024-09-10] MEDS ORDERED: NA CHLORIDE 0.9% 100 ML ONE (19:35)
--- NOTE | 2024-09-10 19:45 | EDPHYS ---
Physician Documentation [facility] Name: Hilda Head Age: 24 yrs Sex: Female : 2000 Arrival Date: 09/10/2024 Time: 15:54 Bed IW9 Private MD: ED Physician Pk Prince HPI: 09/10 19:59 This 24 yrs old Female presents to ER via Ambulatory with complaints of cr8 Abdominal Pain. 16:05 Patient is a 24-year-old female with history of diabetes, noncompliant, comes emergency cr8 room complaining of generalized upper abdominal pain that began this morning. She denies any vomiting diarrhea. Reports epigastric pain and describes it as chest pain. She is not having any trouble breathing. She has been afebrile. Pain is not associated with exertional or diaphoresis. States she has never had this pain before. She states she is takes she takes some insulin but does not know which one. All she knows that starts with a nail.. 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 - Infectious Disease History:: Denies. - Social history:: Smoking status: Reported history of juuling and/or vaping. ROS: 16:11 Constitutional: as per HPI cr8 16:11 Abdomen/GI: Positive for abdominal pain, Exam: 16:07 Abdomen/GI: Palpation: moderate abdominal tenderness, in the epigastric area, right cr8 upper quadrant and left upper quadrant, 16:10 Constitutional: This is a well developed, well nourished patient who is awake, alert, cr8 and in no acute distress. Eyes: Pupils equal round and reactive to light, extra-ocular motions intact. Conjunctiva and sclera are non-icteric and not injected. Cardiovascular: Regular rate and rhythm with a normal S1 and S2. No gallops, murmurs, or rubs. Respiratory: Lungs have equal breath sounds bilaterally, clear to auscultation. No rales, rhonchi or wheezes noted. No increased work of breathing. Skin: Warm, dry with normal turgor. Normal color with no rashes, no lesions, and no evidence of cellulitis. Neuro: Awake and alert, GCS 15, oriented to person, place, time, and situation. Cranial nerves II-XII grossly intact. Motor strength 5/5 in all extremities. Sensory grossly intact. 16:25 ECG was reviewed by the Attending Physician. cr8 Vital Signs: 16:05 BP 134 / 72; Pulse 91; Resp 18; Temp 98.1; Pulse Ox 99% ; Weight 83.91 kg; Height 5 ft. me1 4 in. ; Pain 8/10; 17:16 BP 132 / 87; Pulse 93; Resp 16 S; Pulse Ox 100% on R/A; kc6 18:31 BP 136 / 93; Pulse 98; Resp 18 S; Pulse Ox 100% ; kc6 19:42 BP 137 / 83; Pulse 79; Resp 18; Pulse Ox 100% on R/A; Pain 2/10; tb4 20:46 BP 136 / 93; Pulse 86; Resp 18; Pulse Ox 97% on R/A; Pain 0/10; tb4 16:05 Body Mass Index 31.75 (83.91 kg, 162.56 cm) me1 16:05 Pain Scale: Adult me1 19:42 Pain Scale: Adult tb4 20:46 Pain Scale: Adult tb4 MDM: 16:01 Medical Screening Exam initiated cr8 19:54 Consideration of Admission/Observation Patient was admitted/placed on observation. cr8 Management of patient was discussed with the following: Hospitalist: EDGARDO. Predatory Animal Exterminator: Dr. Solano. Counseling: I had a detailed discussion with the patient and/or guardian regarding the historical points, exam findings, and any diagnostic results supporting the discharge/admit diagnosis, lab results, radiology results, the need for further work-up and treatment in the hospital. Medication response: Toradol partially relieved the patient's pain. ED course: Abdominal exam without peritoneal signs. No evidence of acute abdomen at this time. Well appearing. Given work up have low suspicion for upper GI bleed, acute pancreatitis (neg lipase), gastric perforation, acute infectious processes (pneumonia, hepatitis, pyelonephritis-no infectious symptoms, no fever, no productive cough, no dyspnea no CVA tenderness), atypical appendicitis, vascular catastrophe, bowel obstruction or viscus perforation, or acute coronary syndrome (EKG unremarkable for acute ischemia when compared to previous EKGs). Presentation not consistent with other acute, emergent causes of abdominal pain at this time. Patient's CAT scan showed gallbladder wall thickening. Went ahead and ordered a ultrasound which showed diffuse stones and distention. There was no evidence of wall thickening or pericholecystic fluid and the Vuong sign was negative so do not suspect acute cholecystitis. I called and spoke with the surgeon on-call. He excepted the patient as a consult and states he will perform surgery in the morning. Also on the CT is suggested bladder wall thickening with some gas likely emphysematous cystitis. Went back and discussed with the patient and she denies any dysuria suprapubic pain fever. Considered Pyelo but she has no CVA tenderness on examination she is afebrile and no leukocytosis. Called and spoke to the hospitalist on-call. Discussed the patient's results including the ultrasound findings CT findings of gallbladder wall thickening bladder wall thickening with gas. They agreed to accept the patient for admission. Patient's blood sugars elevated. Considered DKA but her CO2 on laboratory studies was unremarkable so low suspicion of DKA.. 19:59 Data reviewed: vital signs, nurses notes, lab test result(s), amylase and lipase, CBC, cr8 electrolytes, hepatic panel, urinalysis, EKG, radiologic studies, CT scan, ultrasound. 09/10 16:05 Order name: CBC with Diff; Complete Time: 16:31 cr8 09/10 16:05 Order name: CMP; Complete Time: 17:10 cr8 09/10 16:05 Order name: Lipase; Complete Time: 17:10 cr8 09/10 16:05 Order name: Test, Urine; Complete Time: 17:10 cr8 09/10 18:29 Order name: UA Rfx Earl Cult if indicated; Complete Time: 19:00 cr8 09/10 18:50 Order name: Urine Culture EDMS 09/10 20:32 Order name: CBC with Automated Diff EDMS 09/10 20:32 Order name: CBC with Automated Diff EDMS 09/10 20:33 Order name: CBC with Automated Diff EDMS 09/10 20:33 Order name: CBC with Automated Diff EDMS 09/10 20:33 Order name: Comprehensive Metabolic Panel EDMS 09/10 20:33 Order name: Comprehensive Metabolic Panel EDMS 09/10 20:33 Order name: Comprehensive Metabolic Panel [facility] 09/10 20:33 Order name: Comprehensive Metabolic Panel [facility] 09/10 20:33 Order name: Magnesium [facility] 09/10 20:33 Order name: Magnesium [facility] 09/10 20:33 Order name: Magnesium [facility] 09/10 20:33 Order name: Magnesium [facility] 09/10 17:17 Order name: CT Abd/Pelvis - IV Contrast Only; Complete Time: 19:00 cr8 09/10 18:32 Order name: US Abdomen Limited; Complete Time: 19:13 cr8 09/10 16:05 Order name: EKG; Complete Time: 16:05 cr8 09/10 20:38 Order name: Dr Son Gomez EDSD 09/10 16:05 Order name: IV Saline Lock; Complete Time: 16:25 cr8 09/10 18:50 Order name: Misc. Order: COLLECT SCHULTZ URINE CULTURE; Complete Time: 18:54 rv1 EC:25 Rate is 80 beats/min. Rhythm is regular. QRS [place] is Normal. LA interval is normal. QRS cr8 interval is normal. QT interval is normal. T waves are Normal. No ST changes noted. Administered Medications: 16:28 Drug: TORadol - Ketorolac IVP 15 mg IVP once Route: IVP; Site: left antecubital; 6 18:26 Follow up: Response: No adverse reaction [facility] 16:28 Drug: Ondansetron IVP 4 mg IVP once; over 2 minutes Route: IVP; Site: left antecubital; kc6 18:26 Follow up: Response: No adverse reaction [facility] 18:26 Drug: NS 0.9% IV 1000 ml IV at 1000 ml once; to be given as a bolus over 60 minutes [facility] Route: IV; Rate: 1000 ml; Site: left antecubital; 19:34 Follow up: Response: No adverse reaction; IV Status: Completed infusion tb4 19:28 CANCELLED (change to another abxx): rocephin1 grams IV at bolus once; Given slow IV cr8 push per pharmacy instructions 20:08 Drug: Piperacillin-Tazobactam IVPB 3.375 grams IVPB once over 60 mins; (mix in NS 100 tb4 mL) Route: IVPB; Infused Over: 60 mins; Site: left antecubital; 20:29 Follow up: Response: No adverse reaction; IV Status: Completed infusion tb4 20:40 Follow up: Response: No adverse reaction; IV Status: Completed infusion tb4 Disposition Summary: 09/10/24 19:45 Hospitalization Ordered Notes: Hospitalization Status: Inpatient Admission cr8 Provider: Lee Herbert Location: Telemetry/MedSurg (Inpatient) cr8 Condition: Stable cr8 Problem: new cr8 Symptoms: are unchanged cr8 Bed/Room Type: Standard cr8 Room Assignment: 212(09/10/24 20:33) rv1 Diagnosis - Other cholelithiasis without obstruction cr8 - Upper abdominal pain, unspecified cr8 - Acute cystitis with hematuria cr8 - Diabetes mellitus due to underlying condition with hyperglycemia cr8 Forms: - Medication Reconciliation Form cr8 - SBAR form cr8 - Leadership Thank You Letter cr8 Signatures: Dispatcher [employer] EDMS Shirley Vaca RN RN kc6 Shani Manzanares rv1 Elida Quinonez RN RN ks1 Manuel Davison NP RETAIL AGENT cr8 Greta Schwartz RN RN tb4 Corrections: (The following items were deleted from the chart) 19:28 19:19 Rocephin IV 1 grams IV at bolus once; Given slow IV push per pharmacy cr8 instructions ordered. cr8 19:59 19:54 ED course: Abdominal exam without peritoneal signs. No evidence of acute abdomen cr8 at this time. Well appearing. Given work up have low suspicion for upper GI bleed, acute pancreatitis (neg lipase), gastric perforation, acute infectious processes (pneumonia, hepatitis, pyelonephritis-no infectious symptoms, no fever, no productive cough, no dyspnea no CVA tenderness), atypical appendicitis, vascular catastrophe, bowel obstruction or viscus perforation, or acute coronary syndrome (EKG unremarkable for acute ischemia when compared to previous EKGs). Presentation not consistent with other acute, emergent causes of abdominal pain at this time. Patient's CAT scan showed gallbladder wall thickening. Went ahead and ordered a ultrasound which showed diffuse stones and distention. There was no evidence of wall thickening or pericholecystic fluid and the Vuong sign was negative so do not suspect acute cholecystitis. I called and spoke with the surgeon on-call. He excepted the patient as a consult and states he will perform surgery in the morning. Also on the CT is suggested bladder wall thickening with some gas likely emphysematous cystitis. Went back and discussed with the patient and she denies any dysuria suprapubic pain fever. Considered Pyelo but she has no CVA tenderness on examination she is afebrile and no leukocytosis. Called and spoke to the hospitalist on-call. Discussed the patient's results including the ultrasound findings CT findings of gallbladder wall thickening bladder wall thickening with gas. They agreed to accept the patient for admission.. cr8 20:33 19:45 cr8 rv1
--- NOTE | 2024-09-10 19:45 | ER ---
Nurse's Notes [facility] Name: Hilda Head Age: 24 yrs Sex: Female : 2000 Arrival Date: 09/10/2024 Time: 15:54 Bed IW9 Private MD: Diagnosis: Other cholelithiasis without obstruction;Upper abdominal pain, unspecified;Acute cystitis with hematuria;Diabetes mellitus due to underlying condition with hyperglycemia Presentation: 09/10 16:05 Chief complaint: Patient states: epigastric pain that woke patient up, radiates to LUQ me1 and RUQ "8/10", "burning" with some nausea. Denies fever. Coronavirus screen: Vaccine status: Patient reports being unvaccinated. Ebola Screen: No symptoms or risks identified at this time. Initial Sepsis Screen: Does the patient meet any 2 criteria? HR > 90 bpm. No. Patient's initial sepsis screen is negative. Does the patient have a suspected source of infection? No. Patient's initial sepsis screen is negative. Risk Assessment: Do you want to hurt yourself or someone else? Patient reports no desire to harm self or others. Onset of symptoms was September 10, 2024 at 10:00. 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 - Infectious Disease History:: Denies. - Social history:: Smoking status: Reported history of juuling and/or vaping. Screenin:16 [facility] ED Fall Risk Assessment (Adult) History of falling in the last 3 months, kc6 including since admission No falls in past 3 months (0 pts) Confusion or Disorientation No (0 pts) Intoxicated or Sedated No (0 pts) Impaired Gait No (0 pts) Mobility Assist Device Used No (0 pt) Altered Elimination No (0 pt) Score/Fall Risk Level 0 - 2 = Low Risk Oriented to surroundings. Abuse screen: Denies threats or abuse. Denies injuries from another. Nutritional screening: No deficits noted. Tuberculosis screening: No symptoms or risk factors identified. Assessment: 16:28 General: Appears in no apparent distress. uncomfortable, well groomed, well developed, kc6 Behavior is calm, cooperative, appropriate for age. Pain: Complains of pain in left upper quadrant and right upper quadrant and epigastric area. Neuro: Level of Consciousness is awake, alert, obeys commands, Oriented to person, place, time, situation, Appropriate for age. Cardiovascular: Denies chest pain, Capillary refill < 3 seconds. Respiratory: Airway is patent Trachea midline Respiratory effort is even, unlabored, Respiratory pattern is regular, symmetrical. GI: Abdomen is flat, non-distended, Bowel sounds present X 4 quads. Abd is soft X 4 quads Abdomen is tender to palpation in epigastric area, right upper quadrant and left upper quadrant Reports upper abdominal pain, epigastric pain, nausea, Patient currently denies diarrhea, vomiting. : No signs and/or symptoms were reported regarding the genitourinary system. Urine is clear. EENT: No signs and/or symptoms were reported regarding the EENT system. Derm: No signs and/or symptoms reported regarding the dermatologic system. Skin is intact, is healthy with good turgor, Skin is pink, warm \\T\\ dry. Musculoskeletal: No signs and/or symptoms reported regarding the musculoskeletal system. Circulation, motion, and sensation intact. Range of motion: intact in all extremities. 17:28 Reassessment: Patient appears in no apparent distress at this time. No changes from kc6 previously documented assessment. Patient and/or family updated on plan of care and expected duration. Pain level reassessed. Patient is alert, oriented x 3, equal unlabored respirations, skin warm/dry/pink. 18:28 Reassessment: Patient appears in no apparent distress at this time. No changes from kc6 previously documented assessment. Patient and/or family updated on plan of care and expected duration. Pain level reassessed. Patient is alert, oriented x 3, equal unlabored respirations, skin warm/dry/pink. 19:39 Reassessment: Patient is alert, oriented x 3, equal unlabored respirations, skin tb4 warm/dry/pink. General: Appears in no apparent distress. Behavior is calm, cooperative. Pain: Complains of pain in right upper quadrant and left upper quadrant Pain does not radiate. Pain currently is 2 out of 10 on a pain scale. Quality of pain is described as pressure, Pain began gradually. Neuro: Level of Consciousness is awake, alert, obeys commands, Oriented to person, place, time, situation, Curber are equal bilaterally Moves all extremities. Gait is steady, Speech is normal, Facial symmetry appears normal. Cardiovascular: Denies chest pain, fatigue, Capillary refill < 3 seconds is brisk in bilateral fingers. Respiratory: Airway is patent Trachea midline Respiratory effort is even, unlabored, Respiratory pattern is regular, symmetrical. GI: Abdomen is flat, non-distended, Bowel sounds present X 4 quads. Abd is soft X 4 quads Abdomen is tender to palpation in right upper quadrant and left upper quadrant Reports upper abdominal pain, epigastric pain, nausea. : No signs and/or symptoms were reported regarding the genitourinary system. EENT: No signs and/or symptoms were reported regarding the EENT system. Derm: No signs and/or symptoms reported regarding the dermatologic system. Musculoskeletal: No signs and/or symptoms reported regarding the musculoskeletal system. Circulation, motion, and sensation intact. Capillary refill < 3 seconds, is brisk, in bilateral fingers. Range of motion: intact in all extremities. Vital Signs: 16:05 BP 134 / 72; Pulse 91; Resp 18; Temp 98.1; Pulse Ox 99% ; Weight 83.91 kg; Height 5 ft. me1 4 in. ; Pain 8/10; 17:16 BP 132 / 87; Pulse 93; Resp 16 S; Pulse Ox 100% on R/A; kc6 18:31 BP 136 / 93; Pulse 98; Resp 18 S; Pulse Ox 100% ; kc6 19:42 BP 137 / 83; Pulse 79; Resp 18; Pulse Ox 100% on R/A; Pain 2/10; tb4 20:46 BP 136 / 93; Pulse 86; Resp 18; Pulse Ox 97% on R/A; Pain 0/10; tb4 16:05 Body Mass Index 31.75 (83.91 kg, 162.56 cm) me1 16:05 Pain Scale: Adult me1 19:42 Pain Scale: Adult tb4 20:46 Pain Scale: Adult tb4 ED Course: 15:57 Patient arrived in ED. al6 16:01 Manuel Davison NP is [facility]. cr8 16:01 Pk Prince MD is Attending Physician. cr8 16:02 Shirley Vaca, RN is Primary Nurse. kc6 16:06 Triage completed. me1 16:06 Arm band placed on Patient placed in an exam room. EKG completed in triage. Results me1 shown to MD. EKG completed in triage. Results shown to MD. 16:16 Patient has correct armband on for positive identification. Bed in low position. Call kc6 light in reach. Side rails up X 1. Adult w/ patient. metal furnace operator on. Pulse ox on. NIBP on. Door closed. Noise minimized. Lights dimmed. Warm blanket given. Pillow given. Verbal reassurance given. 16:16 EKG done, by gallery or museum technician. reviewed by Manuel Davison NP. Patient maintains SpO2 kc6 saturation greater than 95% on room air. 16:25 Inserted saline lock: 20 gauge in left antecubital area, using aseptic technique. Blood ts3 collected. Flushed with 10 mL NS. 16:25 Initial lab(s) drawn, by labor economics professor, sent to lab. ts3 16:25 Urine collected: clean catch specimen, sent to lab. ts3 18:03 CT Abd/Pelvis - IV Contrast Only In Process Unspecified. EDMS 18:53 US Abdomen Limited In Process Unspecified. EDMS 19:08 Primary Nurse role handed off by Shirley Vaca, RN rv1 19:44 Lee Herbert, RN is Hospitalizing Provider. cr8 21:18 No provider procedures requiring assistance completed. tb4 Administered Medications: 16:28 Drug: TORadol - Ketorolac IVP 15 mg IVP once Route: IVP; Site: left antecubital; kc6 18:26 Follow up: Response: No adverse reaction kc6 16:28 Drug: Ondansetron IVP 4 mg IVP once; over 2 minutes Route: IVP; Site: left antecubital; kc6 18:26 Follow up: Response: No adverse reaction kc6 18:26 Drug: NS 0.9% IV 1000 ml IV at 1000 ml once; to be given as a bolus over 60 minutes kc6 Route: IV; Rate: 1000 ml; Site: left antecubital; 19:34 Follow up: Response: No adverse reaction; IV Status: Completed infusion tb4 19:28 CANCELLED (change to another abxx): rocephin1 grams IV at bolus once; Given slow IV cr8 push per pharmacy instructions 20:08 Drug: Piperacillin-Tazobactam IVPB 3.375 grams IVPB once over 60 mins; (mix in NS 100 tb4 mL) Route: IVPB; Infused Over: 60 mins; Site: left antecubital; 20:29 Follow up: Response: No adverse reaction; IV Status: Completed infusion tb4 20:40 Follow up: Response: No adverse reaction; IV Status: Completed infusion tb4 Medication: 19:42 VIS not applicable for this client. tb4 Outcome: 19:45 Decision to Hospitalize by Provider. cr8 23:04 Patient left the ED. tb4 Signatures: Dispatcher [employer] Shirley Guardado, RN RN kc6 Shani Manzanares rv1 Elida Quinonez RN RN me1 Lashay Trinidad al6 Manuel Davison, BEAD WORKER SEWING BEAD WORKER SEWING cr8 Greta Schwartz RN RN tb4 Shanti Leon 3
[2024-09-10] MEDS ORDERED: ACETAMINOPHEN 325 MG TABLET PO PRN (20:27)
[2024-09-10] MEDS ORDERED: ONDANSETRON 4 MG/2 ML VIAL IV PRN (20:27)
[2024-09-10] MEDS: D5 0.45 NS 1,000 ML IV SCH (22:46)
[2024-09-10] MEDS: MORPHINE 4 MG/ML SYR IV PRN (22:49)
[2024-09-11] MEDS: INSULIN REGULAR (HUMAN) 100 UNIT/ML SQ SCH ×2 (00:23→13:54)
[2024-09-11 06:22] LABS: Absolute Lymphocytes (CBC) 1.1 K/uL (0.7-4.9); Hematocrit 36.0 % (36.0-45.0); Hemoglobin 12.5 g/dL (12.0-15.0); MCH 30.7 pg (27.0-35.0); MCHC 34.7 g/dL (32.0-36.0); MCV 88.7 fL (80-100); MPV 10.3 fL (7.6-11.3); Nucleated RBC Absolute Count 0.0 (0-0); Nucleated Red Blood Cells % 0.0 % (0-0); RBC Red Blood Cell Count 4.05 M/uL (3.86-4.86); White Blood Count 10.60 thou/uL (4.3-10.9)
[2024-09-11 06:44] LABS: ALT/SGPT 117.0 U/L (13-56); AST/SGOT 119.0 U/L (15-37); Albumin 3.0 g/dL (3.4-5.0); Albumin/Globulin Ratio 0.9 (1.1-1.8); Alkaline Phosphatase 227.0 U/L (45-117); Anion Gap 7.9 mEq/L (5.0-15.0); BUN Blood Urea Nitrogen 11.0 mg/dL (7-18); Globulin 3.5 g/dL (2.3-3.5); Glucose Level 292.0 mg/dL (74-106); Magnesium 1.9 mg/dL (1.6-2.4); Potassium 3.9 mEq/L (3.5-5.1)
--- NOTE | 2024-09-11 08:07 | P.CNS ---
Date of Consult: 09/11/24 Reason for consult: Abdominal History of present illness: Patient is a 24-year-old female who presents with acute onset of upper abdominal pain mostly in the right upper quadrant associated with nausea and vomiting. Patient denies any bloating, belching or heartburn. Patient denies any diarrhea, constipation, blood per rectum, dysuria or hematuria. Patient denies any sore throat, runny nose, cough, headache, dizziness, chest pain, fever or chills. Review of systems: Otherwise unremarkable Past medical history: Bipolar disorder, diabetes and asthma Past surgical history: Negative Allergies: None Social history: Patient vapes and drinks occasionally Family history: Noncontributory Vital signs: Stable, afebrile Physical exam: Awake, alert and oriented x 3 Head and neck exam: No neck masses, no JVD, throat clear, neck supple and no evidence of icterus Chest: Clear Heart: S1-S2 Abdomen: Soft, nondistended, positive bowel sound, right upper quadrant tenderness Extremity: Neurovascular intact Neuro: Nonfocal Diagnostic data: Ultrasound and CAT scan reviewed, LFTs were elevated this morning Assessment: Acute cholecystitis and cholelithiasis with elevated liver function test Plan/recommendation: Will get an MRCP first and should it be normal then we will proceed with laparoscopic cholecystectomy possible open. If it has stone in it then we will get GI consultation for ERCP. Patient understands risk, benefits and alternatives and agrees to procedure. CC:
[2024-09-11] MEDS: NA CHLORIDE 0.9% 1,000 ML ONE (08:15)
[2024-09-11] MEDS: PIPER TAZO 3.375 GM in NA CHLORIDE 0.9% 100 ML IV ONE (08:15)
[2024-09-11] MEDS: MORPHINE 4 MG/ML SYR ONE (09:01)
--- NOTE | 2024-09-11 09:14 | RAD REPORT ---
EXAMINATION: MR CHOLANGIOGRAM CLINICAL INDICATION: Female, 24 years old. Cholelithiasis with elevated liver function test TECHNIQUE: Multiplanar, multisequence MR imaging of the abdomen without intravenous contrast, and wit h specific attention to the biliary system. Unless otherwise specified, incidental findings do not require dedicated imaging follow-up. 3D MIP reconstruction performed. COMPARISON: No prior exam. FINDINGS: GALLBLADDER: Extensive cholelithiasis noted with trace pericholecystic fluid. BILE DUCTS: No biliary ductal dilatation. LIVER: Mild fatty liver. PANCREAS: Normal signal. No mass, ductal dilation, or gabriele-pancreatic fluid. LYMPH NODES: No lymphadenopathy. IMPRESSION: Cholelithiasis. Mild fatty liver. No pathologic biliary tree dilatation.
[2024-09-11] MEDS ORDERED: MIDAZOLAM HCL 2 MG/2 ML INJ ONE (09:25)
[2024-09-11] MEDS ORDERED: FENTANYL CITR 100 MCG/2 ML ONE ×3 (09:25→11:44)
[2024-09-11] MEDS ORDERED: LIDOCAINE 1% MPF 5 ML VIAL ONE (09:25)
[2024-09-11] MEDS ORDERED: KETOROLAC 30 MG/ML INJ ONE ×3 (09:25→11:45)
[2024-09-11] MEDS ORDERED: ONDANSETRON 4 MG/2 ML VIAL ONE (09:25)
[2024-09-11] MEDS ORDERED: ROCURONIUM 50 MG/5 ML VIAL IV ONE (09:25)
--- NOTE | 2024-09-11 10:13 | P.HP ---
Certification for Inpatient With expected LOS: >2 Midnights Patient will require the following post-hospital care: None Practitioner: I am a practitioner with admitting privileges, knowledge of patient current condition, hospital course, and medical plan of care. Services: Services provided to patient in accordance with Admission requirements found in Title 42 Section 412.3 of the Code of Federal Regulations Patient History Date of Service: 09/10/24 Reason for admission: Acute cholecystitis. History of Present Illness: Patient is a pleasant 24-year-old female with past medical history of type 1 diabetes , who reports to the ER complaining of profound right upper quadrant abdominal pain associated with nausea, vomiting nonbilious and nonbloody content, with mild associated chest pain with her abdominal pain. Patient denies of any shortness of breath. Patient blood sugar is poorly managed, and it appears noncompliance with her medications administration. States her blood sugar usually runs in the 400s+ at home for which she states is normal for her. Patient states around 10 AM in the morning when she woke up, she had severe and sharp abdominal pain right upper quadrant with rebound tenderness on palpation., states around 4 PM the pain became worsening and excruciating associated with nausea and vomiting nonbilious, nonbloody content. States she has never had such pain before. Patient states she decided to report to ER because the pain was not getting better. She describes the pain as constant, sharp, with the pain scale intensity of 10/10. Course in ER: (1) CT abdomen/pelvis with contrast. Impression: Fairly pronounced bladder wall thickening with enhancement and bladder gas concerning for cystitis. Correlate with urinalysis. (2) ultrasound right upper quadrant. Impression: Cholelithiasis without sonographic evidence of acute cholecystitis. Allergies No Known Allergies Allergy (Verified 09/10/24 22:45) Home Medications: Albuterol Sulfate [Proair Hfa] 2 pump IH PRN PRN 10/26/21 OXcarbazepine [Oxcarbazepine] 300 mg PO DAILY 10/26/21 - Past Medical/Surgical History Has patient received pneumonia vaccine in the past: No Diabetic: Yes -: Diabetes -: Asthma -: BIPOLAR - Social History Smoking Status: Never smoker Alcohol use: No CD- Drugs: No Place of Residence: Home Review of Systems 10-point ROS is otherwise unremarkable Gastrointestinal: Nausea, Vomiting, Abdominal Pain Physical Examination - Vital Signs Temperature: 98.3 F Blood Pressure: 124/76 Pulse: 96 Respirations: 18 Pulse Ox (%): 99 - Physical Exam General: Alert, In no apparent distress, Oriented x3, Cooperative HEENT: Atraumatic, Normocephalic, PERRLA, Mucous membr. moist/pink Neck: Supple, 2+ carotid pulse no bruit, No LAD, Without JVD or thyroid abnormality Respiratory: Clear to auscultation bilaterally, Normal air movement Cardiovascular: No edema, Normal pulses, Regular rate/rhythm, Normal S1 S2, Abnormal S3, No gallops, No rubs, No murmurs Capillary refill: <2 Seconds Gastrointestinal: Normal bowel sounds, W/out hepatomegaly, No ascites, No masses, Tenderness, Rebound, Guarding Musculoskeletal: No clubbing, No swelling, No contractures, No erythema, No tenderness, No warmth Integumentary: No rashes, No breakdown, No significant lesion, No tenderness/swelling, No erythema, No warmth, No cyanosis Neurological: Normal gait, Normal speech, Normal strength at 5/5 x4 extr, Normal tone, Sensation intact, Cranial nerves 3-12 intact, Normal reflexes 2+, Normal affect Lymphatics: No axilla or inguinal lymphadenopathy - Studies Laboratory Data (last 24 hrs) 09/10/24 09/10/24 16:20 16:20 WBC 10.60 Hgb 13.5 Hct 38.1 Plt Count 264 Sodium 136 Potassium 4.2 BUN 10 Creatinine 0.69 Glucose 313 H Total Bilirubin 0.5 AST 28 ALT 37 Alkaline Phosphatase 167 H Lipase 23 Female Exam - Breasts Breasts: Normal configuration Assessment and Plan - Plan Patient presents the ER complaining of worsening abdominal pain right upper quadrant. Patient admitted with diagnosis of acute cholecystitis. Patient scheduled for surgery in a.m. (1)Acute cholecystitis/UTI. -NPO after midnight. -Consult Dr. Gomez. -IV D5 half NS at 75 mL/ hr. -Zofran 4 mg IV as needed every 6 hours. - Ceftriaxone 2 g IV daily. (2)Chronic type 1 diabetes. Patient blood sugars poorly managed at home. -Lantus 20 units subcu a.m. Will not optimize patient insulin dose at this time because patient may be so used to high blood sugar stating that her sugar usually runs 400 at home. -Blood sugar every 6 hours NPO with moderate sliding scale coverage. (3) DVT prophylaxis. -Order SCD at this time since patient is scheduled for surgery in AM. (4)Explained the entire treatment plan to the patient, and family present at bedside, solicit questions answered and voiced understanding. Discharge Plan: Home Plan to discharge in: Greater than 2 days - Advance Directives Does patient have a Living Will: No Does patient have a Durable POA for Healthcare: No - Code Status/Comfort Care Code Status Assessed: Yes Code Status: Full Code Critical Care: No Time Spent Managing Pts Care (In Minutes): 55
[2024-09-11] MEDS: PIPERACIL/TAZO 3.375 GM VIAL IV ONE (10:50)
[2024-09-11] MEDS ORDERED: GLYCOPYRROLATE 0.2 MG/ML SYR ONE (10:54)
[2024-09-11] MEDS ORDERED: NEOSTIGMINE 1 MG/ML -10 ML VIAL ONE (10:54)
[2024-09-11] MEDS: BUPIVACAINE 0.5% PF 10 ML VIAL ONE (10:57)
[2024-09-11] MEDS ORDERED: Mastisol Adhesive Liq ONE (11:45)
--- NOTE | 2024-09-11 11:59 | P.OP ---
Date of Service: 09/11/24 Preop diagnosis: Acute cholecystitis and cholelithiasis Postop diagnosis: Same with acute ischemic cholecystitis Procedure performed: Laparoscopic cholecystectomy Surgeon: Benito Gomez MD Adon: None Estimated blood loss: Minimal Specimen: Gallbladder Findings: As above Anesthesia: General Complications: None Drains: None Fluids and blood products: None nonapplicable Disposition: Recovery room Operative note: Patient brought to the OR and placed in the supine position. General anesthesia began. Patient prepped and draped in usual sterile fashion. Marcaine 0.5% infiltrated locally. 15 blade used to make a 1 cm supraumbilical midline incision. Subcutaneous tissue divided and bleeding controlled cautery. Fascia identified and divided. #1 Vicryl stay suture placed. Peritoneal cavity entered with sharp and blunt dissection. 12 mm trocar placed into the peritoneal cavity under direct vision. Pneumoperitoneum established. Under direct vision, three 5 mm trocar placed. 1 trocar placed in the epigastric region just to the right of midline. 2 trocars placed in the right subcostal region. Laparoscopy revealed omental adhesions to the gallbladder which were taken down easily with LigaSure. Gallbladder was distended with ischemic changes. Gallbladder was aspirated. An fundus was identified and retracted superiorly. Infundibulum was identified and retracted inferolaterally. Cystic duct and cystic artery were clearly identified with blunt dissection. Clips placed in both structures divided. Cautery used to remove the gallbladder from the liver bed. Bleeding on the liver controlled cautery. Gallbladder retrieved to the umbilicus via Endo Catch bag. Right upper quadrant irrigated. Effluent clear and no evidence of bleeding or bile leakage appreciated. Subsequently all trocars removed under direct vision. Stay sutures tied to each other to reapproximate the fascial defect. Wound irrigated and bleeding controlled cautery. 3-0 chromic used to approximate subcutaneous tissue and close skin. Sterile dressing applied. Patient awakened and taken to recovery room in good general condition. CC:
[2024-09-11] MEDS ORDERED: HYDROCODONE/APAP 7.5/325 MG TAB PO PRN (12:08)
--- NOTE | 2024-09-11 12:46 | P.PN ---
Date of Service: 09/11/24 Status post lap cholecystectomy today. Patient found to have ischemic acute cholecystitis. Analgesics as needed Diet per surgery Continue antibiotics. Monitor LFTs Lantus and insulin sliding scale for glucose management.
[2024-09-11] MEDS: INSULIN GLARGINE 100 UNIT/ML SQ SCH (13:54)
[2024-09-11] MEDS: HYDROMORPHONE HCL 1 MG/ML INJ IV PRN (18:43)
[2024-09-11] MEDS: CEFTRIAXONE 2,000 MG in NA CHLORIDE 0.9% 100 ML IV SCH (21:01)
[2024-09-11 22:58] VITALS: BMI 31.7
[2024-09-12 06:16] LABS: Absolute Lymphocytes (CBC) 1.7 K/uL (0.7-4.9); Hematocrit 31.2 % (36.0-45.0); Hemoglobin 10.8 g/dL (12.0-15.0); MCH 31.3 pg (27.0-35.0); MCHC 34.7 g/dL (32.0-36.0); MCV 90.2 fL (80-100); MPV 10.4 fL (7.6-11.3); Nucleated RBC Absolute Count 0.0 (0-0); Nucleated Red Blood Cells % 0.0 % (0-0); RBC Red Blood Cell Count 3.46 M/uL (3.86-4.86); White Blood Count 9.60 thou/uL (4.3-10.9)
[2024-09-12 06:36] LABS: ALT/SGPT 151.0 U/L (13-56); AST/SGOT 126.0 U/L (15-37); Albumin 2.6 g/dL (3.4-5.0); Albumin/Globulin Ratio 0.7 (1.1-1.8); Alkaline Phosphatase 169.0 U/L (45-117); Anion Gap 7.9 mEq/L (5.0-15.0); BUN Blood Urea Nitrogen 10.0 mg/dL (7-18); Globulin 3.6 g/dL (2.3-3.5); Glucose Level 277.0 mg/dL (74-106); Magnesium 1.8 mg/dL (1.6-2.4); Potassium 3.9 mEq/L (3.5-5.1)
[2024-09-12 08:25] VITALS: BP 128/73; TEMP 97.9
--- NOTE | 2024-09-12 11:07 | P.DS ---
Admission Date: 09/10/24 Discharge Date: 09/12/24 Disposition: ROUTINE DISCHARGE Discharge Condition: FAIR Reason for Admission: Acute cholecystitis. Brief History of Present Illness: 24-year-old woman with past medical history of diabetes, who presents emergency department with a complaint of abdominal pain associated with nausea and vomiting. No fever. CT abdomen pelvis done in the emergency department showed cholelithiasis without sonographic evidence of acute cholecystitis, bladder wall thickening with enhancement and gas concerning for cystitis. Urinalysis. Patient was instructed for further management. Hospital Course: Diagnosis Acute calculus cholecystitis Diabetes mellitus with hyperglycemia Patient admitted to the medical floor and treated with IV Zosyn. Patient was seen and evaluated by General surgery Dr. Gomez. MRCP done did not show any CBD stone or CBD dilatation. Dr. Gomez performed laparoscopic cholecystectomy. Patient was stable with monitoring overnight after the cholecystectomy. Patient had no sepsis Liver enzymes was elevated post lap cholecystectomy. Elevated LFT likely due to manipulation due to surgery. Patient informed she will need a repeat LFT within a week. She was also made aware she is supposed to follow-up with Dr. Gomez in the office within 1 week postsurgery. Patient blood sugar was elevated. Hemoglobin A1c was 9.7. Patient was prescribed metformin. She is also prescribed Augmentin for UTI and as empiric treatment postcholecystectomy. Vital Signs/Physical Exam: Temp Pulse Resp BP Pulse Ox 97.9 F 110 H 16 128/73 95 09/12/24 08:00 09/12/24 08:00 09/12/24 08:35 09/12/24 08:00 09/12/24 08:35 General: Alert, In no apparent distress, Oriented x3 HEENT: Mucous membr. moist/pink Neck: JVD not distended Respiratory: Clear to auscultation bilaterally, Normal air movement Cardiovascular: Regular rate/rhythm, Normal S1 S2 Gastrointestinal: Normal bowel sounds, Soft and benign, Non-distended Musculoskeletal: No swelling Integumentary: No rashes, No erythema, No cyanosis Neurological: Normal strength at 5/5 x4 extr Laboratory Data at Discharge: WBC 9.60 thou/uL (4.3-10.9) 09/12/24 05:47 Hgb 10.8 g/dL (12.0-15.0) L D 09/12/24 05:47 Hct 31.2 % (36.0-45.0) L 09/12/24 05:47 Plt Count 178 thou/uL (152-406) 09/12/24 05:47 Sodium 135 mEq/L (136-145) L 09/12/24 05:47 Potassium 3.9 mEq/L (3.5-5.1) 09/12/24 05:47 BUN 10 mg/dL (7-18) 09/12/24 05:47 Creatinine 0.64 mg/dL (0.55-1.02) 09/12/24 05:47 Glucose 277 mg/dL (74-106) H 09/12/24 05:47 Magnesium 1.8 mg/dL (1.6-2.4) 09/12/24 05:47 Total Bilirubin 0.4 mg/dL (0.2-1.0) 09/12/24 05:47 AST 126 U/L (15-37) H 09/12/24 05:47 ALT 151 U/L (13-56) H 09/12/24 05:47 Alkaline Phosphatase 169 U/L (45-117) H D 09/12/24 05:47 Lipase 23 U/L (13-75) 09/10/24 16:20 Home Medications: Albuterol Sulfate [Proair Hfa] 2 pump IH PRN PRN 10/26/21 OXcarbazepine [Oxcarbazepine] 300 mg PO DAILY 10/26/21 Amox/Clavulanate [Augmentin 875-125 Tab] 1 each PO BID #14 tab 09/12/24 Hydrocodone 7.5/APAP 325 [[place] 7.5/325 mg*] 1 tab PO Q4H PRN #15 tab 09/12/24 Metformin HCl 500 mg PO BID #60 tab 09/12/24 New Medications: Amox/Clavulanate [Augmentin 875-125 Tab] 1 each PO BID #14 tab Metformin HCl 500 mg PO BID #60 tab Hydrocodone 7.5/APAP 325 [[place] 7.5/325 mg*] 1 tab PO Q4H PRN #15 tab PRN Reason: Pain Scale 5-7 (Moderate) Physician Discharge Instructions: May shower Remove outer dressing in a.m. Keep Steri-Strips on at all times Incentive spirometry as instructed Antibiotics and pain medicine per the hospitalist team Follow-up my office 1 week, call for appointment No heavy lifting or strenuous exercise Resume home meds and diet Diet: ADA Activity: Ad dirk Followup: NONE,NONE [Primary Care Provider] - Benito Gomez MD [ACTIVE - CAN ADMIT] - 1 Week Time spent managing pt's care (in minutes): 35
[2024-09-12 11:58] VITALS: O2SAT 98
--- NOTE | 2024-09-12 12:23 | PN ---
Date of Progress Note: 09/12/2024 Subjective: The patient is awake, alert. Pain is controlled on p.o. pain medication. She is tolera ting diet, ambulating, afebrile. Objective: Vital Signs: Stable. Slight elevation of the heart rate. Abdomen: Benign. Laboratory Data: Reviewed. White count is normal. There is no left shift. Chemistry reviewed. Th ere is slight elevation of the AST, ALT, probably secondary to surgery. She had a very bad gallbladd er. Assessment: Status post laparoscopic cholecystectomy. Recommendation: The patient can be discharged home on antibiotics and pain medicine. Discharge inst ructions given. The patient to follow up with me in 1 week. /MODL Voice ID: [id number] Report ID: [id number]
== END 2024-09-12 11:42 | disposition home or self-care (01) | DRG 988 ==
LOC: ER 15:54 → 2ND 20:23
PROVIDERS: ADMIT Internal Medicine; ATTEND Internal Medicine
PROC: 0FT44ZZ Resection of Gallbladder, Percutaneous Endoscopic Approach (ICD-10-PCS; principal; 2024-09-11 08:30)
DX: N30.01 Acute cystitis with hematuria (principal); K80.00 Calculus of gallbladder with acute cholecystitis without obstruction; F31.9 Bipolar disorder, unspecified; E10.65 Type 1 diabetes mellitus with hyperglycemia; T38.3X6A Underdosing of insulin and oral hypoglycemic [antidiabetic] drugs, initial encounter; Z91.148 Patient's other noncompliance with medication regimen for other reason
CPT/HCPCS: 36415; 74177; 74181; 76705; 80053; 81001; 81025; 82947; 83036; 83690; 83735; 85025; 87086; 87088; 88304; 93005; 94010; 96361; 96365; 96375; 99285; J0696; J1171; J1815; J2003; J2250; J2405; J2543; J2704; J2710; J3010; J7030; J7799; Q9967